=== PATIENT | female | born 1955 | race Caucasian/White ===

== ENCOUNTER 2020-01-02 13:00 | Outpatient (RCR) | payer BC, SELFPAY ==
[2019-12-26 08:30] VITALS: RESP 18; TEMP 36.2
--- NOTE | 2019-12-26 09:04 | PCM.WC.PN ---
(1) Lymphedema Status: Acute Current Visit: Yes Code(s): I89.0 - Lymphedema, not elsewhere classified (2) Cellulitis of lower extremity Status: Acute Current Visit: Yes Code(s): L03.119 - Cellulitis of unspecified part of limb (3) Morbid obesity with BMI of 45.0-49.9, adult Status: Acute Current Visit: Yes Code(s): E66.01 - Morbid (severe) obesity due to excess calories; Z68.42 - Body mass index (BMI) 45.0-49.9, adult (4) PAD (peripheral artery disease) Status: Acute Current Visit: Yes Code(s): I73.9 - Peripheral vascular disease, unspecified (5) PVD (peripheral vascular disease) Status: Acute Current Visit: Yes Code(s): I73.9 - Peripheral vascular disease, unspecified Type of Wound Date of Service: 12/26/19 Chief Complaint: Follow-up on lymphedema bilateral lower legs History of Wound: 64-year-old white morbid obesity woman. 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 She has developed lymphedema over the years. Moved here from [place] and was going to the wound center there that was wrapping her legs. Because of her sciatica pain she has been unable to wrap her own legs and therefore has gotten worse. Right leg is much bigger than the left leg. We will get vascular studies and send her to lymphedema clinic for wrappings. Progress of Wound: Today bilateral lower legs are extremely large right leg bigger than left leg no open wounds to the skin cellulitis in the bilateral reid area. Ordering studies done of her legs and lymphedema clinic. She is a controlled diabetic type II. Patient would like to discuss liposuction for the lymphedema. - Physical Exam Vital Signs Temp Resp 97.2 F L 18 12/26/19 08:30 12/26/19 08:30 General: Oriented x3, Cooperative, Well developed HEENT: Atraumatic, PERRLA Oral: Moist Mucosa Neck: Supple, No JVD Lungs: Clear to auscultation, Normal air movement Cardiovascular: Regular rate, Regular Rhythm Abdomen: Bowel Sounds Present, Soft, Non Tender, No Hepato-splenomegaly Extremities: No clubbing, No edema, Edema Skin: Rash Present - Shins bilaterally with cobblestoning skin Wound Measurements and Assessment WC - Nurse 1 - General Ulcer Measurement Start: 12/26/19 08:30 Freq: Status: Active Protocol: Activity Type Activity Date Activity User E-Sign Co-Sign Detail Recorded Client Recorded Date Recorded By Document 12/26/19 08:30 BMF [id number] 12/26/19 08:44 BMF 12/26/19 08:30 Wound Center Nurse 1 [Edema Assessment] -Lower Limb Edema Present Yes -Right Calf (cm) 70.5 -Right Ankle (cm) 38.6 -Left Calf (cm) 58.9 -Left Ankle (cm) 38 WC - Nurse 2 - General Ulcer CM Notes Start: 12/26/19 08:30 Freq: Status: Active Protocol: Activity Type Activity Date Activity User E-Sign Co-Sign Detail Recorded Client Recorded Date Recorded By Document 12/26/19 08:55 MW [id number] 12/26/19 08:56 MW 12/26/19 08:55 Pain Scale: 0-10 Numeric [Pain] -Is Patient Pain Free? Yes Musculoskeletal: No Tenderness to Palpation of Joints or Extremities Lymphatic: No Cervical, Supraclavicular, or Inguinal Adenopathy Neurological: Cranial nerves II-XII grossly intact, Neuro grossly intact Psych/Mental Status: Normal Affect, Appropriate Debridement Note Post-Debridement Measurements/Treatment WC - Nurse 2 - General Ulcer CM Notes Start: 12/26/19 08:30 Freq: Status: Active Protocol: Activity Type Activity Date Activity User E-Sign Co-Sign Detail Recorded Client Recorded Date Recorded By Document 12/26/19 08:55 MW [id number] 12/26/19 08:56 MW 12/26/19 08:55 Pain Scale: 0-10 Numeric Is Patient Pain Free? Yes No debridement was completed today Assessment/Plan Active Problems Lymphedema (Acute) Cellulitis of lower extremity (Acute) Morbid obesity with BMI of 45.0-49.9, adult (Acute) PAD (peripheral artery disease) (Acute) PVD (peripheral vascular disease) (Acute) Assessment: Lymphedema. Cellulitis bilateral lower legs. Morbid obesity. Peripheral vascular disease Plan: Get vascular studies done ROSALINA. Follow-up with the lymphedema clinic. Follow-up in a couple of weeks
--- NOTE | 2020-01-02 13:34 | VDLE_ITS ---
Reason For Study: Edema RIGHT LEFT CFV is compressible, spontaneous, phasic, CFV is compressible, spontaneous, phasic, competent and demonstrates normal competent, and demonstrates normal augmentation. augmentation. FV is compressible, spontaneous, phasic, FV is compressible, spontaneous, phasic, competent and demonstrates normal competent and demonstrates normal augmentation. augmentation. POP V is compressible, spontaneous, phasic, POP V is compressible, spontaneous, phasic, competent and demonstrates normal competent and demonstrates normal augmentation. augmentation. T/P Trunk is compressible. T/P Trunk is compressible. PTV is compressible. PTV is compressible. FV distal and peroneal vein not visualized FV distal and peroneal vein not visualized due to pt body habitus. due to pt body habitus. SFJ is competent and measures 1.09 x 1.40 Nonvascularized structure noted in the cm. popliteal space measuring approximently 1.78 GSV proximal thigh measures 0.52 x 0.46 cm. x 3.78 x 7.49 cm. GSV at knee measures 0.39 x 0.44 cm. SFJ is competent and measures 1.21 x 1.17 cm. GSV is competent throughout. GSV proximal thigh measures 0.81 x 0.91 cm. SSV at junction is competent and measures GSV at knee measures 0.39 x 0.43 cm. 0.29 x 0.33 cm. GSV is competent throughout. Procedure SSV at junction is competent and measures Exam performed in department. 0.25 x 0.27 cm. Technically difficult study due to pt body habitus. A preliminary report was called and/or faxed to . Interpretation Summary Deep veins of the lower extremities are bilaterally patent and compressible segmentally. There is no evidence of deep vein thrombosis on either side. Valvular competence appears intact within the proximal deep venous systems bilaterally. The great saphenous veins appear bilaterally patent and compressible segmentally. The distal femoral veins and peroneal veins were not visualized on either side due to the patient's body habitus. Sapheno-femoral junctions are bilaterally competent . Valvular competence appears to be intact segmentally within the great saphenous veins bilaterally. Small saphenous veins are patent and competent bilaterally. A non-vascular, hypoechoic structure is noted in the left popliteal space, measuring 1.78 cm x 3.78 cm x 7.49 cm. This probably represents a popliteal cyst. Clinical correlation is advised. Ordering Physician: Faby Lanza Referring Physician: Sofi Miranda Performed By: Leyda Ann RVT
--- NOTE | 2020-01-02 13:34 | ART_ITS ---
Reason For Study: PAD Procedure A bilateral lower extremity continuous wave Doppler with analog waveform analysis,segmental pressures,and ankle brachial indexes without exercise. Left Segmental Pressures Left brachial= 148mmHg. Left posterior tibial artery = 209mmHg. Left dorsalis pedis artery = 181mmHg. Left digit = 114 mmHg. The left dorsalis pedis waveforms are triphasic. The left posterior tibial artery waveforms are triphasic. Right Segmental Pressures Right brachial= 154mmHg. Right posterior tibial artery = 215mmHg. Right dorsalis pedis artery = 188mmHg. Right digit = 116 mmHg. The right dorsalis pedis waveforms are triphasic. The right posterior tibial artery waveforms are triphasic. Indices The right ankle brachial index by the dorsalis pedis is 1.22. The right ankle brachial index by the posterior tibial artery is 1.40. The right digital-brachial index is 0.75. The left ankle brachial index by the dorsalis pedis is 1.18. The left ankle brachial index by the posterior tibial artery is 1.36. The left digital-brachial index is 0.74. Interpretation Summary Triphasic Doppler waveforms are noted at ankle level bilaterally. Pulse-volume recordings appear satisfactory at all levels bilaterally. Resting ankle-brachial indices are normal bilaterally. Digital-brachial indices are normal bilaterally. There is no evidence of significant arterial occlusive disease in the lower extremities bilaterally. Ordering Physician: Faby Lanza Referring Physician: Sofi Miranda Performed By: Leyda Ann RVT and Student
== END 2020-01-14 23:59 ==
LOC: CVS 13:00
PROVIDERS: PCP Nurse Practitioner; Referring Provider Nurse Practitioner; Visit Provider Nurse Practitioner
DX: R60.0 Localized edema (principal); I73.9 Peripheral vascular disease, unspecified
CPT/HCPCS: 93923; 93970; 99203; G0463

== ENCOUNTER 2020-01-29 14:00 | Outpatient (RCR) | payer BC, SELFPAY ==
--- NOTE | 2019-12-11 15:08 | HP.PTEVAL_ITS ---
Patient's Visit Information ANGEL PATTERSON is a 64 year old F referred to Physical Therapy by Dr. Aakash Yin MD with a diagnosis of BACK PAIN AND LEG PAIN. Date of Evaluation: 12/11/19 Physical Therapist: Romeo Fraire, PT, Cert MDT, OCS - Visit Plan Frequency: 2x /Week Duration: 6 Weeks Plan: PT INTERVENTIONS AQUATIC THERAPY FOR LUMBAR ROM,DLS ,LE FLEXABILITY /STRENGTHENING,POSTURAL EX'S - Subjective This 64 y/o female presents to physical therapy with back pain and leg pain. Patient has had lumbar sciatica symptoms for 2 years. Patient just moved in [place] August 2019. Patient seen DR Martinez had injection last L-S region d ecreased pain. Patient has had multipe injections ,cuadal and ablashain. Patient seen DR in [place] recommended possible surgery. Patient pain located L-S left buttuck with no symptoms in hamstrings which improved. Aggaraveting factors 10min standing,walking,bending,,lifing. Alleviating factors sitting, resting. Denies in legs. Coughing/sneezing-. Bowel/bladder-. Sleeping good. MEDS gabepetin,relfan,bacoflin.COMRBTIES: HTN,depression ,right TKR,athroscopic surgery,tumur removed abdominal,lyphedema,abdominal hernia.Patient condition affects ADL'S ,housework tasks and function. Patient condition affects QOL.NO recent MRI. SOCIAL: single. VOCATION: retired nurse - Pain Left Back Pain Intensity (Out of 10): 2 Pain Intensity Range: 10 Left Buttocks Pain Intensity (Out of 10): 4 Pain Intensity Range: 10 - Objective POSTURE: mild foward posture ,knee valgus ,recurvatum. OBSERVATION: abdominal distension from hernia. GAIT: reciprocal pattern waddle gait antalgic decrease stand hip/knee flexion with cane. BALANCE: Good - with cane. LUMBAR ROM: flexion mod loss,extension min loss,side glides min loss. FLEXABLITY: hams mild tight. MMT: quads/hams 4-/5,hip fexion 4-/5,ankle 4/5. - Special Tests L/S Slump test left side: Negative L/S Slump test right side: Negative L/S Left Straight Leg Raise: Negative L/S Right Straight Leg Raise: Negative - Goals Goal 1:: Independant with Aquatic therapy . Goal Time Frame: 4-6 Weeks Goal 2:: Patient to decrease lumbar and leg pain by 50% or > to improve function Goal Time Frame: 4-6 Weeks Goal 3:: Patient to improve lumbar ROM for function of recovery. Goal Time Frame: 4-6 Weeks Goal 4:: Patient increase strength by 4/5 to improve function with ADLS' Goal Time Frame: 4-6 Weeks Goal 5:: Patient to improve back owestry score 5 points or > to improve QOL. Goal Time Frame: 4-6 Weeks - Rehabilitation Potential Physical Therapy Diagnosis: This patient has multiple comorbities along with lumbar pain with radicular symptoms with pain,decrease ROM,strength impairs function with gait and ADL's thus benifit from skilled PT Rehabilitation Potential: Good - Anticipated Interventions Patient/Client Instruction: Educate patient on: Condition, Plan of Care For the Purpose of:: To decrease pain, To decrease swelling/inflammation, To improve muscle performance and motor function, To improve ability to perform ADL's, To increase tolerance to activity/condition/position, To improve performance and independence with ADL's, To improve ability of physical actions for home/community/work/leisure, To improve health of tissue, To decrease soft tissue restriction, To increase flexibility/ROM, To assume or resume ADL's, To reduce risk of recurrence, To improve ability to perform tasks related to life management Therapeutic Exercise to Include: Strength training, Postural training, Flexibilty training, In an aquatic setting, Dynamic Lumbar Stabilization For the Purpose of:: To decrease pain, To improve nutrient delivery to tissue, To improve muscle performance and motor function, To improve ability to perform ADL's, To increase tolerance to activity/condition/position, To improve ability of physical actions for home/community/work/leisure, To improve gait and locomotor functions, To decrease soft tissue restriction, To increase flexibility/ROM, To reduce risk of recurrence, To improve ability to perform tasks related to life management Thank you for the opportunity to evaluate your patient. For Medicare and Medicare HMO plans, please review the plan of care and approve it. It will need to be FAXED BACK to us at [phone] for Medicare purposes. For Medicare only, by signing this I certify the plan of care. Please let me know if there are questions or concerns regarding this plan of care. Physician Signature: Date:____
--- NOTE | 2020-05-14 13:28 | HP.PT.NRP ---
ANGEL PATTERSON was seen in my office for initial evaluation on 12/11/19. The following Plan of Care was established for this patient: Initial Frequency: 2x /Week Initial Duration: 6 Weeks Patient/Client Instruction: Educate patient on: Condition, Plan of Care For the Purpose of:: To decrease pain, To decrease swelling/inflammation, To improve muscle performance and motor function, To improve ability to perform ADL's, To increase tolerance to activity/condition/position, To improve performance and independence with ADL's, To improve ability of physical actions for home/community/work/leisure, To improve health of tissue, To decrease soft tissue restriction, To increase flexibility/ROM, To assume or resume ADL's, To reduce risk of recurrence, To improve ability to perform tasks related to life management Therapeutic Exercise to Include: Strength training, Postural training, Flexibilty training, In an aquatic setting, Dynamic Lumbar Stabilization For the Purpose of:: To decrease pain, To improve nutrient delivery to tissue, To improve muscle performance and motor function, To improve ability to perform ADL's, To increase tolerance to activity/condition/position, To improve ability of physical actions for home/community/work/leisure, To improve gait and locomotor functions, To decrease soft tissue restriction, To increase flexibility/ROM, To reduce risk of recurrence, To improve ability to perform tasks related to life management This patient was last seen in our office . Pertinent comments regarding their Physical therapy will appear below: Patient was seen for PT for back and leg pain 8 visits for Aquatic Therapy thus is d/c. At this point I will be discontinuing this patient from physical therapy. I would be happy to see this patient again in the future if found appropriate by the physician. Thank you! Romeo Fraire, PT, Cert MDT, OCS
== END 2020-01-29 19:00 | disposition home or self-care (01) ==
LOC: PT 14:00
PROVIDERS: PCP Nurse Practitioner; Referring Provider Anesthesiology Pain Medicine; Visit Provider Anesthesiology Pain Medicine
DX: M54.9 Dorsalgia, unspecified (principal); M79.606 Pain in leg, unspecified
CPT/HCPCS: 97113; 97162

== ENCOUNTER 2020-02-20 10:39 | Outpatient (RCR) | payer BC, SELFPAY ==
[2020-01-15 00:19] VITALS: RESP 18; TEMP 36.2
[2020-02-20 10:51] VITALS: BP 179/68; PULSE 77; RESP 18; TEMP 36.8
--- NOTE | 2020-02-20 12:58 | PN.PCM_ITS ---
(1) Cellulitis of lower extremity Status: Acute Current Visit: No Code(s): L03.119 - Cellulitis of unspecified part of limb (2) Lymphedema Status: Acute Current Visit: Yes Code(s): I89.0 - Lymphedema, not elsewhere classified (3) Morbid obesity with BMI of 45.0-49.9, adult Status: Acute Current Visit: Yes Code(s): E66.01 - Morbid (severe) obesity due to excess calories; Z68.42 - Body mass index [BMI] 45.0-49.9, adult Type of Wound Date of Service: 02/20/20 Chief Complaint: Follow-up on lymphedema bilateral lower legs History of Wound: 64-year-old white morbid obesity woman. 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 She has developed lymphedema over the years. Moved here from [place] and was going to the wound center there that was wrapping her legs. Because of her sciatica pain she has been unable to wrap her own legs and therefore has gotten worse. Right leg is much bigger than the left leg. We will get vascular studies and send her to lymphedema clinic for wrappings. Progress of Wound: Day we went over her arterial brachial and venous studies and she has no blockages noted. Patient was referred again she never went to [facility]. She was discharged from the wound center and will referred over to lymphedema clinic. - Physical Exam Vital Signs Temp Pulse Resp BP 98.2 F 77 18 179/68 H 02/20/20 10:51 02/20/20 10:51 02/20/20 10:51 02/20/20 10:51 General: Oriented x3, Cooperative, Well developed HEENT: Atraumatic, PERRLA Oral: Moist Mucosa Neck: Supple, No JVD Lungs: Clear to auscultation, Normal air movement Cardiovascular: Regular rate, Regular Rhythm Abdomen: Bowel Sounds Present, Soft, Non Tender, No Hepato-splenomegaly Extremities: No clubbing, No edema Wound Measurements and Assessment WC - Nurse 1 - General Ulcer Measurement Start: 02/20/20 10:51 Freq: Status: Active Protocol: Activity Type Activity Date Activity User E-Sign Co-Sign Detail Recorded Client Recorded Date Recorded By Document 02/20/20 10:51 RB [id number] 02/20/20 10:54 RB 02/20/20 10:51 Wound Center Nurse 1 [Edema Assessment] -Lower Limb Edema Present Yes -Right Calf (cm) 72 -Right Ankle (cm) 41 -Left Calf (cm) 53 -Left Ankle (cm) 42.5 WC - Nurse 2 - General Ulcer CM Notes Start: 02/20/20 10:51 Freq: Status: Active Protocol: Activity Type Activity Date Activity User E-Sign Co-Sign Detail Recorded Client Recorded Date Recorded By Document 02/20/20 11:22 MW [id number] 02/20/20 11:29 MW 02/20/20 11:22 Pain Scale: 0-10 Numeric [Pain] -Is Patient Pain Free? Yes - Nurse 3 - General Ulcer D/C NN Start: 02/20/20 10:51 Freq: Status: Active Protocol: Activity Type Activity Date Activity User E-Sign Co-Sign Detail Recorded Client Recorded Date Recorded By Document 02/20/20 11:30 MW [id number] 02/20/20 11:30 MW 02/20/20 11:30 - Visit Discharge [Visit Discharge Information] -Discharge Condition Stable -Ambulatory Status Ambulatory -Transportation Private Auto -Accompanied by family -Medication Reconcilliation completed No & provided to patient/care provider -Clinical Summary of Care Provided Yes Musculoskeletal: No Tenderness to Palpation of Joints or Extremities Lymphatic: No Cervical, Supraclavicular, or Inguinal Adenopathy Neurological: Cranial nerves II-XII grossly intact, Neuro grossly intact Psych/Mental Status: Normal Affect, Appropriate Debridement Note Post-Debridement Measurements/Treatment - Nurse 2 - General Ulcer CM Notes Start: 02/20/20 10:51 Freq: Status: Active Protocol: Activity Type Activity Date Activity User E-Sign Co-Sign Detail Recorded Client Recorded Date Recorded By Document 02/20/20 11:22 MW [id number] 02/20/20 11:29 MW 02/20/20 11:22 Pain Scale: 0-10 Numeric Is Patient Pain Free? Yes - Nurse 3 - General Ulcer D/C NN Start: 02/20/20 10:51 Freq: Status: Active Protocol: Activity Type Activity Date Activity User E-Sign Co-Sign Detail Recorded Client Recorded Date Recorded By Document 02/20/20 11:30 MW [id number] 02/20/20 11:30 MW 02/20/20 11:30 WC - Visit Discharge Discharge Condition Stable Ambulatory Status Ambulatory Transportation Private Auto Accompanied by family Medication Reconcilliation completed & No provided to patient/care provider Clinical Summary of Care Provided Yes No debridement was completed today Assessment/Plan Active Problems Lymphedema (Acute) Morbid obesity with BMI of 45.0-49.9, adult (Acute) Assessment: Lymphedema. Cellulitis bilateral lower legs resolved. Morbid obesity Plan: Charge from the wound center follow-up with the lymphedema clinic if she should develop any wounds he may return. Follow-up as needed
== END 2020-03-15 23:59 ==
LOC: CVS 10:39
PROVIDERS: PCP Nurse Practitioner; Referring Provider Nurse Practitioner; Visit Provider Nurse Practitioner
DX: R60.0 Localized edema (principal); I73.9 Peripheral vascular disease, unspecified
CPT/HCPCS: 99212; G0463

== ENCOUNTER 2020-03-27 13:07 | Outpatient (RCR) | payer BC, SELFPAY ==
--- NOTE | 2020-03-28 08:39 | HP.OTEVAL_ITS ---
Patient's Visit Information ANGEL PATTERSON is a 64 year old F, referred to Occupational Therapy by Sofi Miranda, JOSELITO-Willow, with a diagnosis of lymphedema. Date of Evaluation: 03/27/20 Occupational Therapist: Yolanda Roque, LENNYR/Venkatesh, CHT - Subjective This 64 year old female was seen for OT eval with dx of LE lymphedema. Pt states since 2018. pt is white morbid obesity woman. 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 She has developed lymphedema over the years. Moved here from [place] and was going to the wound center there that was wrapping her legs. Because of her sciatica pain she has been unable to wrap her own legs and therefore has gotten worse. Sister is there to help but with waps falling down they were causing pain. Right leg is much bigger than the left leg. As leg size affects pts functional mobility and quality of life she would like to know what she can do to mtg. her leg swelling. - Goals Demonstrate a 20% reduction in edema by d/c: Yes Demonstrate adequate knowledge of self-bangaging by 1st week: Yes Demonstrate adequate knowledge of self-massage by 2nd week: Yes Demonstrate adequate knowledge skin care/prec by 2nd week: Yes Select approp compression garment w/donning/care/wear by d/c: Yes Voice need to replace compression garment every 4-6mo by dc: Yes - Rehabilitation General Assessment: Pt demo with stage III lymphedema. pt would benefit from skilled OT services to undergo compression wraps to get limbs down in size to fit in compression socks. Therapist ed. pt on skin care and lymph stim ex. This therapist ed. pt on difference between short stretch bandages and alia wraps. (pt not receptive to wrapping-as she just feels her sciatic is under control and she has more mobility but if she wraps, she will lose her mobility). therapist ed, pt on Velcro closure device and found brand that pt would fit in but pt not receptive. therapist ed pt on need of some type of compression to stimulate circulation and soften tissue. Pt demo understanding and sister as well but pt not receptive to wraps or wrap alternatives- Therapist ed. pt to try compression leggings. pt receptive to legging. therapist gave info on websites to investigate leggings. leggings are a questionable tx as the offer min. compression. Pt and sister were inquiring about a liposuctions treatment and feel this would be a better choice for pt at this time. Therapist advised pt to schedule apt and discuss with doctor/surgeon as therapist did not know what requirements pt needed to meet. Pt to call if they wanted to pursue short stretch wrapping. Rehabilitation Potential: Questionable - Anticipated Interventions Education re assistive Equipment, Education re Diagnosis, Manual Lymph Drainage, Education re Life-long lymphedema Management, Education re Self-Bandaging Techniques, Education re Skin Care and Precautions, Education re Self Massage Techniques, Education re Correct Donning Tech,Care&Wearing Sched Comp Garments, Caregiver Training, Home Program - Visit Plan Frequency: 1-2x /Week Duration: 4 Weeks TEXT: Thank you for the opportunity to evaluate your patient. For Medicare and Medicare HMO plans, please review the plan of care and approve it. It will need to be FAXED BACK to us at [phone] for Medicare purposes. Please let me know if there are questions or concerns regarding this plan of care. Physician Signature: Date:
--- NOTE | 2020-10-22 12:47 | HP.OTDCNRP_ITS ---
ANGEL PATTERSON was seen in my office for initial evaluation on 03/27/20. The following Plan of Care was established for this patient: Initial Frequency: 1-2x /Week Initial Duration: 4 Weeks Anticipated Interventions: Education re assistive Equipment, Education re Diagnosis, Manual Lymph Drainage, Education re Life-long lymphedema Management, Education re Self-Bandaging Techniques, Education re Skin Care and Precautions, Education re Self Massage Techniques, Education re Correct Donning Tech,Ca re&Wearing Sched Comp Garments, Caregiver Training, Home Program This patient was last seen in our office 03/27/20. Pertinent comments regarding their Occupational therapy will appear below: Pt demo with stage III lymphedema. pt would benefit from skilled OT services to undergo compression wraps to get limbs down in size to fit in compression socks. Therapist ed. pt on skin care and lymph stim ex. This therapist ed. pt on difference between short stretch bandages and alia wraps. (pt not receptive to wrapping-as she just feels her sciatic is under control and she has more mobilit y but if she wraps, she will lose her mobility). therapist ed, pt on Velcro closure device and found brand that pt would fit in but pt not receptive. therapist ed pt on need of some type of compression to stimulate circulation and soften tissue. Pt demo understanding and sister as well but pt not receptive to wraps or wrap alternatives- Therapist ed. pt to try compression leggings. pt receptive to legging. therapist gave info on websites to investigate leggings. leggings are a questionable tx as the offer min. compression. Pt and sister were inquiring about a liposuctions treatment and feel this would be a better choice for pt at this time. Therapist advised pt to schedule apt and discuss with doctor/surgeon as therapist did not know what requirements pt needed to meet. Pt to call if they wanted to pursue short stretch wrapping. pt has not returned to clinic and due to time lapse in services pt d/c. At this point I will be discontinuing this patient from occupational therapy. I would be happy to see this patient again in the future if found appropriate by the physician. Thank you! Yolanda Roque, OTR/L, CHT
== END 2020-03-27 19:00 | disposition home or self-care (01) ==
LOC: OT 13:07
PROVIDERS: PCP Nurse Practitioner; Referring Provider Nurse Practitioner; Visit Provider Nurse Practitioner
DX: I89.0 Lymphedema, not elsewhere classified (principal)
CPT/HCPCS: 97166

== ENCOUNTER → 2020-09-16 12:25 | Outpatient (CLI) | payer MEDICARE, OTHER, SELFPAY ==
--- NOTE | 2020-09-16 12:34 | BI_ITS ---
MAMMOGRAPHY - BILATERAL SCREENING REASON FOR EXAM: Female, 65 years old. Routine annual screening examination. PERTINENT HISTORY: Non-contributory. TECHNIQUE: Digital bilateral breast keshawn (3D mammographic acquisition) in the CC and MLO projections. 2-D mediolateral oblique (MLO) and craniocaudad (CC) views of both breasts were obtained. CAD: Full Field Digital Mammography with Computer Added Detection was performed. COMPARISON: No comparison mammograms available at this time. If any prior films become available, an addendum to this report can be generated. FINDINGS: Breast Composition: There are scattered areas of fibroglandular density. Cluster of amorphous calcifications are seen in the inferior slightly lateral aspect of the right breast. Biopsy is recommended. No other significant abnormalities are identified. BI/SCRN MAMM (CAD)W/KESHAWN BILAT IMPRESSION: Cluster of amorphous calcifications are seen in the inferior slightly lateral aspect of the right breast. Biopsy is recommended. ASSESSMENT CATEGORY: BIRADS Category 4: Suspicious - Biopsy Should Be Considered. A letter regarding these results will be sent to the patient by the facility within 30 days. Approximately 10% of breast cancers are not detected by mammography. A normal mammogram should not delay biopsy of a clinically suspicious abnormality. [id number] Electronically Signed: David Nicole MD at 13:48 EDT , Service support ,
--- NOTE | 2020-09-16 12:35 | BD_ITS ---
STUDY: DUAL ENERGY X-RAY ABSORPTIOMETRY / DXA REASON FOR EXAM: Female, 65 years old. [id number]. The patient is postmenopausal. Loss of height. TECHNIQUE: Bone Mineral Density (BMD) measurements of both forearms were obtained. COMPARISON: None. FINDINGS: Right Forearm: g/cm2 (0.963) / T-score (0.9) / Z-score (2.2) Left Forearm: g/cm2 (0.908) / T-score (0.2) / Z-score (1.6) BD/Dexa Bone Density/Append Skel IMPRESSION: The patient is considered normal as outlined below according to World A[employer] Organization (WHO) criteria with a low fracture risk. Reference Information: The T-score is the number of standard deviations above or below the standard which is normal for young adults at their peak bone mineral density. The World Health Organization (WHO) interprets the T-scores as follows: Above -1 Normal bone density Between -1 and -2.5 Osteopenia Equal to / or below -2.5 Osteoporosis As a practical clinical guideline, osteopenia may be graded as follows: Mild -1 through -1.5 Moderate -1.6 through -2.0 Severe -2.1 through -2.4 The Z-score is the number of standard deviations above or below age-matched controls. A Z-score of less than -1.5 would be considered abnormal. References: 1. NIH Osteoporosis and Related Bone Diseases www osteo.org 2. International Society for Clinical Densitometry www iscd.org 3. National Osteoporosis Foundation www nof.org Electronically Signed: David Nicole MD at 9:39 EDT , Service support ,
== END ==
PROVIDERS: PCP Nurse Practitioner; Referring Provider Nurse Practitioner; Visit Provider Nurse Practitioner
DX: Z12.31 Encounter for screening mammogram for malignant neoplasm of breast (principal); Z78.0 Asymptomatic menopausal state
CPT/HCPCS: 77063; 77067; 77081

== ENCOUNTER 2022-07-19 20:18 | Inpatient (IN) | payer MEDICARE, OTHER, SELFPAY ==
[2022-07-19 20:21] VITALS: BP 164/93; PULSE 134; RESP 18; TEMP 36.4; O2SAT 96
--- NOTE | 2022-07-19 22:11 | EKG12_ITS ---
Test Reason : DYSRHYTHMIA Blood Pressure : / mmHG Vent. Rate : 135 BPM Atrial Rate : 270 BPM P-R Int : 000 ms QRS Dur : 142 ms QT Int : 390 ms P-R-T Axes : 219 269 -47 degrees QTc Int : 585 ms Atrial flutter Right bundle branch block Abnormal ECG Confirmed by GWENDOLYN AGUAYO, ALIA ([id number]), acquisition editor JODY DESIR ([id number]) on 07/21/2022 10:24:35 AM Referred By: PL Confirmed By:ALIA SNOW MD
--- NOTE | 2022-07-19 22:13 | ED.VIS.LOWEX ---
HPI History of Present Illness Chief Complaint: Edema Informant: patient Narrative Narrative: Patient presents with redness swelling and pain to her right lower extremity. She states about 3 days ago she noted her right thigh just felt tight. But since then it has gotten progressively larger more red and more painful. It also involves the lower calf. She has had chills but has not checked her temperature. She is not short of breath. She has chronic lymphedema in her right leg is normally larger than her left but it is gotten significantly larger still in the last couple days. She had a DVT in this leg in approximately 1985. She was treated with Coumadin for 6 months. She has never had a DVT since. No recent trauma. [facility] Medical History Lymphedema PAD (peripheral artery disease) PVD (peripheral vascular disease) Home Medications Risedronate Sodium [Actonel] 30 mg PO DAILY 12/26/19 [History Last Taken Unknown] baclofen 20 mg tablet 20 mg PO Q12H 12/26/19 [History Last Taken Unknown] gabapentin 800 mg tablet 800 mg PO TID 12/26/19 [History Last Taken Unknown] hydrochlorothiazide 25 mg tablet 50 mg PO DAILY 12/26/19 [History Last Taken Unknown] lisinopril 20 mg tablet 20 mg PO DAILY 12/26/19 [History Last Taken Unknown] metformin 1,000 mg tablet 1,000 mg PO DAILY 12/26/19 [History Last Taken Unknown] metoprolol succinate 50 mg tablet,extended release 24 hr 50 mg PO DAILY 12/26/19 [History Last Taken Unknown] nabumetone 750 mg tablet 750 mg PO BID 12/26/19 [History Last Taken Unknown] omeprazole 20 mg capsule,delayed release 20 mg PO DAILY 12/26/19 [History Last Taken Unknown] vilazodone 10 mg (7)-20 mg (23) tablets in a titration pack 1 ea PO 12/26/19 [History Last Taken Unknown] cyanocobalamin (B12)-cobamamide 5,000 mcg-100 mcg sublingual tablet 1 ea SL DAILY 02/20/20 [History Last Taken Unknown] ergocalciferol (vitamin D2) 1,250 mcg (50,000 unit) capsule 50,000 unit PO Q7D 02/20/20 [History Last Taken Unknown] Allergy/AdvReac Type Severity Reaction Status Date / Time tobramycin Allergy PT UNSURE Verified 07/19/22 20:26 OF REACTION Social History Smoking Status: Never smoker ROS ROS ED Constitutional Constitutional ED: Reports subjective ENT ENT ED: Denies rhinorrhea Cardiovascular Cardiovascular: Denies chest pain Respiratory/Chest Respiratory/Chest: Denies cough Gastrointestinal Gastrointestinal: Denies nausea or vomiting Genitourinary Genitourinary ED: Denies dysuria Musculoskeletal Musculoskeletal: Reports other Details: Soreness of right leg with swelling. Integumentary Reports rash and other Details: New erythema and warmth of her right leg Neurologic Neurologic: Denies headache(s) Hematologic/Lymphatic Hematologic/Lymphatic: Reports other Details: She is on no anticoagulation now. ; Denies easy bleeding or easy bruising Allergic/Immunologic Allergic/Immunologic ED: Denies urticaria EXAM Physical Exam Narrative Exam Narrative: Patient is awake alert laying in bed. She looks comfortable despite her high heart rate. HEENT shows minimally dry mucous membranes no facial trauma. Neck difficult to assess Lungs are clear bilaterally. No pain with a deep breath. No hypoxia. She is 96% on room air and occasionally up to 98%. Heart is tachycardic but sounds regular. She has a history of a murmur but I am not able to hear that now. Abdomen has well-healed scars but no notable tenderness Extremities show a large extremities with lymphedema. However the right is significantly larger than the left. Swelling does not involve the foot. But she has a lot of erythema warmth and some tenderness to the anterior medial left lower leg area. She then has erythema warmth and tenderness more on the medial and posterior aspect of the right thigh. No blistering at this time. I am not able to feel a specific cord. Neurologically she is awake alert appropriate good informant for details. Const Vital Signs: 07/19/22 20:21 07/19/22 22:30 07/19/22 22:30 Temperature 97.5 F L 99 F Temperature Source Temporal Oral Pulse Rate 134 H 132 H Respiratory Rate 18 19 H Respiratory Effort Normal Non-Labored Respiratory Pattern Normal Blood Pressure 164/93 H 157/91 H Blood Pressure Mean 116 113 Pulse Ox 96 96 Oxygen Delivery Method Room Air Room Air MDM MDM MDM Narrative Medical decision making narrative: I discussed the case with the [employer] web[employer] portal developer who did ultrasound on her leg. She does not see any indication of DVT. There is some mild limitation of imagery around the knee but overall she got good images and does not see a DVT. Patient's white count is slightly elevated at 12.4 with a slight left shift with 81% neutrophils. Electrolytes show no marked abnormalities. Glucose is reasonably well controlled at 138. Lactic acid is normal at 1.2. I think the patient has cellulitis clinically. Negative DVT leans toward this also. Patient has been given antibiotics. We have also given her IV fluids with her high heart rate. Her heart rate varies from about 132-137. I think this is likely atrial flutter with a 2-1 block. She does not have a history of this. But it is also not causing her dyspnea or chest pain or any discomfort. I am reluctant at this point to give her meds to slow it down. She is on metoprolol and has taken it today. I would like to see if we can get the rate down with fluids initially. Part of this increased rate might be due to response to infection. I did discuss the case with the hospitalist who is in seeing the patient at this time. Lab Data Attestation: I reviewed the patient's lab results. Labs: Laboratory Results - last 24 hr 07/19/22 07/19/22 07/19/22 22:20 22:20 22:20 WBC 12.4 H RBC 4.37 Hgb 15.0 Hct 45.4 MCV 103.9 H MCH 34.3 H MCHC 33.0 RDW Std Deviation 51.9 H RDW Coeff of Tulio 13.6 Plt Count 155 MPV 11.4 Immature Gran % (Auto) 0.900 Neut % (Auto) 80.7 H Lymph % (Auto) 10.5 L [place] % (Auto) 4.7 Eos % (Auto) 2.7 Baso % (Auto) 0.5 Absolute Neuts (auto) 10.0 H Absolute Lymphs (auto) 1.30 Nucleated RBC % 0 Sodium 138 Potassium 4.3 Chloride 101 Carbon Dioxide 30.0 Anion Gap 7 BUN 17 Creatinine 1.03 H Estim Creat Clear Calc 38.59 Est GFR (MDRD) Af Amer 69 Est GFR (MDRD) Non-Af 57 L BUN/Creatinine Ratio 16.5 Glucose 138 H Lactic Acid 1.2 Calcium 10.6 H EKG Initial EKG: Comments: Presentation the patient's EKG done for tachycardia shows regular rhythm with a rate of 135. There does not appear to be any notable difference between RR intervals. This is possibly underlying atrial flutter with 2-1 block. No ventricular ectopy. She does have a right bundle pattern. Nonspecific diffuse ST and T wave changes. QRS duration and QTc are both long. There is no old available in our system for comparison. Discharge Plan Dx/Rx/DC Orders Clinical Impression: Cellulitis of lower extremity, Lymphedema, Atrial flutter with rapid ventricular response, Leukocytosis Disposition Disposition: Acute Care Hospital [facility]
--- NOTE | 2022-07-19 22:14 | US_ITS ---
EXAM: US DUPLEX BILATERAL LOWER EXTREMITIES VEINS CLINICAL INDICATION: BILATERAL SWELLING RT and gt;LT TECHNIQUE: Real-time duplex ultrasound scan of the bilateral lower extremity veins integrating B-mode two-dimensional vascular structure, Doppler spectral analysis, color flow Doppler imaging and compression. This report was created using [employer] report generation technology. COMPARISON: None. FINDINGS: LIMITATIONS: Limited due to patient body habitus. RIGHT DEEP VEINS: Unremarkable. No DVT in the right common femoral, femoral, proximal deep femoral or popliteal veins. The veins demonstrate normal color flow, are normally compressible, with normal phasic flow and/or augmentation response. RIGHT SUPERFICIAL VEINS: Unremarkable. No thrombus in the visualized right great saphenous vein. LEFT DEEP VEINS: Unremarkable. No DVT in the left common femoral, femoral, proximal deep femoral or popliteal veins. The veins demonstrate normal color flow, are normally compressible, with normal phasic flow and/or augmentation response. LEFT SUPERFICIAL VEINS: Unremarkable. No thrombus in the visualized left great saphenous vein. SOFT TISSUES: Bilateral calf edema. 6.8 x 1.5 cm left popliteal cyst. US/Venous Duplex Imag/[place] Extrem IMPRESSION: Limited due to patient body habitus. No evidence of DVT. Left popliteal cyst. Electronically Signed: Pearl Howard MD at 23:49 EST Reading Location ID and State: [id number] / Tel , Service support ,
[2022-07-19 22:25] VITALS: BMI 76.6
[2022-07-19 22:30] VITALS: BP 157/91; PULSE 132; RESP 19; TEMP 37.2; O2SAT 96
[2022-07-19 22:33] LABS: Basophil# 0.06 X10^3/uL; Basophil% 0.5 % (0-1); Eosinophil# 0.34 X10^3/uL; Eosinophils% 2.7 % (0-5); Hematocrit 45.4 % (37-47); Lymphocyte % 10.5 % (19-41); Mean Corpuscular Hgb 34.3 pg (27.0-32.0); Mean Corpuscular Volume 103.9 fL (81-99); Mean Platelet Vol. 11.4 fl (6.2-12.0); Monocyte# 0.58 X10^3/uL; Monocyte% 4.7 % (0-10); NRBC Flagged by Analyzer 0 % (0-5); Neutrophil % 80.7 % (47-70); Platelet Count 155 K/mm3 (150-450); RBC Distribution Width CV 13.6 % (11.6-14.6); RBC Distribution Width SD 51.9 fl (35.1-43.9); Red Blood Count 4.37 M/mm3 (4.2-5.4); White Blood Count 12.4 K/mm3 (4.4-11.0)
[2022-07-19 22:48] LABS: Anion Gap 7 (5-15); BUN 17 mg/dL (7-18); BUN/Creat Ratio 16.5 RATIO (10-20); Calcium,Total 10.6 mg/dL (8.5-10.1); Chloride 101 mmol/L (98-107); Creatinine, Serum 1.03 mg/dL (0.55-1.02); EST Glomerular Filtration Rate 57 mL/min (>60); Est Glom Filt Rate - Afr Amer 69 mL/min (>60); Estimated Creatinine Clearance 38.59 ml/min; Glucose 138 mg/dL (74-106); Potassium 4.3 mmol/L (3.5-5.1); Sodium Level 138 mmol/L (136-145)
[2022-07-19] MEDS: 0.9% Normal Saline 1,000 ML 1000 ML IV (22:53)
--- NOTE | 2022-07-19 23:06 | HP.PCM_ITS ---
HPI - General General Date of Admission: 07/19/22 Date of Service: 07/19/22 Chief Complaint: RLE redness, increased edema above baseline. HPI Narrative The patient is a 66 y/o F w/ PMHx: Hx remote DVT (RLE DVT, treated x 6 months with coumadin in ), Chronic BL LE Lymphedema (R> L chronically), Chronic pain syndrome with severe L knee OA and back pain following with Dr. Yin with routine injections/chronic gabapentin/chronic baclofen, HTN, HLD, Diabetes mellitus type II, Morbid obesity, GERD w/ Hx prior gastric ulcer/pancreatic p seudocyst, Hx prior pancreatitis who presents to the [facility] ED on 07/20/22 with history of increasing circumferential erythema to the right lower extremity primarily distally from ankle to knee, increased edema and discomfort initially reporting that 3 days prior she felt like her lower extremity was tight with onset of chills but no specific temperature check not improving and with then onset of erythema prompting ED evaluation. Patient has had a history of a remote DVT in 1985 with 6-month treatment with Coumadin but no history of VTE following. She denies any recent lacerations or abrasions. Patient denies any prior history of cardiac arrhythmia nor has she had any chest discomfort or dyspnea. Pain to the right lower extremity is at baseline however worse with palpation with activity, currently 3-4 out of 10 in severity with morphine being administered. Work-up in the ED included T99, heart rate 132, BP 157/91, respiratory rate 19, 96% on room air, CBC with WC 12.4, hemoglobin 15, platelet 155 with left shift, BMP with BUN/creatinine 17/1.03, glucose 138, lactic acid 1.2, right lower extremity duplex ultrasound with no obvious evidence of DVT, blood culture x2 pending per ED. In the ED patient ministered normal saline bolus, Unasyn 3 g IV x1 as well as morphine 4 mg IV x1. [facility] Medical History (Updated 07/20/22 @ 00:[address] Lillian Delgado MD) Chronic pain syndrome Diabetes mellitus, type 2 GERD (gastroesophageal reflux disease) History of gastric ulcer HLD (hyperlipidemia) HTN (hypertension) Lymphedema Morbid obesity with BMI of 45.0-49.9, adult PAD (peripheral artery disease) PVD (peripheral vascular disease) Home Medications Risedronate Sodium [Actonel] 30 mg PO DAILY 08/12/20 [History Last Taken Unknown] baclofen 20 mg tablet 20 mg PO Q12H 12/26/19 [History Last Taken Unknown] gabapentin 800 mg tablet 800 mg PO TID 12/26/19 [History Last Taken Unknown] lisinopril 20 mg tablet 20 mg PO DAILY 12/26/19 [History Last Taken Unknown] metformin 1,000 mg tablet 1,000 mg PO DAILY 12/26/19 [History Last Taken Unknown] metoprolol succinate 50 mg tablet,extended release 24 hr 50 mg PO DAILY 12/26/19 [History Last Taken Unknown] nabumetone 750 mg tablet 750 mg PO BID 12/26/19 [History Last Taken Unknown] omeprazole 20 mg capsule,delayed release 20 mg PO DAILY 12/26/19 [History Last Taken Unknown] vilazodone 10 mg (7)-20 mg (23) tablets in a titration pack 1 ea PO 12/26/19 [History Last Taken Unknown] cyanocobalamin (B12)-cobamamide 5,000 mcg-100 mcg sublingual tablet 1 ea SL DAILY 02/20/20 [History Last Taken Unknown] ergocalciferol (vitamin D2) 1,250 mcg (50,000 unit) capsule 50,000 unit PO Q7D 02/20/20 [History Last Taken Unknown] Allergy/AdvReac Type Severity Reaction Status Date / Time tobramycin Allergy PT UNSURE Verified 07/19/22 20:26 OF REACTION Family History (Updated 07/20/22 @ 00:[address] Lillian Delgado MD) Mother Non Hodgkin's lymphoma Father Kidney disease Heart disease Hypertension Myocardial infarction Surgical History (Updated 07/20/22 @ 00:[address] Lillian Delgado MD) H/O exploratory laparotomy History of dental surgery History of shoulder surgery History of tonsillectomy and adenoidectomy S/P total knee replacement Social History (Updated 07/20/22 @ 00:[address] Lillian Delgado MD) household members: other details: Lives with her sister and brother in law. Smoking Status: Never smoker alcohol intake: current alcohol intake frequency: holidays/special occasions only substance use type: does not use ROS ROS Narrative Admission Review of Systems: CONSTITUTIONAL: No weight loss, fever, + chills, weakness or fatigue. HEENT: Eyes: No visual loss, blurred vision, double vision or yellow sclerae. Ears, Nose, Throat: No hearing loss, sneezing, congestion, runny nose or sore throat. SKIN: + Right lower extremity significant erythema, circumferential. CARDIOVASCULAR: No chest pain, chest pressure or chest discomfort, palpitations, edema, orthopnea, syncopal events. RESPIRATORY: + Cough with seasonal changes. No shortness of breath, productive sputum, wheezing, hemoptysis. GASTROINTESTINAL: No anorexia, nausea, vomiting or diarrhea, abdominal pain, melena, BRBPR. GENITOURINARY: No dysuria, frequency, urgency or retention. NEUROLOGICAL: No headache, dizziness, syncope, paralysis, ataxia, numbness or tingling in the extremities, focal weakness, change in bowel or bladder control, seizure. MUSCULOSKELETAL: + muscle, back pain, joint pain or stiffness. HEMATOLOGIC: No anemia, bleeding or bruising. LYMPHATICS: No enlarged nodes. No history of splenectomy. PSYCHIATRIC: No history of depression or anxiety. ENDOCRINOLOGIC: No reports of sweating, cold or heat intolerance. No polyuria or polydipsia. ALLERGIES: No history of rhinitis. Vital Signs Vital Signs Vital Signs: 07/19/22 20:21 07/19/22 22:30 07/19/22 22:30 Temperature 97.5 F L 99 F Temperature Source Temporal Oral Pulse Rate 134 H 132 H Respiratory Rate 18 19 H Respiratory Effort Normal Non-Labored Respiratory Pattern Normal Blood Pressure 164/93 H 157/91 H Blood Pressure Mean 116 113 Pulse Ox 96 96 Oxygen Delivery Method Room Air Room Air Weight Weight: 392 lb 10.292 oz Body Mass Index (BMI) 76.6 Physical Exam Narrative Physical Examination: General: Awake, alert, oriented x 3 and cooperative, seated upright in the ED bed, no acute distress. Skin: Normal color, normal turgor, no icterus, no cyanosis except for notable right lower extremity circumferential erythema in the setting of significant ly mphedema from the ankle to the knee, warm to touch, increased edema above her prior baseline per review with patient. HEENT: AT/NC, EOMI, PERRLA, MMM, no carotid bruits or JVD noted; however, very thickened neck makes evaluation difficult. Lungs: Very distant breath sounds, greater bases, appropriate effort, no rales, ronchi or wheezing. Heart: Irregular irregular; no gallop, rub audible. Abdomen: Soft, morbidly obese, NTTP, unable to discern distention given habitus, distant bowel sounds, unable to discern HSM secondary to habitus. Extremities: No cyanosis, no clubbing, see skin, significant bilateral lower extremity lymphedema, right greater than left baseline however with acute presentation as noted #1 right lower extremity with increased edema. Neurological: Patient awake, alert, oriented as noted, cognitive function intact; pupils equally reactive to light and accommodation, cranial nerves II- XII grossly normal, moving all 4 extremities however extremely limited secondary to right lower extremity acute presentation as well as chronic pain, strength accordingly moderately to severely globally decreased. Psychiatric: Affect appears mildly fatigued, no acute evidence of depressive or anxiety feelings. Results Lab / Micro Data Result Diagrams: 07/19/22 22:20 07/19/22 22:20 Labs: Laboratory Results - last 24 hr 07/19/22 22:20: WBC 12.4 H, RBC 4.37, Hgb 15.0, Hct 45.4, MCV 103.9 H, MCH 34.3 H, MCHC 33.0, RDW Std Deviation 51.9 H, RDW Coeff of Tulio 13.6, Plt Count 155, MPV 11.4, Immature Gran % (Auto) 0.900, Neut % (Auto) 80.7 H, Lymph % (Auto) 10.5 L, Carbon % (Auto) 4.7, Eos % (Auto) 2.7, Baso % (Auto) 0.5, Absolute Neuts (auto) 10.0 H, Absolute Lymphs (auto) 1.30, Nucleated RBC % 0 07/19/22 22:20: Sodium 138, Potassium 4.3, Chloride 101, Carbon Dioxide 30.0, Anion Gap 7, BUN 17, Creatinine 1.03 H, Estim Creat Clear Calc 38.59, Est GFR (MDRD) Af Amer 69, Est GFR (MDRD) Non-Af 57 L, BUN/Creatinine Ratio 16.5, Glucose 138 H, Calcium 10.6 H Assessment & Plan Assessment/Plan (1) Atrial flutter with rapid ventricular response: (2) Cellulitis of lower extremity: PLAN: Plan The patient is a 66 y/o F w/ PMHx: Hx remote DVT (RLE DVT, treated x 6 months with coumadin in 1980s), Chronic BL LE Lymphedema (R> L chronically), Chronic pain syndrome with severe L knee OA and back pain following with Dr. Yin with routine injections/chronic gabapentin/chronic baclofen, HTN, HLD, Diabetes mellitus type II, Morbid obesity, GERD w/ Hx prior gastric ulcer/pancreatic pseudocyst, Hx prior pancreatitis who presents to the [facility] ED on 07/20/22 with history of increasing circumferential erythema to the right lower extremity primarily distally from ankle to knee, increased edema and discomfort initially reporting that 3 days prior she felt like her lower extremity was tight with onset of chills but no specific temperature check not improving and with then onset of erythema prompting ED evaluation. #1. RLE Extremity Cellulitis complicated by stage III lymphedema: Will admit to PCU given concurrent incidentally noted #2, maintain on IV unasyn, DVT US negative, no visible open wounds noted, does not mobilize frequently though secondary to pain, plan repeat CBC in AM, continue affected extremity elevation above heart when seated and in bed, place snug JONATHAN wraps if able to tolerate, monitor erythema outline with VS checks, PRN pain regimen. #2. Suspected Atrial flutter, new onset in setting of acute infection #1 w/ RVR: EKG in ED w/ atrial flutter with suspected 2:1. Given acute infection patient administered IVFs initially. Will maintain on telemetry, obtain cardiac enzyme serial set, obtain magnesium level, obtain ECHO, obtain TSH level. CHADs scoring appropriate for anticoagulation start thus will start eliquis with pending AM insurance evaluation per CM. Will repeat metoprolol dose x 1 now and alter her home regimen as needed. If ongoing elevated rate may consider cardizem drip. Given new onset and patient preference will request Cardiology evaluation. #3. Chronic Pain Syndrome: Following with Dr. Yin with routine injections, chronically on gabapentin and baclofen which be continued however will temporarily hold nabumetone given anticoagulation initiation as noted. Given acute pain with right lower extremity discomfort will have short course as needed oxycodone. #4. Diabetes mellitus type II: Hold oral home regimen, ADA diet, accu checks w/ ISS. Notes her last HgbA1c well below 7%. #5. Hypertension: Continue home regimen including lisinopril, metoprolol, hydrochlorothiazide, PRN hydralazine. #6. Hyperlipidemia: Not on regimen, FLP in AM. #7. Morbid Obesity: Weight loss and lifestyle changes encouraged, nutrition consulted. Patient's weight unfortunately has kept her from having left knee replacement which she attributes much of her immobility to and reports a lifestyle of minimal activity. Discussed consideration of Mounjaro outpatient and recommended she discuss this potential with her doctor. #8. GERD w/ history of Gastric Ulcer: We will continue patient on PPI. #9. History of prior VTE: Patient with history of remote right lower extremity DVT in the 1980s, treated with Coumadin x6 months with no recurrence. #10. DVT Prophylaxis: JONATHAN wraps as noted, Eliquis initiation as noted. #11. CODE status: Patient does not have healthcare power of senior trial attorney or living will set up with her sister would be her decision maker. Discussed CODE status at length including difference between FULL code, DNR-CCA and DNR-CC status. Following discussions about the differences in these status, requested very specifically that she have CPR if necessary for a maximum of 30 minutes but absolutely no intubation even if ROSC achieved. She is amenable to BiPAP and bagging but absolutely no intubation. Advanced Care Planning Face to Face Time: 17 minutes. Admission Evaluation Time spent evaluating chart, patient history, patient evaluation, care planning and discussion with specialists: 78 minutes. Charges/Coding Visit Charges Inpatient E&M: 23056 Init Hosp L3 Procedures Hospitalists Procedures: 02202 Advncd Care Plan 30 Min
[2022-07-19 23:14] LABS: Lactic Acid 1.2 mmol/L (0.4-1.9)
--- NOTE | 2022-07-19 23:22 | ED.RN ---
ANTIBIOTICS STARTED LATE IN ED, PT OFF UNIT FOR VENOUS DOPPLER
[2022-07-19] MEDS: Morphine 4 MG/ML Syringe IV (23:37)
[2022-07-19 23:54] VITALS: BP 184/91; PULSE 137; RESP 20; TEMP 36.9; O2SAT 95
[2022-07-19 23:57] LABS: Magnesium 1.6 mg/dL (1.6-2.6)
[2022-07-20] VITALS (49 sets, daily range): BP systolic 83–189; BP diastolic 45–105; PULSE 69–141; RESP 16–25; TEMP 36.9–38.3; O2SAT 88–97; BMI 73.4
[2022-07-20] MEDS: Morphine 4 MG/ML Syringe IV (00:45)
--- NOTE | 2022-07-20 01:56 | ECHOCS_ITS ---
Reason For Study: Afib/Flutter Procedure This was a 2D Doppler, Color Flow transthoracic echocardiogram. The study was technically difficult. Contrast injection was performed. Exam performed portable in patient room. Left Ventricle Based upon the 2D echocardiographic images obtained there appears to be normal left ventricular size, wall motion, systolic function. The estimated ejection fraction is 65 %. Unable to assess diastolic dysfunction. Right Ventricle Based upon the 2D echocardiographic images obtained there appears to be grossly normal right ventricular size and systolic function. Atria Normal left atrium. Normal right atrium. No doppler evidence for ASD. Mitral Valve There is mild mitral annular calcification. Extension of the mitral annular calcification onto the base of the posterior mitral valve leaflet. Trivial mitral valve insufficiency. Tricuspid Valve Normal tricuspid valve. Trivial tricuspid valve insufficiency. Unable to estimate RV systolic pressure/pulmonary artery pressure due to technically difficult study. Aortic Valve Trisinus/trileaflet aortic valve. Mild focal aortic valve calcification. Pulmonic Valve The pulmonic valve is not well visualized. Great Vessels The aortic root is not well visualized. Pericardium/Pleural No pericardial effusion. Medication Diluted definity 2.5ml given slow IV push to enhance endocardial definition. MMode/2D Measurements & Calculations LVIDd: 4.0 cm IVSd: 1.3 cm LAV(MOD-bp): 48.8 ml LVIDs: 3.0 cm LVPWd: 1.2 cm FS: 25.3 % LAV(MOD-bp) Indexed: 20.0 ml/m2 LAV(MOD-sp2): 46.5 ml LAV(MOD-sp4): 50.6 ml LA A4 area: 19.3 cm2 RA A4 area: 20.5 cm2 Doppler Measurements & Calculations MV E max marisa: 139.6 cm/sec MV V2 max: 135.4 cm/sec Ao V2 max: 152.7 cm/sec MV max P.4 mmHg Ao max P.4 mmHg MV V2 mean: 72.6 cm/sec MV mean P.7 mmHg MV V2 VTI: 23.4 cm LV V1 max: 121.3 cm/sec PA V2 max: 95.6 cm/sec LV V1 max P.9 mmHg ECHO/Echo Complete W/ Contrast Interpretation Summary The study was technically difficult. Contrast injection was performed. Based upon the 2D echocardiographic images obtained there appears to be normal left ventricular size, wall motion, systolic function. The estimated ejection fraction is 65 %. There is mild mitral annular calcification. Extension of the mitral annular calcification onto the base of the posterior mi tral valve leaflet. Trivial mitral valve insufficiency. Trivial tricuspid valve insufficiency. Mild focal aortic valve calcification. Unable to estimate RV systolic pressure/pulmonary artery pressure due to techni charles difficult study. Unable to assess diastolic dysfunction. Ordering Physician: Lillian Delgado Referring Physician: Alysa Whitt Performed By: Elijah Robledo RCS
[2022-07-20] MEDS: Metoprolol(XL)Succ 50 MG Tablet PO (02:43)
[2022-07-20] MEDS: 0.9% Normal Saline 1,000 ML 125 ML IV (02:43)
[2022-07-20] MEDS: APIXABAN 5 MG TABLET PO (02:43)
[2022-07-20 03:18] LABS: Troponin-I HS 229 pg/mL (3.0-54.0)
--- NOTE | 2022-07-20 03:56 | NURSING ---
JNI Larios to monitor pts vital signs due to pt being placed on cardizem gtt and also to manage cardizem gtt for pt.
[2022-07-20] MEDS: Acetaminophen 325 MG Tablet 650 MG PO ×3 (04:37→15:29)
[2022-07-20] MEDS: oxyCODONE 5 MG Tablet PO ×3 (04:37→15:29)
[2022-07-20 05:46] LABS: ALB/GLOB Ratio 0.8 RATIO (0.9-2.4); AST(SGOT) 19 U/L (15-37); Alanine Aminotransfer ALT/SGPT 26 U/L (13-56); Albumin, Serum 2.8 g/dL (3.2-5.0); Alkaline Phosphatase 92 U/L (45-117); Anion Gap 7 (5-15); BUN 14 mg/dL (7-18); BUN/Creat Ratio 15.8 RATIO (10-20); Calcium,Total 9.8 mg/dL (8.5-10.1); Chloride 105 mmol/L (98-107); Cholesterol 155 mg/dL (200); Creatinine, Serum 0.89 mg/dL (0.55-1.02); EST Glomerular Filtration Rate 68 mL/min (>60); Est Glom Filt Rate - Afr Amer 82 mL/min (>60); Estimated Creatinine Clearance 44.66 ml/min; Globulin 3.7 g/dL (2.2-4.2); Glucose 129 mg/dL (74-106); High Density Lipoprotein 24 mg/dL; Potassium 4.3 mmol/L (3.5-5.1); Protein, Total 6.5 g/dL (6.4-8.2); Sodium Level 136 mmol/L (136-145); Thyroid Stim Hormone (TSH) 2.27 uIU/mL (0.358-3.74); Triglycerides 160 mg/dL; Troponin-I HS 264 pg/mL (3.0-54.0); Very Low Density Lipoprotein 32 mg/dL (5-40)
--- NOTE | 2022-07-20 06:51 | NURSING ---
Rogelio vazquez per Dr. Delgado
--- NOTE | 2022-07-20 06:53 | PCM.HOSP.N ---
Hospitalist Note Cardizem not effective. Cardiology recommendation addition amiodarone and also change to heparin drip in case intervention needed and also recommended CTPA to be cautious also.
--- NOTE | 2022-07-20 06:55 | CT_ITS ---
STUDY: CTA CHEST REASON FOR EXAM: Female, 66 years old. Suspected PE RADIATION DOSAGE (If Supplied By Facility): CTDIvol = ( 42.49 ) mGy, DLP = ( 855.91 ) mGycm TECHNIQUE: The examination was performed with the intravenous administration of IV 100mL Isovue-370. Post-processing of the angiographic images was performed, with multiplanar reformation and 3D reconstruction. Limited study due to the patient body habitus. Individualized dose optimization techniques were used for this CT. COMPARISON: None. FINDINGS: Normal enhancement of the main pulmonary artery and right and left pulmonary arteries. Normal enhancement of the bilateral peripheral pulmonary arteries. There is no demonstrated pulmonary embolism. Normal thoracic aorta and visualized great vessels. There is no demonstrated aortic dissection. There are calcifications of the coronary arteries. There are visualized mediastinal lymph nodes, which are within normal size limits, and with normal morphology. Normal hilar regions. Normal visualized trachea and bronchi. The lungs are well expanded. Mild degree of increased markings at the right lung base suggestive of atelectasis. Normal pleura. Normal chest wall structures. There are degenerative changes of thoracic spine. Normal visualized upper abdomen. CT/CTA Chest W/WO Contrast IMPRESSION: Limited study due to patient''s body habitus. No evidence of pulmonary embolism. Increased markings at the right lung base suggestive of atelectasis. Electronically Signed: David Nicole MD at 9:01 [facility] ,
[2022-07-20 07:20] LABS: Bedside Glucose 142 mg/dL (74-106)
[2022-07-20] MEDS: 0.9% Saline Lock 10 ML Syringe IV ×3 (08:05→15:17)
[2022-07-20] MEDS: Amiodarone 360 MG in Dextrose 5% Viaflo Bag 192.8 ML 16.7 MG CONT INF ×2 (08:06→18:02)
[2022-07-20 08:25] LABS: International Normalized Ratio 1.3; Prothrombin Time (Protime)PT. 15.4 SECONDS (11.7-14.9)
[2022-07-20 08:26] LABS: Partial Thromboplast Time 34.8 Seconds (24.1-36.2)
[2022-07-20 08:33] LABS: Troponin-I HS 245 pg/mL (3.0-54.0)
[2022-07-20] MEDS: Gabapentin 800 MG Tablet PO ×2 (09:12→23:00)
[2022-07-20] MEDS: Baclofen 10 MG Tablet 20 MG PO ×2 (09:12→22:33)
[2022-07-20] MEDS: Pantoprazole Sodium 20 MG Tablet PO (09:12)
[2022-07-20 09:16] LABS: Absolute Lymphocyte Count 1.34 X10^3/uL (0.83-4.51); Absolute Neutrophil Count 11.4 X10^3/uL (2.0-7.7); Basophil# 0.05 X10^3/uL; Basophil% 0.4 % (0-1); Eosinophil# 0.31 X10^3/uL; Eosinophils% 2.2 % (0-5); Hematocrit 36.8 % (37-47); Hemoglobin 12.2 g/dL (12.0-15.0); Lymphocyte # 1.34 X10^3/ul (0.83-4.51); Lymphocyte % 9.5 % (19-41); Mean Corp Hgb Conc 33.2 g/dL (32-36); Mean Corpuscular Hgb 34.3 pg (27.0-32.0); Mean Corpuscular Volume 103.4 fL (81-99); Mean Platelet Vol. 11.4 fl (6.2-12.0); Monocyte# 0.86 X10^3/uL; Monocyte% 6.1 % (0-10); NRBC Flagged by Analyzer 0 % (0-5); Neutrophil # 11.37 X10^3/uL (2.7-7.7); Neutrophil % 80.7 % (47-70); Platelet Count 137 K/mm3 (150-450); RBC Distribution Width CV 13.5 % (11.6-14.6); Red Blood Count 3.56 M/mm3 (4.2-5.4); White Blood Count 14.1 K/mm3 (4.4-11.0)
[2022-07-20] MEDS: Heparin Injection (Vial) 5,000 UNIT/ML VIAL 14000 UNIT IV (09:16)
[2022-07-20] MEDS: HEPARIN/D5w 25,000 UNITS 25,000 UNITS/250 ML IV.SOLN. 21 UNITS CONT INF (09:24)
[2022-07-20] MEDS: guaiFENesin 10 ML UDC (200MG/10ML) PO ×2 (11:48→16:27)
[2022-07-20 12:15] LABS: Bedside Glucose 163 mg/dL (74-106)
[2022-07-20] MEDS: Nystatin Powder 15gm Bottle 1 APPLIC TOPICAL ×2 (13:05→22:34)
--- NOTE | 2022-07-20 13:25 | CASEMGMT ---
RN CM Face to Face with patient for initial transition planning/care coordination assessment. RN CM introduced self and role at [facility]. Patient lying in bed, alert and oriented, sister at bedside. Patient willing to participate in assessment and is able to answer all questions appropriately. Care providers, pharmacy, and demographics verified. Patient wishes to discharge home, denies need for home health at this time. Patient states she has no further needs or concerns at this time. CM to follow for discharge planning needs that may arise. PCP: Alysa Whitt NP Specialists: anibal Yin [facility] [place]: yes Living Will/HPOA: none LNOK: sister Living Arrangements: Patient lives with sister in a single story home with 2 steps and railing to enter the home. Patient states she is independent at home. Transportation: sister DME/HHC: Patient has built in shower seat, raised toilet, cane, grab bars, pulse ox, and glucometer with supplies at home. Disposition Plan: Patient to discharge home with family support and follow up plans in place. Leyda MELLO, RN, CM
--- NOTE | 2022-07-20 13:58 | PN_ITS ---
Subjective Subjective Patient seen and examined. She was admited with a complaint of right thigh swelling, concerning for cellulitis. She has been tachycardic and was started on cardizem and amiodarone drips. She still remains tachycardic. Patient was also running a fever. She states she feels lousy today. She denies any chest pain, palpitations, dizziness, nausea and vomiting. Review of systems is otherwise negative. Objective Data Objective Data Vital Signs: Vital Signs Temp Pulse Resp BP Pulse Ox O2 Del Method O2 Flow Rate 98.9 F 122 H 21 H 100/54 L 93 Room Air 2 07/20/22 12:05 07/20/22 13:00 07/20/22 13:00 07/20/22 13:00 07/20/22 13:00 07/20/22 13:00 07/20/22 11:00 Oxygen Flow Rate (L/min) 2 Oxygen Delivery Method Room Air Weight: 376 lb 1.738 oz Body Mass Index (BMI) 73.4 Intake & Output: Intake and Output for Last 24 Hours 07/18/22 07/19/22 07/20/22 23:59 23:59 23:59 Intake Total 3150.85 / 3150.85 Output Total 1000 / 1000 Balance 2150.85 / 2150.85 Lab / Micro Data Result Diagrams: 07/20/22 08:56 07/20/22 04:57 Labs: Laboratory Results - last 24 hr 07/19/22 22:20: WBC 12.4 H, RBC 4.37, Hgb 15.0, Hct 45.4, MCV 103.9 H, MCH 34.3 H, MCHC 33.0, RDW Std Deviation 51.9 H, RDW Coeff of Tulio 13.6, Plt Count 155, MPV 11.4, Immature Gran % (Auto) 0.900, Neut % (Auto) 80.7 H, Lymph % (Auto) 10.5 L, Blaine % (Auto) 4.7, Eos % (Auto) 2.7, Baso % (Auto) 0.5, Absolute Neuts (auto) 10.0 H, Absolute Lymphs (auto) 1.30, Nucleated RBC % 0 07/19/22 22:20: Sodium 138, Potassium 4.3, Chloride 101, Carbon Dioxide 30.0, Anion Gap 7, BUN 17, Creatinine 1.03 H, Estim Creat Clear Calc 38.59, Est GFR (MDRD) Af Amer 69, Est GFR (MDRD) Non-Af 57 L, BUN/Creatinine Ratio 16.5, Glucose 138 H, Calcium 10.6 H 07/19/22 22:20: Lactic Acid 1.2 07/19/22 22:20: Magnesium 1.6 07/20/22 02:50: Troponin I High Sens 229 H* 07/20/22 04:57: Sodium 136, Potassium 4.3, Chloride 105, Carbon Dioxide 24.0, Anion Gap 7, BUN 14, Creatinine 0.89, Estim Creat Clear Calc 44.66, Est GFR (MDRD) Af Amer 82, Est GFR (MDRD) Non-Af 68, BUN/Creatinine Ratio 15.8, Glucose 129 H, Calcium 9.8, Total Bilirubin 0.70, AST 19, ALT 26, Alkaline Phosphatase 92, Troponin I High Sens 264 H*, Total Protein 6.5, Albumin 2.8 L, Globulin 3.7, Albumin/Globulin Ratio 0.8 L, Triglycerides 160, Cholesterol 155, LDL Cholesterol 99, VLDL Cholesterol 32, HDL Cholesterol 24 L, TSH 2.27 07/20/22 06:18: POC Glucose 142 H 07/20/22 08:00: WBC Cancelled, Corrected WBC Cancelled, RBC Cancelled, Hgb Cancelled, Hct Cancelled, MCV Cancelled, MCH Cancelled, MCHC Cancelled, RDW Std Deviation Cancelled, RDW Coeff of Tulio Cancelled, Plt Count Cancelled, MPV Cancelled, Immature Gran % (Auto) Cancelled, Neut % (Auto) Cancelled, Lymph % (Auto) Cancelled, Blaine % (Auto) Cancelled, Eos % (Auto) Cancelled, Baso % (Auto) Cancelled, Absolute Neuts (auto) Cancelled, Absolute Lymphs (auto) Cancelled, Total Counted Cancelled, Neutrophils % (Manual) Cancelled, Band Neutrophils % Ca ncelled, Lymphocytes % (Manual) Cancelled, Monocytes % (Manual) Cancelled, Eosinophils % (Manual) Cancelled, Basophils % (Manual) Cancelled, Metamyelocytes % Cancelled, Myelocytes % Cancelled, Promyelocytes % Cancelled, Blast Cells % Cancelled, Plasma Cell % (Manual) Cancelled, Other Cells % Cancelled, Nucleated RBC % Cancelled, Nucleated RBCs/100 WBC Cancelled, Differential Comment Cancelled, Diff Path Review Cancelled, Hypersegmented Neuts Cancelled, Atypical Lymphocytes Cancelled, Reactive Lymphocytes Cancelled, Smudge Cells Cancelled, Toxic Granulation Cancelled, Toxic Vacuolation Cancelled, Dohle Bodies Cancelled, Evelia Rods Cancelled, Platelet Estimate Cancelled, Plt Morphology Comment Cancelled, RBC Morphology Cancelled, Polychromasia Cancelled, Hypochromasia Cancelled, Poikilocytosis Cancelled, Basophilic Stippling Cancelled, Anisocytosis Cancelled, Microcytosis Cancelled, Macrocytosis Cancelled, Spherocytes Cancelled, Sickle Cells Cancelled, Target Cells Cancelled, Tear Drop Cells Cancelled, Ovalocytes Cancelled, Stomatocytes Cancelled, Morris-Boston Bodies Cancelled, Burgess Cells Cancelled, Bite Cells Cancelled, Crenated Cell Cancelled, Acanthocytes (Spur) Cancelled, Rouleaux Cancelled, Schistocytes Cancelled 07/20/22 08:00: Troponin I High Sens 245 H* 07/20/22 08:00: PT 15.4 H, INR 1.3, APTT 34.8 07/20/22 08:56: WBC 14.1 H, RBC 3.56 L, Hgb 12.2, Hct 36.8 L, MCV 103.4 H, MCH 34.3 H, MCHC 33.2, RDW Std Deviation 52.0 H, RDW Coeff of Tulio 13.5, Plt Count 137 L, MPV 11.4, Immature Gran % (Auto) 1.100 H, Neut % (Auto) 80.7 H, Lymph % (Auto) 9.5 L, Blaine % (Auto) 6.1, Eos % (Auto) 2.2, Baso % (Auto) 0.4, Absolute Neuts (auto) 11.4 H, Absolute Lymphs (auto) 1.34, Nucleated RBC % 0 07/20/22 11:47: POC Glucose 163 H Radiography Diagnostic Testing: Radiology Impression Venous Duplex 07/19/22 22:14 IMPRESSION: Limited due to patient body habitus. No evidence of DVT. Left popliteal cyst. Electronically Signed: Pearl Howard MD at 23:49 EST Reading Location ID and State: [id number] / Tel , Service support , Echocardiogram 07/20/22 01:56 Interpretation Summary The study was technically difficult. Contrast injection was performed. Based upon the 2D echocardiographic images obtained there appears to be normal left ventricular size, wall motion, systolic function. The estimated ejection fraction is 65 %. There is mild mitral annular calcification. Extension of the mitral annular calcification onto the base of the posterior mitral valve leaflet. Trivial mitral valve insufficiency. Trivial tricuspid valve insufficiency. Mild focal aortic valve calcification. Unable to estimate RV systolic pressure/pulmonary artery pressure due to technically difficult study. Unable to assess diastolic dysfunction. Ordering Physician: Lillian Delgado Referring Physician: Alysa Whitt Performed By: Elijah Robledo RCS Chest CTA 07/20/22 06:55 IMPRESSION: Limited study due to patient''s body habitus. No evidence of pulmonary embolism. Increased markings at the right lung base suggestive of atelectasis. Electronically Signed: David Nicole MD at 9:01 EST , Physical Exam Const alert and oriented x3 Constitutional Narrative: super morbid obesity HEENT normocephalic, head/scalp atraumatic and moist oral mucous membranes Neck no lymphadenopathy and supple Resp normal respiratory effort, normal air movement and clear to auscultation bilaterally Cardio regular rhythm, S1 normal heart sound, S2 normal heart sound and no murmurs Cardio Narrative: tachycardic GI normal to inspection, nondistended, normoactive bowel sounds, soft to palpation, non-tender and non-distended GI Narrative: very obese abdomen Extremity Extremity Narrative: both LEs morbidly obese. wrapped in bandage. Erythema of RLE up to midshin area. Skin Skin Narrative: as under extremities Neuro CN's II-XII intact bilaterally Psych thought process normal Assessment & Plan Assessment/Plan (1) Lymphedema: (2) Cellulitis of lower extremity: (3) Atrial flutter with rapid ventricular response: (4) Sinus tachycardia: PLAN: Plan #RLE cellulitis * In the setting of stage III lymphedema. * Duplex of her lower extremities was negative. Patient was however febrile and was also tachycardic and tachypneic and in light of this I have elected to broaden her antibiotics to IV vancomycin and Zosyn until blood cultures come back as negative. * PT OT on board. Gentry wraps ordered. * #Atrial flutter with rapid ventricular rate * Patient became tachycardic and this was not improving. She was also placed on Cardizem drip as well as amiodarone drip but heart rate still remains elevated. * 2D echo ordered. TSH pending. * Cardiology also consulted. Await recs. CTA of the chest done and was negative for any evidence of PE. * on heparin drip * #Non-STEMI: * Initial troponin was 229 and trended up to a peak of 264 but now down to 245. * 2D echo ordered and pending. This could also be due to troponin leak from the atrial flutter with RVR. * Cardiology on board. Await recs. * on heparin drip * #Chronic pain syndrome: On gabapentin and baclofen. #Type 2 diabetes mellitus: Insulin sliding scale. Checks ACHS. #Hypertension: On lisinopril and metoprolol as well as hydrochlorothiazide #Super morbid obesity: BMI 73.5. Complicates acute care, expected recovery and prognosis. #History of peptic ulcer: On PPI #DVT prophylaxis: on heparin drip CODE STATUS: * Patient elects to have CPR which she states for maximum of 30 minutes, Admit note but does not want intubation. Currently entered is full code. * Total time spent in care of patient today which includes. Patient, presently reading PET scan, reviewing chart, discussion of care with nursing and ancillary staff as well as patient and documentation in the EMR: 65 minutes. Charges/Coding Visit Charges Inpatient E&M: 47790 [facility] Hosp L3
--- NOTE | 2022-07-20 14:16 | EKG12_ITS ---
Test Reason : AM EKG Blood Pressure : / mmHG Vent. Rate : 088 BPM Atrial Rate : 264 BPM P-R Int : 000 ms QRS Dur : 142 ms QT Int : 400 ms P-R-T Axes : 188 -77 -28 degrees QTc Int : 484 ms Atrial flutter with variable A-V block Right bundle branch block Left anterior fascicular block Bifascicular block Abnormal ECG Confirmed by GWENDOLYN AGUAYO, ALIA ([id number]), non linear editor JODY DESIR ([id number]) on 07/22/2022 9:08:11 AM Referred By: Confirmed By:ALIA SNOW MD
--- NOTE | 2022-07-20 14:33 | PCM.RX.CS ---
Consult Pharmacy has been consulted to manage selected antiobiotic: Vancomycin Type of Consult: New start Suspected Infection: Skin/Soft tissue Prior Doses of Antibiotics Received/Current Regimen: 07/20/22 @ 1303 Labs: Sodium 136 mmol/L (136-145) 07/20/22 04:57 Potassium 4.3 mmol/L (3.5-5.1) 07/20/22 04:57 Chloride 105 mmol/L (98-107) 07/20/22 04:57 Carbon Dioxide 24.0 mmol/L (21.0-32.0) 07/20/22 04:57 Anion Gap 7 (5-15) 07/20/22 04:57 BUN 14 mg/dL (7-18) 07/20/22 04:57 Creatinine 0.89 mg/dL (0.55-1.02) 07/20/22 04:57 Est GFR (MDRD) Af Amer 82 mL/min (>60) 07/20/22 04:57 Est GFR (MDRD) Non-Af 68 mL/min (>60) 07/20/22 04:57 BUN/Creatinine Ratio 15.8 RATIO (10-20) 07/20/22 04:57 Glucose 129 mg/dL (74-106) H 07/20/22 04:57 Weight used for dosin.6 kg Estimated Creatinine Clearance: 93.7 Goal Trough: 15-20 mcg/mL Pharmacy Plan for Drug Dosinmg every 8 hours. Trough will be drawn 07/21/22 @ 1230 Pharmacy Service will continue to monitor and adjust dosing as required. Follow-Up Labs: Trough Vancomycin Labs to be done on [date and time ordered]: 07/19/22 @ 1230
--- NOTE | 2022-07-20 14:59 | CHAPLAIN ---
Type of Pastoral Visit _x__ Initial Visit ___ Follow-up Visit ___ On-call Visit ___ General Patient Visit ___ Spiritual Assessment ___ Family Conference ___ Bereavement ___ Rapid Response ___ Code Blue ___ Other (describe below) Pastoral Care Referral From _x__ Patient ___ Family ___ Nurse ___ Physician ___ Belt Buckle Maker ___ Boat Assembler ___ Other (describe below) Sacrament/Intervention _x__ Active listening ___ Anointing ___ Oriental Orthodox ___ Bereavement ___ Communion ___ Fifi exploration ___ ___ Life review _x__ Prayer ___ Reconciliation ___ Sacrament of Sick ___ Supportive presence ___ Wedding ___ Other (describe below) Pastoral Comments patient is resting but easily awakens to her name; pt states that she has been surprised by new findings about her health; pt says that a prayer would be appreciated but otherwise just looking for rest now;
[2022-07-20] MEDS: Digoxin 250 MCG/ML Ampul 500 MCG IV (15:17)
--- NOTE | 2022-07-20 15:25 | CON.PCM.CA_ITS ---
Assessment & Plan Assessment/Plan (1) Atrial flutter with rapid ventricular response: PLAN: The patient does have atrial flutter. She appears to be unaware of it. Thus, she does not know how long it has been present. At the present time she is being monitored. She is on rate control therapy with IV diltiazem. She has been placed on antiarrhythmic therapy with IV amiodarone in the hopes that this may help slow her rate and/or regain sinus rhythm. She is also been placed on IV anticoagulant therapy with IV heparin. She may need additional adjustment of rate limiting medications. Depending upon her clinical course and findings she may need to be considered for a JOSE guided synchronized biphasic DC cardioversion in an attempt to regain sinus rhythm. In the interim she has undergone noninvasive valuation with a transthoracic echocardiogram as noted above. (2) Abnormal cardiac enzyme level: PLAN: The patient has findings of abnormal cardiac enzyme levels. They are as noted above with very minimal changes. It is unclear as to whether this represents a true acute coronary syndrome type I event versus being a type II event/non-STEMI secondary to her atrial flutter with rapid ventricular response superimposed upon her other comorbidities, etc. At the moment she appears to be without symptoms of acute coronary syndrome. Her noninvasive studies are as noted. She will continue medical management. This does include her current medications which include anticoagulant therapy with IV heparin. Over time she may need to be considered for further evaluation of underlying CAD status either noninvasively or invasively. However, this evaluation, and less thought to be urgent or emergent, may need to take place in the future after her cardiac rhythm is cared for and her underlying acute cellulitis is cared for. (3) HLD (hyperlipidemia): PLAN: The patient should continue medical management of her hyperlipidemia. She has been placed on medical therapy with rosuvastatin at 5 mg p.o. daily. (4) HTN (hypertension): PLAN: The patient's blood pressure will need to be monitored. She has been on medical management with metoprolol XL 50 mg p.o. daily and lisinopril 20 mg p.o. daily. Her medications may need to be adjusted over time. (5) Diabetes mellitus: PLAN: The patient will continue evaluation care per internal medicine. (6) Lymphedema: PLAN: The patient states she has a longstanding history of chronic lower extremity lymphedema. She will need continued evaluation care by internal medicine and potentially peripheral vascular services as needed. (7) Cellulitis of lower extremity: PLAN: The patient primarily presented to the hospital based upon concerns of a right lower extremity cellulitis. At the moment she is being evaluated by internal medicine. She has been placed on medical therapy with IV antibiotics. Addt'l Comments The patient's case was discussed and reviewed with the patient, the patient's family member present, and previously with the [facility] staff-Dr. Delgado. Comment: Time spent in the patient's overall evaluation, examination, review of medical records, review of noninvasive imaging studies, placing orders, documentation, and discussion with the participants noted above, etc.: 60 minutes. HPI Consult Data Date of Consult: 07/20/22 HPI Narrative HPI Narrative: ANGEL PATTERSON, is a 66 year old white female who presents for cardiovascular consultation based upon concerns of atrial flutter with rapid ventricular response superimposed upon findings of an abnormal high-sensitivity troponin I level in the setting of a history of hyperlipidemia, hypertension, diabetes mellitus, remote history of lower extremity (right-sided) DVT, remote history of underlying gastric ulcer, pancreatic pseudocyst, pancreatitis, and chronic bilateral lower extremity lymphedema with ongoing worsening right lower extremity erythema and edema and discomfort concerning for acute cellulitis. 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 To the best of her knowledge she has never been diagnosed with underlying cardiovascular disease other than potentially a history of mitral valve prolapse . She states she is unaware of her underlying atrial dysrhythmia and does not know how long it has been present. It was discovered when she presented to the hospital for her right lower extremity related issues. She denies any ongoing chest discomfort or difficulty breathing. There is been no report of orthopnea or PND. She has chronic marked bilateral lower extremity lymphedema. She denies any sensation of palpitations or rapid rates. There has been no near-syncope or syncope. Since her arrival at the hospital she has undergone further evaluation. This has included high-sensitivity troponin I levels which were noted to be abnormal. Her ECG demonstrated the appearance of atrial flutter with a right bundle branch block pattern. She has undergone lower extremity studies for DVT which were considered negative. Based upon her history and physical examination findings and objective findings she did undergo further evaluation for the possibility of a pulmonary embolus with a chest CTA. This was reported negative for any obvious great vessel disease or thromboembolic disease. She was treated with medical therapy with IV diltiazem to assist with rate control. As her rate remained elevated she was placed on additional medical therapy with IV amiodarone. She was also placed on medical management with IV heparin. At the time of her cardiovascular consultation she appeared to be resting in a supine position with no acute symptoms/complaints. She remained in her atrial flutter with variable ventricular response with her overall ventricular rates still being greater than 100 bpm but somewhat lower than her original presentation. She has also had follow-up high-sensitivity troponin I levels which have changed from [phone]. An echocardiogram was also performed. The results are noted below. [facility] Medical History (Updated 07/20/22 @ 15:[address] Dipesh Quevedo MD) Chronic pain syndrome Diabetes mellitus, type 2 GERD (gastroesophageal reflux disease) History of gastric ulcer HLD (hyperlipidemia) HTN (hypertension) Lymphedema Morbid obesity with BMI of 45.0-49.9, adult PAD (peripheral artery disease) PVD (peripheral vascular disease) Home Medications baclofen 20 mg tablet 20 mg PO Q12H Check with primary doctor 12/26/19 [History Last Taken Unknown] gabapentin 800 mg tablet 800 mg PO BID Check with primary doctor 12/26/19 [History Last Taken Unknown] lisinopril 20 mg tablet 20 mg PO DAILY Check with primary doctor 12/26/19 [History Last Taken Unknown] metoprolol succinate 50 mg tablet,extended release 24 hr 50 mg PO DAILY Check with primary doctor 12/26/19 [History Last Taken Unknown] nabumetone 750 mg tablet 750 mg PO BID Check with primary doctor 12/26/19 [History Last Taken Unknown] omeprazole 20 mg capsule,delayed release 20 mg PO DAILY Check with primary doctor 12/26/19 [History Last Taken Unknown] cyanocobalamin (B12)-cobamamide 5,000 mcg-100 mcg sublingual tablet 1 ea SL QODAY Check with primary doctor 02/20/20 [History Last Taken Unknown] ergocalciferol (vitamin D2) 1,250 mcg (50,000 unit) capsule 50,000 unit PO DAILY Check with primary doctor 02/20/20 [History Last Taken Unknown] furosemide 20 mg tablet (Lasix) 20 mg PO DAILY Check with primary doctor 07/20/22 [History Last Taken Unknown] pioglitazone 30 mg tablet 30 mg PO DAILY Check with primary doctor 07/20/22 [History Last Taken Unknown] potassium chloride 20 mEq tablet,extended release 20 meq PO DAILY Check with primary doctor 07/20/22 [History Last Taken Unknown] rosuvastatin 5 mg tablet 5 mg PO QODAY Check with primary doctor 07/20/22 [History Last Taken Unknown] Allergy/AdvReac Type Severity Reaction Status Date / Time tobramycin Allergy PT UNSURE Verified 07/19/22 20:26 OF REACTION Family History (Updated 07/20/22 @ 00:[address] Lillian Delgado MD) Mother Non Hodgkin's lymphoma Father Kidney disease Heart disease Hypertension Myocardial infarction Surgical History (Updated 07/20/22 @ 00:[address] Lillian Delgado MD) H/O exploratory laparotomy History of dental surgery History of shoulder surgery History of tonsillectomy and adenoidectomy S/P total knee replacement Social History (Updated 07/20/22 @ 00:[address] Lillian Delgado MD) household members: other details: Lives with her sister and brother in law. Smoking Status: Never smoker alcohol intake: current alcohol intake frequency: holidays/special occasions only substance use type: does not use ROS Constitutional Constitutional: Reports as per HPI Eyes Eyes: Reports as per HPI ENT HEENT: Reports as per HPI Cardiovascular Cardiovascular: Reports as per HPI Respiratory/Chest Respiratory/Chest: Reports as per HPI Gastrointestinal Gastrointestinal: Reports as per HPI Genitourinary Genitourinary: Reports as per HPI Musculoskeletal Musculoskeletal: Reports as per HPI Integumentary Integumentary: Reports as per HPI Neurologic Neurologic: Reports as per HPI Physical Exam Const alert, oriented x3 and no apparent distress Orientation / Consciousness: awake HEENT normocephalic, head/scalp atraumatic and hearing grossly normal bilaterally Eyes PERRL, EOMs intact bilaterally, conjunctivae normal and no scleral icterus Neck full ROM, supple and no JVD Resp normal respiratory effort and clear to auscultation bilaterally Cardio Rhythm: abnormal rhythm irregularly irregular Heart Sounds: S1 normal, S2 normal and other Other Details: Distant heart tones GI normal to inspection, nondistended, normoactive bowel sounds Extremity General Extremity: edema bilateral lower extremity Details: severe Skin Skin Narrative: Right lower extremity: Erythema Psych mental status grossly normal Risk Stratification Risk Stratification Applicable: Yes Age >/= 65: Yes >/= 3 CAD Risk Factors (HTN, HLD, DM, family hx of CAD, or current smoker): Yes Aspirin Use in the Past 7 Days: No Severe Angina (>/= episodes in 24 hours): No EKG ST Changes >/= 0.5mm: No Positive Cardiac Marker: Yes SHANTE Risk Stratification Score: 3 SHANTE % Risk: 13% Risk Procedure Criteria Type of Procedure Procedure Type: Elective Elective Risks - COVID COVID Risk Discussion: The surgeon/proceduralist and patient have discussed in detail the risk of exposure to and/or potential harm posed by the COVID-19 virus with having a surgery/procedure at this time versus the risk of delaying the surgery/procedure. It is not possible to know either the risk of delaying the surgery or procedure or chance of getting an infection with perfect accuracy, but a joint decision was made between the patient and the surgeon/proceduralist to proceed at this time with the scheduled surgery/procedure as indicated on the consent form. Objective Data Vital Signs: Vital Signs Temp Pulse Resp BP Pulse Ox O2 Del Method O2 Flow Rate 98.9 F 122 H 21 H 100/54 L 93 Room Air 2 07/20/22 12:05 07/20/22 13:00 07/20/22 13:00 07/20/22 13:00 07/20/22 13:00 07/20/22 13:00 07/20/22 11:00 Oxygen Flow Rate (L/min) 2 Oxygen Delivery Method Room Air Weight: 376 lb 1.738 oz Body Mass Index (BMI) 73.4 Intake & Output: Intake and Output for Last 24 Hours 07/18/22 07/19/22 07/20/22 23:59 23:59 23:59 Intake Total 3150.85 / 3150.85 Output Total 1000 / 1000 Balance 2150.85 / 2150.85 Lab / Micro Data Result Diagrams: 07/20/22 08:56 07/20/22 04:57 Labs: Laboratory Results - last 24 hr 07/19/22 22:20: WBC 12.4 H, RBC 4.37, Hgb 15.0, Hct 45.4, MCV 103.9 H, MCH 34.3 H, MCHC 33.0, RDW Std Deviation 51.9 H, RDW Coeff of Tulio 13.6, Plt Count 155, MPV 11.4, Immature Gran % (Auto) 0.900, Neut % (Auto) 80.7 H, Lymph % (Auto) 10.5 L, [place] % (Auto) 4.7, Eos % (Auto) 2.7, Baso % (Auto) 0.5, Absolute Neuts (auto) 10.0 H, Absolute Lymphs (auto) 1.30, Nucleated RBC % 0 07/19/22 22:20: Sodium 138, Potassium 4.3, Chloride 101, Carbon Dioxide 30.0, Anion Gap 7, BUN 17, Creatinine 1.03 H, Estim Creat Clear Calc 38.59, Est GFR (MDRD) Af Amer 69, Est GFR (MDRD) Non-Af 57 L, BUN/Creatinine Ratio 16.5, Glucose 138 H, Calcium 10.6 H 07/19/22 22:20: Lactic Acid 1.2 07/19/22 22:20: Magnesium 1.6 07/20/22 02:50: Troponin I High Sens 229 H* 07/20/22 04:57: Sodium 136, Potassium 4.3, Chloride 105, Carbon Dioxide 24.0, Anion Gap 7, BUN 14, Creatinine 0.89, Estim Creat Clear Calc 44.66, Est GFR (MDRD) Af Amer 82, Est GFR (MDRD) Non-Af 68, BUN/Creatinine Ratio 15.8, Glucose 129 H, Calcium 9.8, Total Bilirubin 0.70, AST 19, ALT 26, Alkaline Phosphatase 92, Troponin I High Sens 264 H*, Total Protein 6.5, Albumin 2.8 L, Globulin 3.7, Albumin/Globulin Ratio 0.8 L, Triglycerides 160, Cholesterol 155, LDL Cholesterol 99, VLDL Cholesterol 32, HDL Cholesterol 24 L, TSH 2.27 07/20/22 06:18: POC Glucose 142 H 07/20/22 08:00: WBC Cancelled, Corrected WBC Cancelled, RBC Cancelled, Hgb Cancelled, Hct Cancelled, MCV Cancelled, MCH Cancelled, MCHC Cancelled, RDW Std Deviation Cancelled, RDW Coeff of Tulio Cancelled, Plt Count Cancelled, MPV Cancelled, Immature Gran % (Auto) Cancelled, Neut % (Auto) Cancelled, Lymph % (Auto) Cancelled, [place] % (Auto) Cancelled, Eos % (Auto) Cancelled, Baso % (Auto) Cancelled, Absolute Neuts (auto) Cancelled, Absolute Lymphs (auto) Cancelled, Total Counted Cancelled, Neutrophils % (Manual) Cancelled, Band Neutrophils % Cancelled, Lymphocytes % (Manual) Cancelled, Monocytes % (Manual) Cancelled, Eosinophils % (Manual) Cancelled, Basophils % (Manual) Cancelled, Metamyelocytes % Cancelled, Myelocytes % Cancelled, Promyelocytes % Cancelled, Blast Cells % Cancelled, Plasma Cell % (Manual) Cancelled, Other Cells % Cancelled, Nucleated RBC % Cancelled, Nucleated RBCs/100 WBC Cancelled, Differential Comment Canc elled, Diff Path Review Cancelled, Hypersegmented Neuts Cancelled, Atypical Lymphocytes Cancelled, Reactive Lymphocytes Cancelled, Smudge Cells Cancelled, Toxic Granulation Cancelled, Toxic Vacuolation Cancelled, Dohle Bodies Cancelled, Evelia Rods Cancelled, Platelet Estimate Cancelled, Plt Morphology Comment Cancelled, RBC Morphology Cancelled, Polychromasia Cancelled, Hypochromasia Cancelled, Poikilocytosis Cancelled, Basophilic Stippling Cancelled, Anisocytosis Cancelled, Microcytosis Cancelled, Macrocytosis Cancelled, Spherocytes Cancelled, Sickle Cells Cancelled, Target Cells Cancelled, Tear Drop Cells Cancelled, Ovalocytes Cancelled, Stomatocytes Cancelled, Morris-Matheson Bodies Cancelled, Clinton Cells Cancelled, Bite Cells Cancelled, Crenated Cell Cancelled, Acanthocytes (Spur) Cancelled, Rouleaux Cancelled, Schistocytes Cancelled 07/20/22 08:00: Troponin I High Sens 245 H* 07/20/22 08:00: PT 15.4 H, INR 1.3, APTT 34.8 07/20/22 08:56: WBC 14.1 H, RBC 3.56 L, Hgb 12.2, Hct 36.8 L, MCV 103.4 H, MCH 34.3 H, MCHC 33.2, RDW Std Deviation 52.0 H, RDW Coeff of Tulio 13.5, Plt Count 137 L, MPV 11.4, Immature Gran % (Auto) 1.100 H, Neut % (Auto) 80.7 H, Lymph % (Auto) 9.5 L, [place] % (Auto) 6.1, Eos % (Auto) 2.2, Baso % (Auto) 0.4, Absolute Neuts (auto) 11.4 H, Absolute Lymphs (auto) 1.34, Nucleated RBC % 0 07/20/22 11:47: POC Glucose 163 H Cardiology Labs/Tests 07/19/22 22:20: WBC 12.4 H, RBC 4.37, Hgb 15.0, Hct 45.4, MCV 103.9 H, MCH 34.3 H, MCHC 33.0, Plt Count 155, MPV 11.4, Immature Gran % (Auto) 0.900, Neut % (Auto) 80.7 H, Lymph % (Auto) 10.5 L, [place] % (Auto) 4.7, Eos % (Auto) 2.7, Baso % (Auto) 0.5, Absolute Neuts (auto) 10.0 H, Nucleated RBC % 0 07/19/22 22:20: Sodium 138, Potassium 4.3, Chloride 101, Carbon Dioxide 30.0, Anion Gap 7, BUN 17, Creatinine 1.03 H, Est GFR (MDRD) Af Amer 69, Est GFR (MDRD) Non-Af 57 L, BUN/Creatinine Ratio 16.5, Glucose 138 H, Calcium 10.6 H 07/19/22 22:20: Lactic Acid 1.2 07/19/22 22:20: Magnesium 1.6 07/20/22 04:57: Sodium 136, Potassium 4.3, Chloride 105, Carbon Dioxide 24.0, Anion Gap 7, BUN 14, Creatinine 0.89, Est GFR (MDRD) Af Amer 82, Est GFR (MDRD) Non-Af 68, BUN/Creatinine Ratio 15.8, Glucose 129 H, Calcium 9.8, Total B ilirubin 0.70, Triglycerides 160, Cholesterol 155, LDL Cholesterol 99, VLDL Cholesterol 32, HDL Cholesterol 24 L 07/20/22 08:00: WBC Cancelled, Corrected WBC Cancelled, RBC Cancelled, Hgb Cancelled, Hct Cancelled, MCV Cancelled, MCH Cancelled, MCHC Cancelled, Plt Count Cancelled, MPV Cancelled, Immature Gran % (Auto) Cancelled, Neut % (Auto) Cancelled, Lymph % (Auto) Cancelled, [place] % (Auto) Cancelled, Eos % (Auto) Cancelled, Baso % (Auto) Cancelled, Absolute Neuts (auto) Cancelled, Total Counted Cancelled, Neutrophils % (Manual) Cancelled, Band Neutrophils % Cancelled, Lymphocytes % (Manual) Cancelled, Monocytes % (Manual) Cancelled, Eosinophils % (Manual) Cancelled, Basophils % (Manual) Cancelled, Metamyelocytes % Cancelled, Myelocytes % Cancelled, Promyelocytes % Cancelled, Blast Cells % Cancelled, Plasma Cell % (Manual) Cancelled, Other Cells % Cancelled, Nucleated RBC % Cancelled 07/20/22 08:00: PT 15.4 H, INR 1.3, APTT 34.8 07/20/22 08:56: WBC 14.1 H, RBC 3.56 L, Hgb 12.2, Hct 36.8 L, MCV 103.4 H, MCH 34.3 H, MCHC 33.2, Plt Count 137 L, MPV 11.4, Immature Gran % (Auto) 1.100 H, Neut % (Auto) 80.7 H, Lymph % (Auto) 9.5 L, [place] % (Auto) 6.1, Eos % (Auto) 2.2, Baso % (Auto) 0.4, Absolute Neuts (auto) 11.4 H, Nucleated RBC % 0 Rhythm: Atrial flutter EKG: As noted above ECHO: As noted below Radiography Diagnostic Testing: Radiology Impression Venous Duplex 07/19/22 22:14 IMPRESSION: Limited due to patient body habitus. No evidence of DVT. Left popliteal cyst. Electronically Signed: Pearl Howard MD at 23:49 EST Reading Location ID and State: [id number] / Tel , Service support , Echocardiogram 07/20/22 01:56 Interpretation Summary The study was technically difficult. Contrast injection was performed. Based upon the 2D echocardiographic images obtained there appears to be normal left ventricular size, wall motion, systolic function. The estimated ejection fraction is 65 %. There is mild mitral annular calcification. Extension of the mitral annular calcification onto the base of the posterior mitral valve leaflet. Trivial mitral valve insufficiency. Trivial tricuspid valve insufficiency. Mild focal aortic valve calcification. Unable to estimate RV systolic pressure/pulmonary artery pressure due to technically difficult study. Unable to assess diastolic dysfunction. Ordering Physician: Lillian Delgado Referring Physician: Alysa Whitt Performed By: Elijah Robledo RCS Chest CTA 07/20/22 06:55 IMPRESSION: Limited study due to patient''s body habitus. No evidence of pulmonary embolism. Increased markings at the right lung base suggestive of atelectasis. Electronically Signed: David Nicole MD at 9:01 EST ,
[2022-07-20 16:28] LABS: Partial Thromboplast Time 203.2 Seconds (24.1-36.2)
[2022-07-20 17:11] LABS: Bedside Glucose 163 mg/dL (74-106)
--- NOTE | 2022-07-20 18:50 | NURSING ---
Heparin drip was placed on hold per protocol, was due to be restarted at a lower rate at 1830 but patient access in patient's room placing a PICC line at this time. Will restart heparin drip when PICC line placement has been completed.
--- NOTE | 2022-07-20 18:51 | NURSING ---
Patient verbalized to this RN while signing informed consent for JOSE and cardioversion that she does not want to be intubated under any circumstances, no PEG tube, and only a max of thirty minutes of ACLS protocol to be performed in the event that she would need it.
--- NOTE | 2022-07-20 20:15 | RAD_ITS ---
STUDY: X-RAY CHEST REASON FOR EXAM: Female, 66 years old. PICC line placement; a-flutter TECHNIQUE: AP portable COMPARISON: None. FINDINGS: Minimal discoid atelectasis or scarring in the left midlung field. There is no demonstrated pleural abnormality. PICC line has been placed on the left with tip in the right atrium Normal size heart. Normal mediastinum and litzy. Normal visualized pulmonary arteries. Normal visualized aortic arch and descending thoracic aorta. Dorsal spine and shoulders demonstrate degenerative change. Normal visualized ribs, and clavicles. There is no demonstrated abnormality of the visualized soft tissue structures of the upper abdomen. RAD/CXR for Line Placement IMPRESSION: PICC line noted on the left with tip in right atrium Electronically Signed: Omega Ureña MD at 21:11 EST ,
[2022-07-20] MEDS: Etodolac 300 MG Capsule PO (22:34)
[2022-07-20 23:01] LABS: Bedside Glucose 139 mg/dL (74-106)
[2022-07-20] MEDS: HEPARIN/D5w 25,000 UNITS 25,000 UNITS/250 ML IV.SOLN. 18 UNITS CONT INF (23:39)
[2022-07-21] VITALS (42 sets, daily range): BP systolic 101–156; BP diastolic 43–132; PULSE 64–125; RESP 17–93; TEMP 36.5–37.2; O2SAT 90–100; BMI 73.5
[2022-07-21] MEDS: Acetaminophen 325 MG Tablet 650 MG PO ×2 (00:14→14:25)
[2022-07-21] MEDS: oxyCODONE 5 MG Tablet PO ×2 (00:15→14:24)
[2022-07-21 01:43] LABS: Partial Thromboplast Time 52.2 Seconds (24.1-36.2)
[2022-07-21] MEDS: 0.9% Saline Lock 10 ML Syringe IV ×4 (02:44→16:41)
[2022-07-21] MEDS: Nystatin Powder 15gm Bottle 1 APPLIC TOPICAL ×3 (05:35→22:22)
--- NOTE | 2022-07-21 05:55 | EKG12_ITS ---
Test Reason : Blood Pressure : / mmHG Vent. Rate : 101 BPM Atrial Rate : 258 BPM P-R Int : 000 ms QRS Dur : 136 ms QT Int : 380 ms P-R-T Axes : 000 -68 006 degrees QTc Int : 492 ms Atrial flutter Right bundle branch block Left anterior fascicular block Bifascicular block Abnormal ECG Confirmed by GWENDOLYN AGUAYO, ALIA ([id number]), editorial assistant JODY DESIR ([id number]) on 07/22/2022 9:11:03 AM Referred By: ZENY Confirmed By:ALIA SNOW MD
[2022-07-21] MEDS: Amiodarone 360 MG in Dextrose 5% Viaflo Bag 192.8 ML 16.7 MG CONT INF ×2 (06:57→19:35)
[2022-07-21] MEDS: Metoprolol(XL)Succ 50 MG Tablet PO (07:43)
--- NOTE | 2022-07-21 08:00 | ECHOTEE_ITS ---
Reason For Study: Afib, Aflutter Medication JOSE probe 6VT-[id number] (SN [id number]) passed without difficulty. No complications were noted. Cetacaine Topical Lyons given X3 orally. Versed 2 mg given slow IVP. Fentanyl 100 mcg given slow IVP. Performed a rapid injection of agitated mix of 9 cc saline and 1cc air to assess for atrial septal defect. Left Ventricle Normal LV size. Left ventricular systolic function is normal. The estimated ejection fraction is 65 %. No regional wall motion abnormalities noted. Right Ventricle Normal RV size. Normal systolic function. Atria Positive agitated saline contrast study for a right to left interatrial shunt compatible with a small PFO. Normal left atrium. There is no sponatenous contrast in the left atrium. No thrombus is detected in the left atrial appendage. Normal right atrium. There is no sponatenous contrast in the right atrium. No right atrial/appendage thrombus identified. Mitral Valve There is mild mitral annular calcification. Extension of the mitral annular calcification onto the base of the posterior mitral valve leaflet. Mild (1+) mitral valve insufficiency. Tricuspid Valve Normal tricuspid valve. Trivial tricuspid valve insufficiency. Aortic Valve Trisinus/trileaflet aortic valve. Normal aortic valve. Pulmonic Valve The pulmonic valve is not well visualized. Vessels Normal-appearing thoracic aorta. Pericardium No pericardial effusion. ECHO/Echo Transesophageal (JOSE) Interpretation Summary Left ventricular systolic function is normal. The estimated ejection fraction is 65 %. There is no sponatenous contrast in the left atrium. No thrombus is detected in the left atrial appendage. There is mild mitral annular calcification. Extension of the mitral annular calcification onto the base of the posterior mi tral valve leaflet. Mild (1+) mitral valve insufficiency. Trivial tricuspid valve insufficiency. Positive agitated saline contrast study for a right to left interatrial shunt c ompatible with a small PFO. Ordering Physician: Dipesh Quevedo Referring Physician: Alysa Whitt Performed By: Inna Ordoñez, JOVAN, RVT
[2022-07-21 08:25] LABS: Bedside Glucose 120 mg/dL (74-106)
[2022-07-21 11:00] LABS: Partial Thromboplast Time 64.8 Seconds (24.1-36.2)
[2022-07-21 11:11] LABS: Troponin-I HS 79 pg/mL (3.0-54.0)
[2022-07-21 11:24] LABS: Anion Gap 7 (5-15); BUN 9 mg/dL (7-18); BUN/Creat Ratio 10.6 RATIO (10-20); Calcium,Total 9.4 mg/dL (8.5-10.1); Chloride 99 mmol/L (98-107); Creatinine, Serum 0.85 mg/dL (0.55-1.02); EST Glomerular Filtration Rate 71 mL/min (>60); Est Glom Filt Rate - Afr Amer 86 mL/min (>60); Estimated Creatinine Clearance 46.76 ml/min; Glucose 382 mg/dL (74-106); Potassium 3.7 mmol/L (3.5-5.1); Sodium Level 131 mmol/L (136-145)
[2022-07-21 11:50] LABS: Bedside Glucose 140 mg/dL (74-106)
--- NOTE | 2022-07-21 12:25 | PN_ITS ---
Subjective Subjective Patient seen and examined this morning. She said she felt lousy. She denied any fever, chills, palpitations, dizziness, chest pain, nausea or vomiting. Review of systems otherwise negative. She did have a JOSE this morning per cardiology. She is to go for cardioversion later today. She still remains tachycardic and remains on Cardizem and amiodarone drip. Objective Data Objective Data Vital Signs: Vital Signs Temp Pulse Resp BP Pulse Ox O2 Del Method O2 Flow Rate 98.1 F 108 H 20 H 124/84 H 93 Nasal Cannula 2 07/21/22 09:30 07/21/22 11:00 07/21/22 11:00 07/21/22 11:00 07/21/22 11:00 07/21/22 11:00 07/21/22 11:00 Oxygen Flow Rate (L/min) 2 Oxygen Delivery Method Nasal Cannula Weight: 376 lb 12.32 oz Body Mass Index (BMI) 73.5 Intake & Output: Intake and Output for Last 24 Hours 07/19/22 07/20/22 07/21/22 23:59 23:59 23:59 Intake Total 4531.90 / 4563.60 844.20 / 844.20 Output Total 1600 / 2300 700 / 700 Balance 2931.90 / 2263.60 144.20 / 144.20 Lab / Micro Data Result Diagrams: 07/20/22 08:56 07/21/22 10:32 Labs: Laboratory Results - last 24 hr 07/20/22 16:00: APTT 203.2 H* 07/20/22 16:36: POC Glucose 163 H 07/20/22 22:37: POC Glucose 139 H 07/21/22 01:23: APTT 52.2 H 07/21/22 07:41: POC Glucose 120 H 07/21/22 10:32: Troponin I High Sens 79 H 07/21/22 10:32: APTT 64.8 H 07/21/22 10:32: Sodium 131 L, Potassium 3.7, Chloride 99, Carbon Dioxide 25.0, Anion Gap 7, BUN 9, Creatinine 0.85, Estim Creat Clear Calc 46.76, Est GFR (MDRD) Af Amer 86, Est GFR (MDRD) Non-Af 71, BUN/Creatinine Ratio 10.6, Glucose 382 H, Calcium 9.4 07/21/22 11:27: POC Glucose 140 H Micro: Microbiology 07/20/22 16:40 Nasal Secretion SARS-CoV-2 Antigen (Rapid) - Final Radiography Diagnostic Testing: Radiology Impression Chest X-Ray 07/20/22 20:15 IMPRESSION: PICC line noted on the left with tip in right atrium Electronically Signed: Omega Ureña MD at 21:11 EST Reading Location ID and State: [facility] / [place] , Service support , Physical Exam Const alert and oriented x3 Constitutional Narrative: super morbid obesity HEENT normocephalic, head/scalp atraumatic and moist oral mucous membranes Neck no lymphadenopathy and supple Resp normal respiratory effort, normal air movement and clear to auscultation bilaterally Cardio regular rhythm, S1 normal heart sound, S2 normal heart sound and no murmurs Cardio Narrative: tachycardic GI normal to inspection, nondistended, normoactive bowel sounds, soft to palpation, non-tender and non-distended GI Narrative: very obese abdomen Extremity Extremity Narrative: both LEs morbidly obese. wrapped in bandage.erythema of right thigh and right LE is improving. Skin Skin Narrative: as under extremities Neuro CN's II-XII intact bilaterally Psych thought process normal Assessment & Plan Assessment/Plan (1) Lymphedema: (2) Cellulitis of lower extremity: (3) Atrial flutter with rapid ventricular response: (4) Sinus tachycardia: PLAN: Plan #RLE cellulitis * In the setting of stage III lymphedema. * Duplex of her lower extremities was negative. * fever has resolved. Tachycardia persists * erythema or RLE is improving * PT OT on board. * #Atrial flutter with rapid ventricular rate * Patient still remains tachycardic. She is on Cardizem as well as amiodarone d rip. * TTE showed EF of 65% with normal left ventricular size, wall motion and systolic function with focal mild aortic valve calcification unable to assess diastolic dysfunction. * CT of the chest was negative for any evidence of PE. * Cardiology on board. For cardioversion today. * on heparin drip * #Non-STEMI: * Initial troponin was 229 and trended up to a peak of 264 but now down to 245. * 2D echo ordered and pending. This could also be due to troponin leak from the atrial flutter with RVR. * Cardiology on board. * There is a concern about whether is this is a true acute coronary syndrome versus type II event. * on heparin drip * Appreciate cardiology recs. * #Chronic pain syndrome: On gabapentin and baclofen. #Type 2 diabetes mellitus: Insulin sliding scale. Checks ACHS. #Hypertension: On lisinopril and metoprolol as well as hydrochlorothiazide #Super morbid obesity: BMI 73.5. Complicates acute care, expected recovery and prognosis. #History of peptic ulcer: On PPI #DVT prophylaxis: on heparin drip CODE STATUS: * Patient elects to have CPR which she states for maximum of 30 minutes, Admit note but does not want intubation. Currently entered is full code. * Charges/Coding Visit Charges Inpatient E&M: 34608 Subs Hosp L3
--- NOTE | 2022-07-21 13:06 | PCM.OP.PRO ---
Procedure Report Date of Procedure: 07/21/22 CONSCIOUS SEDATION REPORT DATE OF SERVICE: July 21, 2022 BRIEF HISTORY OF PRESENT ILLNESS: The patient is a 66-year-old female who presented to the hospital with atrial flutter with rapid ventricular response. She was seen in consultation by cardiology and underwent a transesophageal echocardiogram earlier today. Ejection fraction was noted to be 65%. The patient has never previously undergone a cardioversion. She denied any prior anesthetic complications. She does report a history of mild, intermittent asthma. She has never been formally diagnosed with obstructive sleep apnea. PHYSICAL EXAMINATION: VITAL SIGNS: Reviewed and were acceptable. GENERAL: The patient is an obese female, in no apparent distress, speaking in full sentences. HEENT: Normocephalic, atraumatic. Mucous membranes are moist and pink. Good mouth opening noted. Trachea is midline. Good neck mobility. CHEST: S1, S2 irregularly irregular. No murmurs, rubs or gallops were noted. LUNGS: Clear to auscultation bilaterally without appreciable wheezes, rales or rhonchi. ABDOMEN: Soft, nontender, nondistended. Positive bowel sounds. EXTREMITIES: There is no clubbing, cyanosis or edema. ASA Class: II DESCRIPTION OF PROCEDURE: After confirmation of informed consent, the patient's anesthesia plan was reviewed in detail. Propofol was chosen. Risks and benefits were reviewed and the patient agreed to proceed. At 1232, the patient was given her first bolus of propofol. In total, the patient required 80 mg of propofol to achieve an appropriate level of sedation, after which time, she was given a 200 J synchronized cardioversion by Dr. Quevedo at the bedside. This was successful in achieving normal sinus rhythm. The patient was monitored until 1245, at which time she reached her baseline mental status and function. The patient tolerated the procedure well. COMPLICATIONS: None ESTIMATED BLOOD LOSS: None RECOMMENDATIONS: Okay to recover in usual fashion. Procedures Pulmonary 9xxxx: 10802 Con Sedation
--- NOTE | 2022-07-21 13:08 | CARDIOVERS ---
Cardioversion Cardioversion: Date: 07-21-2022 Procedure: Synchronized Biphasic DC Cardioversion Indications: Atrial flutter Consent: Per the Patient Anesthesia: per Dr. Gonzalez of pulmonology and critical care medicine with propofol 80 mg IV push total Procedure: Synchronized Biphasic DC Cardioversion: 200 J x 1: Result: Sinus rhythm Complications: no apparent complications This note was generated with [employer] software. It may contain incorrect words, spelling, and punctuation that were not noted in checking the note before signing.
[2022-07-21 13:38] LABS: Vancomycin, Trough Level 18.7 ug/mL (5.0-15.0)
[2022-07-21] MEDS: HEPARIN/D5w 25,000 UNITS 25,000 UNITS/250 ML IV.SOLN. 19 UNITS CONT INF (14:06)
[2022-07-21] MEDS: Baclofen 10 MG Tablet 20 MG PO ×2 (14:24→22:18)
[2022-07-21] MEDS: Etodolac 300 MG Capsule PO ×2 (14:24→22:17)
[2022-07-21] MEDS: Gabapentin 800 MG Tablet PO ×2 (14:24→22:17)
[2022-07-21] MEDS: guaiFENesin 10 ML UDC (200MG/10ML) PO ×2 (14:24→22:17)
--- NOTE | 2022-07-21 14:47 | PCM.RX.CS ---
Consult Pharmacy has been consulted to manage selected antiobiotic: Vancomycin Type of Consult: Follow-up Suspected Infection: Skin/Soft tissue Prior Doses of Antibiotics Received/Current Regimen: 07/20/22 @ 1303,2049 07/21/22 @ 0534,1406 Labs: Sodium 131 mmol/L (136-145) L 07/21/22 10:32 Potassium 3.7 mmol/L (3.5-5.1) 07/21/22 10:32 Chloride 99 mmol/L (98-107) 07/21/22 10:32 Carbon Dioxide 25.0 mmol/L (21.0-32.0) 07/21/22 10:32 Anion Gap 7 (5-15) 07/21/22 10:32 BUN 9 mg/dL (7-18) 07/21/22 10:32 Creatinine 0.85 mg/dL (0.55-1.02) 07/21/22 10:32 Est GFR (MDRD) Af Amer 86 mL/min (>60) 07/21/22 10:32 Est GFR (MDRD) Non-Af 71 mL/min (>60) 07/21/22 10:32 BUN/Creatinine Ratio 10.6 RATIO (10-20) 07/21/22 10:32 Glucose 382 mg/dL (74-106) H 07/21/22 10:32 Vancomycin Trough 18.7 ug/mL (5.0-15.0) H 07/21/22 12:50 Microbiology: Microbiology 07/20/22 16:40 Nasal Secretion SARS-CoV-2 Antigen (Rapid) - Final Weight used for dosin.6 kg Estimated Creatinine Clearance: 95 Goal Trough: 15-20 mcg/mL Pharmacy Plan for Drug Dosing: Vancomycin 1250mg every 8 hours, draw trough 30 minutes prior to dose on 07/22/22 @ 1400 Pharmacy Service will continue to monitor and adjust dosing as required. Follow-Up Labs: Trough Vancomycin Labs to be done on [date and time ordered]: 07/22/22 @ 8185
[2022-07-21 17:05] LABS: Bedside Glucose 204 mg/dL (74-106)
--- NOTE | 2022-07-21 17:14 | PN.CARD_ITS ---
Subjective Subjective The patient under went further evaluation earlier this day with a transesophageal echocardiogram and subsequently a synchronized biphasic DC cardioversion both without any obvious adverse events. Objective Data Vital Signs: Vital Signs Temp Pulse Resp BP Pulse Ox O2 Del Method O2 Flow Rate 97.7 F L 71 19 H 136/66 H 94 Nasal Cannula 3 07/21/22 14:05 07/21/22 14:33 07/21/22 14:33 07/21/22 14:33 07/21/22 14:33 07/21/22 14:33 07/21/22 14:33 Oxygen Flow Rate (L/min) 3 Oxygen Delivery Method Nasal Cannula Weight: 376 lb 12.32 oz Body Mass Index (BMI) 73.5 Intake & Output: Intake and Output for Last 24 Hours 07/19/22 07/20/22 07/21/22 23:59 23:59 23:59 Intake Total 4531.90 / 4563.60 1335.43 / 1335.43 Output Total 1600 / 2300 700 / 700 Balance 2931.90 / 2263.60 635.43 / 635.43 Lab / Micro Data Result Diagrams: 07/20/22 08:56 07/21/22 10:32 Labs: Laboratory Results - last 24 hr 07/20/22 22:37: POC Glucose 139 H 07/21/22 01:23: APTT 52.2 H 07/21/22 07:41: POC Glucose 120 H 07/21/22 10:32: Troponin I High Sens 79 H 07/21/22 10:32: APTT 64.8 H 07/21/22 10:32: Sodium 131 L, Potassium 3.7, Chloride 99, Carbon Dioxide 25.0, Anion Gap 7, BUN 9, Creatinine 0.85, Estim Creat Clear Calc 46.76, Est GFR (MDRD) Af Amer 86, Est GFR (MDRD) Non-Af 71, BUN/Creatinine Ratio 10.6, Glucose 382 H, Calcium 9.4 07/21/22 11:27: POC Glucose 140 H 07/21/22 12:50: Vancomycin Trough 18.7 H 07/21/22 16:35: POC Glucose 204 H 07/21/22 16:40: APTT 60.0 H Micro: Microbiology 07/20/22 16:40 Nasal Secretion SARS-CoV-2 Antigen (Rapid) - Final Cardiology Labs/Tests 07/21/22 01:23: APTT 52.2 H 07/21/22 10:32: APTT 64.8 H 07/21/22 10:32: Sodium 131 L, Potassium 3.7, Chloride 99, Carbon Dioxide 25.0, Anion Gap 7, BUN 9, Creatinine 0.85, Est GFR (MDRD) Af Amer 86, Est GFR (MDRD) Non-Af 71, BUN/Creatinine Ratio 10.6, Glucose 382 H, Calcium 9.4 07/21/22 16:40: APTT 60.0 H Rhythm: Atrial flutter presynchronized biphasic DC cardioversion and sinus rhythm status post synchronized biphasic DC cardioversion Transesophageal echocardiogram: As noted below Radiography Diagnostic Testing: Radiology Impression Chest X-Ray 07/20/22 20:15 IMPRESSION: PICC line noted on the left with tip in right atrium Electronically Signed: Omega Ureña MD at 21:11 EST Reading Location ID and State: [facility] / [place] , Service support , Transesophageal Echocardiogram 07/21/22 08:00 Interpretation Summary Left ventricular systolic function is normal. The estimated ejection fraction is 65 %. There is no sponatenous contrast in the left atrium. No thrombus is detected in the left atrial appendage. There is mild mitral annular calcification. Extension of the mitral annular calcification onto the base of the posterior mitral valve leaflet. Mild (1+) mitral valve insufficiency. Trivial tricuspid valve insufficiency. Positive agitated saline contrast study for a right to left interatrial shunt compatible with a small PFO. Ordering Physician: Dipesh Quevedo Referring Physician: Alysa Whitt Performed By: Inna Ordoñez, RDMILAN, RVT Physical Exam Const alert, oriented x3 and no apparent distress Orientation / Consciousness: awake HEENT normocephalic, head/scalp atraumatic and hearing grossly normal bilaterally Eyes PERRL, EOMs intact bilaterally, conjunctivae normal and no scleral icterus Neck full ROM, supple and no JVD Resp normal respiratory effort and clear to auscultation bilaterally Cardio regular rate, regular rhythm and S1 normal heart sound Heart Sounds: other Other Details: Distant heart tones GI normal to inspection, nondistended, normoactive bowel sounds Extremity General Extremity: edema bilateral lower extremity Details: severe Skin Skin Narrative: Right lower extremity: Erythema Psych mental status grossly normal Assessment & Plan Assessment/Plan (1) Atrial flutter with rapid ventricular response: PLAN: The patient presented with atrial flutter. She has undergone further evaluation with transesophageal echocardiogram. The results are as noted. She subsequently underwent synchronized biphasic DC cardioversion. She regained sinus rhythm. She will continue medical therapy at this time. At the moment this will include her rate limiting therapy with her beta-christian and her calcium channel antagonist, her antiarrhythmic therapy with the IV amiodarone, and anticoagulant therapy with IV heparin. She will be altered over time to oral agents for rate control, rhythm control, and systemic oral anticoagulant therapy. (2) Abnormal cardiac enzyme level: PLAN: The patient has findings of abnormal cardiac enzyme levels. They are as noted above with very minimal changes. It is unclear as to whether this represents a true acute coronary syndrome type I event versus being a type II event/non-STEMI secondary to her atrial flutter with rapid ventricular response superimposed upon her other comorbidities, etc. At the moment she appears to be without symptoms of acute coronary syndrome. She has undergone further noninvasive evaluation. She is subsequently underwent synchronized biphasic DC cardioversion to regain sinus rhythm. She will continue to be monitored. She will continue medical therapy. Over time once her clinical course improves/stabilizes then she could be considered for further noninvasive valuation for the possibility of CAD. Curry trish, this could be challenging based upon her body habitus with respect to being able to undergo noninvasive studies such as pharmacologic stress nuclear images, etc. It would also be somewhat challenging for the patient to undergo diagnostic cardiac catheterization as well especially if it could not be performed via an upper extremity approach. She will continue medical management as deemed appropriate. (3) HLD (hyperlipidemia): PLAN: The patient should continue medical management of her hyperlipidemia. She has been placed on medical therapy with rosuvastatin at 5 mg p.o. daily. (4) HTN (hypertension): PLAN: The patient's blood pressure will need to be monitored. She has been on medical management with metoprolol XL 50 mg p.o. daily and lisinopril 20 mg p.o. daily. Her medications may need to be adjusted over time. (5) Diabetes mellitus: PLAN: The patient will continue evaluation care per internal medicine. (6) Lymphedema: PLAN: The patient states she has a longstanding history of chronic lower extremity lymphedema. She will need continued evaluation care by internal medicine and potentially peripheral vascular services as needed. (7) Cellulitis of lower extremity: PLAN: The patient primarily presented to the hospital based upon concerns of a right lower extremity cellulitis. At the moment she is being evaluated by internal medicine. She has been placed on medical therapy with IV antibiotics. Addt'l Comments The patient's case was discussed and reviewed with the patient and her family member present. Comment: Time spent the patient's overall evaluation, examination, review of medical records, review of imaging study, coordinating additional diagnostic studies/procedures, placing orders, documentation, discussion with the patient, family members, and other members of the [facility] staff, etc.: 60 minutes Procedure Criteria Type of Procedure Procedure Type: Elective Elective Risks - COVID COVID Risk Discussion: The surgeon/proceduralist and patient have discussed in detail the risk of exposure to and/or potential harm posed by the COVID-19 virus with having a surgery/procedure at this time versus the risk of delaying the surgery/procedure. It is not possible to know either the risk of delaying the surgery or procedure or chance of getting an infection with perfect accuracy, but a joint decision was made between the patient and the surgeon/proceduralist to proceed at this time with the scheduled surgery/procedure as indicated on the consent form.
[2022-07-21 22:46] LABS: Bedside Glucose 160 mg/dL (74-106)
[2022-07-22] VITALS (24 sets, daily range): BP systolic 96–160; BP diastolic 47–79; PULSE 60–75; RESP 16–22; TEMP 36.7–37.4; O2SAT 79–99; BMI 73.5
--- NOTE | 2022-07-22 | NURSING ---
pt refused to keep pulse ox on at all time, this RN checked pt o2 sat, and pt saturation at 79% on RA while sleeping. Pt placed on 2L now and satting 96%.
[2022-07-22] MEDS: HEPARIN/D5w 25,000 UNITS 25,000 UNITS/250 ML IV.SOLN. 19 UNITS CONT INF (03:01)
[2022-07-22 04:17] LABS: Differential Indicated MANUAL DIFF; Hematocrit 34.3 % (37-47); Hemoglobin 11.4 g/dL (12.0-15.0); Mean Corp Hgb Conc 33.2 g/dL (32-36); Mean Corpuscular Hgb 34.7 pg (27.0-32.0); Mean Corpuscular Volume 104.3 fL (81-99); Mean Platelet Vol. 11.4 fl (6.2-12.0); POSITIVE COUNT YES; POSITIVE MORPHOLOGY YES; Platelet Count 145 K/mm3 (150-450); RBC Distribution Width SD 53.2 fl (35.1-43.9); Red Blood Count 3.29 M/mm3 (4.2-5.4); White Blood Count 13.9 K/mm3 (4.4-11.0)
[2022-07-22 04:29] LABS: Partial Thromboplast Time 63.5 Seconds (24.1-36.2)
[2022-07-22 04:31] LABS: Anion Gap 6 (5-15); BUN 14 mg/dL (7-18); BUN/Creat Ratio 11.9 RATIO (10-20); Calcium,Total 9.4 mg/dL (8.5-10.1); Chloride 103 mmol/L (98-107); Creatinine, Serum 1.18 mg/dL (0.55-1.02); EST Glomerular Filtration Rate 49 mL/min (>60); Est Glom Filt Rate - Afr Amer 59 mL/min (>60); Estimated Creatinine Clearance 33.69 ml/min; Glucose 152 mg/dL (74-106); Potassium 4.1 mmol/L (3.5-5.1); Sodium Level 137 mmol/L (136-145)
[2022-07-22 04:41] LABS: Macrocytosis 1+; Platelet Estimate SLT DEC (ADEQ); Red Cell Morphology NORM C+C NORMAL (NORM C&C)
[2022-07-22 04:43] LABS: Absolute Neutrophil Count 10.1 X10^3/uL (2.0-7.7)
[2022-07-22 04:44] LABS: Absolute Lymphocyte Count 1.39 X10^3/uL (0.83-4.51); Eosinophil 4 % (0-5); Lymphocyte 10 % (19-41); Monocyte 7 % (0-10); Myelocyte 6 % (0-0); Neutrophil-Segmented 73 % (47-70); Total Cells Counted 100 (MANUAL DIFF)
[2022-07-22] MEDS: 0.9% Saline Lock 10 ML Syringe IV ×4 (05:24→20:37)
[2022-07-22] MEDS: Nystatin Powder 15gm Bottle 1 APPLIC TOPICAL ×3 (05:26→20:34)
[2022-07-22] MEDS: Amiodarone 360 MG in Dextrose 5% Viaflo Bag 192.8 ML 16.7 MG CONT INF (06:45)
[2022-07-22 07:26] LABS: Bedside Glucose 141 mg/dL (74-106)
[2022-07-22] MEDS: Baclofen 10 MG Tablet 20 MG PO ×2 (11:26→20:33)
[2022-07-22] MEDS: Pantoprazole Sodium 20 MG Tablet PO (11:26)
[2022-07-22] MEDS: Atorvastatin Calcium 10 MG Tablet PO (11:26)
[2022-07-22] MEDS: Potassium Chloride Oral Tablet 20 MEQ PO (11:26)
[2022-07-22] MEDS: Etodolac 300 MG Capsule PO ×2 (11:26→20:33)
[2022-07-22] MEDS: Lisinopril 20 MG Tablet PO (11:26)
[2022-07-22] MEDS: Pioglitazone Hydrochloride 30 MG Tablet PO (11:26)
[2022-07-22] MEDS: Gabapentin 800 MG Tablet PO ×2 (11:52→20:34)
[2022-07-22] MEDS: Amiodarone 200 MG Tablet PO ×2 (12:43→20:34)
[2022-07-22 13:06] LABS: Bedside Glucose 131 mg/dL (74-106)
--- NOTE | 2022-07-22 13:24 | CASEMGMT ---
RN CM updated by therapy that could benefit from SNF at discharge. RN CM in to patient's room to discuss with patient and sister. Patient and sister agreeable to SNF at discharge for addtitional therapy. A list of SNF providers including quality and resource use data and consistent with the patient?s preferred geographical region, medical needs, and insurance network were provided from the [employer] Guide. Patient and sister to review list and provide preferences. SW updated regarding SNF referral. CM will continue to follow this patient and plan for safe discharge.
[2022-07-22 13:29] LABS: Pathologist Review Reviewed
[2022-07-22] MEDS: APIXABAN 5 MG TABLET PO ×2 (13:57→20:34)
--- NOTE | 2022-07-22 14:34 | CASEMGMT ---
Addendum entered by Jane Potts 07/22/22 15:08: Both [facility] and [facility] declined patient. SW spoke with patient letting her know this information. Patient's next choices would be [facility], [facility], and [facility]. SW sent referrals to [facility] and [facility]. Await responses. Jane WASHINGTON Original Note: Per RN CM patient's SNF choices are [facility] and [facility]. MIGUEL sent referrals to both facilities. Await responses. Jane WASHINGTON
--- NOTE | 2022-07-22 14:50 | PN_ITS ---
Subjective Subjective Patient seen and examined. She had no active complaints and had an uneventful night. Review of systems is otherwise negative. She had cardioversion yesterday, and had been switched to oral amiodarone. She was on heparin drip today, and was switched to eliquis today. The redness and pain of the right thigh has improved. Objective Data Objective Data Vital Signs: Vital Signs Temp Pulse Resp BP Pulse Ox O2 Del Method O2 Flow Rate 98.6 F 71 20 H 130/60 H 99 Room Air 2 07/22/22 11:20 07/22/22 13:53 07/22/22 13:53 07/22/22 13:53 07/22/22 14:04 07/22/22 14:04 07/22/22 10:00 Oxygen Flow Rate (L/min) 2 Oxygen Delivery Method Room Air Weight: 376 lb 8.792 oz Body Mass Index (BMI) 73.5 Intake & Output: Intake and Output for Last 24 Hours 07/20/22 07/21/22 07/22/22 23:59 23:59 23:59 Intake Total 4531.90 / 4563.60 2377.30 / 2511.50 2132.73 / 2132.73 Output Total 1600 / 2300 2000 / 2000 700 / 700 Balance 2931.90 / 2263.60 377.30 / 511.50 1432.73 / 1432.73 Lab / Micro Data Result Diagrams: 07/22/22 04:07 07/22/22 04:07 Labs: Laboratory Results - last 24 hr 07/21/22 16:35: POC Glucose 204 H 07/21/22 16:40: APTT 60.0 H 07/21/22 22:12: POC Glucose 160 H 07/22/22 04:07: APTT 63.5 H 07/22/22 04:07: WBC 13.9 H, RBC 3.29 L, Hgb 11.4 L, Hct 34.3 L, MCV 104.3 H, MCH 34.7 H, MCHC 33.2, RDW Std Deviation 53.2 H, RDW Coeff of Tulio 14.0, Plt Count 145 L, MPV 11.4, Neut % (Auto) Not Reportable, Absolute Neuts (auto) 10.1 H, Absolute Lymphs (auto) 1.39, Total Counted 100, Neutrophils % (Manual) 73 H, Lymphocytes % (Manual) 10 L, Monocytes % (Manual) 7, Eosinophils % (Manual) 4, Myelocytes % 6 H, Diff Path Review Reviewed, Platelet Estimate SLT DEC, RBC Morphology NORM C+C, Macrocytosis 1+ 07/22/22 04:07: Sodium 137, Potassium 4.1, Chloride 103, Carbon Dioxide 28.0, Anion Gap 6, BUN 14, Creatinine 1.18 H, Estim Creat Clear Calc 33.69, Est GFR (MDRD) Af Amer 59 L, Est GFR (MDRD) Non-Af 49 L, BUN/Creatinine Ratio 11.9, Gl ucose 152 H, Calcium 9.4 07/22/22 06:28: POC Glucose 141 H 07/22/22 12:42: POC Glucose 131 H Micro: Microbiology 07/20/22 16:40 Nasal Secretion SARS-CoV-2 Antigen (Rapid) - Final Radiography Diagnostic Testing: Radiology Impression Transesophageal Echocardiogram 07/21/22 08:00 Interpretation Summary Left ventricular systolic function is normal. The estimated ejection fraction is 65 %. There is no sponatenous contrast in the left atrium. No thrombus is detected in the left atrial appendage. There is mild mitral annular calcification. Extension of the mitral annular calcification onto the base of the posterior mitral valve leaflet. Mild (1+) mitral valve insufficiency. Trivial tricuspid valve insufficiency. Positive agitated saline contrast study for a right to left interatrial shunt compatible with a small PFO. Ordering Physician: Dipesh Quevedo Referring Physician: Alysa Whitt Performed By: Inna Ordoñez, JOVAN, RVT Physical Exam Const alert and oriented x3 Constitutional Narrative: super morbid obesity HEENT normocephalic, head/scalp atraumatic and moist oral mucous membranes Eyes PERRL and EOMs intact bilaterally Neck no lymphadenopathy, supple and no JVD Lymph Lymphatic: no lymphadenopathy noted Resp normal respiratory effort, normal air movement and clear to auscultation bilaterally Cardio regular rhythm, S1 normal heart sound, S2 normal heart sound and no murmurs Cardio Narrative: tachycardic GI normal to inspection, nondistended, normoactive bowel sounds, soft to palpation, non-tender and non-distended GI Narrative: very obese abdomen Extremity Extremity Narrative: both LEs morbidly obese. wrapped in bandage.erythema of right thigh and right LE has resolved. Skin Skin Narrative: as under extremities Neuro CN's II-XII intact bilaterally Psych thought process normal Assessment & Plan Assessment/Plan (1) Lymphedema: (2) Cellulitis of lower extremity: (3) Atrial flutter with rapid ventricular response: (4) Sinus tachycardia: PLAN: Plan #RLE cellulitis * In the setting of stage III lymphedema. * Duplex of her lower extremities was negative. * fever has resolved. Tachycardia has resolved. * erythema or RLE is improving * PT OT on board. * #Atrial flutter with rapid ventricular rate * now rate controlled. Is s/p JOSE cardioversion. * TTE showed EF of 65% with normal left ventricular size, wall motion and systolic function with focal mild aortic valve calcification unable to assess diastolic dysfunction. * CT of the chest was negative for any evidence of PE. * Cardiology on board. * now off amiodarone and metoprolol * now on eliquis. * #Non-STEMI: * Initial troponin was 229 and trended up to a peak of 264 but now down to 245. * 2D echo as above. * Cardiology on board. * on eliquis. * #Chronic pain syndrome: On gabapentin and baclofen. #Type 2 diabetes mellitus: Insulin sliding scale. Checks ACHS. #Hypertension: On lisinopril and metoprolol as well as hydrochlorothiazide #Super morbid obesity: BMI 73.5. Complicates acute care, expected recovery and prognosis. #History of peptic ulcer: On PPI #DVT prophylaxis: on eliquis. CODE STATUS: * Patient elects to have CPR which she states for maximum of 30 minutes, Admit note but does not want intubation. Currently entered is full code. * Charges/Coding Visit Charges Inpatient E&M: 94538 Subs Hosp L2
--- NOTE | 2022-07-22 15:12 | CASEMGMT ---
[facility] MIGUEL sent a referral. Jane Potts [employer]
[2022-07-22 15:59] LABS: Vancomycin, Trough Level 32.7 ug/mL (5.0-15.0)
--- NOTE | 2022-07-22 16:30 | PCM.RX.CS ---
Consult Pharmacy has been consulted to manage selected antiobiotic: Vancomycin Type of Consult: Follow-up Prior Doses of Antibiotics Received/Current Regimen: Medications Discontinued Medications Vancomycin HCl 1,250 mg/ (Sodium Chloride) 275 mls @ 167 mls/hr IV Q8H CHING Last Admin: 07/22/22 16:24 Dose: Not Given Labs: Sodium 137 mmol/L (136-145) 07/22/22 04:07 Potassium 4.1 mmol/L (3.5-5.1) 07/22/22 04:07 Chloride 103 mmol/L (98-107) 07/22/22 04:07 Carbon Dioxide 28.0 mmol/L (21.0-32.0) 07/22/22 04:07 Anion Gap 6 (5-15) 07/22/22 04:07 BUN 14 mg/dL (7-18) 07/22/22 04:07 Creatinine 1.18 mg/dL (0.55-1.02) H 07/22/22 04:07 Est GFR (MDRD) Af Amer 59 mL/min (>60) L 07/22/22 04:07 Est GFR (MDRD) Non-Af 49 mL/min (>60) L 07/22/22 04:07 BUN/Creatinine Ratio 11.9 RATIO (10-20) 07/22/22 04:07 Glucose 152 mg/dL (74-106) H 07/22/22 04:07 Vancomycin Trough 32.7 ug/mL (5.0-15.0) H 07/22/22 14:40 Microbiology: Microbiology 07/20/22 16:40 Nasal Secretion SARS-CoV-2 Antigen (Rapid) - Final Weight used for dosin kg Goal Trough: 15-20 mcg/mL Pharmacy Plan for Drug Dosing: Trough above goal. Dose not given. SCr elevated from baseline. Hold and check random tomorrow. Pharmacy Service will continue to monitor and adjust dosing as required. Follow-Up Labs: Trough Vancomycin - 07/23 @ 0600
[2022-07-22 17:15] LABS: Bedside Glucose 139 mg/dL (74-106)
--- NOTE | 2022-07-22 19:01 | PN.CARD_ITS ---
Subjective Subjective The patient appears to be resting comfortably at this time. She has no new acute cardiovascular complaints. Objective Data Vital Signs: Vital Signs Temp Pulse Resp BP Pulse Ox O2 Del Method O2 Flow Rate 99.4 F H 70 16 96/58 L 95 Room Air 2 07/22/22 16:49 07/22/22 16:49 07/22/22 16:49 07/22/22 16:49 07/22/22 16:48 07/22/22 16:48 07/22/22 10:00 Oxygen Flow Rate (L/min) 2 Oxygen Delivery Method Room Air Weight: 376 lb 8.792 oz Body Mass Index (BMI) 73.5 Intake & Output: Intake and Output for Last 24 Hours 07/20/22 07/21/22 07/22/22 23:59 23:59 23:59 Intake Total 4531.90 / 4563.60 2377.30 / 2511.50 2782.73 / 2782.73 Output Total 1600 / 2300 2000 / 2000 700 / 700 Balance 2931.90 / 2263.60 377.30 / 511.50 2082.73 / 2082.73 Lab / Micro Data Result Diagrams: 07/22/22 04:07 07/22/22 04:07 Labs: Laboratory Results - last 24 hr 07/21/22 22:12: POC Glucose 160 H 07/22/22 04:07: APTT 63.5 H 07/22/22 04:07: WBC 13.9 H, RBC 3.29 L, Hgb 11.4 L, Hct 34.3 L, MCV 104.3 H, MCH 34.7 H, MCHC 33.2, RDW Std Deviation 53.2 H, RDW Coeff of Tulio 14.0, Plt Count 145 L, MPV 11.4, Neut % (Auto) Not Reportable, Absolute Neuts (auto) 10.1 H, Absolute Lymphs (auto) 1.39, Total Counted 100, Neutrophils % (Manual) 73 H, Lymphocytes % (Manual) 10 L, Monocytes % (Manual) 7, Eosinophils % (Manual) 4, Myelocytes % 6 H, Diff Path Review Reviewed, Platelet Estimate SLT DEC, RBC Morphology NORM C+C, Macrocytosis 1+ 07/22/22 04:07: Sodium 137, Potassium 4.1, Chloride 103, Carbon Dioxide 28.0, Anion Gap 6, BUN 14, Creatinine 1.18 H, Estim Creat Clear Calc 33.69, Est GFR (MDRD) Af Amer 59 L, Est GFR (MDRD) Non-Af 49 L, BUN/Creatinine Ratio 11.9, Glucose 152 H, Calcium 9.4 07/22/22 06:28: POC Glucose 141 H 07/22/22 12:42: POC Glucose 131 H 07/22/22 14:40: Vancomycin Trough 32.7 H 07/22/22 16:43: POC Glucose 139 H Micro: Microbiology 07/20/22 16:40 Nasal Secretion SARS-CoV-2 Antigen (Rapid) - Final Cardiology Labs/Tests 07/22/22 04:07: APTT 63.5 H 07/22/22 04:07: WBC 13.9 H, RBC 3.29 L, Hgb 11.4 L, Hct 34.3 L, MCV 104.3 H, MCH 34.7 H, MCHC 33.2, Plt Count 145 L, MPV 11.4, Neut % (Auto) Not Reportable, Absolute Neuts (auto) 10.1 H, Total Counted 100, Neutrophils % (Manual) 73 H, Lymphocytes % (Manual) 10 L, Monocytes % (Manual) 7, Eosinophils % (Manual) 4, Myelocytes % 6 H 07/22/22 04:07: Sodium 137, Potassium 4.1, Chloride 103, Carbon Dioxide 28.0, Anion Gap 6, BUN 14, Creatinine 1.18 H, Est GFR (MDRD) Af Amer 59 L, Est GFR (MDRD) Non-Af 49 L, BUN/Creatinine Ratio 11.9, Glucose 152 H, Calcium 9.4 Rhythm: This rhythm; PVCs/repetitive PVCs : Radiography Diagnostic Testing: Radiology Impression Chest X-Ray 07/20/22 20:15 IMPRESSION: PICC line noted on the left with tip in right atrium Electronically Signed: Omega Ureña MD at 21:11 EST , Transesophageal Echocardiogram 07/21/22 08:00 Interpretation Summary Left ventricular systolic function is normal. The estimated ejection fraction is 65 %. There is no sponatenous contrast in the left atrium. No thrombus is detected in the left atrial appendage. There is mild mitral annular calcification. Extension of the mitral annular calcification onto the base of the posterior mitral valve leaflet. Mild (1+) mitral valve insufficiency. Trivial tricuspid valve insufficiency. Positive agitated saline contrast study for a right to left interatrial shunt compatible with a small PFO. Ordering Physician: Dipesh Quevedo Referring Physician: Alysa Whitt Performed By: Inna Ordoñez, JOVAN, RVT Physical Exam Const alert, oriented x3 and no apparent distress Orientation / Consciousness: awake HEENT normocephalic, head/scalp atraumatic and hearing grossly normal bilaterally Eyes PERRL, EOMs intact bilaterally, conjunctivae normal and no scleral icterus Neck full ROM, supple and no JVD Resp normal respiratory effort and clear to auscultation bilaterally Cardio regular rate, regular rhythm, S1 normal heart sound and S2 normal heart sound Heart Sounds: other Other Details: Distant heart tones GI normal to inspection, nondistended, normoactive bowel sounds Extremity General Extremity: edema bilateral lower extremity Details: severe Skin Skin Narrative: Right lower extremity: Erythema Psych mental status grossly normal Assessment & Plan Assessment/Plan (1) Atrial flutter with rapid ventricular response: PLAN: The patient presented with atrial flutter. She has undergone further evaluation with transesophageal echocardiogram. The results are as noted. She subsequently underwent synchronized biphasic DC cardioversion. She regained sinus rhythm. She is continuing medical therapy. Her IV diltiazem has been discontinued. She is currently on oral beta-christian therapy. Her IV amiodarone has been converted to oral amiodarone. Depending upon her clinical course this may be an agent that she may not need long-term. Her IV heparin has been converted to oral anticoagulant therapy. She should remain on this pending future cardiovascular evaluation and care. (2) Abnormal cardiac enzyme level: PLAN: The patient has findings of abnormal cardiac enzyme levels. They are as noted above with very minimal changes. It is unclear as to whether this represents a true acute coronary syndrome type I event versus being a type II event/non-STEMI secondary to her atrial flutter with rapid ventricular response superimposed upon her other comorbidities, etc. At the moment she appears to be without symptoms of acute coronary syndrome. She has undergone further noninvasive evaluation. She has subsequently underwent synchronized biphasic DC cardioversion to regain sinus rhythm. She will continue to be monitored. She will continue medical therapy. Over time once her clinical course improves/stabilizes then she could be con sidered for further noninvasive valuation for the possibility of CAD. However, this could be challenging based upon her body habitus with respect to being able to undergo noninvasive studies such as pharmacologic stress nuclear images, etc. It would also be somewhat challenging for the patient to undergo diagnostic cardiac catheterization as well especially if it could not be performed via an upper extremity approach. She will continue medical management as deemed appropriate. (3) HLD (hyperlipidemia): PLAN: The patient should continue medical management of her hyperlipidemia. She has been placed on medical therapy with rosuvastatin at 5 mg p.o. daily. (4) HTN (hypertension): PLAN: The patient's blood pressure will need to be monitored. She has been on medical management with metoprolol XL 50 mg p.o. daily and lisinopril 20 mg p.o. daily. Her medications may need to be adjusted over time. (5) Diabetes mellitus: PLAN: The patient will continue evaluation care per internal medicine. (6) Lymphedema: PLAN: The patient states she has a longstanding history of chronic lower extremity lymphedema. She had been on diuretic therapy. She will be given diuretic therapy IV to assist with what appears to be potential increase in her pedal edema. At the time of discharge she should be considered to be placed back on her oral diuretic therapy. She will need continued evaluation care by internal medicine and potentially peripheral vascular services as needed. (7) Cellulitis of lower extremity: PLAN: The patient primarily presented to the hospital based upon concerns of a right lower extremity cellulitis. At the moment she is being evaluated by internal medicine. She has been placed on medical therapy with IV antibiotics. Addt'l Comments The patient's case was discussed and reviewed with the patient at length. Comment: Time spent in the patient's overall evaluation, examination, review of medical records, review of imaging study, placing orders, documentation, discussion, etc.: 37 minutes. Procedure Criteria Type of Procedure Procedure Type: Elective Elective Risks - COVID COVID Risk Discussion: The surgeon/proceduralist and patient have discussed in detail the risk of exposure to and/or potential harm posed by the COVID-19 virus with having a surgery/procedure at this time versus the risk of delaying the surgery/procedure. It is not possible to know either the risk of delaying the surgery or procedure or chance of getting an infection with perfect accuracy, but a joint decision was made between the patient and the surgeon/proceduralist to proceed at this time with the scheduled surgery/procedure as indicated on the consent form.
[2022-07-22] MEDS: Furosemide 20 MG/2 ML VIAL IV (20:33)
[2022-07-22] MEDS: Metoprolol(XL)Succ 50 MG Tablet PO (20:33)
[2022-07-22 22:35] LABS: Bedside Glucose 150 mg/dL (74-106)
[2022-07-23] VITALS (9 sets, daily range): BP systolic 129–154; BP diastolic 53–66; PULSE 57–76; RESP 16–18; TEMP 36.6–36.8; O2SAT 92–100; BMI 74.4
[2022-07-23 05:31] LABS: Hematocrit 33.4 % (37-47); Hemoglobin 10.9 g/dL (12.0-15.0); Mean Corp Hgb Conc 32.6 g/dL (32-36); Mean Corpuscular Hgb 34.5 pg (27.0-32.0); Mean Corpuscular Volume 105.7 fL (81-99); Mean Platelet Vol. 11.8 fl (6.2-12.0); POSITIVE COUNT YES; POSITIVE MORPHOLOGY YES; Platelet Count 190 K/mm3 (150-450); RBC Distribution Width CV 13.5 % (11.6-14.6); RBC Distribution Width SD 53.7 fl (35.1-43.9); Red Blood Count 3.16 M/mm3 (4.2-5.4); White Blood Count 11.6 K/mm3 (4.4-11.0)
[2022-07-23 05:35] LABS: Differential Indicated MANUAL DIFF
[2022-07-23 05:48] LABS: Macrocytosis 2+
[2022-07-23 05:52] LABS: Absolute Lymphocyte Count 1.51 X10^3/uL (0.83-4.51); Absolute Neutrophil Count 8.6 X10^3/uL (2.0-7.7); Eosinophil 1 % (0-5); Lymphocyte 13 % (19-41); Monocyte 6 % (0-10); Myelocyte 6 % (0-0); Neutrophil-Segmented 74 % (47-70); Platelet Estimate ADEQUATE (ADEQ); Red Cell Morphology NORM C+C NORMAL (NORM C&C); Total Cells Counted 100 (MANUAL DIFF)
[2022-07-23 06:11] LABS: Partial Thromboplast Time 34.7 Seconds (24.1-36.2)
[2022-07-23] MEDS: Nystatin Powder 15gm Bottle 1 APPLIC TOPICAL ×3 (06:25→21:19)
[2022-07-23] MEDS: Amiodarone 200 MG Tablet PO ×3 (06:25→21:18)
[2022-07-23] MEDS: 0.9% Saline Lock 10 ML Syringe IV (06:26)
[2022-07-23 06:28] LABS: Anion Gap 6 (5-15); BUN 22 mg/dL (7-18); BUN/Creat Ratio 13.6 RATIO (10-20); Calcium,Total 9.6 mg/dL (8.5-10.1); Chloride 103 mmol/L (98-107); Creatinine, Serum 1.62 mg/dL (0.55-1.02); EST Glomerular Filtration Rate 34 mL/min (>60); Est Glom Filt Rate - Afr Amer 41 mL/min (>60); Estimated Creatinine Clearance 24.54 ml/min; Glucose 144 mg/dL (74-106); Potassium 4.4 mmol/L (3.5-5.1); Sodium Level 137 mmol/L (136-145)
[2022-07-23 06:51] LABS: Vancomycin, Random Level 24.5 ug/mL (0.0-15.0)
[2022-07-23 07:00] LABS: Bedside Glucose 142 mg/dL (74-106)
--- NOTE | 2022-07-23 07:01 | PHA.PHARE_ITS ---
Consult Pharmacy has been consulted to manage selected antiobiotic: Vancomycin Type of Consult: Follow-up Suspected Infection: Skin/Soft tissue Labs: Sodium 137 mmol/L (136-145) 07/23/22 05:20 Potassium 4.4 mmol/L (3.5-5.1) 07/23/22 05:20 Chloride 103 mmol/L (98-107) 07/23/22 05:20 Carbon Dioxide 28.0 mmol/L (21.0-32.0) 07/23/22 05:20 Anion Gap 6 (5-15) 07/23/22 05:20 BUN 22 mg/dL (7-18) H 07/23/22 05:20 Creatinine 1.62 mg/dL (0.55-1.02) H 07/23/22 05:20 Est GFR (MDRD) Af Amer 41 mL/min (>60) L 07/23/22 05:20 Est GFR (MDRD) Non-Af 34 mL/min (>60) L 07/23/22 05:20 BUN/Creatinine Ratio 13.6 RATIO (10-20) 07/23/22 05:20 Glucose 144 mg/dL (74-106) H 07/23/22 05:20 Vancomycin Trough 32.7 ug/mL (5.0-15.0) H 07/22/22 14:40 Random Vancomycin 24.5 ug/mL (0.0-15.0) H 07/23/22 05:20 Microbiology: Microbiology 07/20/22 16:40 Nasal Secretion SARS-CoV-2 Antigen (Rapid) - Final Goal Trough: 15-20 mcg/mL Pharmacy Plan for Drug Dosing: VANCOMYCIN LEVEL RECEIVED Current Vancomycin Dose: ON HOLD- was on 1250mg IV Q8H with last dose administe red 07/22 @7216 Number of Doses Received: 8 of old regimen Vancomycin Level: 24.5 Hours Since Last Dose: 24HR Renal Function: 1.62 Renal Function Trend: Significant worsening from yesterday (SCr was 1.18) Lab/Micro: BCx pending Vancomycin Plan/Comments: Patient had a random level drawn this morning due to an elevated level yesterday, which resulted in a value of 24.5 (Goal 15-20). Will continue to hold vancomycin and recheck a RANDOM level tomorrow morning. Once trough is less than 20, will plan on resuming scheduled vancomycin. Will continue to monitor renal function closely, as patient had significant jump in SCr (~0.5) from yesterday to today. Pending Level: *RANDOM* level 07/24/22 @0600 Pharmacy Service will continue to monitor and adjust dosing as required.
[2022-07-23] MEDS: Docusate Sodium 100 MG Capsule PO (10:10)
[2022-07-23] MEDS: 0.9% Normal Saline 1,000 ML 125 ML IV ×2 (10:10→17:58)
[2022-07-23] MEDS: Etodolac 300 MG Capsule PO ×2 (10:12→21:18)
[2022-07-23] MEDS: Baclofen 10 MG Tablet 20 MG PO ×2 (10:12→21:18)
[2022-07-23] MEDS: Pioglitazone Hydrochloride 30 MG Tablet PO (10:12)
[2022-07-23] MEDS: APIXABAN 5 MG TABLET PO ×2 (10:12→21:18)
[2022-07-23] MEDS: Potassium Chloride Oral Tablet 20 MEQ PO (10:12)
[2022-07-23] MEDS: Metoprolol(XL)Succ 50 MG Tablet PO ×2 (10:13→21:18)
[2022-07-23] MEDS: Lisinopril 20 MG Tablet PO (10:13)
[2022-07-23] MEDS: Pantoprazole Sodium 20 MG Tablet PO (10:13)
--- NOTE | 2022-07-23 11:12 | CASEMGMT ---
[facility] accepted patient. [facility] said they are reviewing. SW notified patient of this information. SW asked patient if she would like to wait on [facility] or go to [facility]. Patient said she will go to [facility] as long as it is a 5 star facility and it is. Patient then stated several times she does not want to be discharged until Dr Quevedo says it is okay. SW assured patient that the hospitalist speaks with the [employer] Supervisor before discharging. Patient then asked MIGUEL to come back when her sister gets to [facility] to discuss above. Jane Potts GEOGRAPHIC INFORMATION SYSTEM ANALYST PADMINI
--- NOTE | 2022-07-23 11:37 | PN_ITS ---
Subjective Subjective Patient seen and examined. She had no active complaints today and had an uneventful night. Review of systems otherwise negative. Her heart rate is better controlled. Her creatinine however did trend upwards. Creatinine is 1.62 today, up from 1.18 yesterday. Her blood pressure is also elevated so this is likely the cause. Objective Data Objective Data Vital Signs: Vital Signs Temp Pulse Resp BP Pulse Ox O2 Del Method O2 Flow Rate 98.3 F 66 18 148/61 H 94 Room Air 2 07/23/22 08:29 07/23/22 10:13 07/23/22 08:29 07/23/22 10:13 07/23/22 08:29 07/23/22 08:29 07/23/22 05:04 Oxygen Flow Rate (L/min) 2 Oxygen Delivery Method Room Air Weight: 381 lb 6.395 oz Body Mass Index (BMI) 74.4 Intake & Output: Intake and Output for Last 24 Hours 07/21/22 07/22/22 07/23/22 23:59 23:59 23:59 Intake Total 2377.30 / 2511.50 2782.73 / 2782.73 100 / 100 Output Total 1999 / 1999 1200 / 1200 800 / 800 Balance 377.30 / 511.50 1582.73 / 1582.73 -700 / -700 Lab / Micro Data Result Diagrams: 07/23/22 05:20 07/23/22 05:20 Labs: Laboratory Results - last 24 hr 07/22/22 04:07: Diff Path Review Reviewed 07/22/22 12:42: POC Glucose 131 H 07/22/22 14:40: Vancomycin Trough 32.7 H 07/22/22 16:43: POC Glucose 139 H 07/22/22 20:30: POC Glucose 150 H 07/23/22 05:20: WBC 11.6 H, RBC 3.16 L, Hgb 10.9 L, Hct 33.4 L, MCV 105.7 H, MCH 34.5 H, MCHC 32.6, RDW Std Deviation 53.7 H, RDW Coeff of Tulio 13.5, Plt Count 190, MPV 11.8, Neut % (Auto) Not Reportable, Absolute Neuts (auto) 8.6 H, Absolute Lymphs (auto) 1.51, Total Counted 100, Neutrophils % (Manual) 74 H, Lymphocytes % (Manual) 13 L, Monocytes % (Manual) 6, Eosinophils % (Manual) 1, Myelocytes % 6 H, Diff Path Review May foll, Platelet Estimate ADEQUATE, RBC Morphology NORM C+C, Macrocytosis 2+ 07/23/22 05:20: Sodium 137, Potassium 4.4, Chloride 103, Carbon Dioxide 28.0, Anion Gap 6, BUN 22 H, Creatinine 1.62 H, Estim Creat Clear Calc 24.54, Est GFR (MDRD) Af Amer 41 L, Est GFR (MDRD) Non-Af 34 L, BUN/Creatinine Ratio 13.6, Glucose 144 H, Calcium 9.6 07/23/22 05:20: Random Vancomycin 24.5 H 07/23/22 05:55: APTT 34.7 07/23/22 06:28: POC Glucose 142 H Micro: Microbiology 07/20/22 16:40 Nasal Secretion SARS-CoV-2 Antigen (Rapid) - Final Physical Exam Const alert and oriented x3 Constitutional Narrative: super morbid obesity HEENT normocephalic, head/scalp atraumatic and moist oral mucous membranes Eyes PERRL and EOMs intact bilaterally Neck no lymphadenopathy, supple and no JVD Lymph Lymphatic: no lymphadenopathy noted and no lymphedema noted Resp normal respiratory effort, normal air movement and clear to auscultation bilaterally Cardio regular rhythm, S1 normal heart sound, S2 normal heart sound and no murmurs GI normal to inspection, nondistended, normoactive bowel sounds, soft to palpation, non-tender and non-distended GI Narrative: very obese abdomen Extremity Extremity Narrative: both LEs morbidly obese. wrapped in bandage.erythema of right thigh and right LE has resolved. Skin Skin Narrative: as under extremities Neuro CN's II-XII intact bilaterally Psych thought process normal Assessment & Plan Assessment/Plan (1) Lymphedema: (2) Cellulitis of lower extremity: (3) Atrial flutter with rapid ventricular response: (4) Sinus tachycardia: PLAN: Plan #RLE cellulitis * In the setting of stage III lymphedema. * Duplex of her lower extremities was negative. * fever has resolved. Tachycardia has resolved. * erythema or RLE is improving * PT OT on board. * dc vancomycin and zosyn today. Switch to PO keflex * #Atrial flutter with rapid ventricular rate * now rate controlled. Is s/p JOSE cardioversion. * TTE showed EF of 65% with normal left ventricular size, wall motion and systolic function with focal mild aortic valve calcification unable to assess diastolic dysfunction. * CT of the chest was negative for any evidence of PE. * Cardiology on board. * now on amiodarone and metoprolol * now on eliquis. * #Non-STEMI: * Initial troponin was 229 and trended up to a peak of 264 but now down to 245. * 2D echo as above. * Cardiology on board. * on eliquis. * #MICHELLE: * Cr up to 1.86 today. Baseline creatinine is around 0.85. * Likely due to vancomycin toxicity as vanc trough is also elevated. * Vanco and Zosyn discontinued. * Hydrate with IV fluids and trend creatinine * #Chronic pain syndrome: On gabapentin and baclofen. #Type 2 diabetes mellitus: Insulin sliding scale. Checks ACHS. #Hypertension: On lisinopril and metoprolol as well as hydrochlorothiazide #Super morbid obesity: BMI 73.5. Complicates acute care, expected recovery and prognosis. #History of peptic ulcer: On PPI #DVT prophylaxis: on eliquis. CODE STATUS: * Patient elects to have CPR which she states for maximum of 30 minutes, Admit note but does not want intubation. Currently entered is full code. * * Disposition: For discharge to subacute rehab once creatinine improves. Charges/Coding Visit Charges Inpatient E&M: 44927 Subs Hosp L2
[2022-07-23] MEDS: Gabapentin 800 MG Tablet PO ×2 (11:39→21:18)
--- NOTE | 2022-07-23 11:41 | CASEMGMT ---
SW spoke with patient and her sister. MIGUEL explained [facility] accepted patient. Discussed patient would go by wheelchair van which is not covered by insurance. SW answered their questions. Jane WASHINGTON
--- NOTE | 2022-07-23 11:46 | CASEMGMT ---
MIGUEL let physician know patient has a place to go at d/c. Physician is not going to send patient today, but likely over the weekend. MIGUEL notified [facility] of this information as well as patient, her sister, and RN. Plan: d/c to [facility] under skilled level of care when ready. Jane Potts DIGITAL PRODUCER PADMINI
--- NOTE | 2022-07-23 11:54 | CASEMGMT ---
Social Work SW completed PAS/RR in [facility]ENS, PAS/RR w/results placed in chart in anticipation of weekend discharge. FIDEL Underwood
[2022-07-23 12:00] LABS: Bedside Glucose 132 mg/dL (74-106)
[2022-07-23] MEDS: Cephalexin 500 MG Capsule PO ×2 (13:25→17:57)
[2022-07-23 16:50] LABS: Bedside Glucose 128 mg/dL (74-106)
[2022-07-23 22:10] LABS: Bedside Glucose 142 mg/dL (74-106)
[2022-07-24] VITALS (9 sets, daily range): BP systolic 131–164; BP diastolic 49–64; PULSE 60–70; RESP 16–18; TEMP 36.6–37; O2SAT 92–97; BMI 76.6
[2022-07-24] MEDS: Cephalexin 500 MG Capsule PO ×5 (00:01→23:56)
[2022-07-24] MEDS: 0.9% Normal Saline 1,000 ML 125 ML IV ×3 (01:49→18:08)
[2022-07-24] MEDS: 0.9% Saline Lock 10 ML Syringe IV (05:48)
[2022-07-24] MEDS: Amiodarone 200 MG Tablet PO ×3 (05:48→21:07)
[2022-07-24 06:07] LABS: Differential Indicated MANUAL DIFF; Hematocrit 35.6 % (37-47); Hemoglobin 11.3 g/dL (12.0-15.0); Mean Corp Hgb Conc 31.7 g/dL (32-36); Mean Corpuscular Volume 107.2 fL (81-99); Mean Platelet Vol. 11.2 fl (6.2-12.0); POSITIVE COUNT YES; POSITIVE MORPHOLOGY YES; Platelet Count 232 K/mm3 (150-450); RBC Distribution Width CV 13.7 % (11.6-14.6); RBC Distribution Width SD 53.8 fl (35.1-43.9); Red Blood Count 3.32 M/mm3 (4.2-5.4); White Blood Count 10.1 K/mm3 (4.4-11.0)
[2022-07-24 06:24] LABS: Basophil 1 % (0-1); Eosinophil 4 % (0-5); Lymphocyte 7 % (19-41); Metamyelocyte 3 % (0-1); Monocyte 10 % (0-10); Myelocyte 1 % (0-0); Neutrophil-Band 3 % (0-5); Neutrophil-Segmented 71 % (47-70); Total Cells Counted 100 (MANUAL DIFF)
[2022-07-24 06:26] LABS: Platelet Estimate ADEQUATE (ADEQ); Polychromasia RARE; Red Cell Morphology N CYTIC NORMAL (NORM C&C)
[2022-07-24 07:03] LABS: Anion Gap 6 (5-15); BUN 24 mg/dL (7-18); BUN/Creat Ratio 15.2 RATIO (10-20); Calcium,Total 9.9 mg/dL (8.5-10.1); Chloride 108 mmol/L (98-107); Creatinine, Serum 1.58 mg/dL (0.55-1.02); EST Glomerular Filtration Rate 35 mL/min (>60); Est Glom Filt Rate - Afr Amer 42 mL/min (>60); Estimated Creatinine Clearance 25.16 ml/min; Glucose 140 mg/dL (74-106); Potassium 4.9 mmol/L (3.5-5.1); Sodium Level 140 mmol/L (136-145)
[2022-07-24 07:10] LABS: Bedside Glucose 135 mg/dL (74-106)
[2022-07-24 07:10] LABS: Vancomycin, Random Level 15.2 ug/mL (0.0-15.0)
[2022-07-24] MEDS: Gabapentin 800 MG Tablet PO ×2 (09:49→21:13)
[2022-07-24] MEDS: FLU VACC QS2022-23(6MOS UP)/PF 60 MCG/0.5 ML SYRINGE IM (09:49)
[2022-07-24] MEDS: Senna/Docusate Sodium 1 Tablet 2 TABLET PO (09:49)
[2022-07-24] MEDS: hydroCHLOROthiazide 25 MG Tablet 50 MG PO (09:50)
[2022-07-24] MEDS: Etodolac 300 MG Capsule PO ×2 (09:50→21:08)
[2022-07-24] MEDS: Pioglitazone Hydrochloride 30 MG Tablet PO (09:50)
[2022-07-24] MEDS: Lisinopril 20 MG Tablet PO (09:51)
[2022-07-24] MEDS: Potassium Chloride Oral Tablet 20 MEQ PO (09:51)
[2022-07-24] MEDS: Pantoprazole Sodium 20 MG Tablet PO (09:51)
[2022-07-24] MEDS: Metoprolol(XL)Succ 50 MG Tablet PO ×2 (09:51→21:10)
[2022-07-24] MEDS: APIXABAN 5 MG TABLET PO ×2 (09:52→21:07)
[2022-07-24] MEDS: Baclofen 10 MG Tablet 20 MG PO ×2 (09:52→21:08)
[2022-07-24] MEDS: Atorvastatin Calcium 10 MG Tablet PO (09:52)
--- NOTE | 2022-07-24 11:39 | PN_ITS ---
Subjective Subjective Patient seen and examined. She had no active complaints. Review of systems is otherwise negative. Her Cr has started trending downwards. Review of systems is otherwise negative. Objective Data Objective Data Vital Signs: Vital Signs Temp Pulse Resp BP Pulse Ox O2 Del Method O2 Flow Rate 98.0 F 64 16 164/64 H 92 Room Air 2 07/24/22 09:46 07/24/22 09:51 07/24/22 09:46 07/24/22 09:46 07/24/22 09:46 07/24/22 09:46 07/24/22 05:43 Oxygen Flow Rate (L/min) 2 Oxygen Delivery Method Room Air Weight: 392 lb 10.292 oz Body Mass Index (BMI) 76.6 Intake & Output: Intake and Output for Last 24 Hours 07/22/22 07/23/22 07/24/22 23:59 23:59 23:59 Intake Total 2782.73 / 2782.73 3475 / 3475 2461.25 / 2461.25 Output Total 1200 / 1200 2800 / 2800 2050 / 2050 Balance 1582.73 / 1582.73 675 / 675 411.25 / 411.25 Lab / Micro Data Result Diagrams: 07/24/22 06:00 07/24/22 06:00 Labs: Laboratory Results - last 24 hr 07/23/22 11:41: POC Glucose 132 H 07/23/22 16:28: POC Glucose 128 H 07/23/22 21:14: POC Glucose 142 H 07/24/22 06:00: WBC 10.1, RBC 3.32 L, Hgb 11.3 L, Hct 35.6 L, MCV 107.2 H, MCH 34.0 H, MCHC 31.7 L, RDW Std Deviation 53.8 H, RDW Coeff of Tulio 13.7, Plt Count 232, MPV 11.2, Neut % (Auto) Not Reportable, Total Counted 100, Neutrophils % (Manual) 71 H, Band Neutrophils % 3, Lymphocytes % (Manual) 7 L, Monocytes % (Manual) 10, Eosinophils % (Manual) 4, Basophils % (Manual) 1, Metamyelocytes % 3 H, Myelocytes % 1 H, Diff Path Review May foll, Platelet Estimate ADEQUATE, RBC Morphology N CYTIC, Polychromasia RARE 07/24/22 06:00: Sodium 140, Potassium 4.9, Chloride 108 H, Carbon Dioxide 26.0, Anion Gap 6, BUN 24 H, Creatinine 1.58 H, Estim Creat Clear Calc 25.16, Est GFR (MDRD) Af Amer 42 L, Est GFR (MDRD) Non-Af 35 L, BUN/Creatinine Ratio 15.2, Glucose 140 H, Calcium 9.9 07/24/22 06:00: Random Vancomycin 15.2 H 07/24/22 06:42: POC Glucose 135 H Micro: Microbiology 07/20/22 16:40 Nasal Secretion SARS-CoV-2 Antigen (Rapid) - Final Physical Exam Const alert and oriented x3 Constitutional Narrative: super morbid obesity HEENT normocephalic, head/scalp atraumatic and moist oral mucous membranes Eyes PERRL and EOMs intact bilaterally Neck no lymphadenopathy, supple and no JVD Lymph Lymphatic: no lymphadenopathy noted and no lymphedema noted Resp normal respiratory effort, normal air movement and clear to auscultation bilaterally Cardio regular rate, regular rhythm, S1 normal heart sound, S2 normal heart sound and no murmurs GI normal to inspection, nondistended, normoactive bowel sounds, soft to palpation, non-tender and non-distended GI Narrative: very obese abdomen Extremity Extremity Narrative: both LEs morbidly obese. wrapped in bandage.erythema of right thigh and right LE has resolved. Skin Skin Narrative: as under extremities Neuro CN's II-XII intact bilaterally Psych thought process normal Assessment & Plan Assessment/Plan (1) Lymphedema: (2) Cellulitis of lower extremity: (3) Atrial flutter with rapid ventricular response: (4) Sinus tachycardia: PLAN: Plan #RLE cellulitis * In the setting of stage III lymphedema. * Duplex of her lower extremities was negative. * fever has resolved. Tachycardia has resolved. * erythema or RLE is improving * PT OT on board. * now on PO keflex. * #Atrial flutter with rapid ventricular rate * now rate controlled. Is s/p JOSE cardioversion. * TTE showed EF of 65% with normal left ventricular size, wall motion and systolic function with focal mild aortic valve calcification unable to assess diastolic dysfunction. * CT of the chest was negative for any evidence of PE. * Cardiology on board. * on amiodarone and metoprolol * on eliquis. * #Non-STEMI: * Initial troponin was 229 and trended up to a peak of 264 but now down to 245. * 2D echo as above. * Cardiology on board. * on eliquis. * #MICHELLE: * Cr trended down to 1.58 today. I would like to see the Cr trend down some more and so will hold dc till tomorrow. * Likely due to vancomycin toxicity as vanc trough is also elevated. * Vanco and Zosyn discontinued. * continue gentle hydration with iVF * #Chronic pain syndrome: On gabapentin and baclofen. #Type 2 diabetes mellitus: Insulin sliding scale. Checks ACHS. #Hypertension: On lisinopril and metoprolol as well as hydrochlorothiazide #Super morbid obesity: BMI 73.5. Complicates acute care, expected recovery and prognosis. #History of peptic ulcer: On PPI #DVT prophylaxis: on eliquis. CODE STATUS: * Patient elects to have CPR which she states for maximum of 30 minutes, Admit note but does not want intubation. Currently entered is full code. * * Disposition: For discharge to subacute rehab tomorrow Charges/Coding Visit Charges Inpatient E&M: 58783 Subs Hosp L2
[2022-07-24 11:55] LABS: Bedside Glucose 163 mg/dL (74-106)
[2022-07-24] MEDS: Nystatin Powder 15gm Bottle 1 APPLIC TOPICAL ×2 (13:31→21:10)
[2022-07-24 14:58] LABS: Absolute Lymphocyte Count 0.71 X10^3/uL (0.83-4.51); Absolute Neutrophil Count 7.5 X10^3/uL (2.0-7.7)
[2022-07-24 17:21] LABS: Bedside Glucose 136 mg/dL (74-106)
[2022-07-24 22:06] LABS: Bedside Glucose 147 mg/dL (74-106)
[2022-07-25] MEDS: 0.9% Normal Saline 1,000 ML 125 ML IV ×2 (01:25→11:31)
[2022-07-25 01:29] VITALS: BP 146/60; PULSE 68; RESP 16; TEMP 36.8; O2SAT 88
[2022-07-25] MEDS: oxyCODONE 5 MG Tablet PO ×2 (01:35→14:58)
[2022-07-25] MEDS: Acetaminophen 325 MG Tablet 650 MG PO ×2 (01:36→14:59)
[2022-07-25] MEDS: Cephalexin 500 MG Capsule PO ×2 (04:57→11:31)
[2022-07-25] MEDS: Amiodarone 200 MG Tablet PO ×2 (04:57→13:26)
[2022-07-25] MEDS: Nystatin Powder 15gm Bottle 1 APPLIC TOPICAL ×2 (05:05→13:26)
[2022-07-25 05:14] LABS: Hemoglobin 10.9 g/dL (12.0-15.0); Mean Corp Hgb Conc 32.1 g/dL (32-36); Mean Corpuscular Hgb 34.4 pg (27.0-32.0); Mean Corpuscular Volume 107.3 fL (81-99); Mean Platelet Vol. 11.1 fl (6.2-12.0); POSITIVE COUNT YES; POSITIVE MORPHOLOGY YES; Platelet Count 237 K/mm3 (150-450); RBC Distribution Width CV 13.5 % (11.6-14.6); RBC Distribution Width SD 53.8 fl (35.1-43.9); Red Blood Count 3.17 M/mm3 (4.2-5.4); White Blood Count 11.4 K/mm3 (4.4-11.0)
[2022-07-25 05:17] LABS: Differential Indicated MANUAL DIFF
[2022-07-25 05:29] LABS: Anion Gap 5 (5-15); BUN 24 mg/dL (7-18); BUN/Creat Ratio 16.7 RATIO (10-20); Calcium,Total 9.5 mg/dL (8.5-10.1); Chloride 110 mmol/L (98-107); Creatinine, Serum 1.44 mg/dL (0.55-1.02); EST Glomerular Filtration Rate 39 mL/min (>60); Est Glom Filt Rate - Afr Amer 47 mL/min (>60); Glucose 131 mg/dL (74-106); Potassium 4.7 mmol/L (3.5-5.1); Sodium Level 142 mmol/L (136-145)
[2022-07-25 05:59] LABS: Eosinophil 3 % (0-5); Lymphocyte 10 % (19-41); Monocyte 11 % (0-10); Neutrophil-Band 5 % (0-5); Neutrophil-Segmented 71 % (47-70); Platelet Estimate ADEQUATE (ADEQ); Total Cells Counted 100 (MANUAL DIFF)
[2022-07-25 06:00] VITALS: BMI 77.1
[2022-07-25 06:01] LABS: Absolute Lymphocyte Count 1.14 X10^3/uL (0.83-4.51); Absolute Neutrophil Count 8.6 X10^3/uL (2.0-7.7); Lymphocyte # 1.14 X10^3/ul (0.83-4.51); Neutrophil # 8.63 X10^3/uL (2.7-7.7); Polychromasia RARE; Red Cell Morphology N CYTIC NORMAL (NORM C&C)
[2022-07-25 07:15] VITALS: O2SAT 92
[2022-07-25 07:46] LABS: Bedside Glucose 123 mg/dL (74-106)
[2022-07-25 08:50] VITALS: BP 163/79; PULSE 63; RESP 16; TEMP 36.6; O2SAT 93
[2022-07-25 08:51] VITALS: PULSE 63
[2022-07-25] MEDS: Gabapentin 800 MG Tablet PO (08:51)
[2022-07-25] MEDS: Potassium Chloride Oral Tablet 20 MEQ PO (08:51)
[2022-07-25] MEDS: hydroCHLOROthiazide 25 MG Tablet 50 MG PO (08:51)
[2022-07-25] MEDS: Etodolac 300 MG Capsule PO (08:51)
[2022-07-25] MEDS: Baclofen 10 MG Tablet 20 MG PO (08:51)
[2022-07-25] MEDS: APIXABAN 5 MG TABLET PO (08:51)
[2022-07-25] MEDS: Metoprolol(XL)Succ 50 MG Tablet PO (08:51)
[2022-07-25] MEDS: Lisinopril 20 MG Tablet PO (08:51)
[2022-07-25] MEDS: Pioglitazone Hydrochloride 30 MG Tablet PO (08:51)
[2022-07-25] MEDS: Pantoprazole Sodium 20 MG Tablet PO (08:52)
[2022-07-25 11:55] LABS: Bedside Glucose 127 mg/dL (74-106)
--- NOTE | 2022-07-25 12:16 | TREXTCAR_ITS ---
Diet Diet Order/Speech Therapy: 07/21/22 14:37 Diet: Cardiac: Calorie-Controlled Is pt able to select menu?: Yes How many daily calories?: 1800 calorie Routine Orders/Code Status Enema Type: Fleetz Enema Frequency: Daily PRN Suppository Type: Dulcolax 10mg Suppository Frequency: Daily PRN O2 Frequency: PRN Keep PO Greater than or Equal to (%): 90 Wound(s) posterior right knee: Wound Type: irritation Therapies Weight Bearing: Weight bearing as tolerated Physical Therapy: Eval and Treat Occupational Therapy: Eval and Treat Problem/Diagnosis (1) Lymphedema: Status: Acute Code(s): I89.0 - Lymphedema, not elsewhere classified (2) Cellulitis of lower extremity: Status: Acute Code(s): L03.119 - Cellulitis of unspecified part of limb (3) Atrial flutter with rapid ventricular response: Status: Acute Code(s): I48.92 - Unspecified atrial flutter (4) Sinus tachycardia: Status: Acute Code(s): R00.0 - Tachycardia, unspecified Plan #RLE cellulitis * In the setting of stage III lymphedema. * Duplex of her lower extremities was negative. * fever has resolved. Tachycardia has resolved. * erythema or RLE is improving * PT OT on board. * now on PO keflex. * #Atrial flutter with rapid ventricular rate * now rate controlled. Is s/p JOSE cardioversion. * TTE showed EF of 65% with normal left ventricular size, wall motion and systolic function with focal mild aortic valve calcification unable to assess diastolic dysfunction. * CT of the chest was negative for any evidence of PE. * Cardiology on board. * on amiodarone and metoprolol * on eliquis. * #Non-STEMI: * Initial troponin was 229 and trended up to a peak of 264 but now down to 245. * 2D echo as above. * Cardiology on board. * on eliquis. * #MICHELLE: * Cr trended down to 1.58 today. I would like to see the Cr trend down some more and so will hold dc till tomorrow. * Likely due to vancomycin toxicity as vanc trough is also elevated. * Vanco and Zosyn discontinued. * continue gentle hydration with iVF * #Chronic pain syndrome: On gabapentin and baclofen. #Type 2 diabetes mellitus: Insulin sliding scale. Checks ACHS. #Hypertension: On lisinopril and metoprolol as well as hydrochlorothiazide #Super morbid obesity: BMI 73.5. Complicates acute care, expected recovery and prognosis. #History of peptic ulcer: On PPI #DVT prophylaxis: on eliquis. CODE STATUS: * Patient elects to have CPR which she states for maximum of 30 minutes, Admit note but does not want intubation. Currently entered is full code. * * Disposition: For discharge to subacute rehab tomorrow Allergies/Procedures Done in Hospital Allergies tobramycin Allergy (Verified 07/19/22 20:26) PT UNSURE OF REACTION Procedures: 2-D Echocardiogram and Cardioversion Type of Care/Length of Stay Estimated LOS: More Than 30 Days Type of Care Needed: Skilled Rehab Potential: Good Prognosis: Good Additional Orders/Day of Discharge Day of Discharge: 07/25/22 Dietary and Speech Recommendations Dietitian Recommendations/Changes: continue cardiac, 1800 calorie controlled diet Discharge Plan Admission Admit Date/Time: 07/19/22 23:06 Primary Reason for Your Visit: cellulitis, afib Attending Provider: Keena Winslow Primary Care Provider: Alysa Whitt Consulting Providers: Dipesh Quevedo ; Lillian Delgado Instructions Patient Instructions: Cellulitis, AFib Discharge Orders/Prescriptions Prescriptions: New Eliquis 5 mg Tablet 5 mg PO BID Qty: 30 2RF amiodarone 200 mg Tablet 200 mg PO TID Qty: 60 1RF Rx Instructions: take 200mg three times daily x 1 week, then 200mg bid x 1 week, then continue with 200mg once daily. cephalexin 500 mg Capsule 500 mg PO Q6 Qty: 20 0RF Continued nabumetone 750 MG tablet 750 mg PO BID metoprolol succinate 50 MG tablet extended release 24 hr 50 mg PO DAILY lisinopril 20 MG tablet 20 mg PO DAILY baclofen 20 MG tablet 20 mg PO Q12H gabapentin 800 MG tablet 800 mg PO BID omeprazole 20 MG capsule 20 mg PO DAILY ergocalciferol (vitamin D2) 50,000 UNIT capsule 50,000 unit PO DAILY Rx Instructions: twice a week cyanocobalamin-cobamamide 1 EACH tablet, sublingual 1 ea SL QODAY pioglitazone 30 mg tablet 30 mg PO DAILY Label Comments: take 1 tablet by mouth once daily rosuvastatin 5 mg tablet 5 mg PO QODAY Label Comments: take 1 tablet by mouth every other day potassium chloride 20 mEq tablet extended release 20 meq PO DAILY Label Comments: Take 1 tablet by mouth daily furosemide [Lasix] 20 mg Tablet 20 mg PO DAILY Referrals / Follow Up: Ezekiel Fuentes MD [Med Staff - Active Staff] - Within 2 Weeks Alysa Whitt NP-C [Primary Care Provider] - Within 2 Weeks Disposition Disposition (needs filled in before D/C Order can be placed[facility]
--- NOTE | 2022-07-25 12:31 | DS.PCM_ITS ---
Providers Date of Admission: 07/19/22 Date of Discharge: 07/25/22 Primary Care Physician: GIOVANI Alvarado Consultations 07/20/22 01:56 Consult: Cardiology Routine Consulting Provider: Dipesh Quevedo Reason for Consult: Suspect New onset atrial flutter 2:1 EMERGENT Consult: No MD Notified: Yes Date Notified: 07/20/22 Time Notified: 06:30 Method of Notification: Text Reason For Visit: RLE CELLULITIS, ? PA FLUTTER Diagnosis Discharge Diagnosis (1) Lymphedema: Status: Acute Code(s): I89.0 - Lymphedema, not elsewhere classified (2) Cellulitis of lower extremity: Status: Acute Code(s): L03.119 - Cellulitis of unspecified part of limb (3) Atrial flutter with rapid ventricular response: Status: Acute Code(s): I48.92 - Unspecified atrial flutter (4) Sinus tachycardia: Status: Acute Code(s): R00.0 - Tachycardia, unspecified Plan #RLE cellulitis * In the setting of stage III lymphedema. * Duplex of her lower extremities was negative. * fever has resolved. Tachycardia has resolved. * erythema or RLE is improving * PT OT on board. * now on PO keflex. * #Atrial flutter with rapid ventricular rate * now rate controlled. Is s/p JOSE cardioversion. * TTE showed EF of 65% with normal left ventricular size, wall motion and systolic function with focal mild aortic valve calcification unable to assess diastolic dysfunction. * CT of the chest was negative for any evidence of PE. * Cardiology on board. * on amiodarone and metoprolol * on eliquis. * #Non-STEMI: * Initial troponin was 229 and trended up to a peak of 264 but now down to 245. * 2D echo as above. * Cardiology on board. * on eliquis. * #MICHELLE: * Cr trended down to 1.58 today. I would like to see the Cr trend down some more and so will hold dc till tomorrow. * Likely due to vancomycin toxicity as vanc trough is also elevated. * Vanco and Zosyn discontinued. * continue gentle hydration with iVF * #Chronic pain syndrome: On gabapentin and baclofen. #Type 2 diabetes mellitus: Insulin sliding scale. Checks ACHS. #Hypertension: On lisinopril and metoprolol as well as hydrochlorothiazide #Super morbid obesity: BMI 73.5. Complicates acute care, expected recovery and prognosis. #History of peptic ulcer: On PPI #DVT prophylaxis: on eliquis. CODE STATUS: * Patient elects to have CPR which she states for maximum of 30 minutes, Admit note but does not want intubation. Currently entered is full code. * * Disposition: For discharge to subacute rehab tomorrow Medications at Discharge Home Medications baclofen 20 mg tablet 20 mg PO Q12H Check with primary doctor 12/26/19 gabapentin 800 mg tablet 800 mg PO BID Check with primary doctor 12/26/19 lisinopril 20 mg tablet 20 mg PO DAILY Check with primary doctor 12/26/19 metoprolol succinate 50 mg tablet,extended release 24 hr 50 mg PO DAILY Check with primary doctor 12/26/19 nabumetone 750 mg tablet 750 mg PO BID Check with primary doctor 12/26/19 omeprazole 20 mg capsule,delayed release 20 mg PO DAILY Check with primary doctor 12/26/19 cyanocobalamin (B12)-cobamamide 5,000 mcg-100 mcg sublingual tablet 1 ea SL QODAY Check with primary doctor 02/20/20 ergocalciferol (vitamin D2) 1,250 mcg (50,000 unit) capsule 50,000 unit PO DAILY Check with primary doctor 02/20/20 furosemide 20 mg tablet (Lasix) 20 mg PO DAILY Check with primary doctor 07/20/22 pioglitazone 30 mg tablet 30 mg PO DAILY Check with primary doctor 07/20/22 potassium chloride 20 mEq tablet,extended release 20 meq PO DAILY Check with primary doctor 07/20/22 rosuvastatin 5 mg tablet 5 mg PO QODAY Check with primary doctor 07/20/22 amiodarone 200 mg tablet 200 mg PO TID #60 tabs 07/25/22 apixaban 5 mg tablet (Eliquis) 5 mg PO BID #30 tabs 07/25/22 cephalexin 500 mg capsule 500 mg PO Q6 #20 caps 07/25/22 Hospital Course Operations None Procedures 2-D Echocardiogram and Cardioversion Summary of Care Provided Minutes Spent on Discharge: 45 Hospital Course: Patient is a 66 y/o female with a PMH as outlined who was admitted through the ED on 07/19/2022 with a complaint of redness and swelling as well as pain of her right lower extremity which started about 3 days prior to admission. The symptom were mainly over her thigh. She had assisted chills but denied any fever. Patient did have chronic lymphedema in her right lower extremity. She was admitted and managed for cellulitis of the right lower extremity in the setting of lymphedema. She was started on IV Unasyn. Duplex of the right lower extremity was negative for any blood clot. Patient was noted to be tachycardic and suspected to have atrial flutter. She was started on Eliquis on account of elevated [id number] score. She was started on metoprolol. She subsequently required both Cardizem and amiodarone drip as heart rate was not being well controlled. She had 2D echo which showed EF of 65% with normal left ventricular size and wall motion as well as systolic function with focal mild aortic valve calcification. A CTA of the chest was negative for any evidence of PE. Patient was initially on heparin drip and she had cardioversion done on 07/21/2022. She was started on p.o. metoprolol and amiodarone. Her rate control improved and her rhythm went into normal sinus rhythm. Patient remained stable. She had initially wished to go home but in light of her debility, it was recommended that she goes to a subacute rehab to which she agreed. Of note, antibiotics with switch to IV vancomycin and Zosyn initially. Her creatinine trended upwards and this was thought to be due to vancomycin toxicity as have uncontrolled was also elevated. Vancomycin was discontinued. Her creatinine gradually trended downwards. Antibiotics were switched to p.o. Keflex. She remained stable and was discharged to SNF on 07/25/2022. She was discharged on p.o. amiodarone 200 mg 3 times daily for 1 week then to continue with 200 mg twice daily for 1 week then to continue with 200 mg daily. She was also discharged on p.o. Keflex for 5 days and is to follow-up with her primary care doctor and cardiology. Of note she was also discharged on p.o. Eliquis 5 mg twice daily as stroke prophylaxis. #Patient seen and examined prior to discharge. She had no active complaints and had an uneventful night. Review of systems otherwise negative. Labs and vitals reviewed. Home medication reviewed and reconciled. Physical Exam Const alert, oriented x3 and no apparent distress Constitutional Narrative: super morbid obesity General Appearance: cooperative and comfortable Orientation / Consciousness: awake HEENT normocephalic, head/scalp atraumatic, hearing grossly normal bilaterally and moist oral mucous membranes Mouth: oral and palatal mucosa normal Eyes PERRL and EOMs intact bilaterally Neck no lymphadenopathy, supple and no JVD Lymph Lymphatic: no lymphadenopathy noted and no lymphedema noted Resp normal respiratory effort, normal air movement and clear to auscultation bilaterally Cardio regular rate, regular rhythm, S1 normal heart sound, S2 normal heart sound and no murmurs GI normal to inspection, nondistended, normoactive bowel sounds, soft to palpation, non-tender and non-distended GI Narrative: very obese abdomen Extremity Extremity Narrative: both LEs morbidly obese. wrapped in bandage.erythema of right thigh and right LE has resolved. Skin Skin Narrative: as under extremities Neuro CN's II-XII intact bilaterally Psych thought process normal Weight / BMI Weight Weight: 395 lb 1.094 oz Body Mass Index (BMI) 77.1 ABG / Lab / Microbiology Data Result Diagrams: 07/25/22 04:45 07/25/22 04:45 Laboratory: Laboratory Results - last 24 hr 07/24/22 06:00: Absolute Neuts (auto) 7.5, Absolute Lymphs (auto) 0.71 L 07/24/22 11:13: POC Glucose 163 H 07/24/22 17:00: POC Glucose 136 H 07/24/22 21:02: POC Glucose 147 H 07/25/22 04:45: WBC 11.4 H, RBC 3.17 L, Hgb 10.9 L, Hct 34.0 L, MCV 107.3 H, MCH 34.4 H, MCHC 32.1, RDW Std Deviation 53.8 H, RDW Coeff of Tulio 13.5, Plt Count 237, MPV 11.1, Neut % (Auto) Not Reportable, Absolute Neuts (auto) 8.6 H, Absolute Lymphs (auto) 1.14, Total Counted 100, Neutrophils % (Manual) 71 H, Band Neutrophils % 5, Lymphocytes % (Manual) 10 L, Monocytes % (Manual) 11 H, Eosinophils % (Manual) 3, Platelet Estimate ADEQUATE, RBC Morphology N CYTIC, Polychromasia RARE 07/25/22 04:45: Sodium 142, Potassium 4.7, Chloride 110 H, Carbon Dioxide 27.0, Anion Gap 5, BUN 24 H, Creatinine 1.44 H, Estim Creat Clear Calc 27.60, Est GFR (MDRD) Af Amer 47 L, Est GFR (MDRD) Non-Af 39 L, BUN/Creatinine Ratio 16.7, Glucose 131 H, Calcium 9.5 07/25/22 06:59: POC Glucose 123 H 07/25/22 11:30: POC Glucose 127 H Microbiology: Microbiology 07/19/22 22:50 Blood Culture (Wb) - Anticubital Left Blood Culture - Final No growth in 5 days. 07/19/22 22:20 Blood Culture (Wb) - Anticubital Left Blood Culture - Final No growth in 5 days. 07/20/22 16:40 Nasal Secretion SARS-CoV-2 Antigen (Rapid) - Final D/C Instructions Discharge Diet: Low fat / Low cholesterol Discharge Activity: Return to Normal Activity Weight Bearing Status: Weight bearing as tolerated Call your doctor if you observe: Fever of 101 or Higher, Shortness of breath, Dizziness, Swelling in the ankles, Chest pain and Increased palpitations (irregular heartbeat) Meaningful Use Info Meaningful Use Diagnoses (Choose all that apply): None applicable Discharge Plan Admission Admit Date/Time: 07/19/22 23:06 Primary Reason for Your Visit: cellulitis, afib Attending Provider: Keena Winslow Primary Care Provider: Alysa Whitt Consulting Providers: Dipesh Quevedo ; Lillian Delgado Instructions Patient Instructions: Cellulitis, AFib Discharge Orders/Prescriptions Prescriptions: New Eliquis 5 mg Tablet 5 mg PO BID Qty: 30 2RF amiodarone 200 mg Tablet 200 mg PO TID Qty: 60 1RF Rx Instructions: take 200mg three times daily x 1 week, then 200mg bid x 1 week, then continue with 200mg once daily. cephalexin 500 mg Capsule 500 mg PO Q6 Qty: 20 0RF Continued nabumetone 750 MG tablet 750 mg PO BID metoprolol succinate 50 MG tablet extended release 24 hr 50 mg PO DAILY lisinopril 20 MG tablet 20 mg PO DAILY baclofen 20 MG tablet 20 mg PO Q12H gabapentin 800 MG tablet 800 mg PO BID omeprazole 20 MG capsule 20 mg PO DAILY ergocalciferol (vitamin D2) 50,000 UNIT capsule 50,000 unit PO DAILY Rx Instructions: twice a week cyanocobalamin-cobamamide 1 EACH tablet, sublingual 1 ea SL QODAY pioglitazone 30 mg tablet 30 mg PO DAILY Label Comments: take 1 tablet by mouth once daily rosuvastatin 5 mg tablet 5 mg PO QODAY Label Comments: take 1 tablet by mouth every other day potassium chloride 20 mEq tablet extended release 20 meq PO DAILY Label Comments: Take 1 tablet by mouth daily furosemide [Lasix] 20 mg Tablet 20 mg PO DAILY Referrals / Follow Up: Ezekiel Fuentes MD [Med Staff - Active Staff] - Within 2 Weeks Alysa Whitt NP-C [Primary Care Provider] - Within 2 Weeks Disposition Disposition (needs filled in before D/C Order can be placed): [facility] Charges/Coding Visit Charges Inpatient E&M: 64083 Disch Hosp >30min
--- NOTE | 2022-07-25 12:46 | NURSING ---
Called report to nurse Ariza at [facility]
[2022-07-25 13:25] VITALS: BP 135/94; PULSE 65; RESP 16; TEMP 36.9; O2SAT 94
[2022-07-25] MEDS: 0.9% Saline Lock 10 ML Syringe IV (13:27)
[2022-07-26 09:01] LABS: Pathologist Review Reviewed
[2022-07-26 13:56] LABS: Pathologist Review Reviewed
== END 2022-07-25 15:47 | disposition skilled nursing facility (03) | DRG 602 ==
LOC: ED 23:25 → PCU 23:57
PROVIDERS: Internal Medicine Cardiovascular Disease; Admitting Provider Family Medicine; Emergency Provider Emergency Medicine; PCP Nurse Practitioner Family; Visit Provider Student in an Organized Health Care Education/Training Program
DX: L03.115 Cellulitis of right lower limb (principal); I21.4 Non-ST elevation (NSTEMI) myocardial infarction; N17.9 Acute kidney failure, unspecified; I48.92 Unspecified atrial flutter; Z68.45 Body mass index [BMI] 70 or greater, adult; E11.51 Type 2 diabetes mellitus with diabetic peripheral angiopathy without gangrene; E66.01 Morbid (severe) obesity due to excess calories; I10 Essential (primary) hypertension; E78.5 Hyperlipidemia, unspecified; I89.0 Lymphedema, not elsewhere classified; K21.9 Gastro-esophageal reflux disease without esophagitis; M17.12 Unilateral primary osteoarthritis, left knee; Y92.239 Unspecified place in hospital as the place of occurrence of the external cause; T36.8X5A Adverse effect of other systemic antibiotics, initial encounter; G89.4 Chronic pain syndrome; Z20.822 Contact with and (suspected) exposure to COVID-19; Z23 Encounter for immunization; Z79.83 Long term (current) use of bisphosphonates; Z79.1 Long term (current) use of non-steroidal anti-inflammatories (NSAID); Z79.84 Long term (current) use of oral hypoglycemic drugs; Z86.718 Personal history of other venous thrombosis and embolism
CPT/HCPCS: 36415; 36569; 71045; 71275; 80048; 80053; 80061; 80202; 82962; 83605; 83735; 84443; 84484; 85025; 85610; 85730; 87040; 87426; 87811; 93005; 93306; 93312; 93320; 93325; 93970; 94668; 97110; 97162; 97166; 97530; 97535; 97802; 99285; G0008; J7030; J7040; J7050; Q9957; Q9967; 90686; A4216; C8929; J0295; J1940

== ENCOUNTER 2022-10-22 10:45 | Inpatient (IN) | payer MEDICARE, OTHER, SELFPAY ==
[2022-10-22] VITALS (14 sets, daily range): BP systolic 97–164; BP diastolic 52–120; PULSE 56–90; RESP 18; TEMP 36.3–36.6; O2SAT 88–100; BMI 75.3
--- NOTE | 2022-10-22 10:52 | EKG12_ITS ---
Test Reason : FALL Blood Pressure : / mmHG Vent. Rate : 062 BPM Atrial Rate : 062 BPM P-R Int : 234 ms QRS Dur : 148 ms QT Int : 466 ms P-R-T Axes : 055 -73 033 degrees QTc Int : 472 ms Sinus rhythm with 1st degree A-V block Right bundle branch block Left anterior fascicular block Bifascicular block Abnormal ECG Confirmed by EDDI AGUAYO, CHELSEA ([id number]), features editor JODY DESIR ([id number]) on 10/25/2022 1:36:34 PM Referred By: JENARO Confirmed By:CHELSEA MONTAGUE MD
--- NOTE | 2022-10-22 10:53 | RAD_ITS ---
STUDY: X-RAY - RIGHT ANKLE REASON FOR EXAM: Female, 67 years old. Injury/Pain TECHNIQUE: 2 view(s) of the ankle. COMPARISON: None. FINDINGS: Transverse fracture of the medial malleolus with lateral displacement of the tibial talar joint. Avulsion fracture of the lateral malleolus. Plantar spur. The visualized subtalar, talonavicular, calcaneocuboid and tarsal articulations are normal. Soft tissue swelling. RAD/Ankle 2 Views IMPRESSION: Fracture and lateral dislocation of the distal fibula and tibia. Electronically Signed: David Nicole MD at 12:13 EDT ,
[2022-10-22] MEDS: Ondansetron 4 MG/2 ML Vial IV (11:10)
[2022-10-22] MEDS: Morphine 4 MG/ML Syringe IV ×2 (11:10→13:10)
[2022-10-22 11:17] LABS: Absolute Lymphocyte Count 1.04 X10^3/uL (0.83-4.51); Absolute Neutrophil Count 3.7 X10^3/uL (2.0-7.7); Basophil# 0.01 X10^3/uL; Basophil% 0.2 % (0-1); Eosinophil# 0.15 X10^3/uL; Eosinophils% 2.7 % (0-5); Hematocrit 44.5 % (37-47); Lymphocyte # 1.04 X10^3/ul (0.83-4.51); Mean Corp Hgb Conc 31.5 g/dL (32-36); Mean Corpuscular Hgb 33.6 pg (27.0-32.0); Mean Corpuscular Volume 106.7 fL (81-99); Mean Platelet Vol. 11.6 fl (6.2-12.0); Monocyte# 0.51 X10^3/uL; Monocyte% 9.3 % (0-10); NRBC Flagged by Analyzer 0 % (0-5); Neutrophil # 3.73 X10^3/uL (2.7-7.7); Neutrophil % 68.3 % (47-70); Platelet Count 166 K/mm3 (150-450); RBC Distribution Width CV 14.3 % (11.6-14.6); RBC Distribution Width SD 56.1 fl (35.1-43.9); Red Blood Count 4.17 M/mm3 (4.2-5.4); White Blood Count 5.5 K/mm3 (4.4-11.0)
--- NOTE | 2022-10-22 11:20 | RAD_ITS ---
STUDY: X-RAY CHEST REASON FOR EXAM: Female, 67 years old. Fall TECHNIQUE: Single AP portable view of the chest. COMPARISON: Comparison is made with prior study of July 20, 2022. FINDINGS: EKG electrodes are seen. There is evidence of vascular congestion and mild CHF. There is no demonstrated pleural abnormality. There is mild cardiac enlargement. Normal mediastinum and litzy. Normal visualized pulmonary arteries. Normal visualized aortic arch and descending thoracic aorta. There are diffuse degenerative changes of the visualized thoracic spine. Normal visualized ribs, clavicles, and shoulders. There is no demonstrated abnormality of the visualized soft tissue structures of the upper abdomen. RAD/Chest 1 View (Portable) IMPRESSION: Vascular congestion and mild degree of CHF. Electronically Signed: David Nicole MD at 12:12 EDT ,
[2022-10-22 11:26] LABS: International Normalized Ratio 1.4; Prothrombin Time (Protime)PT. 16.8 SECONDS (11.7-14.9)
[2022-10-22 11:27] LABS: Partial Thromboplast Time 38.6 Seconds (24.1-36.2)
--- NOTE | 2022-10-22 11:35 | ED.VIS.LOWEX ---
HPI History of Present Illness HPI Narrative: Patient presents with right ankle injury that occurred after a fall today. Patient states she was trying to get into a vehicle and her sister was helping her. Patient states that she fell and twisted her right ankle. Patient states she felt and heard some cracking and snapping. Patient states her pain is worse with any movement. Patient denies any paresthesias or weakness. Patient is unsure of her last tetanus. Patient was unable to ambulate after the fall. Chief Complaint: Lower Extremity Injury Informant: patient Occured/Mechanism Mechanism/Context: Yes fall Onset/Context/Timing Onset: Today Context: Sudden Onset Timing: Continuous Quality of Pain: Sharp Location: Right ankle Worsened by: Movement Relieved by: Nothing Associated Symptoms Associated Symptoms: Negative for Parasthesia, Weakness or Loss of Funtion [facility] Medical History Chronic pain syndrome Diabetes mellitus Diabetes mellitus, type 2 GERD (gastroesophageal reflux disease) History of gastric ulcer HLD (hyperlipidemia) HLD (hyperlipidemia) HTN (hypertension) HTN (hypertension) Lymphedema Lymphedema Morbid obesity with BMI of 45.0-49.9, adult PAD (peripheral artery disease) PVD (peripheral vascular disease) Home Medications baclofen 20 mg tablet 20 mg PO Q12H Check with primary doctor 12/26/19 [History Last Taken Unknown] gabapentin 800 mg tablet 750 mg PO BID Check with primary doctor 12/26/19 [History Last Taken Unknown] lisinopril 20 mg tablet 20 mg PO DAILY Check with primary doctor 12/26/19 [History Last Taken Unknown] metoprolol succinate 50 mg tablet,extended release 24 hr 50 mg PO DAILY Check with primary doctor 12/26/19 [History Last Taken Unknown] omeprazole 20 mg capsule,delayed release 20 mg PO DAILY Check with primary doctor 12/26/19 [History Last Taken Unknown] furosemide 20 mg tablet (Lasix) 20 mg PO DAILY Check with primary doctor 07/20/22 [History Last Taken Unknown] pioglitazone 30 mg tablet 30 mg PO DAILY Check with primary doctor 07/20/22 [History Last Taken Unknown] rosuvastatin 5 mg tablet 5 mg PO QODAY Check with primary doctor 07/20/22 [History Last Taken Unknown] apixaban 5 mg tablet (Eliquis) 5 mg PO BID #30 tabs 07/25/22 [Rx Last Taken Unknown] amiodarone 200 mg tablet 200 mg PO DAILY #90 tabs 08/20/22 [Rx Last Taken Unknown] cyanocobalamin (B12)-cobamamide 5,000 mcg-100 mcg sublingual tablet 1 tab sublingual QODAY Check with primary doctor 08/20/22 [History Last Taken Unknown] ergocalciferol (vitamin D2) 1,250 mcg (50,000 unit) capsule 50,000 unit PO Q2W Check with primary doctor 08/20/22 [History Last Taken Unknown] tramadol 50 mg tablet 50 mg PO DAILY PRN pain 08/20/22 [History Last Taken Unknown] Allergy/AdvReac Type Severity Reaction Status Date / Time tobramycin Allergy PT UNSURE Verified 10/22/22 10:50 OF REACTION Family History Mother Non Hodgkin's lymphoma Father Kidney disease Heart disease Hypertension Myocardial infarction Grandfather Heart disease Myocardial infarction Surgical History H/O exploratory laparotomy History of dental surgery History of shoulder surgery History of tonsillectomy and adenoidectomy S/P total knee replacement Social History household members: other details: Lives with her sister and brother in law. Smoking Status: Never smoker alcohol intake: current alcohol intake frequency: a few times a month substance use type: does not use caffeine: Yes Type: tea Number of servings: 1 ROS ROS ED Constitutional Constitutional ED: Denies chills or fever(s) Eyes Eyes: Denies blurry vision or change in vision ENT ENT ED: Denies rhinorrhea or sore throat Cardiovascular Cardiovascular: Denies chest pain or palpitations Respiratory/Chest Respiratory/Chest: Denies cough or dyspnea Gastrointestinal Gastrointestinal: Denies nausea or vomiting Genitourinary Genitourinary ED: Denies dysuria or hematuria Musculoskeletal Musculoskeletal: Denies back pain or neck pain Integumentary Denies abscess or rash Neurologic Neurologic: Denies headache(s) or weakness Allergic/Immunologic Allergic/Immunologic ED: Denies mouth swelling or urticaria EXAM Physical Exam Const Vital Signs: 10/22/22 10:46 10/22/22 11:50 10/22/22 11:57 Temperature 97.4 F L Temperature Source Temporal Pulse Rate 67 68 59 L Respiratory Rate 18 18 18 Blood Pressure 140/72 H 155/66 H 155/65 H Blood Pressure Mean 94 95 95 Pulse Ox 95 96 88 Oxygen Delivery Method Room Air Room Air Room Air Oxygen Flow Rate (L/min) 10/22/22 12:51 10/22/22 13:21 Temperature Temperature Source Pulse Rate 58 L 56 L Respiratory Rate 18 Blood Pressure 164/52 H Blood Pressure Mean 89 Pulse Ox 99 Oxygen Delivery Method Nasal Cannula Oxygen Flow Rate (L/min) 2 Positive well nourished, well developed and obese General Appearance ED: well developed and NAD Nutritional Appearance: obese HEENT Reports moist mucous membranes Neck full ROM and supple Resp normal respiratory effort and clear to auscultation bilaterally Cardio regular rate and regular rhythm GI non-tender Palpation: soft Extremity Extremity Narrative: There is an obvious deformity of the right ankle. There is tenderness palpation over this area. There is an open laceration over the medial aspect of the right ankle. There is no active bleeding. Pedal pulses are equal bilaterally. Sensation was intact to light touch in all digits. Capillary refill was less than 2 seconds in all digits. Neuro oriented x3, CN's II-XII intact bilaterally, moves all extremities and no sensory deficits noted Sensorium / Orientation: alert Motor Exam: strength 5/5 throughout Psych mental status grossly normal MDM MDM MDM Narrative Medical decision making narrative: Differential diagnosis includes open fracture right ankle, dislocation, knee fracture, and ligamentous strain. X-rays of the right ankle will be obtained to assess for fracture and dislocation. EKG will be obtained to assess for cardiac dysrhythmia and cardiac ischemia. Chest x-ray will be obtained to assess for pneumonia and cardiomegaly. CBC will be obtained to assess for leukocytosis and anemia. Comprehensive metabolic profile will be obtained to assess for electrolyte abnormality, renal function, and hepatic function. PT with INR and PTT will be obtained to assess for coagulopathy. High-sensitivity troponin will be obtained to assess for cardiac ischemia. X-rays of the right knee will be obtained to assess for fracture. Lab Data Attestation: I reviewed the patient's lab results. Lab results narrative: CBC was reviewed and was within normal limits. PT with INR and PTT was reviewed. PT was 16.8 and INR is 1.4. PTT was 38.6. Comprehensive metabolic profile was obtained. BUN was 22 creatinine was 1.34. The remainder is essentially within normal limits. Labs: Laboratory Results - last 24 hr 10/22/22 10/22/22 10/22/22 11:05 11:05 11:05 WBC 5.5 RBC 4.17 L Hgb 14.0 Hct 44.5 MCV 106.7 H MCH 33.6 H MCHC 31.5 L RDW Std Deviation 56.1 H RDW Coeff of Tulio 14.3 Plt Count 166 MPV 11.6 Immature Gran % (Auto) 0.500 Neut % (Auto) 68.3 Lymph % (Auto) 19.0 [place] % (Auto) 9.3 Eos % (Auto) 2.7 Baso % (Auto) 0.2 Absolute Neuts (auto) 3.7 Absolute Lymphs (auto) 1.04 Nucleated RBC % 0 PT 16.8 H INR 1.4 APTT 38.6 H Sodium 139 Potassium 4.4 Chloride 106 Carbon Dioxide 28.0 Anion Gap 5 BUN 22 H Creatinine 1.34 H Estim Creat Clear Calc 29.26 Est GFR (MDRD) Af Amer 51 L Est GFR (MDRD) Non-Af 42 L BUN/Creatinine Ratio 16.4 Glucose 123 H Calcium 10.7 H Total Bilirubin 0.50 AST 12 L ALT 17 Alkaline Phosphatase 112 Troponin I High Sens 15 Total Protein 7.7 Albumin 3.7 Globulin 4.0 Albumin/Globulin Ratio 0.9 Radiography Diagnostic Testing: Clinical Impression(s) from Imaging Studies Ankle X-Ray 10/22/22 10:53 IMPRESSION: Fracture and lateral dislocation of the distal fibula and tibia. Electronically Signed: David Nicole MD at 12:13 EDT , Chest X-Ray 10/22/22 11:20 IMPRESSION: Vascular congestion and mild degree of CHF. Electronically Signed: David Nicole MD at 12:12 EDT , Knee X-Ray 10/22/22 12:04 IMPRESSION: Status post total knee replacement. Soft tissue swelling. Electronically Signed: David Nicole MD at 12:27 EDT , X-rays of the right ankle were obtained. There are 2 views. On my independent interpretation, there is a trimalleolar fracture dislocation. The talus and fracture fragments are completely displaced laterally. Radiologist also interpreted the x-rays and agrees. X-rays of the right knee were obtained. There are 2 views. On my independent interpretation, there is no acute fracture or dislocation. There is some mild soft tissue swelling noted. Radiologist also interpreted the x-rays and agrees. Portable chest x-ray was obtained. There is 1 view. On my independent interpretation, there is some evidence of mild congestive heart failure. There is no pneumonia. There is some mild cardiomegaly noted. Radiologist also interpreted the x-ray and agrees. EKG Initial EKG: Attestation: I personally reviewed and interpreted this EKG as follows: Interpretation: Sinus Rhythm (62), RBBB and LAFB Comments: EKG was obtained. On my independent interpretation, it showed a normal sinus rhythm with a first-degree AV block with a rate of 62. ID interval was prolonged at 254 ms. QRS interval was prolonged at 148 ms. QTc interval was 472 ms. There is left axis deviation at -73. There are nonspecific ST-T wave changes. Prior EKG tracings: available for review Prior: Unchanged (07/21/2022) Management Discussion w/another healthcare provider: Bending Machine Operator (Dr. Pacheco, appellate conferee) Treatment and Re-Evaluation Narrative: Patient was given morphine and Zofran initially. Patient was given a tetanus booster. Patient was given a dose of Ancef. Patient was given a repeat dose of Dilaudid. Patient was still having pain after x-ray and was given a repeat dose of morphine. Case was discussed with Dr. Pacheco from podiatry. He will be in to evaluate the patient. He will take the patient to the operating room for washout and repair of the laceration. He will admit the patient to his service after surgery. Patient and family understand and are agreeable with the plan. All questions were answered. Discharge Plan Dx/Rx/DC Orders Clinical Impression: Open fracture dislocation of right ankle, HTN (hypertension), Morbid obesity with BMI of 70 and over, adult Disposition Disposition: Acute Care Hospital [facility] Discharge Date/Time: 10/22/22 13:40
[2022-10-22 11:37] LABS: ALB/GLOB Ratio 0.9 RATIO (0.9-2.4); AST(SGOT) 12 U/L (15-37); Alanine Aminotransfer ALT/SGPT 17 U/L (13-56); Albumin, Serum 3.7 g/dL (3.2-5.0); Alkaline Phosphatase 112 U/L (45-117); Anion Gap 5 (5-15); BUN 22 mg/dL (7-18); BUN/Creat Ratio 16.4 RATIO (10-20); Calcium,Total 10.7 mg/dL (8.5-10.1); Chloride 106 mmol/L (98-107); Creatinine, Serum 1.34 mg/dL (0.55-1.02); EST Glomerular Filtration Rate 42 mL/min (>60); Est Glom Filt Rate - Afr Amer 51 mL/min (>60); Estimated Creatinine Clearance 29.26 ml/min; Glucose 123 mg/dL (74-106); Potassium 4.4 mmol/L (3.5-5.1); Protein, Total 7.7 g/dL (6.4-8.2); Sodium Level 139 mmol/L (136-145); Troponin-I HS 15 pg/mL (3.0-54.0)
[2022-10-22] MEDS: HYDROmorphone 1 MG/ML Syringe IV (11:41)
[2022-10-22] MEDS: Lidocaine 1% (20 ml mdv) 20 ML Vial INFILT (11:54)
[2022-10-22] MEDS: Diphth,Pertuss(Acell),Tet Vac 0.5 ML Vial IM (11:54)
--- NOTE | 2022-10-22 12:04 | RAD_ITS ---
STUDY: X-RAY - RIGHT KNEE REASON FOR EXAM: Female, 67 years old. Injury/Pain TECHNIQUE: 2 view(s) of the knee. COMPARISON: None. FINDINGS: Normal visualized distal femur. Normal visualized proximal tibia and fibula. Normal proximal tibiofibular articulation. The patient is status post total knee replacement. There is good alignment. Soft tissue swelling. RAD/Knee 1 or 2 Views IMPRESSION: Status post total knee replacement. Soft tissue swelling. Electronically Signed: David Nicole MD at 12:27 EDT ,
[2022-10-22] MEDS: Cefazolin 1 GM/50 ML BAG IV (13:15)
[2022-10-22] MEDS: Bacitracin 500 UNITS/GM PACKET ×2 (13:24→14:07)
--- NOTE | 2022-10-22 13:31 | HP.PCM_ITS ---
HPI - General General Date of Admission: 10/22/22 Date of Service: 10/22/22 HPI Narrative ANGEL PATTERSON, is a 67 F who presents to ER after she was trying to get into her car in her garage she fell and heard a snap and noticed a wound to her right ankle. Patient notes pain at rest but is worsened with manipulation the site. Patient was and unable to stand after the injury. Patient has general difficulty walking due to her obesity as well as lymphedema status. This historically has made her unstable. Most recently patient had an NSTEMI in July. They felt that this was the cause of her episode of atrial flutter. Patient has been on apixaban since that time. Patient has no other complaints. [facility] Medical History Chronic pain syndrome Diabetes mellitus Diabetes mellitus, type 2 GERD (gastroesophageal reflux disease) History of gastric ulcer HLD (hyperlipidemia) HLD (hyperlipidemia) HTN (hypertension) HTN (hypertension) Lymphedema Lymphedema Morbid obesity with BMI of 45.0-49.9, adult PAD (peripheral artery disease) PVD (peripheral vascular disease) Home Medications baclofen 20 mg tablet 20 mg PO Q12H Check with primary doctor 12/26/19 [History Last Taken Unknown] gabapentin 800 mg tablet 750 mg PO BID Check with primary doctor 12/26/19 [History Last Taken Unknown] lisinopril 20 mg tablet 20 mg PO DAILY Check with primary doctor 12/26/19 [History Last Taken Unknown] metoprolol succinate 50 mg tablet,extended release 24 hr 50 mg PO DAILY Check with primary doctor 12/26/19 [History Last Taken Unknown] omeprazole 20 mg capsule,delayed release 20 mg PO DAILY Check with primary doctor 12/26/19 [History Last Taken Unknown] furosemide 20 mg tablet (Lasix) 20 mg PO DAILY Check with primary doctor 07/20/22 [History Last Taken Unknown] pioglitazone 30 mg tablet 30 mg PO DAILY Check with primary doctor 07/20/22 [History Last Taken Unknown] rosuvastatin 5 mg tablet 5 mg PO QODAY Check with primary doctor 07/20/22 [History Last Taken Unknown] apixaban 5 mg tablet (Eliquis) 5 mg PO BID #30 tabs 07/25/22 [Rx Last Taken Unknown] amiodarone 200 mg tablet 200 mg PO DAILY #90 tabs 08/20/22 [Rx Last Taken Unknown] cyanocobalamin (B12)-cobamamide 5,000 mcg-100 mcg sublingual tablet 1 tab sublingual QODAY Check with primary doctor 08/20/22 [History Last Taken Unknown] ergocalciferol (vitamin D2) 1,250 mcg (50,000 unit) capsule 50,000 unit PO Q2W Check with primary doctor 08/20/22 [History Last Taken Unknown] tramadol 50 mg tablet 50 mg PO DAILY PRN pain 08/20/22 [History Last Taken Unknown] Allergy/AdvReac Type Severity Reaction Status Date / Time tobramycin Allergy PT UNSURE Verified 10/22/22 10:50 OF REACTION Family History Mother Non Hodgkin's lymphoma Father Kidney disease Heart disease Hypertension Myocardial infarction Grandfather Heart disease Myocardial infarction Surgical History H/O exploratory laparotomy History of dental surgery History of shoulder surgery History of tonsillectomy and adenoidectomy S/P total knee replacement Social History household members: other details: Lives with her sister and brother in law. Smoking Status: Never smoker alcohol intake: current alcohol intake frequency: a few times a month substance use type: does not use caffeine: Yes Type: tea Number of servings: 1 ROS Constitutional Constitutional: Denies change in weight, chills or headache(s) Eyes Eyes: Denies acute decrease in peripheral vision, change in eye color or discongugate gaze ENT HEENT: Denies bleeding gums, ear pain or epistaxis Cardiovascular Cardiovascular: Denies abdominal edema, chest pain at rest or dizziness Respiratory/Chest Respiratory/Chest: Denies change in phlegm color, dusky skin or dyspnea Gastrointestinal Gastrointestinal: Denies belching, bloating or constipation Genitourinary Genitourinary: Denies anuria, burning urination or difficulty with ejaculations Musculoskeletal Musculoskeletal: Denies atrophy, back pain or limited range of motion Integumentary Integumentary: Reports bleeding lesions and skin ulcer; Denies hirsutism Vital Signs Vital Signs Vital Signs: 10/22/22 10:46 10/22/22 11:50 10/22/22 11:57 Temperature 97.4 F L Temperature Source Temporal Pulse Rate 67 68 59 L Respiratory Rate 18 18 18 Blood Pressure 140/72 H 155/66 H 155/65 H Blood Pressure Mean 94 95 95 Pulse Ox 95 96 88 Oxygen Delivery Method Room Air Room Air Room Air Oxygen Flow Rate (L/min) 10/22/22 12:51 10/22/22 13:21 Temperature Temperature Source Pulse Rate 58 L 56 L Respiratory Rate 18 Blood Pressure 164/52 H Blood Pressure Mean 89 Pulse Ox 99 Oxygen Delivery Method Nasal Cannula Oxygen Flow Rate (L/min) 2 Weight Weight: 174.9 kg Body Mass Index (BMI) 75.3 Physical Exam Narrative Vascular: Diffuse edema to bilateral lower extremity secondary to lymphedema. Dorsalis pedis posterior tibial pulses palpable to right lower extremity. Neurologic: Light touch protective sensation intact to bilateral feet. Two- point discrimination intact. Dermatologic: Large full-thickness wound to the right medial ankle no exposed bone. This appears limited to deep fascia Musculoskeletal: Posterior lateral ankle dislocation noted. Diffuse pain to right ankle with significant guarding no other testing noted due to dislocation. Const alert and oriented x3 Results Lab / Micro Data Result Diagrams: 10/22/22 11:05 10/22/22 11:05 Labs: Laboratory Results - last 24 hr 10/22/22 11:05: WBC 5.5, RBC 4.17 L, Hgb 14.0, Hct 44.5, MCV 106.7 H, MCH 33.6 H , MCHC 31.5 L, RDW Std Deviation 56.1 H, RDW Coeff of Tulio 14.3, Plt Count 166, MPV 11.6, Immature Gran % (Auto) 0.500, Neut % (Auto) 68.3, Lymph % (Auto) 19.0, [place] % (Auto) 9.3, Eos % (Auto) 2.7, Baso % (Auto) 0.2, Absolute Neuts (auto) 3.7, Absolute Lymphs (auto) 1.04, Nucleated RBC % 0 10/22/22 11:05: PT 16.8 H, INR 1.4, APTT 38.6 H 10/22/22 11:05: Sodium 139, Potassium 4.4, Chloride 106, Carbon Dioxide 28.0, Anion Gap 5, BUN 22 H, Creatinine 1.34 H, Estim Creat Clear Calc 29.26, Est GFR (MDRD) Af Amer 51 L, Est GFR (MDRD) Non-Af 42 L, BUN/Creatinine Ratio 16.4, Glucose 123 H, Calcium 10.7 H, Total Bilirubin 0.50, AST 12 L, ALT 17, Alkaline Phosphatase 112, Troponin I High Sens 15, Total Protein 7.7, Albumin 3.7, Globulin 4.0, Albumin/Globulin Ratio 0.9 Radiology Impression Ankle X-Ray 10/22/22 10:53 IMPRESSION: Fracture and lateral dislocation of the distal fibula and tibia. Electronically Signed: David Nicole MD at 12:13 EDT , Chest X-Ray 10/22/22 11:20 IMPRESSION: Vascular congestion and mild degree of CHF. Electronically Signed: David Nicole MD at 12:12 EDT , Knee X-Ray 10/22/22 12:04 IMPRESSION: Status post total knee replacement. Soft tissue swelling. Electronically Signed: David Nicole MD at 12:27 EDT , Assessment & Plan Assessment/Plan (1) Open fracture of right ankle: PLAN: Exam performed Radiographs reviewed demonstrate complete dislocation posterior laterally of the right ankle with complete fibular fracture and complete medial malleolus fracture This is considered to be an open fracture patient received 1 dose of Ancef within the ER Plan will be to take the patient into the OR immediately for a washout of her medial ankle wound and closed reduction with stabilization via external fixation Patient will require definitive ORIF in the next 2 to 3 weeks Prior to that time patient would benefit from recovering in a [place] [facility] [place] facility due to her medical comorbidities I have ordered Ancef to be given over the next couple days we will monitor for any infection I have consulted medicine as well as infectious disease and geriatric case manager for discharge planning We will follow the patient closely
[2022-10-22] MEDS: 0.9% Normal Saline 1,000 ML 15 ML IV (14:01)
--- NOTE | 2022-10-22 15:00 | RAD_ITS ---
STUDY: X-RAY - RIGHT ANKLE REASON FOR EXAM: Female, 67 years old. ANKLE FRACTURE TECHNIQUE: 3 view(s) of the ankle. COMPARISON: 10/22/2022 FINDINGS: Fluoroscopy of the right ankle was utilized in the operating room during external reduction of the tibiotalar joint and 8 images are submitted for interpretation. . RAD/Ankle min 3 Views IMPRESSION: Fluoroscopy during reduction of tibiotalar joint. Electronically Signed: Carter Long MD at 18:14 EDT ,
[2022-10-22] MEDS: Lactated Ringers 1,000 ML 15 ML IV (15:45)
[2022-10-22] MEDS: Bupivacaine Mpf 0.5% 30 ML VIAL (16:00)
--- NOTE | 2022-10-22 16:53 | PCM.OPRPT ---
Problems Associated Problem List Diagnoses (1) Open fracture dislocation of right ankle: Report of Operation Date of Procedure: 10/22/22 Pre-Operative Diagnosis: 1) Right open bimalleolar ankle fracture dislocation Post-Operative Diagnosis: same Surgery/Procedure Performed:: 1. Irrigation open fracture, right ankle 2. Closed reduction external fixation, right ankle Description of Surgical Findings:: Patient suffered an open ankle fracture tourniquet in her car earlier today. Due to open nature and severe dislocation laterally decision was made for operative irrigation of the surgical site as well as application of a delta frame to stabilize a lot of soft tissue envelope to calm. Surgeon: Jayme Pacheco Type of Anesthesia: General Special Medications: 30 cc half percent Marcaine plain Specimen's removed: None Drains: None Estimated Blood Loss (mL): 10 cc Description of Procedure: Patient brought back the operating placed comfortably in supine position on the operating room table. Extrawide bed be used. Patient induced under general anesthesia the catheter was placed per nursing. Patient induced under general anesthesia. All osseous prominences offloaded prevent any compression neuropraxia. Right lower extremity was then scrubbed prepped draped using typical aseptic fashion. The medial ankle wound was noted to be limited to subcutaneous fat and did not demonstrate any exposed bone which is good. This wound was examined and noted to be a proximately 10 cm in length and 3 cm in width and 1 cm in depth. This was flushed with copious amounts of normal sterile saline using low-pressure pulse lavage. Post lavage swab cultures were then taken. Next using manufactures guidelines the delta frame Faria 3 by [employer] was applied by first applying the 2 tibial half pins followed by applying a transfixion pin through the calcaneus avoiding the posterior tibial artery and nerve this was noted to be central within the calcaneus as well as the to have been central within the tibia confirmed fluoroscopically. Next the ankle was then dislocated and reduced using Charnley's principles. This was stabilized then with a pin to bar construct to maintain the length and reduction. Once this was reduced the medial ankle incision was noted to be clean and closed primarily using simple interrupted stitches. Using 3-0 Prolene. Care was taken to make sure that all aspects of the delta frame were noted to be tight. Clinically or upon intraoperative examination the ankle was noted to be reduced with the foot restored back beneath the tibia. This was confirmed with multiple fluoroscopic images. All sites were then dressed with bacitracin Adaptic 4 x 4's Kerlix ABD pads and [place]. Patient was then transported to PACU vital signs stable vascular status intact all digits for further monitoring prior to transfer back to the floor. Patient tolerated anesthesia and procedure well. The external fixator was applied using manufactures guidelines. Patient will likely be discharged to a care home facility to allow for adequate recovery prior to definitive open reduction internal fixation with within the next 2 to 3 weeks. Discussed with patient and family that this would be a long recovery and the goal is to get the patient walking as soon as possible as she has significant medical comorbidities. Grafts/Implants Used: [place] Faria 3 delta frame Complications None Admit VTE Documentation VTE Present on Admission: Yes VTE Pharm Prophylaxis ordered?: Yes
[2022-10-22 17:27] LABS: Bedside Glucose 124 mg/dL (74-106)
[2022-10-22] MEDS: Acetaminophen 500 MG Tablet PO (18:35)
--- NOTE | 2022-10-22 19:01 | PCM.CONS.GEN ---
Assessment & Plan Assessment/Plan (1) Open fracture dislocation of right ankle: PLAN: Plan This 67-year-old female is being seen as instructional consultant for perioperative management of right open fracture dislocation of ankle. 1. Perioperative management of right open bimalleolar ankle fracture dislocation: Patient was taken to the OR and had irrigation with closed reduction and external fixation of right ankle by shower screen installer Dr. Pacheco. Patient on pain control. PT and OT. Patient on enoxaparin 40 mill subcu twice daily, perioperative cefazolin. 2. Diabetes mellitus type 2 with diabetic neuropathy: Patient complain of numbness over left fingers and toes. Glucose is 124 finger check. She is not on insulin at home. Accu-Cheks before meals and cover with Humalog sliding scale. Actos continues as her kidney function is improved since July 2022. On gabapentin continued. A1c tomorrow AM. 3. Atrial flutter status post cardioversion in July 2022 and peripheral arterial disease. Continue metoprolol succinate and amiodarone. Eliquis on hold. 4. Hypertension: Blood pressure is on lower side therefore will hold antihypertensive medications. On lisinopril continued with holding parameter. 5. CKD stage IV: Patient creatinine was 1.62 in July 2022 and subsequently getting better 1.34 with estimated creatinine clearance 29 mm/min. Avoid nephrotoxic medications and recommend follow-up with gypsum roofer as an outpatient. Hold Lasix 20 mg daily. Hold tramadol. 6. Bilateral chronic lymphedema right worse than left: Follow-up in lymphedema clinic. 7. History of gastric ulcer, GERD, dyslipidemia, chronic pain disorder follows Dr. Yin : Home medications reconciliation done. Patient on PPI, rosuvastatin and baclofen. DVT prophylaxis high risk: On enoxaparin 40 mg SQ twice daily due to morbid obesity. Laboratory Results 10/22/22 11:05: WBC 5.5, RBC 4.17 L, Hgb 14.0, Hct 44.5, MCV 106.7 H, MCH 33.6 H, MCHC 31.5 L, RDW Std Deviation 56.1 H, RDW Coeff of Tulio 14.3, Plt Count 166, MPV 11.6, Immature Gran % (Auto) 0.500, Neut % (Auto) 68.3, Lymph % (Auto) 19.0, Major % (Auto) 9.3, Eos % (Auto) 2.7, Baso % (Auto) 0.2, Absolute Neuts (auto) 3.7, Absolute Lymphs (auto) 1.04, Nucleated RBC % 0 10/22/22 11:05: PT 16.8 H, INR 1.4, APTT 38.6 H 10/22/22 11:05: Sodium 139, Potassium 4.4, Chloride 106, Carbon Dioxide 28.0, Anion Gap 5, BUN 22 H, Creatinine 1.34 H, Estim Creat Clear Calc 29.26, Est GFR (MDRD) Af Amer 51 L, Est GFR (MDRD) Non-Af 42 L, BUN/Creatinine Ratio 16.4, Glucose 123 H, Calcium 10.7 H, Total Bilirubin 0.50, AST 12 L, ALT 17, Alkaline Phosphatase 112, Troponin I High Sens 15, Total Protein 7.7, Albumin 3.7, Globulin 4.0, Albumin/Globulin Ratio 0.9 10/22/22 17:10: POC Glucose 124 H HPI Consult Data Date of Consult: 10/22/22 HPI Narrative Reason for Consultation: Perioperative management of diabetes mellitus type 2, atrial flutter HPI Narrative: ANGEL PATTERSON, is a 67 F with multiple comorbidities who was admitted by 's office after she fell down and twisted her ankle. She heard a snap and noticed bruise on the right ankle. After that patient could not put any weight as she has pain even at rest. Patient unable to stand up after the injury. Patient is morbid obesity with BMI 75.3 EKG perimetrist clear with degenerative arthritis of knees and hip joints status post TKR. She states that she walks herself and uses cane when walking outside but she wobbles and loses balance easily. Patient has history of atrial flutter on apixaban. Patient was found to have open fracture and dislocation of right ankle. She has a right open bimalleolar ankle fracture dislocation. She was taken to the OR and had closed reduction and external fixation of right ankle She has history of diabetes mellitus type 2 not on insulin but on Actos. She also has history of atrial flutter status post JOSE and cardioversion in July 2022. She is on metoprolol succinate, amiodarone and apixaban. [facility], [facility] Medical History Chronic pain syndrome Diabetes mellitus Diabetes mellitus, type 2 GERD (gastroesophageal reflux disease) History of gastric ulcer HLD (hyperlipidemia) HLD (hyperlipidemia) HTN (hypertension) HTN (hypertension) Lymphedema Lymphedema Morbid obesity with BMI of 45.0-49.9, adult PAD (peripheral artery disease) PVD (peripheral vascular disease) Home Medications baclofen 20 mg tablet 20 mg PO Q12H Check with primary doctor 12/26/19 [History Last Taken Unknown] gabapentin 800 mg tablet 750 mg PO BID Check with primary doctor 12/26/19 [History Last Taken Unknown] lisinopril 20 mg tablet 20 mg PO DAILY Check with primary doctor 12/26/19 [History Last Taken Unknown] metoprolol succinate 50 mg tablet,extended release 24 hr 50 mg PO DAILY Check with primary doctor 12/26/19 [History Last Taken Unknown] omeprazole 20 mg capsule,delayed release 20 mg PO DAILY Check with primary doctor 12/26/19 [History Last Taken Unknown] furosemide 20 mg tablet (Lasix) 20 mg PO DAILY Check with primary doctor 07/20/22 [History Last Taken Unknown] pioglitazone 30 mg tablet 30 mg PO DAILY Check with primary doctor 07/20/22 [History Last Taken Unknown] rosuvastatin 5 mg tablet 5 mg PO QODAY Check with primary doctor 07/20/22 [History Last Taken Unknown] apixaban 5 mg tablet (Eliquis) 5 mg PO BID #30 tabs 07/25/22 [Rx Last Taken Unknown] amiodarone 200 mg tablet 200 mg PO DAILY #90 tabs 08/20/22 [Rx Last Taken Unknown] cyanocobalamin (B12)-cobamamide 5,000 mcg-100 mcg sublingual tablet 1 tab sublingual QODAY Check with primary doctor 08/20/22 [History Last Taken Unknown] ergocalciferol (vitamin D2) 1,250 mcg (50,000 unit) capsule 50,000 unit PO Q2W Check with primary doctor 08/20/22 [History Last Taken Unknown] tramadol 50 mg tablet 50 mg PO DAILY PRN pain 08/20/22 [History Last Taken Unknown] Allergy/AdvReac Type Severity Reaction Status Date / Time tobramycin Allergy PT UNSURE Verified 10/22/22 10:50 OF REACTION Family History Mother Non Hodgkin's lymphoma Father Kidney disease Heart disease Hypertension Myocardial infarction Grandfather Heart disease Myocardial infarction Surgical History H/O exploratory laparotomy History of dental surgery History of shoulder surgery History of tonsillectomy and adenoidectomy S/P total knee replacement Social History household members: other details: Lives with her sister and brother in law. Smoking Status: Never smoker alcohol intake: current alcohol intake frequency: a few times a month substance use type: does not use caffeine: Yes Type: tea Number of servings: 1 ROS ROS Narrative Constitutional: No acute illness or fever. Fall and right ankle injury and fracture HEENT: Reports systems reviewed and no addt'l complaints, except as documented Respiratory/Chest: No acute shortness of breath or respiratory distress or wheezing. CVS: Denies acute chest pain pressure or tightness. Gastrointestinal: Denies coffee ground emesis, hematemesis or vomiting Genitourinary: Denies burning urination or new urinary tract symptoms. De Souza catheter after OR. Draining clear urine. Musculoskeletal: Right ankle nonunion fracture. Chronic degenerative arthritis of hips and knee joints. Neurologic: Denies seizure-like symptoms. History of TIA and numbness of left second and third fingers. Diabetic neuropathy. skin: No ulcer. No rash Endocrinology: Reports systems reviewed and no addt'l complaints, except as documented Hematologic/Lymphatic: Reports systems reviewed and no addt'l complaints, except as documented Rest 14 ROS are negative except as mentioned in HPI Physical Exam Narrative General: Alert, Oriented x3, Cooperative, morbid obesity BMI 75.3 kg/m? HEENT: Atraumatic, PERRLA, EOMI, Normocephalic Oral: Oral mucosa moist. Deep oropharyngeal structures could not be visualized. Neck: Supple, No JVD, Negative Carotid Bruits Lungs: Air entry diminished in bilateral lung bases. No crepitation/rhonchi Cardiovascular: Sinus rhythm. Regular Rhythm, Normal S1, Normal S2, systolic murmur LLSB Abdomen: Bowel Sounds Present, Soft, Non Tender, Non-Distended : De Souza catheter draining clear urine. No renal angle tenderness. No suprapubic tenderness. Extremities: Chronic bilateral lower extremities lymphedema right worse than left. Capillary Refill Less than 3 Seconds Skin: Right ankle status post open reduction and external fixator. Wrapped with Gentry wrap. Musculoskeletal: Degenerative arthritis. Right TKR. uses simple cane. Tenderness over right ankle. ROM restricted over knees and hip joints. Neurological: Cranial nerves II-XII grossly intact, DTR 2+/4 and Symmetrical, diabetic neuropathy over fingers and toes Psych/Mental Status: Flat affect. Complain of pain Lab / Micro Data Result Diagrams: 10/22/22 11:05 10/22/22 11:05 Labs: Laboratory Results - last 24 hr 10/22/22 11:05: WBC 5.5, RBC 4.17 L, Hgb 14.0, Hct 44.5, MCV 106.7 H, MCH 33.6 H, MCHC 31.5 L, RDW Std Deviation 56.1 H, RDW Coeff of Tulio 14.3, Plt Count 166, MPV 11.6, Immature Gran % (Auto) 0.500, Neut % (Auto) 68.3, Lymph % (Auto) 19.0, Major % (Auto) 9.3, Eos % (Auto) 2.7, Baso % (Auto) 0.2, Absolute Neuts (auto) 3.7, Absolute Lymphs (auto) 1.04, Nucleated RBC % 0 10/22/22 11:05: PT 16.8 H, INR 1.4, APTT 38.6 H 10/22/22 11:05: Sodium 139, Potassium 4.4, Chloride 106, Carbon Dioxide 28.0, Anion Gap 5, BUN 22 H, Creatinine 1.34 H, Estim Creat Clear Calc 29.26, Est GFR (MDRD) Af Amer 51 L, Est GFR (MDRD) Non-Af 42 L, BUN/Creatinine Ratio 16.4, Glucose 123 H, Calcium 10.7 H, Total Bilirubin 0.50, AST 12 L, ALT 17, Alkaline Phosphatase 112, Troponin I High Sens 15, Total Protein 7.7, Albumin 3.7, Globulin 4.0, Albumin/Globulin Ratio 0.9 10/22/22 17:10: POC Glucose 124 H Radiology Impression Ankle X-Ray 10/22/22 10:53 IMPRESSION: Fracture and lateral dislocation of the distal fibula and tibia. Electronically Signed: David Nicole MD at 12:13 EDT , Chest X-Ray 10/22/22 11:20 IMPRESSION: Vascular congestion and mild degree of CHF. Electronically Signed: David Nicole MD at 12:12 EDT , Knee X-Ray 10/22/22 12:04 IMPRESSION: Status post total knee replacement. Soft tissue swelling. Electronically Signed: David Nicole MD at 12:27 EDT , Charges/Coding Visit Charges Office Visits / Consults: 73546 IP Consult L4
[2022-10-22] MEDS: Baclofen 10 MG Tablet 20 MG PO (20:49)
[2022-10-22] MEDS: Gabapentin 800 MG Tablet PO (20:49)
[2022-10-22] MEDS: Cefazolin 2 GM in 0.9% Normal Saline 100 ML IV (23:49)
[2022-10-23] MEDS: Acetaminophen 500 MG Tablet PO ×7 (00:03→21:54)
[2022-10-23] MEDS: Enoxaparin 40 MG/0.4 ML Syringe SC ×3 (00:03→21:54)
[2022-10-23 00:27] LABS: Bedside Glucose 164 mg/dL (74-106)
[2022-10-23 04:00] VITALS: BP 146/62; PULSE 60; RESP 18; TEMP 36.6; O2SAT 96
[2022-10-23 06:05] LABS: Absolute Lymphocyte Count 0.51 X10^3/uL (0.83-4.51); Absolute Neutrophil Count 8.1 X10^3/uL (2.0-7.7); Basophil# 0.01 X10^3/uL; Basophil% 0.1 % (0-1); Hematocrit 39.5 % (37-47); Hemoglobin 12.3 g/dL (12.0-15.0); Lymphocyte # 0.51 X10^3/ul (0.83-4.51); Lymphocyte % 5.5 % (19-41); Mean Corp Hgb Conc 31.1 g/dL (32-36); Mean Corpuscular Hgb 33.6 pg (27.0-32.0); Mean Corpuscular Volume 107.9 fL (81-99); Mean Platelet Vol. 11.6 fl (6.2-12.0); Monocyte# 0.51 X10^3/uL; Monocyte% 5.5 % (0-10); NRBC Flagged by Analyzer 0 % (0-5); Neutrophil # 8.12 X10^3/uL (2.7-7.7); Neutrophil % 88.4 % (47-70); POSITIVE DIFFERENTIAL YES; Platelet Count 161 K/mm3 (150-450); RBC Distribution Width SD 56.4 fl (35.1-43.9); Red Blood Count 3.66 M/mm3 (4.2-5.4); White Blood Count 9.2 K/mm3 (4.4-11.0)
[2022-10-23 06:35] LABS: Bedside Glucose 125 mg/dL (74-106)
[2022-10-23 06:37] LABS: Differential Indicated SCAN CRITERIA MET
[2022-10-23 06:40] LABS: Anion Gap 2 (5-15); BUN 19 mg/dL (7-18); BUN/Creat Ratio 15.4 RATIO (10-20); Calcium,Total 9.8 mg/dL (8.5-10.1); Chloride 107 mmol/L (98-107); Creatinine, Serum 1.23 mg/dL (0.55-1.02); EST Glomerular Filtration Rate 46 mL/min (>60); Est Glom Filt Rate - Afr Amer 56 mL/min (>60); Estimated Creatinine Clearance 31.88 ml/min; Glucose 127 mg/dL (74-106); Potassium 5.1 mmol/L (3.5-5.1); Sodium Level 138 mmol/L (136-145)
[2022-10-23 07:08] LABS: Differential Comment SCANNED
--- NOTE | 2022-10-23 07:18 | PCM.PN.HOSP ---
Reason for Visit Reason for Visit: Diagnoses Other fracture of right lower leg, initial encounter for open fracture type I or II (10/22/22) Subjective Subjective Has some pain in her foot and her back and morphine is helpful but does make her slightly woozy, also reports she has not had a bowel movement in several days and requested docusate. Objective Data Objective Data Vital Signs: Vital Signs Temp Pulse Resp BP Pulse Ox O2 Del Method O2 Flow Rate 97.8 F 60 18 146/62 H 96 Nasal Cannula 2 10/23/22 04:00 10/23/22 04:00 10/23/22 04:00 10/23/22 04:00 10/23/22 04:00 10/23/22 04:00 10/23/22 04:00 Oxygen Flow Rate (L/min) 2 Oxygen Delivery Method Nasal Cannula Weight: 174.9 kg Body Mass Index (BMI) 75.3 Intake & Output: Intake and Output for Last 24 Hours 10/21/22 10/22/22 10/23/22 23:59 23:59 23:59 Intake Total 1050 / 1650 844.5 / 844.5 Output Total 715 / 1015 1150 / 1150 Balance 335 / 635 -305.5 / -305.5 Lab / Micro Data Result Diagrams: 10/23/22 05:44 10/23/22 05:44 Labs: Laboratory Results - last 24 hr 10/22/22 11:05: WBC 5.5, RBC 4.17 L, Hgb 14.0, Hct 44.5, MCV 106.7 H, MCH 33.6 H, MCHC 31.5 L, RDW Std Deviation 56.1 H, RDW Coeff of Tulio 14.3, Plt Count 166, MPV 11.6, Immature Gran % (Auto) 0.500, Neut % (Auto) 68.3, Lymph % (Auto) 19.0, [place] % (Auto) 9.3, Eos % (Auto) 2.7, Baso % (Auto) 0.2, Absolute Neuts (auto) 3.7, Absolute Lymphs (auto) 1.04, Nucleated RBC % 0 10/22/22 11:05: PT 16.8 H, INR 1.4, APTT 38.6 H 10/22/22 11:05: Sodium 139, Potassium 4.4, Chloride 106, Carbon Dioxide 28.0, Anion Gap 5, BUN 22 H, Creatinine 1.34 H, Estim Creat Clear Calc 29.26, Est GFR (MDRD) Af Amer 51 L, Est GFR (MDRD) Non-Af 42 L, BUN/Creatinine Ratio 16.4, Glucose 123 H, Calcium 10.7 H, Total Bilirubin 0.50, AST 12 L, ALT 17, Alkaline Phosphatase 112, Troponin I High Sens 15, Total Protein 7.7, Albumin 3.7, Globulin 4.0, Albumin/Globulin Ratio 0.9 10/22/22 17:10: POC Glucose 124 H 10/22/22 23:53: POC Glucose 164 H 10/23/22 05:44: Sodium 138, Potassium 5.1, Chloride 107, Carbon Dioxide 29.0, Anion Gap 2 L, BUN 19 H, Creatinine 1.23 H, Estim Creat Clear Calc 31.88, Est GFR (MDRD) Af Amer 56 L, Est GFR (MDRD) Non-Af 46 L, BUN/Creatinine Ratio 15.4, Glucose 127 H, Calcium 9.8 10/23/22 05:44: WBC 9.2, RBC 3.66 L, Hgb 12.3, Hct 39.5, MCV 107.9 H, MCH 33.6 H, MCHC 31.1 L, RDW Std Deviation 56.4 H, RDW Coeff of Tulio 14.0, Plt Count 161, MPV 11.6, Immature Gran % (Auto) 0.500, Neut % (Auto) 88.4 H, Lymph % (Auto) 5.5 L, [place]ergus % (Auto) 5.5, Eos % (Auto) 0.0, Baso % (Auto) 0.1, Absolute Neuts (auto) 8.1 H, Absolute Lymphs (auto) 0.51 L, Nucleated RBC % 0, Differential Comment SCANNED 10/23/22 06:15: POC Glucose 125 H Radiography Diagnostic Testing: Radiology Impression Ankle X-Ray 10/22/22 10:53 IMPRESSION: Fracture and lateral dislocation of the distal fibula and tibia. Electronically Signed: David Nicole MD at 12:13 EDT , Chest X-Ray 10/22/22 11:20 IMPRESSION: Vascular congestion and mild degree of CHF. Electronically Signed: David Nicole MD at 12:12 EDT , Knee X-Ray 10/22/22 12:04 IMPRESSION: Status post total knee replacement. Soft tissue swelling. Electronically Signed: David Nicole MD at 12:27 EDT , Physical Exam Narrative General: Alert, oriented, no apparent distress, morbid obesity HEENT: Atraumatic, normocephalic Eyes: Anicteric, normal conjunctiva, extraocular movements grossly intact Neck: Supple Respiratory: Clear to auscultation in upper lung nair, unable to appreciate lower nair due to habitus,, normal respiratory effort Cardiovascular: Regular rate and rhythm GI: Soft, nontender, nondistended, midline large ventral hernia appreciated Extremities: Left foot wrapped in fixed Musculoskeletal: Moving all extremities Neuro: No overt focal neurological deficits Skin: No rashes appreciated Psych: Cooperative Assessment & Plan Assessment/Plan (1) Open fracture dislocation of right ankle: (2) Morbid obesity with BMI of 70 and over, adult: (3) Atrial flutter: (4) PVD (peripheral vascular disease): (5) Chronic pain syndrome: PLAN: Plan #R open foot fracture -R open bimalleolar ankle fracture dislocation -s/p OR 10/22: irrigation with closed reduction and external fixation of right ankle by business enterprise officer Dr. Pacheco -On postop cefazolin #A flutter/PAD -Cardioversion July 2022, continue metoprolol, Amio -Eliquis on hold #Type 2 diabetes mellitus -Glucose checks and sliding scale insulin #CKD stage IV -Patient creatinine was 1.62 in July 2022 and subsequently getting better 1.34 with estimated creatinine clearance 29 mm/min -Would benefit from nephro follow-up as an outpatient -Hold Lasix and tramadol -BMP daily #Bilateral chronic lymphedema right worse than left -Follow-up in lymphedema clinic. #Hx GERD and gastric ulcer -PPI #Hx chronic pain -Fs/w Dr. Yin #Morbid obesity -BMI 75.3 kg/m? -Complicates treatment, prognosis, outcomes -Recommend weight loss and lifestyle changes #DVT ppx: On Lovenox subcu twice daily due to morbid obesity Evelin Castillo MD Time spent in the patient's overall evaluation,decision-making process, review of diagnostic data, adjustment of management, discussion with other providers, nursing nursing and ancillary staff involved in patient's care documentation, 30 Minutes Charges/Coding Visit Charges Inpatient E&M: 33594 Subs Hosp L2
[2022-10-23 08:06] VITALS: BP 134/71; PULSE 64; RESP 16; TEMP 36.7; O2SAT 100
[2022-10-23] MEDS: Amiodarone 200 MG Tablet PO (09:36)
[2022-10-23] MEDS: Baclofen 10 MG Tablet 20 MG PO ×2 (09:36→21:52)
[2022-10-23 09:37] VITALS: PULSE 64
[2022-10-23] MEDS: Metoprolol(XL)Succ 50 MG Tablet PO (09:37)
[2022-10-23] MEDS: Pantoprazole Sodium 20 MG Tablet PO (09:37)
[2022-10-23] MEDS: Pioglitazone Hydrochloride 30 MG Tablet PO (09:38)
[2022-10-23] MEDS: Cefazolin 2 GM in 0.9% Normal Saline 100 ML IV ×2 (09:49→21:51)
[2022-10-23] MEDS: Gabapentin 800 MG Tablet PO ×2 (09:50→21:53)
[2022-10-23] MEDS: Lisinopril 10 MG Tablet PO (09:50)
[2022-10-23 10:06] LABS: Hemoglobin A1c 5.7 % (3.8-5.6)
--- NOTE | 2022-10-23 10:20 | PN_ITS ---
Subjective Subjective Patient denies any constitutional symptoms patient notes pain, this is controlled with morphine at this time patient passing gas Objective Data Objective Data Vital Signs: Vital Signs Temp Pulse Resp BP Pulse Ox O2 Del Method O2 Flow Rate 98.0 F 64 16 134/71 H 100 Nasal Cannula 2 10/23/22 08:06 10/23/22 09:37 10/23/22 08:06 10/23/22 08:06 10/23/22 08:06 10/23/22 08:11 10/23/22 08:11 Oxygen Flow Rate (L/min) 2 Oxygen Delivery Method Nasal Cannula Weight: 174.9 kg Body Mass Index (BMI) 75.3 Intake & Output: Intake and Output for Last 24 Hours 10/21/22 10/22/22 10/23/22 23:59 23:59 23:59 Intake Total 1050 / 1650 844.5 / 844.5 Output Total 715 / 1015 1150 / 1150 Balance 335 / 635 -305.5 / -305.5 Lab / Micro Data Result Diagrams: 10/23/22 05:44 10/23/22 05:44 Labs: Laboratory Results - last 24 hr 10/22/22 11:05: WBC 5.5, RBC 4.17 L, Hgb 14.0, Hct 44.5, MCV 106.7 H, MCH 33.6 H , MCHC 31.5 L, RDW Std Deviation 56.1 H, RDW Coeff of Tulio 14.3, Plt Count 166, MPV 11.6, Immature Gran % (Auto) 0.500, Neut % (Auto) 68.3, Lymph % (Auto) 19.0, [place] % (Auto) 9.3, Eos % (Auto) 2.7, Baso % (Auto) 0.2, Absolute Neuts (auto) 3.7, Absolute Lymphs (auto) 1.04, Nucleated RBC % 0 10/22/22 11:05: PT 16.8 H, INR 1.4, APTT 38.6 H 10/22/22 11:05: Sodium 139, Potassium 4.4, Chloride 106, Carbon Dioxide 28.0, Anion Gap 5, BUN 22 H, Creatinine 1.34 H, Estim Creat Clear Calc 29.26, Est GFR (MDRD) Af Amer 51 L, Est GFR (MDRD) Non-Af 42 L, BUN/Creatinine Ratio 16.4, Glucose 123 H, Calcium 10.7 H, Total Bilirubin 0.50, AST 12 L, ALT 17, Alkaline Phosphatase 112, Troponin I High Sens 15, Total Protein 7.7, Albumin 3.7, Maude bulin 4.0, Albumin/Globulin Ratio 0.9 10/22/22 17:10: POC Glucose 124 H 10/22/22 23:53: POC Glucose 164 H 10/23/22 05:44: Sodium 138, Potassium 5.1, Chloride 107, Carbon Dioxide 29.0, Anion Gap 2 L, BUN 19 H, Creatinine 1.23 H, Estim Creat Clear Calc 31.88, Est GFR (MDRD) Af Amer 56 L, Est GFR (MDRD) Non-Af 46 L, BUN/Creatinine Ratio 15.4, Glucose 127 H, Calcium 9.8 10/23/22 05:44: WBC 9.2, RBC 3.66 L, Hgb 12.3, Hct 39.5, MCV 107.9 H, MCH 33.6 H , MCHC 31.1 L, RDW Std Deviation 56.4 H, RDW Coeff of Tulio 14.0, Plt Count 161, MPV 11.6, Immature Gran % (Auto) 0.500, Neut % (Auto) 88.4 H, Lymph % (Auto) 5.5 L, [place] % (Auto) 5.5, Eos % (Auto) 0.0, Baso % (Auto) 0.1, Absolute Neuts (auto) 8.1 H, Absolute Lymphs (auto) 0.51 L, Nucleated RBC % 0, Differential Comment SCANNED 10/23/22 05:44: Hemoglobin A1c 5.7 H 10/23/22 06:15: POC Glucose 125 H Micro: Microbiology 10/22/22 15:56 Wound - Ankle Gram Stain - Final 10/22/22 15:56 Wound - Ankle Wound Culture - Preliminary No growth-Final to follow Radiography Diagnostic Testing: Radiology Impression Ankle X-Ray 10/22/22 10:53 IMPRESSION: Fracture and lateral dislocation of the distal fibula and tibia. Electronically Signed: David Nicole MD at 12:13 EDT , Chest X-Ray 10/22/22 11:20 IMPRESSION: Vascular congestion and mild degree of CHF. Electronically Signed: David Nicole MD at 12:12 EDT , Knee X-Ray 10/22/22 12:04 IMPRESSION: Status post total knee replacement. Soft tissue swelling. Electronically Signed: David Nicole MD at 12:27 EDT , Physical Exam Narrative Delta frame external fixator intact to right ankle with foot/ankle held in reduciton relative to leg wound primary closed to medial right ankle well approximated with intact sutures and no signs of infection no signs of DVT neurovascular status intact Const alert and oriented x3 Assessment & Plan Assessment/Plan (1) Non-pressure chronic ulcer of right ankle with fat layer exposed: PLAN: Exam performed reduction maintained Heel floating to prevent pressure ulcer sterile dressing change performed continue NWB on right, plan for snf placement Will d/c ancef tomorrow if no signs of infetion plan for definitive ORIF in 2-3 weeks (2) Open bimalleolar fracture of right ankle: (3) Open fracture dislocation of right ankle:
[2022-10-23] MEDS: Mineral Oil/Petrolatum Cr 1.75oz Bottle 1 APPLIC TOPICAL (10:22)
[2022-10-23] MEDS: Docusate Sodium 100 MG Capsule PO ×2 (10:24→21:53)
--- NOTE | 2022-10-23 11:25 | CASEMGMT ---
RN NENA Face to Face with patient for initial transition planning/care coordination assessment. RN CM introduced self and role at [facility]. Patient lying in bed, alert and oriented. Patient willing to participate in assessment and is able to answer all questions appropriately. Care providers, pharmacy, and demographics verified. Patient wishes to discharge to SNF for additional therapy, SNF list provided to patient. Patient states she prefers [facility]. Patient states she has no further needs or concerns at this time. CM to follow for discharge planning needs that may arise. PCP: Jose Eduardo Specialists: Junior stem processing machine operator; LAMBERTO, elementary school teacher's aide; Annamaria Preferred Pharmacy: [facility] Insurance: [facility]. MMO Prescription Benefit: yes Living Will/HPOA: yes, sister Brandee Shaw LNOK: sister, CATRACHITO Living Arrangements: Patient lives with sister and brother in law in single story home with 3 steps and railing to enter the home. Patient is independent at home. Transportation: sister DME/[facility] [place]: Patient had walk in tub, raised toilet, cane, walker, and grab bars at home. Patient has been to [facility] in the past. Disposition Plan: Patient to discharge to SNF when accepted. Leyda MELLO, RN, CM
[2022-10-23 11:34] LABS: Bedside Glucose 137 mg/dL (74-106)
--- NOTE | 2022-10-23 12:53 | CASEMGMT ---
Addendum entered by Elba Davis 10/23/22 14:28: Social Work As per RN, pt now would like TCU. SW met w/pt and sister in room about discharge plan. SW explained initial referral sent to [facility]. Pt and sister Brandee state they want referral to TCU. Pt's sister informed SW that they can't refuse pt because of her weight, that any SNF can order a bigger bed. SW gently explained that a group home can refuse a pt if they don't feel they can care for someone. Pt and sister state understanding. Pt and sister explain that pt will need a second surgery, and that it would be easier for her to stay here. SW explained will make referral. If TCU or [facility] cannot take pt, her next choices are 3. [facility] and 4. [facility] unit. SW explained will call TCU, referral started with [facility], and will follow up with referrals Tuesday. Pt states understanding. SW did leave a message for Tammie in TCU to review referral. FIDEL Underwood Original Note: Social Work SW sent referral to [facility] via [employer]. CM brought pt list of long-term facilities from [facility], in pt's insurance network, pt's preferred geographic area, and complete with quality and resource use data--this is pt's first choice. SHe has not yet given additional choices. FIDEL Underwood
[2022-10-23 13:37] VITALS: BP 126/53; PULSE 70; RESP 16; TEMP 36.7; O2SAT 93
[2022-10-23 16:20] LABS: Bedside Glucose 118 mg/dL (74-106)
[2022-10-23] MEDS: Nystatin Powder 15gm Bottle 1 APPLIC TOPICAL ×2 (16:36→22:10)
[2022-10-23 20:53] VITALS: BP 121/51; PULSE 71; RESP 18; TEMP 37.3; O2SAT 90
[2022-10-23 22:16] LABS: Bedside Glucose 140 mg/dL (74-106)
[2022-10-24] VITALS (15 sets, daily range): BP systolic 103–121; BP diastolic 45–69; PULSE 55–136; RESP 16–18; TEMP 36.6–37.3; O2SAT 93–100
[2022-10-24] MEDS: Acetaminophen 500 MG Tablet PO ×6 (01:54→21:50)
--- NOTE | 2022-10-24 03:13 | EKG12_ITS ---
Test Reason : RHYTHM CHANGE Blood Pressure : / mmHG Vent. Rate : 118 BPM Atrial Rate : 127 BPM P-R Int : 000 ms QRS Dur : 154 ms QT Int : 344 ms P-R-T Axes : 000 -88 018 degrees QTc Int : 482 ms Atrial fibrillation Right bundle branch block Left anterior fascicular block Bifascicular block Abnormal ECG When compared with ECG of 22-OCT-2022 11:12, MANUAL COMPARISON REQUIRED, DATA IS UNCONFIRMED Confirmed by EDDI AGUAYO, CHELSEA ([id number]), newspaper or periodical editor JODY DESIR ([id number]) on 10/26/2022 9:44:32 AM Referred By: DONNA Confirmed By:CHELSEA MONTAGUE MD
[2022-10-24] MEDS: Metoprolol Tartrate 5 MG/5 ML Vial IV ×3 (03:29→05:54)
[2022-10-24] MEDS: 0.9% Saline Lock 10 ML Syringe IV ×4 (03:31→20:48)
[2022-10-24] MEDS: Pantoprazole Sodium 20 MG Tablet PO (05:47)
[2022-10-24] MEDS: Morphine 4 MG/ML Syringe IV (05:50)
[2022-10-24] MEDS: Ondansetron 4 MG/2 ML Vial IV ×2 (06:00→20:46)
[2022-10-24 06:15] LABS: Absolute Lymphocyte Count 1.49 X10^3/uL (0.83-4.51); Basophil# 0.02 X10^3/uL; Basophil% 0.2 % (0-1); Eosinophil# 0.12 X10^3/uL; Eosinophils% 1.4 % (0-5); Hematocrit 35.6 % (37-47); Lymphocyte # 1.49 X10^3/ul (0.83-4.51); Lymphocyte % 17.2 % (19-41); Mean Corp Hgb Conc 30.9 g/dL (32-36); Mean Corpuscular Hgb 33.3 pg (27.0-32.0); Mean Corpuscular Volume 107.9 fL (81-99); Mean Platelet Vol. 12.2 fl (6.2-12.0); Monocyte# 0.95 X10^3/uL; NRBC Flagged by Analyzer 0 % (0-5); Neutrophil # 6.02 X10^3/uL (2.7-7.7); Neutrophil % 69.5 % (47-70); Platelet Count 156 K/mm3 (150-450); RBC Distribution Width CV 14.4 % (11.6-14.6); RBC Distribution Width SD 57.6 fl (35.1-43.9); White Blood Count 8.7 K/mm3 (4.4-11.0)
[2022-10-24 06:27] LABS: Bedside Glucose 138 mg/dL (74-106)
[2022-10-24 06:47] LABS: ALB/GLOB Ratio 0.9 RATIO (0.9-2.4); AST(SGOT) 16 U/L (15-37); Alanine Aminotransfer ALT/SGPT 10 U/L (13-56); Albumin, Serum 3.1 g/dL (3.2-5.0); Alkaline Phosphatase 80 U/L (45-117); Anion Gap 4 (5-15); BUN 21 mg/dL (7-18); BUN/Creat Ratio 16.9 RATIO (10-20); Calcium,Total 9.7 mg/dL (8.5-10.1); Chloride 104 mmol/L (98-107); Creatinine, Serum 1.24 mg/dL (0.55-1.02); EST Glomerular Filtration Rate 46 mL/min (>60); Est Glom Filt Rate - Afr Amer 56 mL/min (>60); Estimated Creatinine Clearance 31.62 ml/min; Globulin 3.3 g/dL (2.2-4.2); Glucose 128 mg/dL (74-106); Potassium 4.6 mmol/L (3.5-5.1); Protein, Total 6.4 g/dL (6.4-8.2); Sodium Level 136 mmol/L (136-145)
--- NOTE | 2022-10-24 07:51 | PN.HOSP_ITS ---
Reason for Visit Reason for Visit: Diagnoses Morbid (severe) obesity due to excess calories (10/22/22) Chronic pain syndrome (10/22/22) Unspecified atrial flutter (10/22/22) Peripheral vascular disease, unspecified (10/22/22) Non-pressure chronic ulcer of right ankle with fat layer exposed (10/22/22) Displaced bimalleolar fracture of right lower leg, initial encounter for open fracture type I or II (10/22/22) Other fracture of right lower leg, initial encounter for open fracture type I or II (10/22/22) Body mass index [BMI] 70 or greater, adult (10/22/22) Subjective Subjective Patient resting comfortably in bed, does report without her Lasix for left lower extremity stating to swell slightly how it does at home and inquired about resuming these. Did have some A-fib with RVR overnight that ultimately responded to Lopressor and heart rate 50s to 60s now on telemetry Objective Data Objective Data Vital Signs: Vital Signs Temp Pulse Resp BP Pulse Ox O2 Del Method O2 Flow Rate 98.7 F 108 H 18 103/57 L 98 Nasal Cannula 3 10/24/22 06:34 10/24/22 06:34 10/24/22 06:34 10/24/22 06:34 10/24/22 06:34 10/24/22 06:34 10/24/22 06:34 Oxygen Flow Rate (L/min) 3 Oxygen Delivery Method Nasal Cannula Weight: 174.9 kg Body Mass Index (BMI) 75.3 Intake & Output: Intake and Output for Last 24 Hours 10/22/22 10/23/22 10/24/22 23:59 23:59 23:59 Intake Total 1050 / 1650 1064.5 / 1064.5 Output Total 715 / 1015 1575 / 1575 175 / 175 Balance 335 / 635 -510.5 / -510.5 -175 / -175 Lab / Micro Data Result Diagrams: 10/24/22 05:20 10/24/22 05:20 Labs: Laboratory Results - last 24 hr 10/23/22 05:44: Hemoglobin A1c 5.7 H 10/23/22 11:14: POC Glucose 137 H 10/23/22 16:01: POC Glucose 118 H 10/23/22 21:49: POC Glucose 140 H 10/24/22 05:20: WBC 8.7, RBC 3.30 L, Hgb 11.0 L, Hct 35.6 L, MCV 107.9 H, MCH 33.3 H, MCHC 30.9 L, RDW Std Deviation 57.6 H, RDW Coeff of Tulio 14.4, Plt Count 156, MPV 12.2 H, Immature Gran % (Auto) 0.700, Neut % (Auto) 69.5, Lymph % (Auto) 17.2 L, [place] % (Auto) 11.0 H, Eos % (Auto) 1.4, Baso % (Auto) 0.2, Absolute Neuts (auto) 6.0, Absolute Lymphs (auto) 1.49, Nucleated RBC % 0 10/24/22 05:20: Sodium 136, Potassium 4.6, Chloride 104, Carbon Dioxide 28.0, Anion Gap 4 L, BUN 21 H, Creatinine 1.24 H, Estim Creat Clear Calc 31.62, Est GFR (MDRD) Af Amer 56 L, Est GFR (MDRD) Non-Af 46 L, BUN/Creatinine Ratio 16.9, Glucose 128 H, Calcium 9.7, Total Bilirubin 0.30, AST 16, ALT 10 L, Alkaline Phosphatase 80, Total Protein 6.4, Albumin 3.1 L, Globulin 3.3, Albumin/Globulin Ratio 0.9 10/24/22 06:04: POC Glucose 138 H Micro: Microbiology 10/22/22 15:56 Wound - Ankle Gram Stain - Final 10/22/22 15:56 Wound - Ankle Wound Culture - Preliminary No growth-Final to follow Radiography Diagnostic Testing: Radiology Impression Ankle X-Ray 10/22/22 15:00 IMPRESSION: Fluoroscopy during reduction of tibiotalar joint. Electronically Signed: Carter Long MD at 18:14 EDT , Physical Exam Narrative General: Alert, oriented, no apparent distress, morbid obesity HEENT: Atraumatic, normocephalic Eyes: Anicteric, normal conjunctiva, extraocular movements grossly intact Neck: Supple Respiratory: Clear to auscultation in upper lung nair, unable to appreciate lower nair due to habitus, normal respiratory effort Cardiovascular: Regular rate and rhythm GI: Soft, nontender, nondistended, midline large ventral hernia appreciated Extremities: Right foot wrapped in fixed, left foot with trace edema Musculoskeletal: Moving all extremities Neuro: No overt focal neurological deficits Skin: No rashes appreciated Psych: Cooperative Assessment & Plan Assessment/Plan (1) Open fracture dislocation of right ankle: (2) Morbid obesity with BMI of 70 and over, adult: (3) Atrial flutter: (4) PVD (peripheral vascular disease): (5) Chronic pain syndrome: PLAN: Plan #R open foot fracture -R open bimalleolar ankle fracture dislocation -s/p OR 10/22: irrigation with closed reduction and external fixation of right ankle by pricing clerk Dr. Pacheco -On postop cefazolin -10/24: PT/OT, patient for SNF placement, still receiving IV pain meds, de- escalate to orals when able #A flutter/A-fib with RVR/PAD -Cardioversion July 2022, continue metoprolol, Amio -Eliquis on hold -10/24: Had intermittently elevated heart rate overnight and required several doses of IV Lopressor, EKG did reveal A-fib with RVR but presently she is with a heart rate 50s to 60s and doing well, denies having any symptoms or complaints at these times #Type 2 diabetes mellitus -Glucose checks and sliding scale insulin -Was continued on her home pioglitazone, glucose is well controlled #CKD stage IV -Patient creatinine was 1.62 in July 2022 and subsequently getting better 1.34 with estimated creatinine clearance 29 mm/min -Would benefit from nephro follow-up as an outpatient -Hold Lasix and tramadol -BMP daily -10/24: Creatinine 1.24 with creatinine clearance of 31.62 today. Due to soft BP and holding lisinopril this morning #Bilateral chronic lymphedema right worse than left -Follow-up in lymphedema clinic. #Hx GERD and gastric ulcer -PPI #Hx chronic pain -Fs/w Dr. Yin #Morbid obesity -BMI 75.3 kg/m? -Complicates treatment, prognosis, outcomes -Recommend weight loss and lifestyle changes #DVT ppx: On Lovenox subcu twice daily due to morbid obesity Evelin Castillo MD Time spent in the patient's overall evaluation,decision-making process, review of diagnostic data, adjustment of management, discussion with other providers, nursing nursing and ancillary staff involved in patient's care documentation, 30 Minutes Charges/Coding Visit Charges Inpatient E&M: 08980 Subs Hosp L2
[2022-10-24] MEDS: Baclofen 10 MG Tablet 20 MG PO ×2 (08:58→20:44)
[2022-10-24] MEDS: Amiodarone 200 MG Tablet PO (08:59)
[2022-10-24] MEDS: Metoprolol(XL)Succ 25 MG Tablet PO (09:00)
[2022-10-24] MEDS: Cefazolin 2 GM in 0.9% Normal Saline 100 ML IV (09:01)
[2022-10-24] MEDS: Pioglitazone Hydrochloride 30 MG Tablet PO (09:41)
[2022-10-24] MEDS: Enoxaparin 40 MG/0.4 ML Syringe SC ×2 (09:41→20:50)
[2022-10-24] MEDS: Docusate Sodium 100 MG Capsule PO ×2 (09:41→20:44)
[2022-10-24] MEDS: Nystatin Powder 15gm Bottle 1 APPLIC TOPICAL ×2 (09:42→21:50)
[2022-10-24] MEDS: Gabapentin 800 MG Tablet PO ×2 (09:44→20:45)
--- NOTE | 2022-10-24 10:20 | PN_ITS ---
Subjective Subjective Patient had episode A-fib overnight. Patient given metoprolol. Patient stable now. Denies constitutional's. Patient has pain in right lower extremity slightly improved with morphine No other complaints. Objective Data Objective Data Vital Signs: Vital Signs Temp Pulse Resp BP Pulse Ox O2 Del Method O2 Flow Rate 98.0 F 110 H 16 107/68 96 Nasal Cannula 3 10/24/22 08:32 10/24/22 09:00 10/24/22 08:32 10/24/22 08:32 10/24/22 08:32 10/24/22 08:38 10/24/22 08:38 Oxygen Flow Rate (L/min) 3 Oxygen Delivery Method Nasal Cannula Weight: 174.9 kg Body Mass Index (BMI) 75.3 Intake & Output: Intake and Output for Last 24 Hours 10/22/22 10/23/22 10/24/22 23:59 23:59 23:59 Intake Total 1050 / 1650 1064.5 / 1064.5 Output Total 715 / 1015 1575 / 1575 175 / 175 Balance 335 / 635 -510.5 / -510.5 -175 / -175 Lab / Micro Data Result Diagrams: 10/24/22 05:20 10/24/22 05:20 Labs: Laboratory Results - last 24 hr 10/23/22 11:14: POC Glucose 137 H 10/23/22 16:01: POC Glucose 118 H 10/23/22 21:49: POC Glucose 140 H 10/24/22 05:20: WBC 8.7, RBC 3.30 L, Hgb 11.0 L, Hct 35.6 L, MCV 107.9 H, MCH 33.3 H, MCHC 30.9 L, RDW Std Deviation 57.6 H, RDW Coeff of Tulio 14.4, Plt Count 156, MPV 12.2 H, Immature Gran % (Auto) 0.700, Neut % (Auto) 69.5, Lymph % (Auto) 17.2 L, [place] % (Auto) 11.0 H, Eos % (Auto) 1.4, Baso % (Auto) 0.2, Ab solute Neuts (auto) 6.0, Absolute Lymphs (auto) 1.49, Nucleated RBC % 0 10/24/22 05:20: Sodium 136, Potassium 4.6, Chloride 104, Carbon Dioxide 28.0, Anion Gap 4 L, BUN 21 H, Creatinine 1.24 H, Estim Creat Clear Calc 31.62, Est GFR (MDRD) Af Amer 56 L, Est GFR (MDRD) Non-Af 46 L, BUN/Creatinine Ratio 16.9, Glucose 128 H, Calcium 9.7, Total Bilirubin 0.30, AST 16, ALT 10 L, Alkaline Phosphatase 80, Total Protein 6.4, Albumin 3.1 L, Globulin 3.3, Albumin/Globulin Ratio 0.9 10/24/22 06:04: POC Glucose 138 H Micro: Microbiology 10/22/22 15:56 Wound - Ankle Gram Stain - Final 10/22/22 15:56 Wound - Ankle Wound Culture - Preliminary No growth-Final to follow Radiography Diagnostic Testing: Radiology Impression Ankle X-Ray 10/22/22 15:00 IMPRESSION: Fluoroscopy during reduction of tibiotalar joint. Electronically Signed: Carter Long MD at 18:14 EDT , Physical Exam Narrative Delta frame external fixator intact to right ankle with foot/ankle held in reduciton relative to leg wound primary closed to medial right ankle well approximated with intact sutures and no signs of infection no signs of DVT neurovascular status intact Const alert and oriented x3 Assessment & Plan Assessment/Plan (1) Non-pressure chronic ulcer of right ankle with fat layer exposed: PLAN: Exam performed reduction maintained Heel floating to prevent pressure ulcer sterile dressing left intact. continue NWB on right, plan for snf placement Normal white count no signs of infection, no growth cultures so far, Ancef discontinued. plan for definitive ORIF in 2-3 weeks, awaiting SNF placement. (2) Open bimalleolar fracture of right ankle: (3) Open fracture dislocation of right ankle:
[2022-10-24] MEDS: Mag Hydrox/Al Hydrox/Simeth 30 ML UDC PO ×2 (11:22→20:45)
[2022-10-24 11:36] LABS: Bedside Glucose 116 mg/dL (74-106)
[2022-10-24] MEDS: Furosemide 20 MG Tablet PO (15:30)
[2022-10-24 15:50] LABS: Bedside Glucose 120 mg/dL (74-106)
[2022-10-24] MEDS: Mineral Oil/Petrolatum Cr 1.75oz Bottle 1 APPLIC TOPICAL (17:43)
[2022-10-24 21:16] LABS: Bedside Glucose 120 mg/dL (74-106)
[2022-10-24] MEDS: Ibuprofen 600 MG Tablet PO (21:50)
[2022-10-25] VITALS (9 sets, daily range): BP systolic 92–113; BP diastolic 42–56; PULSE 51–66; RESP 16–20; TEMP 36.4–36.8; O2SAT 88–98
[2022-10-25] MEDS: Acetaminophen 500 MG Tablet PO ×3 (03:05→10:14)
[2022-10-25 06:53] LABS: Absolute Lymphocyte Count 1.28 X10^3/uL (0.83-4.51); Absolute Neutrophil Count 4.6 X10^3/uL (2.0-7.7); Basophil# 0.02 X10^3/uL; Basophil% 0.3 % (0-1); Eosinophil# 0.28 X10^3/uL; Hematocrit 33.5 % (37-47); Hemoglobin 10.4 g/dL (12.0-15.0); Lymphocyte # 1.28 X10^3/ul (0.83-4.51); Lymphocyte % 18.1 % (19-41); Mean Corpuscular Hgb 33.9 pg (27.0-32.0); Mean Corpuscular Volume 109.1 fL (81-99); Mean Platelet Vol. 11.7 fl (6.2-12.0); Monocyte# 0.89 X10^3/uL; Monocyte% 12.6 % (0-10); NRBC Flagged by Analyzer 0 % (0-5); Neutrophil # 4.55 X10^3/uL (2.7-7.7); Neutrophil % 64.4 % (47-70); Platelet Count 113 K/mm3 (150-450); RBC Distribution Width CV 14.6 % (11.6-14.6); RBC Distribution Width SD 58.3 fl (35.1-43.9); Red Blood Count 3.07 M/mm3 (4.2-5.4); White Blood Count 7.1 K/mm3 (4.4-11.0)
[2022-10-25] MEDS: 0.9% Saline Lock 10 ML Syringe IV (07:01)
[2022-10-25 07:17] LABS: ALB/GLOB Ratio 0.8 RATIO (0.9-2.4); AST(SGOT) 20 U/L (15-37); Alanine Aminotransfer ALT/SGPT 9 U/L (13-56); Albumin, Serum 2.8 g/dL (3.2-5.0); Alkaline Phosphatase 77 U/L (45-117); Anion Gap 4 (5-15); BUN 23 mg/dL (7-18); Calcium,Total 9.8 mg/dL (8.5-10.1); Chloride 103 mmol/L (98-107); Creatinine, Serum 1.21 mg/dL (0.55-1.02); EST Glomerular Filtration Rate 47 mL/min (>60); Est Glom Filt Rate - Afr Amer 57 mL/min (>60); Estimated Creatinine Clearance 32.41 ml/min; Globulin 3.4 g/dL (2.2-4.2); Glucose 110 mg/dL (74-106); Potassium 4.6 mmol/L (3.5-5.1); Protein, Total 6.2 g/dL (6.4-8.2); Sodium Level 136 mmol/L (136-145)
[2022-10-25 07:19] LABS: Bedside Glucose 111 mg/dL (74-106)
--- NOTE | 2022-10-25 08:22 | PN.HOSP_ITS ---
Reason for Visit Reason for Visit: Diagnoses Morbid (severe) obesity due to excess calories (10/22/22) Chronic pain syndrome (10/22/22) Unspecified atrial flutter (10/22/22) Peripheral vascular disease, unspecified (10/22/22) Non-pressure chronic ulcer of right ankle with fat layer exposed (10/22/22) Displaced bimalleolar fracture of right lower leg, initial encounter for open fracture type I or II (10/22/22) Other fracture of right lower leg, initial encounter for open fracture type I or II (10/22/22) Body mass index [BMI] 70 or greater, adult (10/22/22) Subjective Subjective Still with right ankle pain. Complains of right knee pain post fall. Objective Data Objective Data Vital Signs: Vital Signs Temp Pulse Resp BP Pulse Ox O2 Del Method O2 Flow Rate 36.8 C 52 L 18 105/42 L 97 Nasal Cannula 2 10/25/22 03:01 10/25/22 03:01 10/25/22 03:01 10/25/22 03:01 10/25/22 04:02 10/25/22 04:02 10/25/22 04:02 Oxygen Flow Rate (L/min) 2 Oxygen Delivery Method Nasal Cannula Weight: 174.9 kg Body Mass Index (BMI) 75.3 Intake & Output: Intake and Output for Last 24 Hours 10/23/22 10/24/22 10/25/22 23:59 23:59 23:59 Intake Total 1064.5 / 1064.5 97.5 / 97.5 Output Total 1575 / 1575 525 / 725 350 / 350 Balance -510.5 / -510.5 -427.5 / -627.5 -350 / -350 Lab / Micro Data Result Diagrams: 10/25/22 06:40 10/25/22 06:40 Labs: Laboratory Results - last 24 hr 10/24/22 11:16: POC Glucose 116 H 10/24/22 15:29: POC Glucose 120 H 10/24/22 20:42: POC Glucose 120 H 10/25/22 06:38: POC Glucose 111 H 10/25/22 06:40: WBC 7.1, RBC 3.07 L, Hgb 10.4 L, Hct 33.5 L, MCV 109.1 H, MCH 33.9 H, MCHC 31.0 L, RDW Std Deviation 58.3 H, RDW Coeff of Tulio 14.6, Plt Count 113 L, MPV 11.7, Immature Gran % (Auto) 0.600, Neut % (Auto) 64.4, Lymph % (Auto) 18.1 L, [place] % (Auto) 12.6 H, Eos % (Auto) 4.0, Baso % (Auto) 0.3, Absolute Neuts (auto) 4.6, Absolute Lymphs (auto) 1.28, Nucleated RBC % 0 10/25/22 06:40: Sodium 136, Potassium 4.6, Chloride 103, Carbon Dioxide 29.0, Anion Gap 4 L, BUN 23 H, Creatinine 1.21 H, Estim Creat Clear Calc 32.41, Est GFR (MDRD) Af Amer 57 L, Est GFR (MDRD) Non-Af 47 L, BUN/Creatinine Ratio 19.0, Glucose 110 H, Calcium 9.8, Total Bilirubin 0.40, AST 20, ALT 9 L, Alkaline Phosphatase 77, Total Protein 6.2 L, Albumin 2.8 L, Globulin 3.4, Album in/Globulin Ratio 0.8 L Micro: Microbiology 10/22/22 15:56 Wound - Ankle Gram Stain - Final 10/22/22 15:56 Wound - Ankle Wound Culture - Preliminary No growth-Final to follow Physical Exam Const alert and no apparent distress HEENT head/scalp atraumatic and moist oral mucous membranes Extremity Extremity Narrative: right ankle external fixator in place. right knee TTP. Assessment & Plan Assessment/Plan (1) Open fracture dislocation of right ankle: PLAN: R open bimalleolar ankle fracture dislocation s/p OR 10/22: irrigation with closed reduction and external fixation of right ankle by oceanographic meteorologist Dr. Pacheco optimize pain control: increase scheduled acetaminophen to 1g Q8h, add lidoderm, MS contin (2) Atrial flutter: PLAN: #A flutter/A-fib with RVR/PAD Cardioversion July 2022, continue metoprolol, Amio 10/24: Had intermittently elevated heart rate overnight and required several doses of IV Lopressor, EKG did reveal A-fib with RVR but presently she is with a heart rate 50s to 60s and doing well, denies having any symptoms or complaints at these times Metoprolol succinate increased from 25 to 50. Pt states she normally takes 50 at home. Resume apixaban PLAN: Plan Chronic conditions: * Type 2 diabetes mellitus -Glucose checks and sliding scale insulin-Was continued on her home pioglitazone, glucose is well controlled * CKD stage IV-Patient creatinine was 1.62 in July 2022 and subsequently getting better 1.34 with estimated creatinine clearance 29 mm/min-Would be nefit from nephro follow-up as an outpatient-Hold Lasix and tramadol-10/24: Creatinine 1.24 with creatinine clearance of 31.62 today. Due to soft BP and holding lisinopril this morning * Bilateral chronic lymphedema right worse than [id number] in lymphedema clinic. * Hx GERD and gastric ulcer-PPI * Hx chronic pain-Fs/w Dr. Yin * Morbid obesity-BMI 75.3 kg/m?-Complicates treatment, prognosis, outcomes- Recommend weight loss and lifestyle changes DVT ppx: DC enoxaparin, resume apixaban. Disposition: to SNF Charges/Coding Visit Charges Inpatient E&M: 20452 Subs Hosp L2
[2022-10-25] MEDS: Docusate Sodium 100 MG Capsule PO (10:06)
[2022-10-25] MEDS: Furosemide 20 MG Tablet PO (10:08)
[2022-10-25] MEDS: Baclofen 10 MG Tablet 20 MG PO (10:08)
[2022-10-25] MEDS: Nystatin Powder 15gm Bottle 1 APPLIC TOPICAL (10:09)
[2022-10-25] MEDS: Pioglitazone Hydrochloride 30 MG Tablet PO (10:09)
[2022-10-25] MEDS: Amiodarone 200 MG Tablet PO (10:09)
[2022-10-25] MEDS: Pantoprazole Sodium 20 MG Tablet PO (10:09)
[2022-10-25] MEDS: APIXABAN 5 MG TABLET PO (10:11)
[2022-10-25] MEDS: Gabapentin 800 MG Tablet PO (10:11)
--- NOTE | 2022-10-25 10:41 | CASEMGMT ---
Addendum entered by Bertha Pop 10/25/22 13:33: Pt and sister updated that [facility] cannot accept and acceptance is still pending at [facility]. MIGUEL will update when decision has been made. JUVENTINO Mcintosh Original Note: Social [facility] unable to accept pt. MIGUEL spoke with Tammie in [facility]. Pt to be reviewed for acceptance for admission. MIGUEL will await determination. JUVENTINO Payan
--- NOTE | 2022-10-25 11:56 | PN_ITS ---
Subjective Subjective denies constitutionals pain more controlled today no changes overnight Objective Data Objective Data Vital Signs: Vital Signs Temp Pulse Resp BP Pulse Ox O2 Del Method O2 Flow Rate 98.3 F 54 L 16 110/56 L 98 Nasal Cannula 2 10/25/22 09:01 10/25/22 09:01 10/25/22 09:01 10/25/22 09:01 10/25/22 09:01 10/25/22 09:01 10/25/22 09:01 Oxygen Flow Rate (L/min) 2 Oxygen Delivery Method Nasal Cannula Weight: 174.9 kg Body Mass Index (BMI) 75.3 Intake & Output: Intake and Output for Last 24 Hours 10/23/22 10/24/22 10/25/22 23:59 23:59 23:59 Intake Total 1064.5 / 1064.5 97.5 / 97.5 Output Total 1575 / 1575 525 / 725 350 / 350 Balance -510.5 / -510.5 -427.5 / -627.5 -350 / -350 Lab / Micro Data Result Diagrams: 10/25/22 06:40 10/25/22 06:40 Labs: Laboratory Results - last 24 hr 10/24/22 15:29: POC Glucose 120 H 10/24/22 20:42: POC Glucose 120 H 10/25/22 06:38: POC Glucose 111 H 10/25/22 06:40: WBC 7.1, RBC 3.07 L, Hgb 10.4 L, Hct 33.5 L, MCV 109.1 H, MCH 33.9 H, MCHC 31.0 L, RDW Std Deviation 58.3 H, RDW Coeff of Tulio 14.6, Plt Count 113 L, MPV 11.7, Immature Gran % (Auto) 0.600, Neut % (Auto) 64.4, Lymph % (Auto) 18.1 L, [place] % (Auto) 12.6 H, Eos % (Auto) 4.0, Baso % (Auto) 0.3, Absolute Neuts (auto) 4.6, Absolute Lymphs (auto) 1.28, Nucleated RBC % 0 10/25/22 06:40: Sodium 136, Potassium 4.6, Chloride 103, Carbon Dioxide 29.0, Anion Gap 4 L, BUN 23 H, Creatinine 1.21 H, Estim Creat Clear Calc 32.41, Est GFR (MDRD) Af Amer 57 L, Est GFR (MDRD) Non-Af 47 L, BUN/Creatinine Ratio 19.0, Glucose 110 H, Calcium 9.8, Total Bilirubin 0.40, AST 20, ALT 9 L, Alkaline Phosphatase 77, Total Protein 6.2 L, Albumin 2.8 L, Globulin 3.4, Albumin/Globulin Ratio 0.8 L Micro: Microbiology 10/22/22 15:56 Wound - Ankle Gram Stain - Final 10/22/22 15:56 Wound - Ankle Wound Culture - Preliminary No growth-Final to follow 10/22/22 15:56 Wound - Ankle Anaerobic Culture - Preliminary No growth in 48 hours. Physical Exam Narrative Delta frame external fixator intact to right ankle with foot/ankle held in reduciton relative to leg wound primary closed to medial right ankle well approximated with intact sutures and no signs of infection no signs of DVT neurovascular status intact Const alert and oriented x3 Assessment & Plan Assessment/Plan (1) Non-pressure chronic ulcer of right ankle with fat layer exposed: PLAN: Exam performed reduction maintained Heel floating to prevent pressure ulcer sterile dressing left intact. continue NWB on right, plan for snf placement Normal white count no signs of infection, no growth cultures so far, Ancef discontinued. plan for definitive ORIF in 2-3 weeks, awaiting SNF placement. (2) Open bimalleolar fracture of right ankle: (3) Open fracture dislocation of right ankle:
[2022-10-25 12:28] LABS: Bedside Glucose 97 mg/dL (74-106)
--- NOTE | 2022-10-25 12:53 | WOUNDNOTE ---
wound photo: right lower leg
[2022-10-25] MEDS: Acetaminophen 500 MG Tablet 1000 MG PO (15:05)
[2022-10-25 17:05] LABS: Bedside Glucose 105 mg/dL (74-106)
[2022-10-25 22:07] LABS: Bedside Glucose 120 mg/dL (74-106)
--- NOTE | 2022-10-25 22:26 | CT_ITS ---
STUDY: CT BRAIN WITHOUT CONTRAST REASON FOR EXAM: Female, 67 years old. Confusion. Diabetes and hypertension patient anticoagulants. RADIATION DOSAGE (If Supplied By Facility): CTDIvol = ( 44.99 ) mGy, DLP = ( 829.85 ) mGycm TECHNIQUE: Transaxial CT imaging of the brain was performed without administration of intravenous contrast material. Individualized dose optimization techniques were used for this CT. COMPARISON: No relevant priors. FINDINGS: Normal soft tissue structures. Normal calvarium. Normal size ventricles and extra-axial spaces for the patient''s age. Normal white matter tracts of the cerebral hemispheres. Normal basal ganglia and thalami. Normal brainstem. Normal cerebellum. There is no intracranial hemorrhage. There are no findings of an acute ischemic infarction. Normal visualized paranasal sinuses. CT/Brain/Head without Contrast IMPRESSION: No evidence of acute intracranial or calvarial abnormality. Electronically Signed: Bhavik Rodriguez DO at 23:39 EDT ,
[2022-10-26] VITALS (19 sets, daily range): BP systolic 86–147; BP diastolic 41–68; PULSE 50–93; RESP 10–19; TEMP 36.4–37.2; O2SAT 87–100
--- NOTE | 2022-10-26 00:02 | PCM.PN.HOSP ---
Reason for Visit Reason for Visit: Diagnoses Morbid (severe) obesity due to excess calories (10/22/22) Chronic pain syndrome (10/22/22) Unspecified atrial flutter (10/22/22) Peripheral vascular disease, unspecified (10/22/22) Non-pressure chronic ulcer of right ankle with fat layer exposed (10/22/22) Displaced bimalleolar fracture of right lower leg, initial encounter for open fracture type I or II (10/22/22) Other fracture of right lower leg, initial encounter for open fracture type I or II (10/22/22) Body mass index [BMI] 70 or greater, adult (10/22/22) Subjective Subjective Called to floor for change in mental status. Patient was having confusion with the date however she was able to remember her name and why she was here. Patient is status post ankle surgery earlier today after a fall injury. Vital signs are within normal limits however, due to fall we will get a CT scan of the head to rule out intracranial hemorrhage. In order neurologic checks every 2 hours x2 and every 4 hours after that until her mental status recovers to baseline. Blood sugar was also within normal limits. Objective Data Objective Data Vital Signs: Vital Signs Temp Pulse Resp BP Pulse Ox O2 Del Method O2 Flow Rate 97.5 F L 66 20 H 105/47 L 94 Nasal Cannula 2 10/25/22 21:34 10/25/22 21:34 10/25/22 21:34 10/25/22 21:42 10/25/22 21:34 10/25/22 22:00 10/25/22 22:00 Oxygen Flow Rate (L/min) 2 Oxygen Delivery Method Nasal Cannula Weight: 385 lb 9.416 oz Body Mass Index (BMI) 75.3 Intake & Output: Intake and Output for Last 24 Hours 10/24/22 10/25/22 10/26/22 23:59 23:59 23:59 Intake Total 97.5 / 97.5 600 / 600 Output Total 525 / 725 1150 / 1150 Balance -427.5 / -627.5 -550 / -550 Lab / Micro Data Result Diagrams: 10/25/22 06:40 10/25/22 06:40 Labs: Laboratory Results - last 24 hr 10/25/22 06:38: POC Glucose 111 H 10/25/22 06:40: WBC 7.1, RBC 3.07 L, Hgb 10.4 L, Hct 33.5 L, MCV 109.1 H, MCH 33.9 H, MCHC 31.0 L, RDW Std Deviation 58.3 H, RDW Coeff of Tulio 14.6, Plt Count 113 L, MPV 11.7, Immature Gran % (Auto) 0.600, Neut % (Auto) 64.4, Lymph % (Auto) 18.1 L, [place] % (Auto) 12.6 H, Eos % (Auto) 4.0, Baso % (Auto) 0.3, Absolute Neuts (auto) 4.6, Absolute Lymphs (auto) 1.28, Nucleated RBC % 0 10/25/22 06:40: Sodium 136, Potassium 4.6, Chloride 103, Carbon Dioxide 29.0, Anion Gap 4 L, BUN 23 H, Creatinine 1.21 H, Estim Creat Clear Calc 32.41, Est GFR (MDRD) Af Amer 57 L, Est GFR (MDRD) Non-Af 47 L, BUN/Creatinine Ratio 19.0, Glucose 110 H, Calcium 9.8, Total Bilirubin 0.40, AST 20, ALT 9 L, Alkaline Phosphatase 77, Total Protein 6.2 L, Albumin 2.8 L, Globulin 3.4, Albumin/Globulin Ratio 0.8 L 10/25/22 12:11: POC Glucose 97 10/25/22 16:47: POC Glucose 105 10/25/22 21:41: POC Glucose 120 H Micro: Microbiology 10/22/22 15:56 Wound - Ankle Gram Stain - Final 10/22/22 15:56 Wound - Ankle Wound Culture - Preliminary No growth-Final to follow 10/22/22 15:56 Wound - Ankle Anaerobic Culture - Preliminary No growth in 48 hours. Radiography Diagnostic Testing: Radiology Impression Brain CT 10/25/22 22:26 IMPRESSION: No evidence of acute intracranial or calvarial abnormality. Electronically Signed: Bhavik Rodriguez DO at 23:39 EDT Reading Location ID and State: [facility] / [place] Tel [phone], Service support ,
[2022-10-26] MEDS: Baclofen 10 MG Tablet 20 MG PO (00:18)
[2022-10-26] MEDS: Nystatin Powder 15gm Bottle 1 APPLIC TOPICAL ×3 (00:18→21:04)
[2022-10-26] MEDS: Docusate Sodium 100 MG Capsule PO ×2 (00:18→21:04)
[2022-10-26] MEDS: APIXABAN 5 MG TABLET PO ×2 (00:18→21:04)
[2022-10-26] MEDS: Gabapentin 800 MG Tablet PO (00:19)
[2022-10-26] MEDS: Acetaminophen 500 MG Tablet 1000 MG PO ×2 (00:20→21:04)
--- NOTE | 2022-10-26 05:46 | EKG12_ITS ---
Test Reason : CONFUSION Blood Pressure : / mmHG Vent. Rate : 072 BPM Atrial Rate : 072 BPM P-R Int : 216 ms QRS Dur : 152 ms QT Int : 468 ms P-R-T Axes : 000 -82 -15 degrees QTc Int : 512 ms Sinus rhythm with 1st degree A-V block Right bundle branch block Left anterior fascicular block Bifascicular block Abnormal ECG Confirmed by EDDI AGUAYO, CHELSEA ([id number]), marketing editor JODY DESIR ([id number]) on 10/27/2022 12:30:38 PM Referred By: JOSEPH Confirmed By:CHELSEA MONTAGUE MD
[2022-10-26 06:08] LABS: Absolute Lymphocyte Count 0.59 X10^3/uL (0.83-4.51); Absolute Neutrophil Count 6.3 X10^3/uL (2.0-7.7); Eosinophil# 0.11 X10^3/uL; Eosinophils% 1.4 % (0-5); Hematocrit 34.6 % (37-47); Lymphocyte # 0.59 X10^3/ul (0.83-4.51); Lymphocyte % 7.6 % (19-41); Mean Corp Hgb Conc 31.8 g/dL (32-36); Mean Corpuscular Hgb 34.2 pg (27.0-32.0); Mean Corpuscular Volume 107.5 fL (81-99); Mean Platelet Vol. 11.6 fl (6.2-12.0); Monocyte# 0.74 X10^3/uL; Monocyte% 9.5 % (0-10); NRBC Flagged by Analyzer 0 % (0-5); Neutrophil # 6.28 X10^3/uL (2.7-7.7); POSITIVE DIFFERENTIAL YES; Platelet Count 143 K/mm3 (150-450); RBC Distribution Width CV 14.2 % (11.6-14.6); RBC Distribution Width SD 56.6 fl (35.1-43.9); Red Blood Count 3.22 M/mm3 (4.2-5.4); White Blood Count 7.8 K/mm3 (4.4-11.0)
[2022-10-26 06:32] LABS: Differential Indicated SCAN CRITERIA MET
[2022-10-26 06:37] LABS: ALB/GLOB Ratio 0.7 RATIO (0.9-2.4); AST(SGOT) 17 U/L (15-37); Alanine Aminotransfer ALT/SGPT 9 U/L (13-56); Albumin, Serum 2.8 g/dL (3.2-5.0); Alkaline Phosphatase 97 U/L (45-117); Anion Gap 2 (5-15); BUN 31 mg/dL (7-18); BUN/Creat Ratio 21.7 RATIO (10-20); Calcium,Total 9.7 mg/dL (8.5-10.1); Chloride 102 mmol/L (98-107); Creatinine, Serum 1.43 mg/dL (0.55-1.02); EST Glomerular Filtration Rate 39 mL/min (>60); Est Glom Filt Rate - Afr Amer 47 mL/min (>60); Estimated Creatinine Clearance 27.42 ml/min; Globulin 3.8 g/dL (2.2-4.2); Glucose 133 mg/dL (74-106); Potassium 5.2 mmol/L (3.5-5.1); Protein, Total 6.6 g/dL (6.4-8.2); Sodium Level 134 mmol/L (136-145)
[2022-10-26 06:37] LABS: Bedside Glucose 124 mg/dL (74-106)
[2022-10-26 06:50] LABS: Mucous, Urine 0 SEEN /hpf (<or=2+); Squamous Epithelial Cells - UA 0 SEEN /hpf (5-10); White Blood Cells 0 SEEN /hpf (0-5)
[2022-10-26 06:52] LABS: Color, Urine Yellow (Yellow); Glucose, Dipstick Normal (Normal); Ketone-Dipstick Negative (Negative); Leukocyte Esterase-Dipstick Negative /ul (Negative); Nitrite-Dipstick Negative (Negative); Occult Blood-Urine 50 /ul (Negative); Protein-Dipstick 15 mg/dl (Negative); Urine Bilirubin Dipstick Negative (Negative); Urine Clarity Clear (Clear); Urine Urobilinogen Normal (Normal); Urine pH 6.5 (5.0 - 8.0)
[2022-10-26 06:52] LABS: Macrocytosis 1+; Platelet Estimate SLT DEC (ADEQ)
[2022-10-26 06:58] LABS: Bacteria 1+ /hpf (None Seen); Red Blood Cells-Urine 5-10 SEEN /hpf (0-5)
--- NOTE | 2022-10-26 07:08 | NURSING ---
Pt arrived to ICU @0655, vitals stable. RNs at bedside.
--- NOTE | 2022-10-26 07:15 | PCM.PN.HOSP ---
Reason for Visit Reason for Visit: Diagnoses Morbid (severe) obesity due to excess calories (10/22/22) Chronic pain syndrome (10/22/22) Unspecified atrial flutter (10/22/22) Peripheral vascular disease, unspecified (10/22/22) Non-pressure chronic ulcer of right ankle with fat layer exposed (10/22/22) Displaced bimalleolar fracture of right lower leg, initial encounter for open fracture type I or II (10/22/22) Other fracture of right lower leg, initial encounter for open fracture type I or II (10/22/22) Body mass index [BMI] 70 or greater, adult (10/22/22) Subjective Subjective change in MS overnight and was more lethargic. Objective Data Objective Data Vital Signs: Vital Signs Temp Pulse Resp BP Pulse Ox O2 Del Method O2 Flow Rate 36.4 C L 75 15 127/55 H 87 Nasal Cannula 2 10/26/22 07:09 10/26/22 07:09 10/26/22 07:09 10/26/22 07:09 10/26/22 07:09 10/26/22 07:09 10/26/22 07:09 Oxygen Flow Rate (L/min) 2 Oxygen Delivery Method Nasal Cannula Weight: 174.9 kg Body Mass Index (BMI) 75.3 Intake & Output: Intake and Output for Last 24 Hours 10/24/22 10/25/22 10/26/22 23:59 23:59 23:59 Intake Total 97.5 / 97.5 600 / 720 120 / 120 Output Total 525 / 725 1150 / 1400 250 / 250 Balance -427.5 / -627.5 -550 / -680 -130 / -130 Lab / Micro Data Result Diagrams: 10/26/22 05:55 10/26/22 05:55 Labs: Laboratory Results - last 24 hr 10/25/22 06:38: POC Glucose 111 H 10/25/22 06:40: Sodium 136, Potassium 4.6, Chloride 103, Carbon Dioxide 29.0, Anion Gap 4 L, BUN 23 H, Creatinine 1.21 H, Estim Creat Clear Calc 32.41, Est GFR (MDRD) Af Amer 57 L, Est GFR (MDRD) Non-Af 47 L, BUN/Creatinine Ratio 19.0, Glucose 110 H, Calcium 9.8, Total Bilirubin 0.40, AST 20, ALT 9 L, Alkaline Phosphatase 77, Total Protein 6.2 L, Albumin 2.8 L, Globulin 3.4, Albumin/Globulin Ratio 0.8 L 10/25/22 12:11: POC Glucose 97 10/25/22 16:47: POC Glucose 105 10/25/22 21:41: POC Glucose 120 H 10/26/22 05:30: POC Glucose 124 H 10/26/22 05:55: WBC 7.8, RBC 3.22 L, Hgb 11.0 L, Hct 34.6 L, MCV 107.5 H, MCH 34.2 H, MCHC 31.8 L, RDW Std Deviation 56.6 H, RDW Coeff of Tulio 14.2, Plt Count 143 L, MPV 11.6, Immature Gran % (Auto) 0.500, Neut % (Auto) 81.0 H, Lymph % (Auto) 7.6 L, [place] % (Auto) 9.5, Eos % (Auto) 1.4, Baso % (Auto) 0.0, Absolute Neuts (auto) 6.3, Absolute Lymphs (auto) 0.59 L, Nucleated RBC % 0, Platelet Estimate SLT DEC, Macrocytosis 1+ 10/26/22 05:55: Sodium 134 L, Potassium 5.2 H, Chloride 102, Carbon Dioxide 30.0, Anion Gap 2 L, BUN 31 H, Creatinine 1.43 H, Estim Creat Clear Calc 27.42, Est GFR (MDRD) Af Amer 47 L, Est GFR (MDRD) Non-Af 39 L, BUN/Creatinine Ratio 21.7 H, Glucose 133 H, Calcium 9.7, Total Bilirubin 0.50, AST 17, ALT 9 L, Alkaline Phosphatase 97, Total Protein 6.6, Albumin 2.8 L, Globulin 3.8, Albumin/Globulin Ratio 0.7 L 10/26/22 06:00: Urine Color Yellow, Urine Clarity Clear, Urine pH 6.5, Ur Specific [place] 1.010, Urine Protein 15 H, Urine Glucose (UA) Normal, Urine Ketones Negative, Urine Occult Blood 50 H, Urine Nitrite Negative, Urine Bilirubin Negative, Urine Urobilinogen Normal, Ur Leukocyte Esterase Negative, Urine RBC 5-10 SEEN, Urine WBC 0 SEEN, Ur Squamous Epith Cells 0 SEEN, Urine Bacteria 1+, Urine Mucus 0 SEEN Micro: Microbiology 10/22/22 15:56 Wound - Ankle Gram Stain - Final 10/22/22 15:56 Wound - Ankle Wound Culture - Preliminary No growth-Final to follow 10/22/22 15:56 Wound - Ankle Anaerobic Culture - Preliminary No growth in 48 hours. Radiography Diagnostic Testing: Radiology Impression Brain CT 10/25/22 22:26 IMPRESSION: No evidence of acute intracranial or calvarial abnormality. Electronically Signed: Bhavik Rodriguez, at 23:39 EDT Reading Location ID and State: [facility] / [place] Tel [phone], Service support , Physical Exam Const Constitutional Narrative: doesn't follow commands. Orientation / Consciousness: confused HEENT head/scalp atraumatic Neck no lymphadenopathy Resp normal respiratory effort, no retractions, no use of accessory muscles and clear to auscultation bilaterally Cardio regular rate, regular rhythm, S1 normal heart sound and S2 normal heart sound GI normal to inspection, nondistended, normoactive bowel sounds and soft to palpation Assessment & Plan Assessment/Plan (1) Open fracture dislocation of right ankle: PLAN: R open bimalleolar ankle fracture dislocation s/p OR 10/22: irrigation with closed reduction and external fixation of right ankle by claim examiner Dr. Pacheco optimize pain control: increase scheduled acetaminophen to 1g Q8h, add lidoderm, MS schneider (2) Atrial flutter: PLAN: #A flutter/A-fib with RVR/PAD Cardioversion July 2022, continue metoprolol, Amio 10/24: Had intermittently elevated heart rate overnight and required several doses of IV Lopressor, EKG did reveal A-fib with RVR but presently she is with a heart rate 50s to 60s and doing well, denies having any symptoms or complaints at these times Metoprolol succinate increased from 25 to 50. Pt states she normally takes 50 at home. Resume apixaban (3) Encephalopathy acute: PLAN: suspect multifactorial, but may be primarily due to hypercapnia. BiPAP started. I started MS schneider 09/24, but it does not appear that she received any. Has not received IV morphine since the . DC gabapentin, baclofen Head CT negative PLAN: Plan Chronic conditions: Type 2 diabetes mellitus -Glucose checks and sliding scale insulin-Was continued on her home pioglitazone, glucose is well controlled CKD stage IV-Patient creatinine was 1.62 in July 2022 and subsequently getting better 1.34 with estimated creatinine clearance 29 mm/min-Would benefit from nephro follow-up as an outpatient-Hold Lasix and tramadol-10/24: Creatinine 1.24 with creatinine clearance of 31.62 today. Due to soft BP and holding lisinopril this morning Bilateral chronic lymphedema right worse than runf-[id number] in lymphedema clinic. Hx GERD and gastric ulcer-PPI Hx chronic pain-Fs/w Dr. Yin Morbid obesity-BMI 75.3 kg/m?-Complicates treatment, prognosis, outcomes-Recommend weight loss and lifestyle changes DVT ppx: DC enoxaparin, resume apixaban. DW patient's sister Greater than 50 minutes of which greater than 50% percent of time was discussing with the patient's sister, discussing possible contributing factors regards to encephalopathy and also discussing the rationale behind discontinuing the gabapentin and baclofen for the time being. Charges/Coding Visit Charges Inpatient E&M: 00447 Subs Hosp L3
--- NOTE | 2022-10-26 07:29 | NURSING ---
Patient became increasingly confused, unable to state own name or birthday. Dr. Wheatley notified and asked to come to bedside. Vital signs; 117/44, 70, 99.0, 18, 96% on 2L 02. Blood sua
--- NOTE | 2022-10-26 07:32 | NURSING ---
Patient became increasingly confused, unable to follow commands or stay aroused. When asked a question, pt repeatedly spoke one answer over and over again. Dr. Wheatley notified and asked to come to bedside. Vital signs; 117/44, 70, 99.0, 18, 96% on 2L 02. Blood sugar; 124. Pt unable to state name upon Dr. Wheatley arrival. Urine sample, culture, and blood cultures drawn. Dr. Wheatley decided to transfer pt to ICU. Pt transferred at 06:55 to [facility]. Sister, Brandee, was called and updated.
--- NOTE | 2022-10-26 08:52 | PCM.RX.CS ---
Consult Pharmacy has been consulted to manage selected antiobiotic: Vancomycin Type of Consult: New start Labs: Sodium 134 mmol/L (136-145) L 10/26/22 05:55 Potassium 5.2 mmol/L (3.5-5.1) H 10/26/22 05:55 Chloride 102 mmol/L (98-107) 10/26/22 05:55 Carbon Dioxide 30.0 mmol/L (21.0-32.0) 10/26/22 05:55 Anion Gap 2 (5-15) L 10/26/22 05:55 BUN 31 mg/dL (7-18) H 10/26/22 05:55 Creatinine 1.43 mg/dL (0.55-1.02) H 10/26/22 05:55 Est GFR (MDRD) Af Amer 47 mL/min (>60) L 10/26/22 05:55 Est GFR (MDRD) Non-Af 39 mL/min (>60) L 10/26/22 05:55 BUN/Creatinine Ratio 21.7 RATIO (10-20) H 10/26/22 05:55 Glucose 133 mg/dL (74-106) H 10/26/22 05:55 Microbiology: Microbiology 10/22/22 15:56 Wound - Ankle Gram Stain - Final 10/22/22 15:56 Wound - Ankle Wound Culture - Preliminary No growth-Final to follow 10/22/22 15:56 Wound - Ankle Anaerobic Culture - Preliminary No growth in 48 hours. Goal Trough: 10-15 mcg/mL Pharmacy Plan for Drug Dosing: NEW START IV VANCOMYCIN Consulting Physician: Dr. Deisy Wheatley Indication: Goal Trough: 10-15 SrCr: 1.43 CrCl: 45mls/min (using adjusted body weight) Comments: pt received a 2000mg x1 loading dose on 10/26/22 at 0742 Vancomycin Dose: based on pts weight and renal function, recommend an initial dose of 1500mg q24h starting 10/27/22 at 0800. trough prior to the 3rd dose Pending Level: 10/28/22 at 0730 Pharmacy Service will continue to monitor and adjust dosing as required. Follow-Up Labs: Trough Vancomycin - 10/28/22 at 0730
[2022-10-26 09:19] LABS: Bedside Glucose 109 mg/dL (74-106)
--- NOTE | 2022-10-26 09:27 | CASEMGMT ---
Social Work Pt was transferred to ICU from [facility] for increased confusion. SW participated in ICU rounds this morning. SW spoke w/pt's sister at bedside, support offered. We spoke about pt eventually getting home and what she would need. SW reassured pt's sister that wherever she goes for rehab, they will help her with this. SW also spoke w/pt's sister about [employer] and gave her information; SW explained if they would like a referral we can assist with this. SW explained that at this point we are not continuing with referrals, will pause until pt is more medically ready and then continue the referral process. Pt's sister states understanding. SW did update the documents in [facility], and will continue to follow for discharge planning. FIDEL Underwood
--- NOTE | 2022-10-26 09:45 | CASEMGMT ---
Social Work Gail in admissions for [facility]CU [facility]. SW called [facility], spoke w/Gayla, she states pt was there 18 days in July. SW checked w/pt's sister, pt has not been hospitalized or to a different custodial since then, so she should have her full SNF Medicare benefit. Pt's sister also did say that the therapy at [facility] was great as was the wage and salary administrator, but the floor staff was not. MIGUEL called Tammie in TCU, let her know the above. She states they will reassess the pt when more medically ready. FIDEL Underwood
[2022-10-26 10:23] LABS: Allen Test Positive; Base Excess 2 mmol/L (-2 to +2); Bicarbonate 28.8 mmol/L (22-26); Blood Gas Specimen Type ART; O2 Delivery Device Cannula; PO2 101 mmHG (75-100); SITE L Radial; SO2 97 % (95-99); Total Carbon Dioxide 31 mmol/L; pCO2 62.7 mmHg (35-45); pH 7.27 (7.35-7.45)
[2022-10-26 11:50] LABS: Bedside Glucose 89 mg/dL (74-106)
[2022-10-26] MEDS: 0.9% Normal Saline 1,000 ML 999 ML IV (12:20)
--- NOTE | 2022-10-26 13:10 | PCM.PROGNOTE ---
Subjective Subjective patient transferred to ICU after ams over night with BP drop. Objective Data Objective Data Vital Signs: Vital Signs Temp Pulse Resp BP Pulse Ox O2 Del Method O2 Flow Rate 97.6 F L 53 L 16 103/49 L 98 Bi-pap 5 10/26/22 07:09 10/26/22 12:00 10/26/22 12:00 10/26/22 12:00 10/26/22 12:00 10/26/22 12:00 10/26/22 10:00 FiO2 40 10/26/22 12:00 Oxygen Flow Rate (L/min) 5 Oxygen Delivery Method Bi-pap Weight: 174.9 kg Body Mass Index (BMI) 75.3 Intake & Output: Intake and Output for Last 24 Hours 10/24/22 10/25/22 10/26/22 23:59 23:59 23:59 Intake Total 97.5 / 97.5 600 / 720 660 / 660 Output Total 525 / 725 1150 / 1400 250 / 250 Balance -427.5 / -627.5 -550 / -680 410 / 410 Lab / Micro Data Result Diagrams: 10/26/22 05:55 10/26/22 05:55 Labs: Laboratory Results - last 24 hr 10/25/22 16:47: POC Glucose 105 10/25/22 21:41: POC Glucose 120 H 10/26/22 05:30: POC Glucose 124 H 10/26/22 05:55: WBC 7.8, RBC 3.22 L, Hgb 11.0 L, Hct 34.6 L, MCV 107.5 H, MCH 34.2 H, MCHC 31.8 L, RDW Std Deviation 56.6 H, RDW Coeff of Tulio 14.2, Plt Count 143 L, MPV 11.6, Immature Gran % (Auto) 0.500, Neut % (Auto) 81.0 H, Lymph % (Auto) 7.6 L, [place] % (Auto) 9.5, Eos % (Auto) 1.4, Baso % (Auto) 0.0, Absolute Neuts (auto) 6.3, Absolute Lymphs (auto) 0.59 L, Nucleated RBC % 0, Platelet Estimate SLT DEC, Macrocytosis 1+ 10/26/22 05:55: Sodium 134 L, Potassium 5.2 H, Chloride 102, Carbon Dioxide 30.0, Anion Gap 2 L, BUN 31 H, Creatinine 1.43 H, Estim Creat Clear Calc 27.42, Est GFR (MDRD) Af Amer 47 L, Est GFR (MDRD) Non-Af 39 L, BUN/Creatinine Ratio 21.7 H, Glucose 133 H, Calcium 9.7, Total Bilirubin 0.50, AST 17, ALT 9 L, Alkaline Phosphatase 97, Total Protein 6.6, Albumin 2.8 L, Globulin 3.8, Albumin/Globulin Ratio 0.7 L 10/26/22 06:00: Urine Color Yellow, Urine Clarity Clear, Urine pH 6.5, Ur Specific [place] 1.010, Urine Protein 15 H, Urine Glucose (UA) Normal, Urine Ketones Negative, Urine Occult Blood 50 H, Urine Nitrite Negative, Urine Bilirubin Negative, Urine Urobilinogen Normal, Ur Leukocyte Esterase Negative, Urine RBC 5-10 SEEN, Urine WBC 0 SEEN, Ur Squamous Epith Cells 0 SEEN, Urine Bacteria 1+, Urine Mucus 0 SEEN 10/26/22 08:58: POC Glucose 109 H 10/26/22 11:32: POC Glucose 89 Micro: Microbiology 10/22/22 15:56 Wound - Ankle Gram Stain - Final 10/22/22 15:56 Wound - Ankle Wound Culture - Preliminary 10/22/22 15:56 Wound - Ankle Anaerobic Culture - Preliminary No growth in 48 hours. ABG Data ABG results: ABG 10/26/22 10:18 Specimen Type ART Sample Site L Radial pH 7.27 L Bicarbonate Actual 28.8 H Total CO2 31 Base Excess 2 O2 Saturation 97 ABG pCO2 62.7 H ABG pO2 101 H Ketan Test Positive O2 Delivery Device Cannula Liter Flow 5.0 Radiography Diagnostic Testing: Radiology Impression Brain CT 10/25/22 22:26 IMPRESSION: No evidence of acute intracranial or calvarial abnormality. Electronically Signed: Bhavik Rodriguez DO at 23:39 EDT Reading Location ID and State: [facility] / [place] Tel [phone], Service support , Physical Exam Narrative patient on CPAP, aox0 Right external fixator intact, some sanguinous drainage to medial incision. No acute signs of infection with wound site/fixator. Assessment & Plan Assessment/Plan (1) Non-pressure chronic ulcer of right ankle with fat layer exposed: PLAN: Exam performed Open fracture site negative for infection ID consulted, IV vanc/zosyn started Hospitalist on board [employer] Lathe Operator consulted Patient hypotensive/bradycardic, no fever or leukocytosis Will order duplex to rule out DVT blood/urine cultures pending intraoperative cultures - negative for growth Hgb 11.0 today Patient had episode of A. Fib two nights prior. will continue to follow daily. (2) Open bimalleolar fracture of right ankle: (3) Encephalopathy acute:
--- NOTE | 2022-10-26 13:21 | VDLE_ITS ---
Reason For Study: Shortness of breath RIGHT LEFT GSV is normal. GSV is normal. CFV is compressible, spontaneous, phasic, CFV is compressible, spontaneous, phasic, competent and demonstrates normal competent, and demonstrates normal augmentation. augmentation. FV is compressible, spontaneous, phasic, Unable to visualize mid and distal portions competent and demonstrates normal of FV due to patient positioning and body augmentation. habitus. Unable to visualize T/P Trunk, POP V, PTV and POP V is compressible. Shameka V due to wraps, bandages and medical T/P Trunk is compressible. hardware. PTV is compressible. Procedure LT PerV is compressible. This is a venous duplex using B-mode, color Calf vessels visualized in segments due to flow and spectral Doppler. body habitus. Exam performed portable in ICU/CCU. A non-vascularized area of mixed echoes Limited views were obtained. measuring approximately 7.36cm x 2.09cm is The study was technically limited. noted in Rt Popliteal Fossa. VL/Venous Duplex US - Bryn Extrem Interpretation Summary Deep veins of the bilateral lower extremities are patent and compressible segme ntally. There is no evidence of bilateral lower extremity deep vein thrombosis. The bilateral great saphenous veins appear patent and compressible segmentally. A non-vascularized area of mixed echoes measuring approximately 7.36cm x 2.09cm is noted in left popliteal fossa. Limited study bilateral due to positioning, body habitus, and dressings. Ordering Physician: Jayme Pacheco Referring Physician: Alysa Whitt Performed By: Simone Brown RVT
--- NOTE | 2022-10-26 14:51 | CON.PCM.CC_ITS ---
Assessment & Plan Assessment/Plan (1) Encephalopathy acute: PLAN: Plan RECOMMENDATIONS: 1. Continue BiPAP support as tolerated. 2. Obtain follow-up ABG. 3. Continue to hold sedating medications, especially morphine sulfate in a patient with chronic renal insufficiency. 4. Recommend outpatient sleep study work-up. IMPRESSIONS: 1. Encephalopathy Most likely hypercapnic in etiology secondary to polypharmacy in the setting alveolar hypoventilation secondary to obesity and high risk for sleep apnea. The patient was placed on appropriate BiPAP support and appears to be slowly improving from a mental status perspective. I agree with withholding all sedating medications for now. I would recommend cautious reintroduction of opiate pain medications, especially in this patient. Follow-up order for arterial blood gas has been placed. 2. Right open bimalleolar ankle fracture with dislocation, now postop day #4 status post closed reduction and external fixation Continue routine postoperative care per podiatry recommendations. 3. History of atrial flutter with RVR Continue amiodarone and beta-christian per home regimen. Continue Eliquis per home regimen. 4. Super morbid obesity/diabetes mellitus/chronic lymphedema/GERD Complicates care, management, recovery and prognosis. Continue supportive measures as noted above. This note was generated with [employer] dictation software. It may contain incorrect words, spelling, and punctuation that were not noted in checking the note before signing. HPI Consult Data Date of Consult: 10/27/22 HPI Narrative Reason for Consultation: Encephalopathy HPI Narrative: The patient is a 67-year-old female, with a history as outlined below, who presented initially to the emergency department on October 22 via EMS after sustaining an ankle injury during a fall. At the patient does have a medical history significant for atrial flutter with RVR along with diabetes mellitus and remote DVT. As part of her initial emergency department work-up, imaging of the ankle demonstrated a fracture and lateral dislocation of the distal fibula and tibia. The patient was evaluated by podiatry and taken to the OR due to the open fracture nature of the patient's injury. On October 22, the patient underwent open fracture irrigation along with closed reduction and external fixation of the right ankle. The patient was ultimately admitted to the hospital with her chronic medical conditions being managed by the hospitalist. supply chain systems manager hours of October 26, the patient was noted to be more somnolent. She was ultimately transferred to the medical intensive care unit. Subsequent arterial blood gas demonstrated a pH of 7.27 with a PCO2 of 63 and PO2 of 101. It does appear that over the course of her hospitalization, the patient was gabein g maintained on baclofen, gabapentin and morphine sulfate. [facility] Medical History (Updated 10/27/22 @ 07:[address] Bharat Caballero, DO) Chronic pain syndrome Diabetes mellitus Diabetes mellitus, type 2 GERD (gastroesophageal reflux disease) History of gastric ulcer HLD (hyperlipidemia) HLD (hyperlipidemia) HTN (hypertension) HTN (hypertension) Lymphedema Lymphedema Morbid obesity with BMI of 45.0-49.9, adult PAD (peripheral artery disease) PVD (peripheral vascular disease) Home Medications baclofen 20 mg tablet 20 mg PO Q12H Check with primary doctor 12/26/19 [History Last Taken Unknown] gabapentin 800 mg tablet 750 mg PO BID Check with primary doctor 12/26/19 [History Last Taken Unknown] lisinopril 20 mg tablet 20 mg PO DAILY Check with primary doctor 12/26/19 [History Last Taken Unknown] metoprolol succinate 50 mg tablet,extended release 24 hr 50 mg PO DAILY Check with primary doctor 12/26/19 [History Last Taken Unknown] omeprazole 20 mg capsule,delayed release 20 mg PO DAILY Check with primary doctor 12/26/19 [History Last Taken Unknown] furosemide 20 mg tablet (Lasix) 20 mg PO DAILY Check with primary doctor 07/20/22 [History Last Taken Unknown] pioglitazone 30 mg tablet 30 mg PO DAILY Check with primary doctor 07/20/22 [History Last Taken Unknown] rosuvastatin 5 mg tablet 5 mg PO QODAY Check with primary doctor 07/20/22 [History Last Taken Unknown] apixaban 5 mg tablet (Eliquis) 5 mg PO BID #30 tabs 07/25/22 [Rx Last Taken Unknown] amiodarone 200 mg tablet 200 mg PO DAILY #90 tabs 08/20/22 [Rx Last Taken Unknown] cyanocobalamin (B12)-cobamamide 5,000 mcg-100 mcg sublingual tablet 1 tab sublingual QODAY Check with primary doctor 08/20/22 [History Last Taken Unknown] ergocalciferol (vitamin D2) 1,250 mcg (50,000 unit) capsule 50,000 unit PO Q2W Check with primary doctor 08/20/22 [History Last Taken Unknown] tramadol 50 mg tablet 50 mg PO DAILY PRN pain 08/20/22 [History Last Taken Unknown] Allergy/AdvReac Type Severity Reaction Status Date / Time tobramycin Allergy PT UNSURE Verified 10/22/22 10:50 OF REACTION Family History Mother Non Hodgkin's lymphoma Father Kidney disease Heart disease Hypertension Myocardial infarction Grandfather Heart disease Myocardial infarction Surgical History H/O exploratory laparotomy History of dental surgery History of shoulder surgery History of tonsillectomy and adenoidectomy S/P total knee replacement Social History household members: other details: Lives with her sister and brother in law. Smoking Status: Never smoker alcohol intake: current alcohol intake frequency: a few times a month substance use type: does not use caffeine: Yes Type: tea Number of servings: 1 ROS Review of Systems ROS Unobtainable: due to mental status Physical Exam Const Constitutional Narrative: Super morbidly obese with BiPAP in place. Somnolent but arousable. HEENT normocephalic and head/scalp atraumatic Eyes PERRL and EOMs intact bilaterally Neck supple Neck Narrative: Large neck circumference with redundant soft tissue. General: trachea midline Chest inspection of chest normal Resp normal respiratory effort Auscultation: diminished lung sounds Cardio S1 normal heart sound and S2 normal heart sound Rhythm: abnormal rhythm GI normal to inspection, nondistended, normoactive bowel sounds Extremity Extremity Narrative: Right external fixator intact. Skin no rashes or lesions noted Neuro Neuro Narrative: Somnolent, but arousable to verbal stimulation. Lab / Micro Data Result Diagrams: 10/27/22 05:15 10/27/22 05:15 Labs: Laboratory Results - last 24 hr 10/25/22 16:47: POC Glucose 105 10/25/22 21:41: POC Glucose 120 H 10/26/22 05:30: POC Glucose 124 H 10/26/22 05:55: WBC 7.8, RBC 3.22 L, Hgb 11.0 L, Hct 34.6 L, MCV 107.5 H, MCH 34.2 H, MCHC 31.8 L, RDW Std Deviation 56.6 H, RDW Coeff of Tulio 14.2, Plt Count 143 L, MPV 11.6, Immature Gran % (Auto) 0.500, Neut % (Auto) 81.0 H, Lymph % (Auto) 7.6 L, Stewart % (Auto) 9.5, Eos % (Auto) 1.4, Baso % (Auto) 0.0, Absolute Neuts (auto) 6.3, Absolute Lymphs (auto) 0.59 L, Nucleated RBC % 0, Platelet Estimate SLT DEC, Macrocytosis 1+ 10/26/22 05:55: Sodium 134 L, Potassium 5.2 H, Chloride 102, Carbon Dioxide 30.0, Anion Gap 2 L, BUN 31 H, Creatinine 1.43 H, Estim Creat Clear Calc 27.42, Est GFR (MDRD) Af Amer 47 L, Est GFR (MDRD) Non-Af 39 L, BUN/Creatinine Ratio 21.7 H, Glucose 133 H, Calcium 9.7, Total Bilirubin 0.50, AST 17, ALT 9 L, Alkaline Phosphatase 97, Total Protein 6.6, Albumin 2.8 L, Globulin 3.8, Albumin/Globulin Ratio 0.7 L 10/26/22 06:00: Urine Color Yellow, Urine Clarity Clear, Urine pH 6.5, Ur Specific [place] 1.010, Urine Protein 15 H, Urine Glucose (UA) Normal, Urine Ketones Negative, Urine Occult Blood 50 H, Urine Nitrite Negative, Urine Bilirubin Negative, Urine Urobilinogen Normal, Ur Leukocyte Esterase Negative, Urine RBC 5-10 SEEN, Urine WBC 0 SEEN, Ur Squamous Epith Cells 0 SEEN, Urine Bacteria 1+, Urine Mucus 0 SEEN 10/26/22 08:58: POC Glucose 109 H 10/26/22 11:32: POC Glucose 89 Micro: Microbiology 10/22/22 15:56 Wound - Ankle Gram Stain - Final 10/22/22 15:56 Wound - Ankle Wound Culture - Preliminary 10/22/22 15:56 Wound - Ankle Anaerobic Culture - Preliminary No growth in 48 hours. ABG Data ABG results: ABG 10/26/22 10:18 Specimen Type ART Sample Site L Radial pH 7.27 L Bicarbonate Actual 28.8 H Total CO2 31 Base Excess 2 O2 Saturation 97 ABG pCO2 62.7 H ABG pO2 101 H Ketan Test Positive O2 Delivery Device Cannula Liter Flow 5.[address] 10/25/22 22:26 IMPRESSION: No evidence of acute intracranial or calvarial abnormality. Electronically Signed: Bhavik Rodriguez DO at 23:39 EDT Reading Location ID and State: [address] [place] [address] Tel [phone], Service support , Charges/Coding Visit Charges Inpatient E&M: 12139 Init Hosp L3
--- NOTE | 2022-10-26 15:13 | WOUNDNOTE ---
wound photo: right lower leg
--- NOTE | 2022-10-26 15:13 | WOUNDNOTE ---
wound photo: right lateral lower leg
[2022-10-26 15:57] LABS: Allen Test Positive; Base Excess 3 mmol/L (-2 to +2); Bicarbonate 27.5 mmol/L (22-26); Blood Gas Specimen Type ART; Comment AVAPS; FI02 40; O2 Delivery Device BiPAP; PEEP 10; PO2 112 mmHG (75-100); RR 16; SITE L Radial; SO2 98 % (95-99); Total Carbon Dioxide 29 mmol/L; Vt 450
--- NOTE | 2022-10-26 16:23 | CPS ---
patient getting PICC placed
[2022-10-26 17:47] LABS: Bedside Glucose 117 mg/dL (74-106)
[2022-10-26 21:10] LABS: Bedside Glucose 103 mg/dL (74-106)
[2022-10-27] VITALS (17 sets, daily range): BP systolic 115–147; BP diastolic 39–77; PULSE 56–74; RESP 12–20; TEMP 36.1–37; O2SAT 94–100; BMI 73.5
--- NOTE | 2022-10-27 00:05 | CPS ---
Patient restrained at this time
[2022-10-27] MEDS: Acetaminophen 500 MG Tablet 1000 MG PO ×3 (05:49→20:11)
[2022-10-27 05:57] LABS: Absolute Lymphocyte Count 0.41 X10^3/uL (0.83-4.51); Absolute Neutrophil Count 7.2 X10^3/uL (2.0-7.7); Basophil# 0.02 X10^3/uL; Basophil% 0.2 % (0-1); Eosinophil# 0.28 X10^3/uL; Eosinophils% 3.2 % (0-5); Hematocrit 33.3 % (37-47); Hemoglobin 10.6 g/dL (12.0-15.0); Lymphocyte # 0.41 X10^3/ul (0.83-4.51); Lymphocyte % 4.7 % (19-41); Mean Corp Hgb Conc 31.8 g/dL (32-36); Mean Corpuscular Hgb 34.2 pg (27.0-32.0); Mean Corpuscular Volume 107.4 fL (81-99); Mean Platelet Vol. 12.1 fl (6.2-12.0); Monocyte# 0.76 X10^3/uL; Monocyte% 8.7 % (0-10); NRBC Flagged by Analyzer 0 % (0-5); Neutrophil # 7.21 X10^3/uL (2.7-7.7); Neutrophil % 82.6 % (47-70); POSITIVE DIFFERENTIAL YES; Platelet Count 144 K/mm3 (150-450); RBC Distribution Width CV 14.2 % (11.6-14.6); RBC Distribution Width SD 55.3 fl (35.1-43.9); White Blood Count 8.7 K/mm3 (4.4-11.0)
[2022-10-27 05:58] LABS: Differential Indicated SCAN CRITERIA MET
[2022-10-27 06:18] LABS: ALB/GLOB Ratio 0.7 RATIO (0.9-2.4); AST(SGOT) 20 U/L (15-37); Alanine Aminotransfer ALT/SGPT 8 U/L (13-56); Albumin, Serum 2.6 g/dL (3.2-5.0); Alkaline Phosphatase 90 U/L (45-117); Anion Gap 3 (5-15); BUN 24 mg/dL (7-18); BUN/Creat Ratio 24.6 RATIO (10-20); Calcium,Total 9.4 mg/dL (8.5-10.1); Chloride 107 mmol/L (98-107); Creatinine, Serum 0.98 mg/dL (0.55-1.02); EST Glomerular Filtration Rate 60 mL/min (>60); Est Glom Filt Rate - Afr Amer 73 mL/min (>60); Estimated Creatinine Clearance 40.01 ml/min; Globulin 3.5 g/dL (2.2-4.2); Glucose 113 mg/dL (74-106); Potassium 4.8 mmol/L (3.5-5.1); Protein, Total 6.1 g/dL (6.4-8.2); Sodium Level 138 mmol/L (136-145)
[2022-10-27 06:34] LABS: Macrocytosis 2+; Platelet Estimate SLT DEC (ADEQ)
--- NOTE | 2022-10-27 07:22 | PN.HOSP_ITS ---
Reason for Visit Reason for Visit: Diagnoses Morbid (severe) obesity due to excess calories (10/22/22) Chronic pain syndrome (10/22/22) Encephalopathy, unspecified (10/22/22) Unspecified atrial flutter (10/22/22) Peripheral vascular disease, unspecified (10/22/22) Non-pressure chronic ulcer of right ankle with fat layer exposed (10/22/22) Displaced bimalleolar fracture of right lower leg, initial encounter for open fracture type I or II (10/22/22) Other fracture of right lower leg, initial encounter for open fracture type I or II (10/22/22) Body mass index [BMI] 70 or greater, adult (10/22/22) Subjective Subjective Agitated this morning and pulled out her De Souza catheter as well as her PICC line. Objective Data Objective Data Vital Signs: Vital Signs Temp Pulse Resp BP Pulse Ox O2 Del Method O2 Flow Rate 37.0 C 66 14 139/45 H 100 Nasal Cannula 5 10/27/22 04:00 10/27/22 07:00 10/27/22 07:00 10/27/22 07:00 10/27/22 07:00 10/27/22 07:00 10/27/22 07:00 FiO2 40 10/26/22 15:48 Oxygen Flow Rate (L/min) 5 Oxygen Delivery Method Nasal Cannula Weight: 170.778 kg Body Mass Index (BMI) 73.5 Intake & Output: Intake and Output for Last 24 Hours 10/25/22 10/26/22 10/27/22 23:59 23:59 23:59 Intake Total 600 / 720 1760 / 1760 50 / 50 Output Total 1150 / 1400 1400 / 1400 600 / 600 Balance -550 / -680 360 / 360 -550 / -550 Lab / Micro Data Result Diagrams: 10/27/22 05:15 10/27/22 05:15 Labs: Laboratory Results - last 24 hr 10/26/22 08:58: POC Glucose 109 H 10/26/22 11:32: POC Glucose 89 10/26/22 17:29: POC Glucose 117 H 10/26/22 20:52: POC Glucose 103 10/27/22 05:15: WBC 8.7, RBC 3.10 L, Hgb 10.6 L, Hct 33.3 L, MCV 107.4 H, MCH 34.2 H, MCHC 31.8 L, RDW Std Deviation 55.3 H, RDW Coeff of Tulio 14.2, Plt Count 144 L, MPV 12.1 H, Immature Gran % (Auto) 0.600, Neut % (Auto) 82.6 H, Lymph % (Auto) 4.7 L, Cotton % (Auto) 8.7, Eos % (Auto) 3.2, Baso % (Auto) 0.2, Absolute Neuts (auto) 7.2, Absolute Lymphs (auto) 0.41 L, Nucleated RBC % 0, Platelet Estimate SLT DEC, Macrocytosis 2+ 10/27/22 05:15: Sodium 138, Potassium 4.8, Chloride 107, Carbon Dioxide 28.0, Anion Gap 3 L, BUN 24 H, Creatinine 0.98, Estim Creat Clear Calc 40.01, Est GFR (MDRD) Af Amer 73, Est GFR (MDRD) Non-Af 60, BUN/Creatinine Ratio 24.6 H, Glucose 113 H, Calcium 9.4, Total Bilirubin 0.50, AST 20, ALT 8 L, Alkaline Phosphatase 90, Total Protein 6.1 L, Albumin 2.6 L, Globulin 3.5, Albumin/Globulin Ratio 0.7 L Micro: Microbiology 10/22/22 15:56 Wound - Ankle Gram Stain - Final 10/22/22 15:56 Wound - Ankle Wound Culture - Preliminary 10/22/22 15:56 Wound - Ankle Anaerobic Culture - Preliminary No growth in 48 hours. ABG Data ABG results: ABG 10/26/22 10/26/22 10:18 15:53 Specimen Type ART ART Sample Site L Radial L Radial pH 7.27 L 7.40 Bicarbonate Actual 28.8 H 27.5 H Total CO2 31 29 Base Excess 2 3 H O2 Saturation 97 98 O2 % 40 ABG pCO2 62.7 H 44.0 ABG pO2 101 H 112 H Ketan Test Positive Positive Respiration Rate 16 O2 Delivery Device Cannula BiPAP Liter Flow 5.0 Tidal Volume 450 POC PEEP 10 Clinical Comments [facility] Radiography Diagnostic Testing: Radiology Impression Venous Doppler Study 10/26/22 13:21 Interpretation Summary Deep veins of the bilateral lower extremities are patent and compressible segmentally. There is no evidence of bilateral lower extremity deep vein thrombosis. The bilateral great saphenous veins appear patent and compressible segmentally. A non-vascularized area of mixed echoes measuring approximately 7.36cm x 2.09cm is noted in left popliteal fossa. Limited study bilateral due to positioning, body habitus, and dressings. Ordering Physician: Jayme Pacheco Referring Physician: Alysa Whitt Performed By: Simone Brown RVT Physical Exam Narrative General: Alert, oriented, no apparent distress, morbid obesity HEENT: Atraumatic, normocephalic Eyes: Anicteric, normal conjunctiva, extraocular movements grossly intact Neck: Supple Respiratory: Clear to auscultation in upper lung nair, unable to appreciate lower nair due to habitus, normal respiratory effort Cardiovascular: Regular rate and rhythm GI: Soft, nontender, nondistended, midline large ventral hernia appreciated Extremities: Right foot wrapped in fixed, left foot with trace edema Musculoskeletal: Moving all extremities Neuro: No overt focal neurological deficits Skin: No rashes appreciated Psych: Cooperative Const alert, oriented x3 and no apparent distress Constitutional Narrative: Orientation / Consciousness: confused HEENT head/scalp atraumatic and moist oral mucous membranes Neck no lymphadenopathy Resp normal respiratory effort, no retractions, no use of accessory muscles and clear to auscultation bilaterally Cardio regular rate, regular rhythm, S1 normal heart sound and S2 normal heart sound GI normal to inspection, nondistended, normoactive bowel sounds and soft to palpation Extremity Extremity Narrative: right ankle external fixator in place. mild erythema. no overt induration. Neuro Sensorium / Orientation: awake, alert, oriented to person, oriented to place and oriented to time Assessment & Plan Assessment/Plan (1) Encephalopathy acute: PLAN: Improved suspect multifactorial, but may be primarily due to hypercapnia. BiPAP started. I started MS contin 09/24, but it does not appear that she received any. Has not received IV morphine since the . DC gabapentin, baclofen Head CT negative If cultures are negative tomorrow, likely will dc abx. (2) Hypercapnic respiratory failure: QUALIFIERS: Chronicity: acute on chronic Qualified Code(s): J96.22 - Acute and chronic respiratory failure with hypercapnia PLAN: On the , patient was placed on BiPAP and did see improvements of her mental status as well as her ABG. Patient had initial PCO2 62.7 that improved to 44. Patient was on continuous pulse oximeter and it was observed, while the patient's sister was present that when she fell asleep her pulse ox dropped down to 70%. When she awoke she was able to bring that up to 90%. In addition to obesity hypoventilation syndrome, patient most likely also has obstructive sleep apnea. Patient has been told that she should get tested for sleep apnea but has never gotten the testing. But with the findings that we have gathered, patient would be a candidate for bilevel therapy. Patient requires volume ventilation and all other alternative therapies, including bilevel, have been considered and ruled out due to the severity of the disease state, weak breathing muscles and potential life-threatening condition including CO2 retention probability of acute exacerbation, patient requires ventilation to be used during the day as needed, addition to every night usage with facemask. (3) Open fracture dislocation of right ankle: PLAN: R open bimalleolar ankle fracture dislocation s/p OR 10/22: irrigation with closed reduction and external fixation of right ankle by reconnaissance man Dr. Pacheco optimize pain control: increase scheduled acetaminophen to 1g Q8h, add lidoderm, MS contin On the , patient was started on antibiotics for concern for infection. When I looked at her leg it is any overt infection. Blood cultures were drawn and thus far negative. Will follows up for another 24 hours and if those remain to be negative, would likely discontinue antibiotics (4) Atrial flutter: PLAN: #A flutter/A-fib with RVR/PAD Cardioversion July 2022, continue metoprolol, Amio 10/24: Had intermittently elevated heart rate overnight and required several d oses of IV Lopressor, EKG did reveal A-fib with RVR but presently she is with a heart rate 50s to 60s and doing well, denies having any symptoms or complaints at these times Metoprolol succinate increased from 25 to 50. Pt states she normally takes 50 at home. Resume apixaban PLAN: Plan Chronic conditions: * Type 2 diabetes mellitus -Glucose checks and sliding scale insulin-Was continued on her home pioglitazone, glucose is well controlled * CKD stage IV-Patient creatinine was 1.62 in July 2022 and subsequently getting better 1.34 with estimated creatinine clearance 29 mm/min-Would benefit from nephro follow-up as an outpatient-Hold Lasix and tramadol-10/24: Creatinine 1.24 with creatinine clearance of 31.62 today. Due to soft BP and holding lisinopril this morning * Bilateral chronic lymphedema right worse than [id number] in lymphedema clinic. * Hx GERD and gastric ulcer-PPI * Hx chronic pain-Fs/w Dr. Yin * Morbid obesity-BMI 75.3 kg/m?-Complicates treatment, prognosis, outcomes- Recommend weight loss and lifestyle changes DVT ppx: DC enoxaparin, resume apixaban. DW patient's sister Transfer to [facility]. Charges/Coding Visit Charges Inpatient E&M: 71487 Subs Hosp L2
--- NOTE | 2022-10-27 07:37 | PN.CC_ITS ---
Assessment & Plan Assessment/Plan (1) Encephalopathy acute: PLAN: Plan RECOMMENDATIONS: 1. Recommend PAP therapy with naps and nightly. 2. Cautious reintroduction of sedating medications. 3. Outpatient sleep medicine referral is recommended along with diagnostic polysomnogram. 4. Wean supplemental oxygen as tolerated. 5. Encourage incentive spirometer use. 6. The patient is medically stable for transfer out of the intensive care unit. We will sign off. Please call with any additional questions. IMPRESSIONS: 1. Encephalopathy Most likely hypercapnic in etiology secondary to polypharmacy in the setting alveolar hypoventilation secondary to obesity and high risk for sleep apnea. The patient's mentation improved following cessation of sedating medications and initiation of noninvasive positive pressure ventilatory support. The patient was supposed to follow-up with Dr. Zhu for a diagnostic polysomnogram, but failed to do so. I would recommend that the patient be maintained on PAP therapy while admitted to the hospital with naps and nightly. Extreme caution should be exercised when utilizing sedating medications in this patient. 2. Right open bimalleolar ankle fracture with dislocation, now postop day #5 status post closed reduction and external fixation Continue routine postoperative care per podiatry recommendations. 3. History of atrial flutter with RVR Continue amiodarone and beta-christian per home regimen. Continue Eliquis per home regimen. 4. Super morbid obesity/diabetes mellitus/chronic lymphedema/GERD Complicates care, management, recovery and prognosis. Continue supportive measures as noted above. This note was generated with [employer] dictation software. It may contain incorrect words, spelling, and punctuation that were not noted in checking the note before signing. Subjective Subjective The patient was seen and examined at the bedside this morning. Events from the last 24 hours have been reviewed. The patient is currently afebrile, hemodynamically stable and maintaining appropriate oxygen saturations on 5 L/min via nasal cannula. However, when I entered the patient's room, she was not wearing her nasal cannula supplemental O2. The patient is alert but somewhat passive-aggressive. When questioned, she did report that she was referred at one point to Dr. Zhu for a sleep work-up, but never followed through. She does not have access to or utilize a BiPAP at her baseline. She refused to utilize the BiPAP overnight. Objective Data Objective Data The patient's most recent lab work, culture data and imaging studies have all been personally reviewed. Lower extremity Doppler studies completed on October 26 were negative for DVT. Surface echocardiogram from July 2022 demonstrated normal LV size and function with an ejection fraction of 65%. Vital Signs: Vital Signs Temp Pulse Resp BP Pulse Ox O2 Del Method O2 Flow Rate 98.6 F 66 14 139/45 H 100 Nasal Cannula 5 10/27/22 04:00 10/27/22 07:00 10/27/22 07:00 10/27/22 07:00 10/27/22 07:00 10/27/22 07:00 10/27/22 07:00 FiO2 40 10/26/22 15:48 Oxygen Flow Rate (L/min) 5 Oxygen Delivery Method Nasal Cannula Weight: 376 lb 8 oz Body Mass Index (BMI) 73.5 Intake & Output: Intake and Output for Last 24 Hours 10/25/22 10/26/22 10/27/22 23:59 23:59 23:59 Intake Total 600 / 720 1760 / 1760 50 / 50 Output Total 1150 / 1400 1400 / 1400 600 / 600 Balance -550 / -680 360 / 360 -550 / -550 Lab / Micro Data Attestation: I reviewed the patient's lab results. Result Diagrams: 10/27/22 05:15 10/27/22 05:15 Labs: Laboratory Results - last 24 hr 10/26/22 08:58: POC Glucose 109 H 10/26/22 11:32: POC Glucose 89 10/26/22 17:29: POC Glucose 117 H 10/26/22 20:52: POC Glucose 103 10/27/22 05:15: WBC 8.7, RBC 3.10 L, Hgb 10.6 L, Hct 33.3 L, MCV 107.4 H, MCH 34.2 H, MCHC 31.8 L, RDW Std Deviation 55.3 H, RDW Coeff of Tulio 14.2, Plt Count 144 L, MPV 12.1 H, Immature Gran % (Auto) 0.600, Neut % (Auto) 82.6 H, Lymph % (Auto) 4.7 L, [place] % (Auto) 8.7, Eos % (Auto) 3.2, Baso % (Auto) 0.2, Absolute Neuts (auto) 7.2, Absolute Lymphs (auto) 0.41 L, Nucleated RBC % 0, Platelet Estimate SLT DEC, Macrocytosis 2+ 10/27/22 05:15: Sodium 138, Potassium 4.8, Chloride 107, Carbon Dioxide 28.0, Anion Gap 3 L, BUN 24 H, Creatinine 0.98, Estim Creat Clear Calc 40.01, Est GFR (MDRD) Af Amer 73, Est GFR (MDRD) Non-Af 60, BUN/Creatinine Ratio 24.6 H, Glu cose 113 H, Calcium 9.4, Total Bilirubin 0.50, AST 20, ALT 8 L, Alkaline Phosphatase 90, Total Protein 6.1 L, Albumin 2.6 L, Globulin 3.5, Albumin/Globulin Ratio 0.7 L Micro: Microbiology 10/22/22 15:56 Wound - Ankle Gram Stain - Final 10/22/22 15:56 Wound - Ankle Wound Culture - Preliminary 10/22/22 15:56 Wound - Ankle Anaerobic Culture - Preliminary No growth in 48 hours. ABG Data ABG results: ABG 10/26/22 10/26/22 10:18 15:53 Specimen Type ART ART Sample Site L Radial L Radial pH 7.27 L 7.40 Bicarbonate Actual 28.8 H 27.5 H Total CO2 31 29 Base Excess 2 3 H O2 Saturation 97 98 O2 % 40 ABG pCO2 62.7 H 44.0 ABG pO2 101 H 112 H Ketan Test Positive Positive Respiration Rate 16 O2 Delivery Device Cannula BiPAP Liter Flow 5.0 Tidal Volume 450 POC PEEP 10 Clinical Comments AVAPS Radiography Diagnostic Testing: Radiology Impression Venous Doppler Study 10/26/22 13:21 Interpretation Summary Deep veins of the bilateral lower extremities are patent and compressible segmentally. There is no evidence of bilateral lower extremity deep vein thrombosis. The bilateral great saphenous veins appear patent and compressible segmentally. A non-vascularized area of mixed echoes measuring approximately 7.36cm x 2.09cm is noted in left popliteal fossa. Limited study bilateral due to positioning, body habitus, and dressings. Ordering Physician: Jayme Pacheco Referring Physician: Alysa Whitt Performed By: Simone Brown RVT Physical Exam Const Constitutional Narrative: Super morbidly obese. Alert and interactive this morning. HEENT normocephalic and head/scalp atraumatic Eyes PERRL and EOMs intact bilaterally Neck supple Neck Narrative: Large neck circumference with redundant soft tissue. General: trachea midline Chest inspection of chest normal Resp normal respiratory effort Auscultation: diminished lung sounds Cardio regular rate, S1 normal heart sound and S2 normal heart sound GI normal to inspection, nondistended, normoactive bowel sounds Extremity Extremity Narrative: Right external fixator intact. Skin no rashes or lesions noted Neuro no focal motor deficits Psych cooperative and affect normal Charges/Coding Visit Charges Inpatient E&M: 35634 Subs Hosp L2
--- NOTE | 2022-10-27 07:40 | PCM.HOSP.N ---
Hospitalist Note I personally assessed at bedside and signed order for patient for soft restraints. She was clearly agitated.
--- NOTE | 2022-10-27 08:00 | NURSING ---
Entered patient's room and found PICC line laying on floor, Fisher catheter laying on floor, patient had removed hands from restraints. Patient stated that she didn't want those anymore. PICC site to right upper arm actively bleeding with blood dripping to floor. Pressure applied followed by dressing. Some bruising to site, tissue soft and non-tender. Purewick placed instead of replacing fisher catheter. Dr Caballero notified, Nursing supervisor cutting and sewing room notified and bedside sitter requested. Sitter called in.
[2022-10-27] MEDS: Pioglitazone Hydrochloride 30 MG Tablet PO (09:08)
[2022-10-27] MEDS: Amiodarone 200 MG Tablet PO (09:09)
[2022-10-27] MEDS: Metoprolol(XL)Succ 50 MG Tablet PO (09:09)
[2022-10-27] MEDS: Nystatin Powder 15gm Bottle 1 APPLIC TOPICAL ×2 (09:09→20:03)
[2022-10-27] MEDS: Pantoprazole Sodium 20 MG Tablet PO (09:09)
[2022-10-27] MEDS: Furosemide 20 MG Tablet PO (09:09)
[2022-10-27] MEDS: Docusate Sodium 100 MG Capsule PO ×2 (09:10→20:03)
[2022-10-27] MEDS: APIXABAN 5 MG TABLET PO ×2 (09:10→20:03)
[2022-10-27 09:36] LABS: Bedside Glucose 111 mg/dL (74-106)
[2022-10-27 11:54] LABS: Bedside Glucose 150 mg/dL (74-106)
--- NOTE | 2022-10-27 12:00 | CASEMGMT ---
JIN BARRETT NOTE: Per Dr Caballero note, pt will need home ventilation/NIV. JIN BARRETT contacted Fannie @ [facility] and notified of same. She was made aware plan is for dc to SNF. She states she will reach out to Dr Caballero and start the process to try and get pt qualified for a unit. Jignesh MELLO RN, CM
--- NOTE | 2022-10-27 13:30 | CASEMGMT ---
[facility] is unable to accept pt. JORDY Del Toro assistant service manager to reach out to pt next choices of SNF. JUVENTINO Payan
--- NOTE | 2022-10-27 13:44 | PCM.PROGNOTE ---
Subjective Subjective 67F denies constitutionals, in and out of sleep when seen bedside. admits to pain to her right leg, no other complaints. Objective Data Objective Data Vital Signs: Vital Signs Temp Pulse Resp BP Pulse Ox O2 Del Method O2 Flow Rate 97 F L 66 16 120/54 L 96 Bi-pap 2 10/27/22 12:00 10/27/22 12:00 10/27/22 12:00 10/27/22 12:00 10/27/22 12:00 10/27/22 12:00 10/27/22 10:00 FiO2 40 10/27/22 12:00 Oxygen Flow Rate (L/min) 2 Oxygen Delivery Method Bi-pap Weight: 170.778 kg Body Mass Index (BMI) 73.5 Intake & Output: Intake and Output for Last 24 Hours 10/25/22 10/26/22 10/27/22 23:59 23:59 23:59 Intake Total 600 / 720 1760 / 1760 630 / 630 Output Total 1150 / 1400 1400 / 1400 600 / 600 Balance -550 / -680 360 / 360 30 / 30 Lab / Micro Data Result Diagrams: 10/27/22 05:15 10/27/22 05:15 Labs: Laboratory Results - last 24 hr 10/26/22 17:29: POC Glucose 117 H 10/26/22 20:52: POC Glucose 103 10/27/22 05:15: WBC 8.7, RBC 3.10 L, Hgb 10.6 L, Hct 33.3 L, MCV 107.4 H, MCH 34.2 H, MCHC 31.8 L, RDW Std Deviation 55.3 H, RDW Coeff of Tulio 14.2, Plt Count 144 L, MPV 12.1 H, Immature Gran % (Auto) 0.600, Neut % (Auto) 82.6 H, Lymph % (Auto) 4.7 L, [place] % (Auto) 8.7, Eos % (Auto) 3.2, Baso % (Auto) 0.2, Absolute Neuts (auto) 7.2, Absolute Lymphs (auto) 0.41 L, Nucleated RBC % 0, Platelet Estimate SLT DEC, Macrocytosis 2+ 10/27/22 05:15: Sodium 138, Potassium 4.8, Chloride 107, Carbon Dioxide 28.0, Anion Gap 3 L, BUN 24 H, Creatinine 0.98, Estim Creat Clear Calc 40.01, Est GFR (MDRD) Af Amer 73, Est GFR (MDRD) Non-Af 60, BUN/Creatinine Ratio 24.6 H, Glucose 113 H, Calcium 9.4, Total Bilirubin 0.50, AST 20, ALT 8 L, Alkaline Phosphatase 90, Total Protein 6.1 L, Albumin 2.6 L, Globulin 3.5, Albumin/Globulin Ratio 0.7 L 10/27/22 09:07: POC Glucose 111 H 10/27/22 11:35: POC Glucose 150 H Micro: Microbiology 10/22/22 15:56 Wound - Ankle Gram Stain - Final 10/22/22 15:56 Wound - Ankle Wound Culture - Preliminary 10/22/22 15:56 Wound - Ankle Anaerobic Culture - Preliminary No growth in 48 hours. ABG Data ABG results: ABG 10/26/22 15:53 Specimen Type ART Sample Site L Radial pH 7.40 Bicarbonate Actual 27.5 H Total CO2 29 Base Excess 3 H O2 Saturation 98 O2 % 40 ABG pCO2 44.0 ABG pO2 112 H Ketan Test Positive Respiration Rate 16 O2 Delivery Device BiPAP Tidal Volume 450 POC PEEP 10 Clinical Comments AVAPS Radiography Diagnostic Testing: Radiology Impression Venous Doppler Study 10/26/22 13:21 Interpretation Summary Deep veins of the bilateral lower extremities are patent and compressible segmentally. There is no evidence of bilateral lower extremity deep vein thrombosis. The bilateral great saphenous veins appear patent and compressible segmentally. A non-vascularized area of mixed echoes measuring approximately 7.36cm x 2.09cm is noted in left popliteal fossa. Limited study bilateral due to positioning, body habitus, and dressings. Ordering Physician: Jayme Pacheco Referring Physician: Alysa Whitt Performed By: Simone Brown RVT Physical Exam Narrative No changed, intact laceration to medial right ankle. intact delta frame. no acute signs of infection. Const alert and no apparent distress Assessment & Plan Assessment/Plan (1) Non-pressure chronic ulcer of right ankle with fat layer exposed: PLAN: Exam performed No signs of infection to open fracture site continue NWB continue frequent dressing changes (last changed today 10/27/22) recommend d/c to SNF when medically stable will plan for ORIF vs TTC arthrodesis in two weeks
--- NOTE | 2022-10-27 14:01 | CASEMGMT ---
Discharge Planning Referral made to [facility] swing unit. [facility] does not have any bariatric availability at this time. SW notified. Katey Pop, Discharge Planning Asst.
--- NOTE | 2022-10-27 14:33 | CASEMGMT ---
Discharge Planning [facility] declined d/t staffing. MIGUEL notified. SNF list reprinted and given to MIGUEL. Katey Pop, Discharge Planning Asst.
--- NOTE | 2022-10-27 15:15 | PCM.CONS.GEN ---
Assessment & Plan Assessment/Plan (1) Hypercapnic respiratory failure: QUALIFIERS: Chronicity: acute on chronic Qualified Code(s): J96.22 - Acute and chronic respiratory failure with hypercapnia (2) Encephalopathy acute: PLAN: Rapidly improved. On empiric vanc/zosyn. Changes may be related to pain meds/polypharmacy. If cxs remain neg, likely can stop abx tomorrow. Will follow, thank you (3) Open bimalleolar fracture of right ankle: HPI Consult Data Date of Consult: 10/27/22 HPI Narrative Reason for Consultation: encephalopathy HPI Narrative: ANGEL PATTERSON, is a 67 F who presented with R ankle open fracture due to fall on 10/22/22. Taken to OR by Dr. Pacheco that day for closed reduction, external fixation. Given audra-operative abx. Now moved to icu with encephalopathy last evening. Started on empiric vanc/zosyn, feeling much better today. Pain controlled, no fever, no cough or SOB. Sister at bedside provided additional history. No abd pain. No n/v/d. Full ROS performed and neg except as noted above PFSH Medical History Chronic pain syndrome Diabetes mellitus Diabetes mellitus, type 2 GERD (gastroesophageal reflux disease) History of gastric ulcer HLD (hyperlipidemia) HLD (hyperlipidemia) HTN (hypertension) HTN (hypertension) Lymphedema Lymphedema Morbid obesity with BMI of 45.0-49.9, adult PAD (peripheral artery disease) PVD (peripheral vascular disease) Home Medications baclofen 20 mg tablet 20 mg PO Q12H Check with primary doctor 12/26/19 [History Last Taken Unknown] gabapentin 800 mg tablet 750 mg PO BID Check with primary doctor 12/26/19 [History Last Taken Unknown] lisinopril 20 mg tablet 20 mg PO DAILY Check with primary doctor 12/26/19 [History Last Taken Unknown] metoprolol succinate 50 mg tablet,extended release 24 hr 50 mg PO DAILY Check with primary doctor 12/26/19 [History Last Taken Unknown] omeprazole 20 mg capsule,delayed release 20 mg PO DAILY Check with primary doctor 12/26/19 [History Last Taken Unknown] furosemide 20 mg tablet (Lasix) 20 mg PO DAILY Check with primary doctor 07/20/22 [History Last Taken Unknown] pioglitazone 30 mg tablet 30 mg PO DAILY Check with primary doctor 07/20/22 [History Last Taken Unknown] rosuvastatin 5 mg tablet 5 mg PO QODAY Check with primary doctor 07/20/22 [History Last Taken Unknown] apixaban 5 mg tablet (Eliquis) 5 mg PO BID #30 tabs 07/25/22 [Rx Last Taken Unknown] amiodarone 200 mg tablet 200 mg PO DAILY #90 tabs 08/20/22 [Rx Last Taken Unknown] cyanocobalamin (B12)-cobamamide 5,000 mcg-100 mcg sublingual tablet 1 tab sublingual QODAY Check with primary doctor 08/20/22 [History Last Taken Unknown] ergocalciferol (vitamin D2) 1,250 mcg (50,000 unit) capsule 50,000 unit PO Q2W Check with primary doctor 08/20/22 [History Last Taken Unknown] tramadol 50 mg tablet 50 mg PO DAILY PRN pain 08/20/22 [History Last Taken Unknown] Allergy/AdvReac Type Severity Reaction Status Date / Time tobramycin Allergy PT UNSURE Verified 10/22/22 10:50 OF REACTION Family History Mother Non Hodgkin's lymphoma Father Kidney disease Heart disease Hypertension Myocardial infarction Grandfather Heart disease Myocardial infarction Surgical History H/O exploratory laparotomy History of dental surgery History of shoulder surgery History of tonsillectomy and adenoidectomy S/P total knee replacement Social History household members: other details: Lives with her sister and brother in law. Smoking Status: Never smoker alcohol intake: current alcohol intake frequency: a few times a month substance use type: does not use caffeine: Yes Type: tea Number of servings: 1 Physical Exam Const alert, oriented x3 and no apparent distress General Appearance: cooperative HEENT normocephalic and head/scalp atraumatic Eyes PERRL and EOMs intact bilaterally Neck supple and No nodes Resp normal air movement and clear to auscultation bilaterally Cardio regular rate, regular rhythm and no murmurs GI soft to palpation, non-tender and non-distended Extremity General Extremity: edema Skin Skin Narrative: RLE wrapped, ext fix in place Neuro CN's II-XII intact bilaterally Lab / Micro Data Attestation: I reviewed the patient's lab results. Result Diagrams: 10/27/22 05:15 10/27/22 05:15 Labs: Laboratory Results - last 24 hr 10/26/22 17:29: POC Glucose 117 H 10/26/22 20:52: POC Glucose 103 10/27/22 05:15: WBC 8.7, RBC 3.10 L, Hgb 10.6 L, Hct 33.3 L, MCV 107.4 H, MCH 34.2 H, MCHC 31.8 L, RDW Std Deviation 55.3 H, RDW Coeff of Tulio 14.2, Plt Count 144 L, MPV 12.1 H, Immature Gran % (Auto) 0.600, Neut % (Auto) 82.6 H, Lymph % (Auto) 4.7 L, [place] % (Auto) 8.7, Eos % (Auto) 3.2, Baso % (Auto) 0.2, Absolute Neuts (auto) 7.2, Absolute Lymphs (auto) 0.41 L, Nucleated RBC % 0, Platelet Estimate SLT DEC, Macrocytosis 2+ 10/27/22 05:15: Sodium 138, Potassium 4.8, Chloride 107, Carbon Dioxide 28.0, Anion Gap 3 L, BUN 24 H, Creatinine 0.98, Estim Creat Clear Calc 40.01, Est GFR (MDRD) Af Amer 73, Est GFR (MDRD) Non-Af 60, BUN/Creatinine Ratio 24.6 H, Glucose 113 H, Calcium 9.4, Total Bilirubin 0.50, AST 20, ALT 8 L, Alkaline Phosphatase 90, Total Protein 6.1 L, Albumin 2.6 L, Globulin 3.5, Albumin/Globulin Ratio 0.7 L 10/27/22 09:07: POC Glucose 111 H 10/27/22 11:35: POC Glucose 150 H Micro: Microbiology 10/22/22 15:56 Wound - Ankle Gram Stain - Final 10/22/22 15:56 Wound - Ankle Wound Culture - Preliminary 10/22/22 15:56 Wound - Ankle Anaerobic Culture - Preliminary No growth in 48 hours. ABG Data ABG results: ABG 10/26/22 15:53 Specimen Type ART Sample Site L Radial pH 7.40 Bicarbonate Actual 27.5 H Total CO2 29 Base Excess 3 H O2 Saturation 98 O2 % 40 ABG pCO2 44.0 ABG pO2 112 H Ketan Test Positive Respiration Rate 16 O2 Delivery Device BiPAP Tidal Volume 450 POC PEEP 10 Clinical Comments AVAPS Radiology Impression Venous Doppler Study 10/26/22 13:21 Interpretation Summary Deep veins of the bilateral lower extremities are patent and compressible segmentally. There is no evidence of bilateral lower extremity deep vein thrombosis. The bilateral great saphenous veins appear patent and compressible segmentally. A non-vascularized area of mixed echoes measuring approximately 7.36cm x 2.09cm is noted in left popliteal fossa. Limited study bilateral due to positioning, body habitus, and dressings. Ordering Physician: Jayme Pacheco Referring Physician: Alysa Whitt Performed By: Simone Brown RVT
--- NOTE | 2022-10-27 15:21 | CASEMGMT ---
Discharge Planning Discharge Planning Asst spoke with both patient and her sister regarding SNF choices/denials. They asked that referrals be sent to both [facility] and [facility]. Referral sent to both via [facility]. Katey Pop, Discharge Planning Asst.
[2022-10-27 16:42] LABS: Bedside Glucose 113 mg/dL (74-106)
[2022-10-27 20:31] LABS: Bedside Glucose 142 mg/dL (74-106)
[2022-10-27] MEDS: Ibuprofen 600 MG Tablet PO (21:07)
[2022-10-27] MEDS: Mag Hydrox/Al Hydrox/Simeth 30 ML UDC PO (23:34)
--- NOTE | 2022-10-27 23:38 | CPS ---
Patient refused to wear Bipap overnight for [employer], states it is uncomfortable
[2022-10-28] VITALS (11 sets, daily range): BP systolic 135–143; BP diastolic 49–89; PULSE 64–76; RESP 15–20; TEMP 36.3–36.9; O2SAT 94–100; BMI 72.9
[2022-10-28] MEDS: Ibuprofen 600 MG Tablet PO (03:18)
[2022-10-28] MEDS: Acetaminophen 500 MG Tablet 1000 MG PO ×3 (05:31→22:47)
--- NOTE | 2022-10-28 06:07 | NURSING ---
pt refusing AM labs and IV insertion. Pt does not have IV access at this time
--- NOTE | 2022-10-28 06:59 | PN.HOSP_ITS ---
Reason for Visit Reason for Visit: Diagnoses Morbid (severe) obesity due to excess calories (10/22/22) Chronic pain syndrome (10/22/22) Encephalopathy, unspecified (10/22/22) Unspecified atrial flutter (10/22/22) Peripheral vascular disease, unspecified (10/22/22) Acute and chronic respiratory failure with hypercapnia (10/22/22) Non-pressure chronic ulcer of right ankle with fat layer exposed (10/22/22) Displaced bimalleolar fracture of right lower leg, initial encounter for open fracture type I or II (10/22/22) Other fracture of right lower leg, initial encounter for open fracture type I or II (10/22/22) Body mass index [BMI] 70 or greater, adult (10/22/22) Subjective Subjective Drank a Sprite, but didn't like the taste, so she felt that the course of action would be to throw it in the sink (can and all). Her throw was short and it sp illed. Objective Data Objective Data Vital Signs: Vital Signs Temp Pulse Resp BP Pulse Ox O2 Del Method O2 Flow Rate 36.6 C 66 20 H 135/49 H 98 Nasal Cannula 2 10/28/22 02:00 10/28/22 02:00 10/28/22 02:00 10/28/22 02:00 10/28/22 02:00 10/28/22 02:00 10/28/22 02:00 FiO2 40 10/27/22 12:00 Oxygen Flow Rate (L/min) 2 Oxygen Delivery Method Nasal Cannula Weight: 169.417 kg Body Mass Index (BMI) 72.9 Intake & Output: Intake and Output for Last 24 Hours 10/26/22 10/27/22 10/28/22 23:59 23:59 23:59 Intake Total 1760 / 1760 680 / 680 50 / 50 Output Total 1400 / 1400 2750 / 2750 0 / 0 Balance 360 / 360 -2070 / -2070 50 / 50 Lab / Micro Data Result Diagrams: 10/27/22 05:15 10/27/22 05:15 Labs: Laboratory Results - last 24 hr 10/27/22 09:07: POC Glucose 111 H 10/27/22 11:35: POC Glucose 150 H 10/27/22 16:20: POC Glucose 113 H 10/27/22 20:09: POC Glucose 142 H Micro: Microbiology 10/22/22 15:56 Wound - Ankle Gram Stain - Final 10/22/22 15:56 Wound - Ankle Wound Culture - Preliminary 10/22/22 15:56 Wound - Ankle Anaerobic Culture - Preliminary No growth in 48 hours. Physical Exam Const alert and no apparent distress HEENT head/scalp atraumatic and moist oral mucous membranes Resp normal respiratory effort, no retractions and no use of accessory muscles Cardio regular rate, regular rhythm, S1 normal heart sound and S2 normal heart sound GI normal to inspection, nondistended, normoactive bowel sounds, soft to palpation, non-tender and non-distended Assessment & Plan Assessment/Plan (1) Encephalopathy acute: PLAN: Improved suspect multifactorial, but may be primarily due to hypercapnia. BiPAP started. I started MS wyatt 09/24, but it does not appear that she received any. Has not received IV morphine since the . DC gabapentin, baclofen Head CT negative If cultures are negative tomorrow, likely will dc abx. (2) Hypercapnic respiratory failure: QUALIFIERS: Chronicity: acute on chronic Qualified Code(s): J96.22 - Acute and chronic respiratory failure with hypercapnia PLAN: On the , patient was placed on BiPAP and did see improvements of her mental status as well as her ABG. Patient had initial PCO2 62.7 that improved to 44. Patient was on continuous pulse oximeter and it was observed, while the patient's sister was present that when she fell asleep her pulse ox dropped down to 70%. When she awoke she was able to bring that up to 90%. In addition to obesity hypoventilation syndrome, patient most likely also has obstructive sleep apnea. Patient has been told that she should get tested for sleep apnea but has never gotten the testing. But with the findings that we have gathered, patient would be a candidate for Trilogy. Patient requires volume ventilation and all other alternative therapies, in cluding bilevel, have been considered and ruled out due to the severity of the disease state, weak breathing muscles and potential life-threatening condition including CO2 retention probability of acute exacerbation, patient requires ventilation to be used during the day as needed, addition to every night usage with facemask. (3) Open fracture dislocation of right ankle: PLAN: R open bimalleolar ankle fracture dislocation s/p OR 10/22: irrigation with closed reduction and external fixation of right ankle by cover marker Dr. Pacheco optimize pain control: increase scheduled acetaminophen to 1g Q8h, add lidoderm, MS wyatt On the , patient was started on antibiotics for concern for infection. When I looked at her leg it is any overt infection. Blood cultures were drawn and thus far negative. Will follows up for another 24 hours and if those remain to be negative, would likely discontinue antibiotics (4) Atrial flutter: PLAN: #A flutter/A-fib with RVR/PAD Cardioversion July 2022, continue metoprolol, Amio 10/24: Had intermittently elevated heart rate overnight and required several doses of IV Lopressor, EKG did reveal A-fib with RVR but presently she is with a heart rate 50s to 60s and doing well, denies having any symptoms or complaints at these times Metoprolol succinate increased from 25 to 50. Pt states she normally takes 50 at home. Resume apixaban PLAN: Plan Chronic conditions: * Type 2 diabetes mellitus -Glucose checks and sliding scale insulin-Was continued on her home pioglitazone, glucose is well controlled * CKD stage IV-Patient creatinine was 1.62 in July 2022 and subsequently getting better 1.34 with estimated creatinine clearance 29 mm/min-Would benefit from nephro follow-up as an outpatient-Hold Lasix and tramadol-10/24: Creatinine 1.24 with creatinine clearance of 31.62 today. Due to soft BP and holding lisinopril this morning * Bilateral chronic lymphedema right worse than [id number] in lymphedema clinic. * Hx GERD and gastric ulcer-PPI * Hx chronic pain-Fs/w Dr. Yin * Morbid obesity-BMI 75.3 kg/m?-Complicates treatment, prognosis, outcomes- Recommend weight loss and lifestyle changes DVT ppx: DC enoxaparin, resume apixaban. DW patient's sister Disposition to SNF pending acceptance and insurance approval Charges/Coding Visit Charges Inpatient E&M: 57235 Subs Hosp L2
[2022-10-28 08:13] LABS: Bedside Glucose 107 mg/dL (74-106)
[2022-10-28] MEDS: Docusate Sodium 100 MG Capsule PO ×2 (08:59→22:46)
[2022-10-28] MEDS: Furosemide 20 MG Tablet PO (08:59)
[2022-10-28] MEDS: Pioglitazone Hydrochloride 30 MG Tablet PO (08:59)
[2022-10-28] MEDS: Amiodarone 200 MG Tablet PO (08:59)
[2022-10-28] MEDS: Metoprolol(XL)Succ 50 MG Tablet PO (09:00)
[2022-10-28] MEDS: APIXABAN 5 MG TABLET PO ×2 (09:00→22:46)
[2022-10-28] MEDS: Nystatin Powder 15gm Bottle 1 APPLIC TOPICAL ×2 (09:00→22:45)
[2022-10-28] MEDS: Pantoprazole Sodium 20 MG Tablet PO (09:00)
--- NOTE | 2022-10-28 11:04 | PCM.PN.ID ---
Physical Exam Narrative Feeling better, no fever, no n/v/d. Lost iv access. Const alert and no apparent distress Resp normal air movement and clear to auscultation bilaterally Cardio regular rate and regular rhythm GI soft to palpation, non-tender and non-distended Skin Skin Narrative: RLE wrapped ID ID: Route of nutrition/ use of supplements: [] Nutritional Intake: [] IV Site: [] De Souza Catheter: [] Assessment & Plan Assessment/Plan (1) Hypercapnic respiratory failure: QUALIFIERS: Chronicity: acute on chronic Qualified Code(s): J96.22 - Acute and chronic respiratory failure with hypercapnia (2) Encephalopathy acute: PLAN: Rapidly improved. Off vanc/zosyn. Changes may be related to pain meds/polypharmacy. Surg cx with GPR, but has lost iv access. Will start augmentin. Will follow (3) Open bimalleolar fracture of right ankle:
[2022-10-28 11:28] LABS: Bedside Glucose 127 mg/dL (74-106)
--- NOTE | 2022-10-28 11:45 | CASEMGMT ---
Social Work [facility] and [facility] are unable to accept pt. SW met with pt and sister and updated on denials. Pt voicing frustration and SW providing supportive listening. Pt sister asking if pt could be reconsidered for TCU. Next SNF choices are 1. [facility] 2. [facility] 3. [facility]. Email sent to Tammie in TCU requesting pt be reviewed as behavior issues have resolved. atul Del Toro printer assistant updated to send other referrals. JUVENTINO Payan
--- NOTE | 2022-10-28 12:00 | CASEMGMT ---
Discharge Planning Referral sent to 1-[facility], 2-[facility], 3-[facility], via [facility]. Katey Pop, Discharge Planning Asst.
--- NOTE | 2022-10-28 12:22 | PCM.PROGNOTE ---
Subjective Subjective Patient doing better today, denies constitutionals. pain controlled at current. Objective Data Objective Data Vital Signs: Vital Signs Temp Pulse Resp BP Pulse Ox O2 Del Method O2 Flow Rate 98 F 64 20 H 136/86 H 97 Nasal Cannula 1 10/28/22 02:00 10/28/22 09:00 10/28/22 02:00 10/28/22 09:00 10/28/22 11:10 10/28/22 02:00 10/28/22 11:10 FiO2 40 10/27/22 12:00 Oxygen Flow Rate (L/min) 1 Oxygen Delivery Method Nasal Cannula Weight: 169.417 kg Body Mass Index (BMI) 72.9 Intake & Output: Intake and Output for Last 24 Hours 10/26/22 10/27/22 10/28/22 23:59 23:59 23:59 Intake Total 1760 / 1760 680 / 680 50 / 50 Output Total 1400 / 1400 2750 / 2750 0 / 0 Balance 360 / 360 -2070 / -2070 50 / 50 Lab / Micro Data Result Diagrams: 10/27/22 05:15 10/27/22 05:15 Labs: Laboratory Results - last 24 hr 10/27/22 16:20: POC Glucose 113 H 10/27/22 20:09: POC Glucose 142 H 10/28/22 07:51: POC Glucose 107 H 10/28/22 11:03: POC Glucose 127 H Micro: Microbiology 10/22/22 15:56 Wound - Ankle Gram Stain - Final 10/22/22 15:56 Wound - Ankle Wound Culture - Preliminary Gram positive hitesh 10/22/22 15:56 Wound - Ankle Anaerobic Culture - Final No anaerobic bacteria isolated. 10/26/22 07:20 Blood Culture (Wb) - Anticubital Left Blood Culture - Preliminary No growth in 48 hours. 10/26/22 07:35 Blood Culture (Wb) - Anticubital Left Blood Culture - Preliminary No growth in 48 hours. 10/26/22 06:00 Urine, Catheterized Urine Culture - Final Culture exhibits no growth. Physical Exam Narrative No changed, intact laceration to medial right ankle. intact delta frame. no acute signs of infection. Const alert, oriented x3 and no apparent distress Assessment & Plan Assessment/Plan (1) Non-pressure chronic ulcer of right ankle with fat layer exposed: PLAN: Exam performed No signs of infection to open fracture site continue NWB continue frequent dressing changes (last changed today 10/28/22) recommend d/c to SNF when medically stable cultures growing gram + hitesh, ID started augmentin will plan for ORIF vs TTC arthrodesis in two weeks
[2022-10-28] MEDS: Mag Hydrox/Al Hydrox/Simeth 30 ML UDC PO (13:46)
--- NOTE | 2022-10-28 16:40 | CASEMGMT ---
Social Work TCU cannot accept. [place] and [facility] accepted, [facility] pending review. MIGUEL met with pt and sister and updated on options. Pt choosing [facility]. SW sent bipap information to [facility] who will have to order a bed and bipap. [facility] is hopeful DME will be delivered tomorrow and pt can discharge on Tuesday. SW to continue to follow. Plan: [facility], pending DME placement in the facility JUVENTINO Payan
[2022-10-28] MEDS: Amox/Clavulanate 875 MG Tablet PO (17:09)
[2022-10-28 17:16] LABS: Bedside Glucose 129 mg/dL (74-106)
[2022-10-28] MEDS: Mineral Oil/Petrolatum Cr 1.75oz Bottle 1 APPLIC TOPICAL (22:49)
[2022-10-28 23:33] LABS: Bedside Glucose 134 mg/dL (74-106)
--- NOTE | 2022-10-29 01:15 | NURSING ---
cps attempted to assist pt with bipap and she refused to wear it, did agree to wear 2L O2
[2022-10-29] MEDS: Ibuprofen 600 MG Tablet PO ×2 (03:59→09:36)
[2022-10-29 04:07] VITALS: BP 143/60; PULSE 64; RESP 16; TEMP 36.6; O2SAT 93
[2022-10-29 06:34] LABS: Absolute Lymphocyte Count 0.78 X10^3/uL (0.83-4.51); Absolute Neutrophil Count 5.6 X10^3/uL (2.0-7.7); Basophil# 0.02 X10^3/uL; Basophil% 0.3 % (0-1); Eosinophil# 0.24 X10^3/uL; Eosinophils% 3.2 % (0-5); Hemoglobin 10.5 g/dL (12.0-15.0); Lymphocyte # 0.78 X10^3/ul (0.83-4.51); Lymphocyte % 10.3 % (19-41); Mean Corp Hgb Conc 31.8 g/dL (32-36); Mean Corpuscular Volume 106.8 fL (81-99); Monocyte# 0.83 X10^3/uL; NRBC Flagged by Analyzer 0 % (0-5); Neutrophil # 5.61 X10^3/uL (2.7-7.7); Neutrophil % 74.4 % (47-70); Platelet Count 159 K/mm3 (150-450); RBC Distribution Width CV 13.7 % (11.6-14.6); RBC Distribution Width SD 53.5 fl (35.1-43.9); Red Blood Count 3.09 M/mm3 (4.2-5.4); White Blood Count 7.5 K/mm3 (4.4-11.0)
[2022-10-29] MEDS: Menthol/Lanolin/Calamine/Znox 113 GM Tube 1 APPLIC TOPICAL ×2 (06:56→09:25)
[2022-10-29] MEDS: Amox/Clavulanate 875 MG Tablet PO (06:56)
[2022-10-29] MEDS: Acetaminophen 500 MG Tablet 1000 MG PO (06:59)
[2022-10-29 07:06] LABS: ALB/GLOB Ratio 0.6 RATIO (0.9-2.4); AST(SGOT) 16 U/L (15-37); Alanine Aminotransfer ALT/SGPT 10 U/L (13-56); Albumin, Serum 2.4 g/dL (3.2-5.0); Alkaline Phosphatase 99 U/L (45-117); Anion Gap 5 (5-15); BUN 14 mg/dL (7-18); BUN/Creat Ratio 19.8 RATIO (10-20); Calcium,Total 9.9 mg/dL (8.5-10.1); Chloride 103 mmol/L (98-107); Creatinine, Serum 0.71 mg/dL (0.55-1.02); EST Glomerular Filtration Rate 88 mL/min (>60); Est Glom Filt Rate - Afr Amer 106 mL/min (>60); Estimated Creatinine Clearance 39.21 ml/min; Glucose 105 mg/dL (74-106); Potassium 4.9 mmol/L (3.5-5.1); Protein, Total 6.4 g/dL (6.4-8.2); Sodium Level 134 mmol/L (136-145)
[2022-10-29 07:21] LABS: Bedside Glucose 118 mg/dL (74-106)
[2022-10-29 07:47] VITALS: O2SAT 98
--- NOTE | 2022-10-29 07:51 | PCM.PN.HOSP ---
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 She stated that she found that comment to be demeaning. This was in reference to when she attempted to throw a spray can into the sink and missed. She then stated that what you think if I called you and asshole. Patient became anxious with using her BiPAP last night and took it off. Objective Data Objective Data Vital Signs: Vital Signs Temp Pulse Resp BP Pulse Ox O2 Del Method O2 Flow Rate 36.6 C 64 16 143/60 H 98 Nasal Cannula 2 10/29/22 04:07 10/29/22 04:07 10/29/22 04:07 10/29/22 04:07 10/29/22 07:47 10/29/22 07:47 10/29/22 07:47 FiO2 40 10/27/22 12:00 Oxygen Flow Rate (L/min) 2 Oxygen Delivery Method Nasal Cannula Weight: 169.417 kg Body Mass Index (BMI) 72.9 Intake & Output: Intake and Output for Last 24 Hours 10/27/22 10/28/22 10/29/22 23:59 23:59 23:59 Intake Total 680 / 680 410 / 410 Output Total 2750 / 2750 850 / 850 200 / 200 Balance -2070 / -2070 -440 / -440 -200 / -200 Lab / Micro Data Result Diagrams: 10/29/22 06:15 10/29/22 06:15 Labs: Laboratory Results - last 24 hr 10/28/22 07:51: POC Glucose 107 H 10/28/22 11:03: POC Glucose 127 H 10/28/22 16:56: POC Glucose 129 H 10/28/22 22:52: POC Glucose 134 H 10/29/22 06:15: WBC 7.5, RBC 3.09 L, Hgb 10.5 L, Hct 33.0 L, MCV 106.8 H, MCH 34.0 H, MCHC 31.8 L, RDW Std Deviation 53.5 H, RDW Coeff of Tulio 13.7, Plt Count 159, MPV 11.0, Immature Gran % (Auto) 0.800, Neut % (Auto) 74.4 H, Lymph % (Auto) 10.3 L, Charlton % (Auto) 11.0 H, Eos % (Auto) 3.2, Baso % (Auto) 0.3, Absolute Neuts (auto) 5.6, Absolute Lymphs (auto) 0.78 L, Nucleated RBC % 0 10/29/22 06:15: Sodium 134 L, Potassium 4.9, Chloride 103, Carbon Dioxide 26.0, Anion Gap 5, BUN 14, Creatinine 0.71, Estim Creat Clear Calc 39.21, Est GFR (MDRD) Af Amer 106, Est GFR (MDRD) Non-Af 88, BUN/Creatinine Ratio 19.8, Glucose 105, Calcium 9.9, Total Bilirubin 0.40, AST 16, ALT 10 L, Alkaline Phosphatase 99, Total Protein 6.4, Albumin 2.4 L, Globulin 4.0, Albumin/Globulin Ratio 0.6 L 10/29/22 06:55: POC Glucose 118 H Micro: Microbiology 10/22/22 15:56 Wound - Ankle Gram Stain - Final 10/22/22 15:56 Wound - Ankle Wound Culture - Preliminary Gram positive hitesh 10/22/22 15:56 Wound - Ankle Anaerobic Culture - Final No anaerobic bacteria isolated. 10/26/22 07:20 Blood Culture (Wb) - Anticubital Left Blood Culture - Preliminary No growth in 48 hours. 10/26/22 07:35 Blood Culture (Wb) - Anticubital Left Blood Culture - Preliminary No growth in 48 hours. 10/26/22 06:00 Urine, Catheterized Urine Culture - Final Culture exhibits no growth. Physical Exam Const alert and no apparent distress Constitutional Narrative: Flat affect Extremity Extremity Narrative: Sternal fixator in place bandaged. Assessment & Plan Assessment/Plan (1) Encephalopathy acute: PLAN: Resolved suspect multifactorial, but may be primarily due to hypercapnia. BiPAP started. I started MS wyatt 09/24, but it does not appear that she received any. Has not received IV morphine since the . DC gabapentin, baclofen Head CT negative Patient had episode where she threw a spray can into a sink because she did not like it. Unfortunate patient did not come anywhere near hitting the sink. I discussed with her on the that that was a bad judgment call and there is been concerns about facilities excepting her given behavior. I did attempt to make light of that today and she was not pleased with that, and those clearly meant as a joke. She then went on to say what you think about collagen asshole?Though she stated that is more of a question seeing more of a statement. Given her demeanor with take that as a veiled insult aimed towards me. Patient has been taking off her BiPAP saying that she is having a panic attack. Tried to reinforce the importance of its use. I would be concerned the patient is very steadfast in what she wants and what she does not want. Patient has been advised before that she likely has sleep apnea and should get evaluated but had not done so. I am concerned the patient may continue to declined therapies, such as ventilation treatments, such as trilogy. (2) Hypercapnic respiratory failure: QUALIFIERS: Chronicity: acute on chronic Qualified Code(s): J96.22 - Acute and chronic respiratory failure with hypercapnia PLAN: On the , patient was placed on BiPAP and did see improvements of her mental status as well as her ABG. Patient had initial PCO2 62.7 that improved to 44. Patient was on continuous pulse oximeter and it was observed, while the patient's sister was present that when she fell asleep her pulse ox dropped down to 70%. When she awoke she was able to bring that up to 90%. In addition to obesity hypoventilation syndrome, patient most likely also has obstructive sleep apnea. Patient has been told that she should get tested for sleep apnea but has never gotten the testing. But with the findings that we have gathered, patient would be a candidate for Trilogy. Discussed with the [facility] rep who will attempt to get an appropriate device. Patient requires volume ventilation and all other alternative therapies, including bilevel, have been considered and ruled out due to the severity of the disease state, weak breathing muscles and potential life-threatening condition including CO2 retention probability of acute exacerbation, patient requires ventilation to be used during the day as needed, addition to every night usage with facemask. (3) Open fracture dislocation of right ankle: PLAN: R open bimalleolar ankle fracture dislocation s/p OR 10/22: irrigation with closed reduction and external fixation of right ankle by nurse assessor Dr. Pacheco optimize pain control: increase scheduled acetaminophen to 1g Q8h, add lidoderm, MS contin On the , patient was started on antibiotics for concern for infection. When I looked at her leg it is any overt infection. Blood cultures were drawn and thus far negative. Will follows up for another 24 hours and if those remain to be negative, would likely discontinue antibiotics Follow up with podiatry. Plan for ORIF v TTC arthrodesis in 2 weeks. (4) Atrial flutter: PLAN: #A flutter/A-fib with RVR/PAD Cardioversion July 2022, continue metoprolol, Amio 10/24: Had intermittently elevated heart rate overnight and required several doses of IV Lopressor, EKG did reveal A-fib with RVR but presently she is with a heart rate 50s to 60s and doing well, denies having any symptoms or complaints at these times Metoprolol succinate increased from 25 to 50. Pt states she normally takes 50 at home. Resume apixaban PLAN: Plan Chronic conditions: Type 2 diabetes mellitus -Glucose checks and sliding scale insulin-Was continued on her home pioglitazone, glucose is well controlled CKD stage IV-Patient creatinine was 1.62 in July 2022 and subsequently getting better 1.34 with estimated creatinine clearance 29 mm/min-Would benefit from nephro follow-up as an outpatient-Hold Lasix and tramadol-10/24: Creatinine 1.24 with creatinine clearance of 31.62 today. Due to soft BP and holding lisinopril this morning Bilateral chronic lymphedema right worse than [id number] in lymphedema clinic. Hx GERD and gastric ulcer-PPI Hx chronic pain-Fs/w Dr. Yin Morbid obesity-BMI 75.3 kg/m?-Complicates treatment, prognosis, outcomes-Recommend weight loss and lifestyle changes DVT ppx: DC enoxaparin, resume apixaban. Disposition to SNF pending acceptance and insurance approval
[2022-10-29 09:23] VITALS: BP 139/63; PULSE 64; RESP 16; TEMP 36.8; O2SAT 91
[2022-10-29] MEDS: Docusate Sodium 100 MG Capsule PO (09:25)
[2022-10-29] MEDS: Pioglitazone Hydrochloride 30 MG Tablet PO (09:25)
[2022-10-29] MEDS: Furosemide 20 MG Tablet PO (09:26)
[2022-10-29] MEDS: Amiodarone 200 MG Tablet PO (09:26)
[2022-10-29] MEDS: APIXABAN 5 MG TABLET PO (09:26)
[2022-10-29] MEDS: Pantoprazole Sodium 20 MG Tablet PO (09:26)
[2022-10-29] MEDS: Nystatin Powder 15gm Bottle 1 APPLIC TOPICAL (09:26)
[2022-10-29 09:27] VITALS: BP 139/63; PULSE 64
[2022-10-29] MEDS: Metoprolol(XL)Succ 50 MG Tablet PO (09:27)
--- NOTE | 2022-10-29 10:09 | PCM.TXEXTCAR ---
Diet Diet Order/Speech Therapy: 10/22/22 18:12 Diet: Carbohydrate Controlled Routine Orders/Code Status O2 Frequency: Continuous Keep PO Greater than or Equal to (%): 90 Code Status: Full Code Wound(s) RIGHT LOWER LEG: Wound Type: surgical incision with external fixator sites Dressing Change: xeroform/dry dressings Therapies Weight Bearing: Non weight bearing Extremity Affected:: Right Lower Physical Therapy: Eval and Treat Occupational Therapy: Eval and Treat Problem/Diagnosis (1) Encephalopathy acute: Status: Acute Code(s): G93.40 - Encephalopathy, unspecified Plan: Resolved suspect multifactorial, but may be primarily due to hypercapnia. BiPAP started. I started MS wyatt 09/24, but it does not appear that she received any. Has not received IV morphine since the . DC gabapentin, baclofen Head CT negative Patient had episode where she threw a spray can into a sink because she did not like it. Unfortunate patient did not come anywhere near hitting the sink. I discussed with her on the that that was a bad judgment call and there is been concerns about facilities excepting her given behavior. I did attempt to make light of that today and she was not pleased with that, and those clearly meant as a joke. She then went on to say what you think about collagen asshole?Though she stated that is more of a question seeing more of a statement. Given her demeanor with take that as a veiled insult aimed towards me. Patient has been taking off her BiPAP saying that she is having a panic attack. Tried to reinforce the importance of its use. I would be concerned the patient is very steadfast in what she wants and what she does not want. Patient has been advised before that she likely has sleep apnea and should get evaluated but had not done so. I am concerned the patient may continue to declined therapies, such as ventilation treatments, such as trilogy. (2) Hypercapnic respiratory failure: Status: Acute Code(s): J96.92 - Respiratory failure, unspecified with hypercapnia Plan: On the , patient was placed on BiPAP and did see improvements of her mental status as well as her ABG. Patient had initial PCO2 62.7 that improved to 44. Patient was on continuous pulse oximeter and it was observed, while the patient's sister was present that when she fell asleep her pulse ox dropped down to 70%. When she awoke she was able to bring that up to 90%. In addition to obesity hypoventilation syndrome, patient most likely also has obstructive sleep apnea. Patient has been told that she should get tested for sleep apnea but has never gotten the testing. But with the findings that we have gathered, patient would be a candidate for Trilogy. Discussed with the [facility] [place] who will attempt to get an appropriate device. Patient requires volume ventilation and all other alternative therapies, including bilevel, have been considered and ruled out due to the severity of the disease state, weak breathing muscles and potential life-threatening condition including CO2 retention probability of acute exacerbation, patient requires ventilation to be used during the day as needed, addition to every night usage with facemask. (3) Open fracture dislocation of right ankle: Status: Acute Code(s): S82.891B - Other fracture of right lower leg, initial encounter for open fracture type I or II Plan: R open bimalleolar ankle fracture dislocation s/p OR 10/22: irrigation with closed reduction and external fixation of right ankle by genetic scientist Dr. Pacheco optimize pain control: increase scheduled acetaminophen to 1g Q8h, add lidoderm, MS contin On the , patient was started on antibiotics for concern for infection. When I looked at her leg it is any overt infection. Blood cultures were drawn and thus far negative. Will follows up for another 24 hours and if those remain to be negative, would likely discontinue antibiotics Follow up with podiatry. Plan for ORIF v TTC arthrodesis in 2 weeks. (4) Atrial flutter: Status: Acute Code(s): I48.92 - Unspecified atrial flutter Plan: #A flutter/A-fib with RVR/PAD Cardioversion July 2022, continue metoprolol, Amio 10/24: Had intermittently elevated heart rate overnight and required several doses of IV Lopressor, EKG did reveal A-fib with RVR but presently she is with a heart rate 50s to 60s and doing well, denies having any symptoms or complaints at these times Metoprolol succinate increased from 25 to 50. Pt states she normally takes 50 at home. Resume apixaban Plan Chronic conditions: Type 2 diabetes mellitus -Glucose checks and sliding scale insulin-Was continued on her home pioglitazone, glucose is well controlled CKD stage IV-Patient creatinine was 1.62 in July 2022 and subsequently getting better 1.34 with estimated creatinine clearance 29 mm/min-Would benefit from nephro follow-up as an outpatient-Hold Lasix and tramadol-10/24: Creatinine 1.24 with creatinine clearance of 31.62 today. Due to soft BP and holding lisinopril this morning Bilateral chronic lymphedema right worse than pxmm-Zstjcy-nd in lymphedema clinic. Hx GERD and gastric ulcer-PPI Hx chronic pain-Fs/w Dr. Yin Morbid obesity-BMI 75.3 kg/m?-Complicates treatment, prognosis, outcomes-Recommend weight loss and lifestyle changes DVT ppx: DC enoxaparin, resume apixaban. Disposition to SNF pending acceptance and insurance approval Allergies/Procedures Done in Hospital Allergies tobramycin Allergy (Verified 10/22/22 10:50) PT UNSURE OF REACTION Procedures: - (I&D of open fracture of right ankle. Closed reduction and external fixation of right ankle.) Type of Care/Length of Stay Estimated LOS: Convalescent Care Less Than 30 days Type of Care Needed: Skilled Rehab Potential: Poor Prognosis: Good Additional Orders/Day of Discharge Day of Discharge: 10/29/22 Dietary and Speech Recommendations Dietitian Recommendations/Changes: continue carbohydrate controlled diet; potassium restriction if indicated by repeat labs. Discharge Plan Admission Admit Date/Time: 10/22/22 13:26 Primary Reason for Your Visit: Open right ankle fracture Attending Provider: Bharat Caballero Primary Care Provider: Alysa Whitt Consulting Providers: Evelin Castillo ; Jayme Pacheco ; Brandee De ; Kallie Teixeira ; Mihir Gonzalez ; Nitin Hernandez ; Suzie Becerril ; Hui Strauss GLOVE STITCHER ; Alexandro Olguin GLOVE STITCHER ; Zee Baron ; Zee Kolb ; Ramone San ; Malvin Montoya ; Tal Gonzalez ; Geo Chang ; Jackson Harman ; Gia Sism GLOVE STITCHER Discharge Orders/Prescriptions Prescriptions: New acetaminophen 500 mg Tablet 1,000 mg PO Q8 Qty: 0 0RF amoxicillin-pot clavulanate 875-125 mg Tablet 1 tab PO BIDAC Qty: 14 0RF insulin lispro [Humalog KwikPen Insulin] 100 unit/mL Insulin Pen See Protocol subcut ACHS Qty: 0 0RF Protocol: 4. Sliding Scale Insulin High-Med Dosing Condition: 150-199 mg/dl = 2 units Condition: 200-259 mg/dl = 4 units Condition: 260-324 mg/dl = 6 units Condition: 325-374 mg/dl = 8 units Condition: 375-409 mg/dl = 10 units Condition: 410-449 mg/dl = 11 units Condition: Greater than 449 call physician Protocol Text: - Use for Total Daily Dose of Insulin 56-80 units - Patient who are insulin resistant or septic HIGH MEDIUM DOSING ALGORITHM lidocaine 5 % Adhesive Patch,Medicated 1 patch topical DAILY Qty: 0 0RF Protocol: *Topical Application Instructions APPLICATION INSTRUCTIONS: above right ankle. ibuprofen 600 mg Tablet 600 mg PO Q6H PRN PRN (Reason: Pain Score 1-10) Qty: 0 0RF morphine 15 mg Tablet 7.5 mg PO Q4H PRN PRN (Reason: Pain Score 6-10) 3 Days Qty: 12 0RF sennosides-docusate sodium [Stool Softener-Stimulant Laxat] 8.6-50 mg Tablet 2 tab PO BID PRN PRN (Reason: Constipation) Qty: 0 0RF nystatin [Nyamyc] 100,000 unit/gram Powder 1 applic topical BID Qty: 0 0RF Protocol: *Topical Application Instructions APPLICATION INSTRUCTIONS: under breasts Remove Patch 1 patch topical DAILY@2200 Qty: 0 0RF Continued amiodarone 200 mg tablet 200 mg PO DAILY Qty: 90 3RF metoprolol succinate 50 MG tablet extended release 24 hr 50 mg PO DAILY lisinopril 20 MG tablet 20 mg PO DAILY omeprazole 20 MG capsule 20 mg PO DAILY cyanocobalamin-cobamamide 5,000-100 mcg tablet, sublingual 1 tab sublingual QODAY ergocalciferol (vitamin D2) 1,250 mcg (50,000 unit) capsule 50,000 unit PO Q2W Rx Instructions: twice a week pioglitazone 30 mg tablet 30 mg PO DAILY Label Comments: take 1 tablet by mouth once daily rosuvastatin 5 mg tablet 5 mg PO QODAY Label Comments: take 1 tablet by mouth every other day furosemide [Lasix] 20 mg Tablet 20 mg PO DAILY Eliquis 5 mg Tablet 5 mg PO BID Qty: 30 2RF melatonin 10 mg Tablet 10 mg PO QHS PRN (Reason: Sleep) baclofen 20 MG tablet 20 mg PO Q12H Qty: 7 0RF Rx Instructions: hold for confusion/somnolence. gabapentin 800 MG tablet 750 mg PO BID Qty: 7 0RF Rx Instructions: hold for confusion/somnolence. Discontinued tramadol 50 mg tablet 50 mg PO DAILY PRN (Reason: pain) Label Comments: take 1 tablet by mouth once daily if needed Referrals / Follow Up: Jayme Pacheco DPM [Med Staff - Active Staff] - Within 2 Weeks Alysa Whitt NP-C [Primary Care Provider] - Within 2 Weeks Disposition Disposition (needs filled in before D/C Order can be placed): Intermediate Facility (1) Hypercapnic respiratory failure Qualifiers: Chronicity: acute on chronic Qualified Code(s): J96.22 - Acute and chronic respiratory failure with hypercapnia
--- NOTE | 2022-10-29 10:20 | DS.PCM_ITS ---
Providers Date of Admission: 10/22/22 Primary Care Physician: GIOVANI Alvarado Consultations 10/22/22 18:12 Consult: Hospitalist Routine Consulting Provider: [facility] Reason for Consult: medical management EMERGENT Consult: Yes MD Notified: Yes Date Notified: 10/22/22 Time Notified: 13:28 Method of Notification: phone 10/26/22 06:23 Consult: Onc/Wound/lead game designer Routine Comment: Reason for Consult:: right ankle fx 10/26/22 12:42 Consult: Infectious Disease Routine Consulting Provider: Ramone San Reason for Consult: ICU work up for sepsis EMERGENT Consult: No MD Notified: Yes Date Notified: 10/26/22 Time Notified: 13:04 Method of Notification: Answering Service Consult: Dockworker / Pulmonary Medicine Routine Consulting Provider: Pulmonary Medicine andrew Kinney Reason for Consult: patient in ICU EMERGENT Consult: No Notified: Yes Date Notified: 10/26/22 Time Notified: 13:15 Method of Notification: Verbal Reason For Visit: OPEN FRACTURE RIGHT ANKLE Diagnosis Discharge Diagnosis (1) Encephalopathy acute: Status: Acute Code(s): G93.40 - Encephalopathy, unspecified Plan: Resolved suspect multifactorial, but may be primarily due to hypercapnia. BiPAP started. I started MS wyatt 09/24, but it does not appear that she received any. Has not received IV morphine since the . DC gabapentin, baclofen Head CT negative Patient had episode where she threw a spray can into a sink because she did not like it. Unfortunate patient did not come anywhere near hitting the sink. I discussed with her on the that that was a bad judgment call and there is been concerns about facilities excepting her given behavior. I did attempt to make light of that today and she was not pleased with that, and those clearly meant as a joke. She then went on to say what you think about collagen asshole?Though she stated that is more of a question seeing more of a statement. Given her demeanor with take that as a veiled insult aimed towards me. Patient has been taking off her BiPAP saying that she is having a panic attack. Tried to reinforce the importance of its use. I would be concerned the patient is very steadfast in what she wants and what she does not want. Patient has been advised before that she likely has sleep apnea and should get evaluated but had not done so. I am concerned the patient may continue to declined therapies, such as ventilation treatments, such as trilogy. (2) Hypercapnic respiratory failure: Status: Acute Code(s): J96.92 - Respiratory failure, unspecified with hypercapnia Qualifiers: Chronicity: acute on chronic Qualified Code(s): J96.22 - Acute and chronic respiratory failure with hypercapnia Plan: On the , patient was placed on BiPAP and did see improvements of her mental status as well as her ABG. Patient had initial PCO2 62.7 that improved to 44. Patient was on continuous pulse oximeter and it was observed, while the patient's sister was present that when she fell asleep her pulse ox dropped down to 70%. When she awoke she was able to bring that up to 90%. In addition to obesity hypoventilation syndrome, patient most likely also has obstructive sleep apnea. Patient has been told that she should get tested for sleep apnea but has never gotten the testing. But with the findings that we have gathered, patient would be a candidate for Trilogy. Discussed with the [facility] [place] [facility] rep who will attempt to get an appropriate device. Patient requires volume ventilation and all other alternative therapies, including bilevel, have been considered and ruled out due to the severity of the disease state, weak breathing muscles and potential life-threatening condition including CO2 retention probability of acute exacerbation, patient requires ventilation to be used during the day as needed, addition to every night usage with facemask. (3) Open fracture dislocation of right ankle: Status: Acute Code(s): S82.891B - Other fracture of right lower leg, initial encounter for open fr acture type I or II Plan: R open bimalleolar ankle fracture dislocation s/p OR 10/22: irrigation with closed reduction and external fixation of right ankle by structural steel engineer Dr. Pacheco optimize pain control: increase scheduled acetaminophen to 1g Q8h, add lidoderm, MS contin On the , patient was started on antibiotics for concern for infection. When I looked at her leg it is any overt infection. Blood cultures were drawn and thus far negative. Will follows up for another 24 hours and if those remain to be negative, would likely discontinue antibiotics Follow up with podiatry. Plan for ORIF v TTC arthrodesis in 2 weeks. (4) Atrial flutter: Status: Acute Code(s): I48.92 - Unspecified atrial flutter Plan: #A flutter/A-fib with RVR/PAD Cardioversion July 2022, continue metoprolol, Amio 10/24: Had intermittently elevated heart rate overnight and required several doses of IV Lopressor, EKG did reveal A-fib with RVR but presently she is with a heart rate 50s to 60s and doing well, denies having any symptoms or complaints at these times Metoprolol succinate increased from 25 to 50. Pt states she normally takes 50 at home. Resume apixaban Plan Chronic conditions: * Type 2 diabetes mellitus -Glucose checks and sliding scale insulin-Was continued on her home pioglitazone, glucose is well controlled * CKD stage IV-Patient creatinine was 1.62 in July 2022 and subsequently getting better 1.34 with estimated creatinine clearance 29 mm/min-Would benefit from nephro follow-up as an outpatient-Hold Lasix and tramadol-10/24: Creatinine 1.24 with creatinine clearance of 31.62 today. Due to soft BP and holding lisinopril this morning * Bilateral chronic lymphedema right worse than icmz-[id number]-bp in lymphedema clinic. * Hx GERD and gastric ulcer-PPI * Hx chronic pain-Fs/w Dr. Yin * Morbid obesity-BMI 75.3 kg/m?-Complicates treatment, prognosis, outcomes- Recommend weight loss and lifestyle changes DVT ppx: DC enoxaparin, resume apixaban. Disposition to SNF pending acceptance and insurance approval Medications at Discharge Home Medications lisinopril 20 mg tablet 20 mg PO DAILY Check with primary doctor 12/26/19 metoprolol succinate 50 mg tablet,extended release 24 hr 50 mg PO DAILY Check with primary doctor 12/26/19 omeprazole 20 mg capsule,delayed release 20 mg PO DAILY Check with primary doctor 12/26/19 furosemide 20 mg tablet (Lasix) 20 mg PO DAILY Check with primary doctor 07/20/22 pioglitazone 30 mg tablet 30 mg PO DAILY Check with primary doctor 07/20/22 rosuvastatin 5 mg tablet 5 mg PO QODAY Check with primary doctor 07/20/22 apixaban 5 mg tablet (Eliquis) 5 mg PO BID #30 tabs 07/25/22 amiodarone 200 mg tablet 200 mg PO DAILY #90 tabs 08/20/22 cyanocobalamin (B12)-cobamamide 5,000 mcg-100 mcg sublingual tablet 1 tab sublingual QODAY Check with primary doctor 08/20/22 ergocalciferol (vitamin D2) 1,250 mcg (50,000 unit) capsule 50,000 unit PO Q2W Check with primary doctor 08/20/22 Remove Patch 1 patch topical DAILY@2200 ##0 10/29/22 acetaminophen 500 mg tablet 1,000 mg PO Q8 #0 tabs 10/29/22 amoxicillin 875 mg-potassium clavulanate 125 mg tablet 1 tab PO BIDAC #14 tabs 10/29/22 baclofen 20 mg tablet 20 mg PO Q12H Check with primary doctor #7 tabs 10/29/22 gabapentin 800 mg tablet 750 mg PO BID Check with primary doctor #7 tabs 10/29/22 ibuprofen 600 mg tablet 600 mg PO Q6H PRN PRN Pain Score 1-10 #0 tabs 10/29/22 insulin lispro 100 unit/mL subcutaneous pen (Humalog KwikPen (U-100) Insulin) See Protocol subcut ACHS #0 mL 10/29/22 lidocaine 5 % topical patch 1 patch topical DAILY #0 ea 10/29/22 melatonin 10 mg tablet 10 mg PO QHS PRN Sleep 10/29/22 morphine 15 mg immediate release tablet 7.5 mg PO Q4H PRN PRN Pain Score 6-10 3 days #12 tabs 10/29/22 nystatin 100,000 unit/gram topical powder (Nyamyc) 1 applic topical BID #0 grams 10/29/22 sennosides 8.6 mg-docusate sodium 50 mg tablet (Stool Softener-Stimulant Laxative) 2 tab PO BID PRN PRN Constipation #0 tabs 10/29/22 Hospital Course Operations - Summary of Care Provided Minutes Spent on Discharge: 40 Weight / BMI Weight Weight: 169.417 kg Body Mass Index (BMI) 72.9 ABG / Lab / Microbiology Data Result Diagrams: 10/29/22 06:15 10/29/22 06:15 Laboratory: Laboratory Results - last 24 hr 10/28/22 11:03: POC Glucose 127 H 10/28/22 16:56: POC Glucose 129 H 10/28/22 22:52: POC Glucose 134 H 10/29/22 06:15: WBC 7.5, RBC 3.09 L, Hgb 10.5 L, Hct 33.0 L, MCV 106.8 H, MCH 34.0 H, MCHC 31.8 L, RDW Std Deviation 53.5 H, RDW Coeff of [place] 13.7, Plt Count 159, MPV 11.0, Immature Gran % (Auto) 0.800, Neut % (Auto) 74.4 H, Lymph % (Auto) 10.3 L, [place] % (Auto) 11.0 H, Eos % (Auto) 3.2, Baso % (Auto) 0.3, Absolute Neuts (auto) 5.6, Absolute Lymphs (auto) 0.78 L, Nucleated RBC % 0 10/29/22 06:15: Sodium 134 L, Potassium 4.9, Chloride 103, Carbon Dioxide 26.0, Anion Gap 5, BUN 14, Creatinine 0.71, Estim Creat Clear Calc 39.21, Est GFR (MDRD) Af Amer 106, Est GFR (MDRD) Non-Af 88, BUN/Creatinine Ratio 19.8, Glucose 105, Calcium 9.9, Total Bilirubin 0.40, AST 16, ALT 10 L, Alkaline Phosphatase 9 9, Total Protein 6.4, Albumin 2.4 L, Globulin 4.0, Albumin/Globulin Ratio 0.6 L 10/29/22 06:55: POC Glucose 118 H Microbiology: Microbiology 10/22/22 15:56 Wound - Ankle Gram Stain - Final 10/22/22 15:56 Wound - Ankle Wound Culture - Final Corynebacterium minutissimum 10/22/22 15:56 Wound - Ankle Anaerobic Culture - Final No anaerobic bacteria isolated. 10/26/22 07:20 Blood Culture (Wb) - Anticubital Left Blood Culture - Preliminary No growth in 48 hours. 10/26/22 07:35 Blood Culture (Wb) - Anticubital Left Blood Culture - Preliminary No growth in 48 hours. 10/26/22 06:00 Urine, Catheterized Urine Culture - Final Culture exhibits no growth. Meaningful Use Info Meaningful Use Diagnoses (Choose all that apply): None applicable Discharge Plan Admission Admit Date/Time: 10/22/22 13:26 Primary Reason for Your Visit: Open right ankle fracture Attending Provider: Bharat Caballero Primary Care Provider: Alysa Whitt Consulting Providers: Evelin Castillo ; Jayme Pacheco ; Brandee De ; Kallie Teixeira ; Mihir Gonzalez ; Nitin Hernandez ; Suzie Becerril ; Hui Strauss WATERPROOFER HELPER ; Alexandro Olguin WATERPROOFER HELPER ; Zee Baron ; Zee Kolb ; Ramone Sam ; Malvin Montoya ; Tal Gonzalez ; Geo Chang ; Jackson Harman ; Gia Sims WATERPROOFER HELPER Instructions Additional Instructions / Restrictions: Will need ventilation device for sleep and naps. Discharge Orders/Prescriptions Prescriptions: New acetaminophen 500 mg Tablet 1,000 mg PO Q8 Qty: 0 0RF amoxicillin-pot clavulanate 875-125 mg Tablet 1 tab PO BIDAC Qty: 14 0RF insulin lispro [Humalog KwikPen Insulin] 100 unit/mL Insulin Pen See Protocol subcut ACHS Qty: 0 0RF Protocol: 4. Sliding Scale Insulin High-Med Dosing Condition: 150-199 mg/dl = 2 units Condition: 200-259 mg/dl = 4 units Condition: 260-324 mg/dl = 6 units Condition: 325-374 mg/dl = 8 units Condition: 375-409 mg/dl = 10 units Condition: 410-449 mg/dl = 11 units Condition: Greater than 449 call physician Protocol Text: - Use for Total Daily Dose of Insulin 56-80 units - Patient who are insulin resistant or septic HIGH MEDIUM DOSING ALGORITHM lidocaine 5 % Adhesive Patch,Medicated 1 patch topical DAILY Qty: 0 0RF Protocol: *Topical Application Instructions APPLICATION INSTRUCTIONS: above right ankle. ibuprofen 600 mg Tablet 600 mg PO Q6H PRN PRN (Reason: Pain Score 1-10) Qty: 0 0RF morphine 15 mg Tablet 7.5 mg PO Q4H PRN PRN (Reason: Pain Score 6-10) 3 Days Qty: 12 0RF sennosides-docusate sodium [Stool Softener-Stimulant Laxat] 8.6-50 mg Tablet 2 tab PO BID PRN PRN (Reason: Constipation) Qty: 0 0RF nystatin [Nyamyc] 100,000 unit/gram Powder 1 applic topical BID Qty: 0 0RF Protocol: *Topical Application Instructions APPLICATION INSTRUCTIONS: under breasts Remove Patch 1 patch topical DAILY@2200 Qty: 0 0RF Continued amiodarone 200 mg tablet 200 mg PO DAILY Qty: 90 3RF metoprolol succinate 50 MG tablet extended release 24 hr 50 mg PO DAILY lisinopril 20 MG tablet 20 mg PO DAILY omeprazole 20 MG capsule 20 mg PO DAILY cyanocobalamin-cobamamide 5,000-100 mcg tablet, sublingual 1 tab sublingual QODAY ergocalciferol (vitamin D2) 1,250 mcg (50,000 unit) capsule 50,000 unit PO Q2W Rx Instructions: twice a week pioglitazone 30 mg tablet 30 mg PO DAILY Label Comments: take 1 tablet by mouth once daily rosuvastatin 5 mg tablet 5 mg PO QODAY Label Comments: take 1 tablet by mouth every other day furosemide [Lasix] 20 mg Tablet 20 mg PO DAILY Eliquis 5 mg Tablet 5 mg PO BID Qty: 30 2RF melatonin 10 mg Tablet 10 mg PO QHS PRN (Reason: Sleep) baclofen 20 MG tablet 20 mg PO Q12H Qty: 7 0RF Rx Instructions: hold for confusion/somnolence. gabapentin 800 MG tablet 750 mg PO BID Qty: 7 0RF Rx Instructions: hold for confusion/somnolence. Discontinued tramadol 50 mg tablet 50 mg PO DAILY PRN (Reason: pain) Label Comments: take 1 tablet by mouth once daily if needed Referrals / Follow Up: Jayme Pacheco DPM [Med Staff - Active Staff] - Within 2 Weeks Alysa Whitt NP-C [Primary Care Provider] - Within 2 Weeks Disposition Disposition (needs filled in before D/C Order can be placed): Residential Facility Charges/Coding Visit Charges Inpatient E&M: 49160 Disch Hosp >30min
--- NOTE | 2022-10-29 10:41 | PHA.DC.MR ---
Pharmacy Service has performed discharge medication reconciliation for this patient. The patient's discharge medication list was reviewed for discrepancies and discrepancies were resolved. Home Medications lisinopril 20 mg tablet 20 mg PO DAILY Check with primary doctor 12/26/19 metoprolol succinate 50 mg tablet,extended release 24 hr 50 mg PO DAILY Check with primary doctor 12/26/19 omeprazole 20 mg capsule,delayed release 20 mg PO DAILY Check with primary doctor 12/26/19 furosemide 20 mg tablet (Lasix) 20 mg PO DAILY Check with primary doctor 07/20/22 pioglitazone 30 mg tablet 30 mg PO DAILY Check with primary doctor 07/20/22 rosuvastatin 5 mg tablet 5 mg PO QODAY Check with primary doctor 07/20/22 apixaban 5 mg tablet (Eliquis) 5 mg PO BID #30 tabs 07/25/22 amiodarone 200 mg tablet 200 mg PO DAILY #90 tabs 08/20/22 cyanocobalamin (B12)-cobamamide 5,000 mcg-100 mcg sublingual tablet 1 tab sublingual QODAY Check with primary doctor 08/20/22 ergocalciferol (vitamin D2) 1,250 mcg (50,000 unit) capsule 50,000 unit PO Q2W Check with primary doctor 08/20/22 Remove Patch 1 patch topical DAILY@2200 ##0 10/29/22 acetaminophen 500 mg tablet 1,000 mg PO Q8 #0 tabs 10/29/22 amoxicillin 875 mg-potassium clavulanate 125 mg tablet 1 tab PO BIDAC #14 tabs 10/29/22 baclofen 20 mg tablet 20 mg PO Q12H Check with primary doctor #7 tabs 10/29/22 gabapentin 800 mg tablet 750 mg PO BID Check with primary doctor #7 tabs 10/29/22 ibuprofen 600 mg tablet 600 mg PO Q6H PRN PRN Pain Score 1-10 #0 tabs 10/29/22 insulin lispro 100 unit/mL subcutaneous pen (Humalog KwikPen (U-100) Insulin) See Protocol subcut ACHS #0 mL 10/29/22 lidocaine 5 % topical patch 1 patch topical DAILY #0 ea 10/29/22 melatonin 10 mg tablet 10 mg PO QHS PRN Sleep 10/29/22 morphine 15 mg immediate release tablet 7.5 mg PO Q4H PRN PRN Pain Score 6-10 3 days #12 tabs 10/29/22 nystatin 100,000 unit/gram topical powder ([facility]) 1 applic topical BID #0 grams 10/29/22 sennosides 8.6 mg-docusate sodium 50 mg tablet (Stool Softener-Stimulant Laxative) 2 tab PO BID PRN PRN Constipation #0 tabs 10/29/22
--- NOTE | 2022-10-29 10:58 | CASEMGMT ---
Social Work [facility] has needed DME. Physician notified and pt ready for discharge today. 7000 exemption form completed in [facility] and sent along with discharge orders and covid results to [facility] via [facility]. Transportation arranged with [facility] for [address] via cot. SW met with pt and pt sister and updated on discharge plan and both are agreeable. Nursing and [facility] updated on discharge time. Disposition: [facility], skilled level of care under convalescent stay JUVENTINO Payan
[2022-10-29 12:07] LABS: Bedside Glucose 108 mg/dL (74-106)
== END 2022-10-29 12:25 | disposition skilled nursing facility (03) | DRG 500 ==
LOC: ED 12:40 → SDC 13:08 → ACINP 13:09 → SDC 16:51 → MS3 16:51 → ICU 10-26 09:03 → MS3 10-28 17:35
PROVIDERS: Family Medicine; Internal Medicine; Admitting Provider Podiatrist; Emergency Provider Emergency Medicine; PCP Nurse Practitioner Family
PROC: 0SS Lower Joints, Reposition (ICD-10-PCS; principal; 2022-10-22 14:10)
DX: S82.841B Displaced bimalleolar fracture of right lower leg, initial encounter for open fracture type I or II (principal); J96.22 Acute and chronic respiratory failure with hypercapnia; G92.8 Other toxic encephalopathy; G93.49 Other encephalopathy; L97.312 Non-pressure chronic ulcer of right ankle with fat layer exposed; N18.4 Chronic kidney disease, stage 4 (severe); Z68.45 Body mass index [BMI] 70 or greater, adult; E66.2 Morbid (severe) obesity with alveolar hypoventilation; E11.22 Type 2 diabetes mellitus with diabetic chronic kidney disease; E11.51 Type 2 diabetes mellitus with diabetic peripheral angiopathy without gangrene; E11.40 Type 2 diabetes mellitus with diabetic neuropathy, unspecified; I95.9 Hypotension, unspecified; I48.91 Unspecified atrial fibrillation; E11.622 Type 2 diabetes mellitus with other skin ulcer; I12.9 Hypertensive chronic kidney disease with stage 1 through stage 4 chronic kidney disease, or unspecified chronic kidney disease; K21.9 Gastro-esophageal reflux disease without esophagitis; E78.5 Hyperlipidemia, unspecified; I89.0 Lymphedema, not elsewhere classified; M16.0 Bilateral primary osteoarthritis of hip; M17.0 Bilateral primary osteoarthritis of knee; R45.1 Restlessness and agitation; T50.915A Adverse effect of multiple unspecified drugs, medicaments and biological substances, initial encounter; G89.4 Chronic pain syndrome; V88.8XXA Person injured in other specified noncollision transport accidents involving motor vehicle, nontraffic, initial encounter; Y92.59 Other trade areas as the place of occurrence of the external cause; Z23 Encounter for immunization; Z79.84 Long term (current) use of oral hypoglycemic drugs; Z79.01 Long term (current) use of anticoagulants; Z96.651 Presence of right artificial knee joint
CPT/HCPCS: 36415; 36569; 36600; 70450; 71045; 73560; 73600; 73610; 76000; 80048; 80053; 81001; 82803; 82962; 83036; 84484; 85025; 85610; 85730; 87040; 87070; 87075; 87077; 87086; 87205; 87426; 90715; 93005; 93970; 94002; 94003; 97110; 97162; 97166; 97802; 99285; C1713; J7030; J7040; J7120; A4216; J2405

== ENCOUNTER 2022-11-15 12:37 | Inpatient (IN) | payer MEDICARE, OTHER, SELFPAY ==
[2022-11-15 12:44] VITALS: BMI 68.3
[2022-11-15 13:00] VITALS: BP 124/57; PULSE 60; RESP 16; TEMP 36.8; O2SAT 100
--- NOTE | 2022-11-15 13:00 | RAD_ITS ---
INDICATION: right ankle fracture EXAMINATION/TECHNIQUE: X-RAY - RIGHT XR Ankle Min 3 Views 3 VIEWS COMPARISON: Prior study dated: 10/22/2022 FINDINGS: SOFT TISSUES: No soft tissue swelling or gas. No radiopaque foreign body. BONES/JOINTS: External fixation stabilizing a previous fracture dislocation including medial and lateral malleolar fractures and posterior malleolar fracture. There has been significant improvement in alignment however persistent joint space widening, and mild persistent separation of the medial malleolus.. No other fracture or joint space abnormality noted. RAD/Ankle min 3 Views IMPRESSION: 1. External fixation of previous trimalleolar fracture or dislocation. Improved alignment noted. 2. Persistent moderate widening of the tibiotalar articulation. Mild distraction/separation of the medial malleolar fracture fragment. Electronically Signed: Carter Welsh MD at 21:29 EDT ,
--- NOTE | 2022-11-15 13:17 | PCM.HP.STD ---
HPI - General General Date of Admission: 11/15/22 HPI Narrative ANGEL PATTERSON, is a 67 F who presents for admission with a history of right ankle fracture (open) with closed reduction, primary closure and application of external fixation on previous visit. PAtient was discharged to SNF and was admitted today for ORIF of right ankle fracture during this hospital stay as patient. Pain controlled at current. Patient denies constitutionals symptoms. Patient denies signs/symptoms of DVT. No other complaints. [facility] Medical History Atrial flutter Chronic pain syndrome Diabetes mellitus Diabetes mellitus, type 2 GERD (gastroesophageal reflux disease) History of gastric ulcer HLD (hyperlipidemia) HLD (hyperlipidemia) HTN (hypertension) HTN (hypertension) Hypercapnic respiratory failure Lymphedema Lymphedema Morbid obesity with BMI of 45.0-49.9, adult Morbid obesity with BMI of 70 and over, adult PAD (peripheral artery disease) PVD (peripheral vascular disease) PVD (peripheral vascular disease) Home Medications lisinopril 20 mg tablet 20 mg PO DAILY Check with primary doctor 12/26/19 [History Last Taken 11/15/22 06:00] metoprolol succinate 50 mg tablet,extended release 24 hr 50 mg PO DAILY Check with primary doctor 12/26/19 [History Last Taken 11/15/22 06:00] omeprazole 20 mg capsule,delayed release 20 mg PO DAILY Check with primary doctor 12/26/19 [History Last Taken 11/15/22 06:00] furosemide 20 mg tablet (Lasix) 20 mg PO DAILY Check with primary doctor 07/20/22 [History Last Taken 11/15/22 06:00] pioglitazone 30 mg tablet 30 mg PO DAILY Check with primary doctor 07/20/22 [History Last Taken 11/15/22 06:00] rosuvastatin 5 mg tablet 5 mg PO QODAY Check with primary doctor 07/20/22 [History Last Taken 11/15/22 06:00] apixaban 5 mg tablet (Eliquis) 5 mg PO BID #30 tabs 07/25/22 [Rx Last Taken 11/15/22 06:00] amiodarone 200 mg tablet 200 mg PO DAILY #90 tabs 08/20/22 [Rx Last Taken 11/15/22 06:00] cyanocobalamin (B12)-cobamamide 5,000 mcg-100 mcg sublingual tablet 1 tab sublingual QODAY Check with primary doctor 08/20/22 [History Last Taken 11/15/22 06:00] ergocalciferol (vitamin D2) 1,250 mcg (50,000 unit) capsule 50,000 unit PO Q2W Check with primary doctor 08/20/22 [History Last Taken 11/15/22 06:00] Remove Patch 1 patch topical DAILY@2200 ##0 10/29/22 [Rx Last Taken Unknown] acetaminophen 500 mg tablet 1,000 mg (2 x 500 mg) PO Q8 #0 tabs 10/29/22 [Rx Last Taken 11/15/22 06:00] baclofen 20 mg tablet 20 mg PO Q12H Check with primary doctor #7 tabs 10/29/22 [Rx Last Taken 11/15/22 06:00] gabapentin 800 mg tablet 750 mg (0.9375 x 800 mg) PO BID Check with primary doctor #7 tabs 10/29/22 [Rx Last Taken 11/15/22 06:00] ibuprofen 600 mg tablet 600 mg PO Q6H PRN PRN Pain Score 1-10 #0 tabs 10/29/22 [Rx Last Taken Unknown] insulin lispro 100 unit/mL subcutaneous pen (Humalog KwikPen (U-100) Insulin) See Protocol subcut ACHS #0 mL 10/29/22 [Rx Last Taken Unknown] lidocaine 5 % topical patch 1 patch topical DAILY #0 ea 10/29/22 [Rx Last Taken Unknown] melatonin 10 mg tablet 10 mg PO QHS PRN Sleep 10/29/22 [History Last Taken Unknown] morphine 15 mg immediate release tablet 7.5 mg (1/2 x 15 mg) PO Q4H PRN PRN Pain Score 6-10 3 days #12 tabs 10/29/22 [Rx Last Taken Unknown] nystatin 100,000 unit/gram topical powder (Nyamyc) 1 applic topical BID #0 grams 10/29/22 [Rx Last Taken Unknown] sennosides 8.6 mg-docusate sodium 50 mg tablet (Stool Softener-Stimulant Laxative) 2 tab PO BID PRN PRN Constipation #0 tabs 10/29/22 [Rx Last Taken Unknown] oxycodone-acetaminophen 5 mg-325 mg tablet 1 tab PO Q6H PRN pain 11/15/22 [History Last Taken 11/15/22 11:15] Allergy/AdvReac Type Severity Reaction Status Date / Time tobramycin Allergy PT UNSURE Verified 10/22/22 10:50 OF REACTION Family History Mother Non Hodgkin's lymphoma Father Kidney disease Heart disease Hypertension Myocardial infarction Grandfather Heart disease Myocardial infarction Surgical History H/O exploratory laparotomy History of dental surgery History of shoulder surgery History of tonsillectomy and adenoidectomy S/P total knee replacement Social History household members: other details: Lives with her sister and brother in law. Smoking Status: Never smoker alcohol intake: current alcohol intake frequency: a few times a month substance use type: does not use caffeine: Yes Type: tea Number of servings: 1 ROS Constitutional Constitutional: Denies fatigue, fever(s) or weight loss Eyes Eyes: Denies change in eye color, change in vision or eye pain ENT HEENT: Denies dysphagia, ear discharge or mouth pain Cardiovascular Cardiovascular: Denies bluish discoloration of hand/feet, dyspnea at rest or lightheadedness Respiratory/Chest Respiratory/Chest: Denies difficulty clearing secretions, nail bed cyanosis or shortness of breath at rest Gastrointestinal Gastrointestinal: Denies chewing difficulty, coffee ground emesis or hematochezia Genitourinary Genitourinary: Denies contractions, genital lesions or scrotal pain Musculoskeletal Musculoskeletal: Denies joint stiffness, joint swelling or tingling Integumentary Integumentary: Denies erythema, furuncle or unusual bruising Neurologic Neurologic: Denies burning sensations, confusion or convulsions Psychiatric Psychiatric: Denies change in appetite, change in libido or panic attacks Vital Signs Vital Signs Vital Signs: Weight Weight: 158.757 kg Body Mass Index (BMI) 68.3 Physical Exam Narrative Neurovascular status intact to right foot Delta frame to right lower extremity intact, reduction maintained, no signs of pin tract infection laceration to medial leg healed, no signs of infection reduction of right lower extremity maintained. No signs of DVT. Const alert and oriented x3 Results Lab / Micro Data 11/15/22 12:55 11/15/22 12:55 Assessment & Plan Assessment/Plan (1) Open bimalleolar fracture of right ankle: PLAN: exam performed will plan for ex fix removal/ORIF of right ankle fracture will plan for d/c back to SNF upon completion discussed inherent risks/benefits wit patient in detail hold any anticoagulants definitive ankle ORIF surgery scheduled for 11:30 on tuesday ex fix and laceration sites are stable at this time, no concern for infection (2) Open fracture of right ankle:
[2022-11-15 13:20] LABS: Absolute Lymphocyte Count 0.92 X10^3/uL (0.83-4.51); Absolute Neutrophil Count 5.2 X10^3/uL (2.0-7.7); Basophil# 0.02 X10^3/uL; Basophil% 0.3 % (0-1); Eosinophil# 0.37 X10^3/uL; Eosinophils% 5.3 % (0-5); Hematocrit 38.5 % (37-47); Hemoglobin 11.9 g/dL (12.0-15.0); Lymphocyte # 0.92 X10^3/ul (0.83-4.51); Lymphocyte % 13.1 % (19-41); Mean Corp Hgb Conc 30.9 g/dL (32-36); Mean Corpuscular Hgb 32.3 pg (27.0-32.0); Mean Corpuscular Volume 104.6 fL (81-99); Mean Platelet Vol. 10.5 fl (6.2-12.0); Monocyte% 7.1 % (0-10); NRBC Flagged by Analyzer 0 % (0-5); Neutrophil # 5.16 X10^3/uL (2.7-7.7); Neutrophil % 73.3 % (47-70); Platelet Count 296 K/mm3 (150-450); RBC Distribution Width CV 13.9 % (11.6-14.6); RBC Distribution Width SD 53.5 fl (35.1-43.9); Red Blood Count 3.68 M/mm3 (4.2-5.4)
--- NOTE | 2022-11-15 13:36 | WOUNDNOTE ---
wound photo: right lower leg
[2022-11-15 13:39] LABS: ALB/GLOB Ratio 0.7 RATIO (0.9-2.4); AST(SGOT) 9 U/L (15-37); Alanine Aminotransfer ALT/SGPT 11 U/L (13-56); Alkaline Phosphatase 116 U/L (45-117); Anion Gap 2 (5-15); BUN 23 mg/dL (7-18); BUN/Creat Ratio 22.8 RATIO (10-20); Calcium,Total 10.8 mg/dL (8.5-10.1); Chloride 105 mmol/L (98-107); Creatinine, Serum 1.01 mg/dL (0.55-1.02); EST Glomerular Filtration Rate 58 mL/min (>60); Est Glom Filt Rate - Afr Amer 70 mL/min (>60); Estimated Creatinine Clearance 38.82 ml/min; Globulin 4.4 g/dL (2.2-4.2); Glucose 130 mg/dL (74-106); Potassium 4.7 mmol/L (3.5-5.1); Protein, Total 7.4 g/dL (6.4-8.2); Sodium Level 137 mmol/L (136-145)
--- NOTE | 2022-11-15 13:41 | WOUNDNOTE ---
wound photo: right lower leg
--- NOTE | 2022-11-15 14:56 | CASEMGMT ---
Social Work SW met with pt and sister Brandee. Pt known to this SW from previous admission. Pt admitted from [facility] for surgical procedure. SW discussed discharge planning with pt. Pt would like to go to [facility] TCU upon discharge. If TCU is unable to accept, pt will return to [facility]. Initial referral made to TCU. Pt to have surgery on Tuesday. SW to followup after surgery. SNF, pending accepting facility after surgery JUVENTINO Berger
--- NOTE | 2022-11-15 15:49 | CHAPLAIN ---
Type of Pastoral Visit _x__ Initial Visit ___ Follow-up Visit ___ On-call Visit ___ General Patient Visit ___ Spiritual Assessment ___ Family Conference ___ Bereavement ___ Rapid Response ___ Code Blue ___ Other (describe below) Pastoral Care Referral From _x__ Patient ___ Family ___ Nurse ___ Physician ___ Concrete Sculptor ___ Coating Machine Operator Helper ___ Other (describe below) Sacrament/Intervention _x__ Active listening ___ Anointing ___ Shinto ___ Bereavement ___ Communion ___ Fifi exploration ___ ___ Life review ___ Prayer ___ Reconciliation ___ Sacrament of Sick _x__ Supportive presence ___ Wedding ___ Other (describe below) Pastoral Comments review with patient about her year of hospitalizations; pt is here to have surgery on Tuesday; pt states that she does not need anything today but would like Lutheran visit on Tuesday before her surgery from a [facility]; message will be sent to secure a visit; pt states she has no other needs
--- NOTE | 2022-11-15 17:18 | PN.HOSP_ITS ---
Reason for Visit Reason for Visit: Diagnoses Displaced bimalleolar fracture of right lower leg, initial encounter for open f racture type I or II (11/15/22) Other fracture of right lower leg, initial encounter for open fracture type I or II (11/15/22) Subjective Subjective 67-year-old female history of type 2 diabetes mellitus, morbid obesity, ly mphedema and a open right ankle fracture with closed reduction primary closure and application of external fixation who presented to [facility] 11/15/2022 for ORIF of right ankle fracture during this hospital stay with podiatry. Patient seen at bedside and reports she still has pain in her right leg that comes at random, additionally looking forward to having her De Souza catheter taken out after surgery if at all possible. Swelling in legs has not been significant/worse since her Lasix resumed. No chest pain or shortness of breath. Objective Data Objective Data Vital Signs: Vital Signs Temp Pulse Resp BP Pulse Ox O2 Del Method 98.3 F 60 16 124/57 H 100 Room Air 11/15/22 13:00 11/15/22 13:00 11/15/22 13:00 11/15/22 13:00 11/15/22 13:00 11/15/22 13:00 Oxygen Delivery Method Room Air Weight: 158.757 kg Body Mass Index (BMI) 68.3 Lab / Micro Data 11/15/22 12:55 11/15/22 12:55 Labs: Laboratory Results - last 24 hr 11/15/22 12:55: WBC 7.0, RBC 3.68 L, Hgb 11.9 L, Hct 38.5, MCV 104.6 H, MCH 32.3 H, MCHC 30.9 L, RDW Std Deviation 53.5 H, RDW Coeff of Tulio 13.9, Plt Count 296, MPV 10.5, Immature Gran % (Auto) 0.900, Neut % (Auto) 73.3 H, Lymph % (Auto) 13.1 L, [place] % (Auto) 7.1, Eos % (Auto) 5.3 H, Baso % (Auto) 0.3, Absolute Neuts (auto) 5.2, Absolute Lymphs (auto) 0.92, Nucleated RBC % 0, Sodium 137, Potassium 4.7, Chloride 105, Carbon Dioxide 30.0, Anion Gap 2 L, BUN 23 H, Creatinine 1.01, Estim Creat Clear Calc 38.82, Est GFR (MDRD) Af Amer 70, Est GFR (MDRD) Non-Af 58 L, BUN/Creatinine Ratio 22.8 H, Glucose 130 H, Calcium 10.8 H, Total Bilirubin 0.40, AST 9 L, ALT 11 L, Alkaline Phosphatase 116, Total Protein 7.4, Albumin 3.0 L, Globulin 4.4 H, Albumin/Globulin Ratio 0.7 L Assessment & Plan Assessment/Plan (1) Open fracture dislocation of right ankle: (2) Morbid obesity with BMI of 70 and over, adult: (3) Atrial flutter: (4) PVD (peripheral vascular disease): (5) Chronic pain syndrome: PLAN: Plan #Hx open right ankle fracture for ORIF -ORIF R ankle surgery 1130am Wed -Pain control -SNF upon d/c #Type 2 diabetes mellitus -Glucose checks and sliding scale insulin #GERD -Continue PPI #hx aflutter -Hold eliquis -Cont amio #Lymphedema -Continue lasix #Morbid obesity -BMI 16.4 kg/m? -Complicates treatment, prognosis, outcomes -Recommend weight loss and lifestyle changes Charges/Coding Visit Charges Inpatient E&M: 99321 Subs Hosp L2
[2022-11-15 18:12] VITALS: BP 128/64; PULSE 62; RESP 16; TEMP 36.9; O2SAT 99
[2022-11-15] MEDS: oxyCODONE 5 MG Tablet PO (20:41)
[2022-11-15] MEDS: Acetaminophen 500 MG Tablet 1000 MG PO (20:42)
[2022-11-15 20:44] VITALS: BP 113/57; PULSE 62; RESP 16; TEMP 36.7; O2SAT 99
[2022-11-15] MEDS: Enoxaparin 40 MG/0.4 ML Syringe SC (22:46)
[2022-11-15] MEDS: Gabapentin 800 MG Tablet PO (22:46)
[2022-11-15] MEDS: Menthol/Lanolin/Calamine/Znox 113 GM Tube 1 APPLIC TOPICAL (22:47)
[2022-11-15 23:47] LABS: Bedside Glucose 139 mg/dL (74-106)
[2022-11-16] VITALS (7 sets, daily range): BP systolic 108–130; BP diastolic 43–56; PULSE 56–67; RESP 16–18; TEMP 36.6–37; O2SAT 93–98
[2022-11-16] MEDS: oxyCODONE 5 MG Tablet PO ×4 (04:24→22:20)
[2022-11-16] MEDS: Acetaminophen 500 MG Tablet 1000 MG PO ×3 (04:24→22:21)
[2022-11-16 06:41] LABS: Bedside Glucose 100 mg/dL (74-106)
--- NOTE | 2022-11-16 08:15 | PN.HOSP_ITS ---
Reason for Visit Reason for Visit: Diagnoses Morbid (severe) obesity due to excess calories (11/15/22) Chronic pain syndrome (11/15/22) Unspecified atrial flutter (11/15/22) Peripheral vascular disease, unspecified (11/15/22) Displaced bimalleolar fracture of right lower leg, initial encounter for open fracture type I or II (11/15/22) Other fracture of right lower leg, initial encounter for open fracture type I or II (11/15/22) Body mass index [BMI] 70 or greater, adult (11/15/22) Subjective Subjective Feeling roughly the same today, no acute complaints Objective Data Objective Data Vital Signs: Vital Signs Temp Pulse Resp BP Pulse Ox O2 Del Method 97.8 F 61 16 125/45 H 97 Room Air 11/16/22 03:58 11/16/22 03:58 11/16/22 03:58 11/16/22 03:58 11/16/22 06:57 11/16/22 06:57 Oxygen Delivery Method Room Air Weight: 158.757 kg Body Mass Index (BMI) 68.3 Intake & Output: Intake and Output for Last 24 Hours 11/14/22 11/15/22 11/16/22 23:59 23:59 23:59 Intake Total 250 / 550 700 / 700 Output Total 1200 / 2650 1700 / 1700 Balance -950 / -2100 -1000 / -1000 Lab / Micro Data 11/15/22 12:55 11/15/22 12:55 Labs: Laboratory Results - last 24 hr 11/15/22 12:55: WBC 7.0, RBC 3.68 L, Hgb 11.9 L, Hct 38.5, MCV 104.6 H, MCH 32.3 H, MCHC 30.9 L, RDW Std Deviation 53.5 H, RDW Coeff of Tulio 13.9, Plt Count 296, MPV 10.5, Immature Gran % (Auto) 0.900, Neut % (Auto) 73.3 H, Lymph % (Auto) 13.1 L, [place] % (Auto) 7.1, Eos % (Auto) 5.3 H, Baso % (Auto) 0.3, Absolute Neuts (auto) 5.2, Absolute Lymphs (auto) 0.92, Nucleated RBC % 0, Sodium 137, Potassium 4.7, Chloride 105, Carbon Dioxide 30.0, Anion Gap 2 L, BUN 23 H, C reatinine 1.01, Estim Creat Clear Calc 38.82, Est GFR (MDRD) Af Amer 70, Est GFR (MDRD) Non-Af 58 L, BUN/Creatinine Ratio 22.8 H, Glucose 130 H, Calcium 10.8 H, Total Bilirubin 0.40, AST 9 L, ALT 11 L, Alkaline Phosphatase 116, Total Protein 7.4, Albumin 3.0 L, Globulin 4.4 H, Albumin/Globulin Ratio 0.7 L 11/15/22 23:20: POC Glucose 139 H 11/16/22 06:23: POC Glucose 100 Radiography Diagnostic Testing: Radiology Impression Ankle X-Ray 11/15/22 13:00 IMPRESSION: 1. External fixation of previous trimalleolar fracture or dislocation. Improved alignment noted. 2. Persistent moderate widening of the tibiotalar articulation. Mild distraction/separation of the medial malleolar fracture fragment. Electronically Signed: Carter Welsh MD at 21:29 EDT , Physical Exam Narrative General: Alert, oriented, no apparent distress HEENT: Atraumatic, normocephalic Eyes: Anicteric, normal conjunctiva, extraocular movements grossly intact Neck: Supple Respiratory: Diminished bilaterally due to body habitus, normal respiratory effort Cardiovascular: Regular rate and rhythm GI: Soft, nontender, nondistended Extremities: No edema, right leg in immobilizer Musculoskeletal: Moving all extremities Neuro: No overt focal neurological deficits Skin: No rashes appreciated Psych: Cooperative Assessment & Plan Assessment/Plan (1) Open fracture dislocation of right ankle: (2) Morbid obesity with BMI of 70 and over, adult: (3) Atrial flutter: (4) PVD (peripheral vascular disease): (5) Chronic pain syndrome: PLAN: Plan #Hx open right ankle fracture for ORIF -ORIF R ankle surgery 1130am Wed -Pain control -SNF upon d/c -11/16: Surgery in the a.m. #Type 2 diabetes mellitus -Glucose checks and sliding scale insulin -11/16: Fairly well-controlled and may be under tighter control the necessary perioperatively, will decrease to low medium correction factor #GERD -Continue PPI #hx aflutter -Hold eliquis -Cont amio and metoprolol -11/16: Continue to hold Eliquis. Vitally stable #Lymphedema -Continue lasix #Morbid obesity -BMI 16.4 kg/m? -Complicates treatment, prognosis, outcomes -Recommend weight loss and lifestyle changes Time spent in the patient's overall evaluation,decision-making process, review of diagnostic data, adjustment of management, discussion with other providers, nursing nursing and ancillary staff involved in patient's care documentation, 30 minutes Charges/Coding Visit Charges Inpatient E&M: 16762 Subs Hosp L2
[2022-11-16] MEDS: Menthol/Lanolin/Calamine/Znox 113 GM Tube 1 APPLIC TOPICAL (09:17)
[2022-11-16] MEDS: Enoxaparin 40 MG/0.4 ML Syringe SC (09:17)
[2022-11-16] MEDS: Gabapentin 800 MG Tablet PO ×2 (09:17→22:23)
[2022-11-16] MEDS: Pantoprazole Sodium 20 MG Tablet PO (09:18)
[2022-11-16] MEDS: Metoprolol(XL)Succ 50 MG Tablet PO (09:18)
[2022-11-16] MEDS: Amiodarone 200 MG Tablet PO (09:18)
[2022-11-16] MEDS: Furosemide 20 MG Tablet PO (09:18)
--- NOTE | 2022-11-16 10:30 | PCM.PROGNOTE ---
Subjective Subjective NO changes today, OR tomorrow. Objective Data Objective Data Vital Signs: Vital Signs Temp Pulse Resp BP Pulse Ox O2 Del Method 98.1 F 61 18 108/45 L 95 Room Air 11/16/22 08:49 11/16/22 09:18 11/16/22 08:49 11/16/22 08:49 11/16/22 08:49 11/16/22 09:22 Oxygen Delivery Method Room Air Weight: 158.757 kg Body Mass Index (BMI) 68.3 Intake & Output: Intake and Output for Last 24 Hours 11/14/22 11/15/22 11/16/22 23:59 23:59 23:59 Intake Total 250 / 550 700 / 700 Output Total 1200 / 2650 1700 / 1700 Balance -950 / -2100 -1000 / -1000 Lab / Micro Data 11/15/22 12:55 11/15/22 12:55 Labs: Laboratory Results - last 24 hr 11/15/22 12:55: WBC 7.0, RBC 3.68 L, Hgb 11.9 L, Hct 38.5, MCV 104.6 H, MCH 32.3 H, MCHC 30.9 L, RDW Std Deviation 53.5 H, RDW Coeff of Tulio 13.9, Plt Count 296, MPV 10.5, Immature Gran % (Auto) 0.900, Neut % (Auto) 73.3 H, Lymph % (Auto) 13.1 L, [place] % (Auto) 7.1, Eos % (Auto) 5.3 H, Baso % (Auto) 0.3, Absolute Neuts (auto) 5.2, Absolute Lymphs (auto) 0.92, Nucleated RBC % 0, Sodium 137, Potassium 4.7, Chloride 105, Carbon Dioxide 30.0, Anion Gap 2 L, BUN 23 H, Creatinine 1.01, Estim Creat Clear Calc 38.82, Est GFR (MDRD) Af Amer 70, Est GFR (MDRD) Non-Af 58 L, BUN/Creatinine Ratio 22.8 H, Glucose 130 H, Calcium 10.8 H, Total Bilirubin 0.40, AST 9 L, ALT 11 L, Alkaline Phosphatase 116, Total Protein 7.4, Albumin 3.0 L, Globulin 4.4 H, Albumin/Globulin Ratio 0.7 L 11/15/22 23:20: POC Glucose 139 H 11/16/22 06:23: POC Glucose 100 Radiography Diagnostic Testing: Radiology Impression Ankle X-Ray 11/15/22 13:00 IMPRESSION: 1. External fixation of previous trimalleolar fracture or dislocation. Improved alignment noted. 2. Persistent moderate widening of the tibiotalar articulation. Mild distraction/separation of the medial malleolar fracture fragment. Electronically Signed: Carter Welsh MD at 21:29 EDT , Physical Exam Narrative Neurovascular status intact to right foot Delta frame to right lower extremity intact, reduction maintained, no signs of pin tract infection laceration to medial leg healed, no signs of infection reduction of right lower extremity maintained. No signs of DVT. Const alert and oriented x3 Assessment & Plan Assessment/Plan (1) Open bimalleolar fracture of right ankle: PLAN: exam performed no changes today, hospitalist on board patient requesting 20mg baclofen bid patient NPO after midnight definitive ankle ORIF surgery scheduled for 11:30 on tomorrow ex fix and laceration sites are stable at this time, no concern for infection (2) Open fracture of right ankle:
[2022-11-16] MEDS: Baclofen 10 MG Tablet 20 MG PO ×2 (12:42→22:23)
[2022-11-16 12:43] LABS: Bedside Glucose 102 mg/dL (74-106)
[2022-11-16] MEDS: 0.9% Saline Lock 10 ML Syringe IV (13:07)
[2022-11-16 13:28] LABS: Absolute Lymphocyte Count 1.18 X10^3/uL (0.83-4.51); Absolute Neutrophil Count 4.8 X10^3/uL (2.0-7.7); Anion Gap 2 (5-15); BUN 20 mg/dL (7-18); BUN/Creat Ratio 19.6 RATIO (10-20); Basophil# 0.02 X10^3/uL; Basophil% 0.3 % (0-1); Calcium,Total 10.5 mg/dL (8.5-10.1); Chloride 106 mmol/L (98-107); Creatinine, Serum 1.02 mg/dL (0.55-1.02); EST Glomerular Filtration Rate 57 mL/min (>60); Eosinophil# 0.33 X10^3/uL; Eosinophils% 4.8 % (0-5); Est Glom Filt Rate - Afr Amer 70 mL/min (>60); Estimated Creatinine Clearance 38.44 ml/min; Glucose 122 mg/dL (74-106); Hematocrit 35.7 % (37-47); Hemoglobin 11.5 g/dL (12.0-15.0); Lymphocyte # 1.18 X10^3/ul (0.83-4.51); Lymphocyte % 17.1 % (19-41); Magnesium 1.9 mg/dL (1.6-2.6); Mean Corp Hgb Conc 32.2 g/dL (32-36); Mean Corpuscular Volume 102.6 fL (81-99); Mean Platelet Vol. 10.5 fl (6.2-12.0); Monocyte# 0.54 X10^3/uL; Monocyte% 7.8 % (0-10); NRBC Flagged by Analyzer 0 % (0-5); Neutrophil # 4.79 X10^3/uL (2.7-7.7); Neutrophil % 69.3 % (47-70); Platelet Count 258 K/mm3 (150-450); Potassium 4.4 mmol/L (3.5-5.1); RBC Distribution Width SD 52.6 fl (35.1-43.9); Red Blood Count 3.48 M/mm3 (4.2-5.4); Sodium Level 138 mmol/L (136-145); White Blood Count 6.9 K/mm3 (4.4-11.0)
[2022-11-16 13:35] LABS: International Normalized Ratio 1.4; Prothrombin Time (Protime)PT. 17.6 SECONDS (11.7-14.9)
[2022-11-16 17:21] LABS: Bedside Glucose 167 mg/dL (74-106)
[2022-11-16] MEDS: MELATONIN 10 MG TABLET PO (22:21)
[2022-11-16 23:12] LABS: Bedside Glucose 144 mg/dL (74-106)
[2022-11-17] VITALS (14 sets, daily range): BP systolic 100–141; BP diastolic 45–77; PULSE 56–89; RESP 16–24; TEMP 36.1–37; O2SAT 91–100
[2022-11-17] MEDS: Acetaminophen 500 MG Tablet 1000 MG PO ×2 (06:08→20:15)
[2022-11-17] MEDS: oxyCODONE 5 MG Tablet PO (06:08)
[2022-11-17 06:32] LABS: Absolute Lymphocyte Count 1.48 X10^3/uL (0.83-4.51); Absolute Neutrophil Count 4.2 X10^3/uL (2.0-7.7); Basophil# 0.03 X10^3/uL; Basophil% 0.4 % (0-1); Eosinophil# 0.49 X10^3/uL; Eosinophils% 7.1 % (0-5); Hematocrit 34.9 % (37-47); Lymphocyte # 1.48 X10^3/ul (0.83-4.51); Lymphocyte % 21.3 % (19-41); Mean Corp Hgb Conc 31.5 g/dL (32-36); Mean Corpuscular Hgb 32.9 pg (27.0-32.0); Mean Corpuscular Volume 104.5 fL (81-99); Mean Platelet Vol. 10.1 fl (6.2-12.0); Monocyte# 0.65 X10^3/uL; Monocyte% 9.4 % (0-10); NRBC Flagged by Analyzer 0 % (0-5); Neutrophil # 4.22 X10^3/uL (2.7-7.7); Neutrophil % 60.8 % (47-70); Platelet Count 233 K/mm3 (150-450); RBC Distribution Width CV 13.9 % (11.6-14.6); RBC Distribution Width SD 53.5 fl (35.1-43.9); Red Blood Count 3.34 M/mm3 (4.2-5.4); White Blood Count 6.9 K/mm3 (4.4-11.0)
[2022-11-17 06:59] LABS: Anion Gap 2 (5-15); BUN 20 mg/dL (7-18); BUN/Creat Ratio 21.1 RATIO (10-20); Calcium,Total 10.2 mg/dL (8.5-10.1); Chloride 107 mmol/L (98-107); Creatinine, Serum 0.95 mg/dL (0.55-1.02); EST Glomerular Filtration Rate 63 mL/min (>60); Est Glom Filt Rate - Afr Amer 76 mL/min (>60); Estimated Creatinine Clearance 41.28 ml/min; Glucose 116 mg/dL (74-106); Potassium 4.4 mmol/L (3.5-5.1); Sodium Level 137 mmol/L (136-145)
--- NOTE | 2022-11-17 07:25 | PN.HOSP_ITS ---
Reason for Visit Reason for Visit: Diagnoses Morbid (severe) obesity due to excess calories (11/15/22) Chronic pain syndrome (11/15/22) Unspecified atrial flutter (11/15/22) Peripheral vascular disease, unspecified (11/15/22) Displaced bimalleolar fracture of right lower leg, initial encounter for open fracture type I or II (11/15/22) Other fracture of right lower leg, initial encounter for open fracture type I or II (11/15/22) Body mass index [BMI] 70 or greater, adult (11/15/22) Subjective Subjective Patient feeling well overall today with no new complaints, slept well with baclofen Objective Data Objective Data Vital Signs: Vital Signs Temp Pulse Resp BP Pulse Ox O2 Del Method FiO2 98.1 F 66 18 121/69 H 96 Room Air 21 11/17/22 06:00 11/17/22 06:00 11/17/22 06:00 11/17/22 06:00 11/17/22 06:00 11/17/22 06:00 11/16/22 22:08 Oxygen Delivery Method Room Air Weight: 158.757 kg Body Mass Index (BMI) 68.3 Intake & Output: Intake and Output for Last 24 Hours 11/15/22 11/16/22 11/17/22 23:59 23:59 23:59 Intake Total 250 / 550 940 / 940 Output Total 1200 / 2650 2500 / 2500 400 / 400 Balance -950 / -2100 -1560 / -1560 -400 / -400 Lab / Micro Data 11/17/22 06:25 11/17/22 06:25 Labs: Laboratory Results - last 24 hr 11/16/22 11:22: POC Glucose 102 11/16/22 13:05: WBC 6.9, RBC 3.48 L, Hgb 11.5 L, Hct 35.7 L, MCV 102.6 H, MCH 33.0 H, MCHC 32.2, RDW Std Deviation 52.6 H, RDW Coeff of Tulio 14.0, Plt Count 258, MPV 10.5, Immature Gran % (Auto) 0.700, Neut % (Auto) 69.3, Lymph % (Auto) 17.1 L, Concho % (Auto) 7.8, Eos % (Auto) 4.8, Baso % (Auto) 0.3, Absolute Neuts (auto) 4.8, Absolute Lymphs (auto) 1.18, Nucleated RBC % 0, PT 17.6 H, INR 1.4, Sodium 138, Potassium 4.4, Chloride 106, Carbon Dioxide 30.0, Anion Gap 2 L, BUN 20 H, Creatinine 1.02, Estim Creat Clear Calc 38.44, Est GFR (MDRD) Af Amer 70, Est GFR (MDRD) Non-Af 57 L, BUN/Creatinine Ratio 19.6, Glucose 122 H, Calcium 10.5 H, Magnesium 1.9 11/16/22 16:50: POC Glucose 167 H 11/16/22 22:19: POC Glucose 144 H 11/17/22 06:25: WBC 6.9, RBC 3.34 L, Hgb 11.0 L, Hct 34.9 L, MCV 104.5 H, MCH 32.9 H, MCHC 31.5 L, RDW Std Deviation 53.5 H, RDW Coeff of Tulio 13.9, Plt Count 233, MPV 10.1, Immature Gran % (Auto) 1.000 H, Neut % (Auto) 60.8, Lymph % (Auto) 21.3, Concho % (Auto) 9.4, Eos % (Auto) 7.1 H, Baso % (Auto) 0.4, Absolute Neuts (auto) 4.2, Absolute Lymphs (auto) 1.48, Nucleated RBC % 0, Sodium 137, Potassium 4.4, Chloride 107, Carbon Dioxide 28.0, Anion Gap 2 L, BUN 20 H, Creatinine 0.95, Estim Creat Clear Calc 41.28, Est GFR (MDRD) Af Amer 76, Est GFR (MDRD) Non-Af 63, BUN/Creatinine Ratio 21.1 H, Glucose 116 H, Calcium 10.2 H Physical Exam Narrative General: Alert, oriented, no apparent distress HEENT: Atraumatic, normocephalic Eyes: Anicteric, normal conjunctiva, extraocular movements grossly intact Neck: Supple Respiratory: Diminished bilaterally due to body habitus, normal respiratory effort Cardiovascular: Regular rate and rhythm GI: Soft, nontender, nondistended Extremities: No edema, right leg in immobilizer Musculoskeletal: Moving all extremities Neuro: No overt focal neurological deficits Skin: No rashes appreciated Psych: Cooperative Assessment & Plan Assessment/Plan (1) Open fracture dislocation of right ankle: (2) Morbid obesity with BMI of 70 and over, adult: (3) Atrial flutter: (4) PVD (peripheral vascular disease): (5) Chronic pain syndrome: PLAN: Plan #Hx open right ankle fracture for ORIF -ORIF R ankle surgery 1130am Wed -Pain control -SNF upon d/c -11/16: Surgery in the a.m. -11/17: Surgery today, will ultimately need placement afterwards, will revisit postsurgery #Type 2 diabetes mellitus -Glucose checks and sliding scale insulin -11/16: Fairly well-controlled and may be under tighter control the necessary audra operatively, will decrease to low medium correction factor #GERD -Continue PPI #hx aflutter -Hold eliquis -Cont amio and metoprolol -11/16: Continue to hold Eliquis. Vitally stable #Lymphedema -Continue lasix #Morbid obesity -BMI 158 kg/m? -Complicates treatment, prognosis, outcomes -Recommend weight loss and lifestyle changes Time spent in the patient's overall evaluation,decision-making process, review of diagnostic data, adjustment of management, discussion with other providers, nursing nursing and ancillary staff involved in patient's care documentation, 30 minutes Charges/Coding Visit Charges Inpatient E&M: 07424 Subs Hosp L2
--- NOTE | 2022-11-17 09:06 | WOUNDNOTE ---
Pt scheduled for surgery today. will leaved dressing in place.
--- NOTE | 2022-11-17 12:00 | RAD_ITS ---
CLINICAL HISTORY: FX -- R Date: 11/17/2022 12:32 PM Date of : 1955 COMPARISON: Imaging of the RIGHT ankle dated 11/15/2022. Images assigned to this order were provided in conjunction with a surgical procedure performed in the operating room/procedural suite. Please see operative report for details. Fluoroscopic images: 11 Fluoroscopic time: 284.7 seconds Cumulative dose: NA, mGym2; 14.16; mGy Intraoperative radiographs demonstrate plate and screw fixation of distal fibula, and lag screw fixation of medial malleolus. There is normal alignment. Refer to procedural note for complete description. IMPRESSIONS: 1. Fluoroscopic guidance for surgical planning and confirmation Electronically Signed: Carter Welsh MD at 17:26 EDT , RAD/Ankle 2 Views IMPRESSION: undefined
[2022-11-17] MEDS: Bacitracin 500 UNITS/GM PACKET (14:41)
[2022-11-17] MEDS: Bupivacaine Mpf 0.5% 30 ML VIAL (15:08)
--- NOTE | 2022-11-17 15:21 | PCM.OPRPT ---
Problems Associated Problem List Diagnoses (1) Open fracture of right ankle: (2) Bimalleolar fracture of right ankle: Report of Operation Date of Procedure: 11/17/22 Pre-Operative Diagnosis: open right bimalleolar ankle fracture Post-Operative Diagnosis: Same Surgery/Procedure Performed:: Removal of external fixator right lower extremity Open reduction internal fixation right ankle fracture Description of Surgical Findings:: Adequate reduction of ankle fracture Significant bleeding noted Intra-Op 250 cc total Initial tourniquet not adequate due to size makeshift tourniquet performed using eschmark around the calf Surgeon: Jayme Pacheco paint dipper: None (1) samantha carranza 2) ana alston Type of Anesthesia: General Special Medications: 30cc 0.5% marcaine plain Specimen's removed: none Drains: none Estimated Blood Loss (mL): 250cc Description of Procedure: Patient brought back to room placed comfortably supine position operating room table. Bed extended use left side to extend bed to sides patient. Patient induced under general anesthesia. All osseous prominences offloaded prevent any compression neuropraxia's. Well-padded right thigh tourniquet was applied. Right lower extremity was prepped with Betadine paint to the external fixator this was removed by hand using the hand screwdriver provided with the [employer] Ex-Fix kit once the external fixator device was removed unstable ankle fracture was noted. Right lower extremity was scrubbed prepped draped using typical aseptic fashion. Right lower extremity was elevated exsanguinated tourniquet was inflated to 300 mmHg. Incision plan was performed using fluoroscopic guidance and mapped out. Directly over the distal fibula as well as over the medial malleolus. Incision made over distal fibula full-thickness down the level of bone. Significant bleeding noted upon incision and blood vessels cauterized distally with significant subcutaneous bleeding was noted as well. Topical Feliberto was applied to site to allow for some adequate hemostasis. Due to the continued bleeding a makeshift tourniquet was applied to the calf using an Esmarch bandage as it was determined that the thigh tourniquet was not adequate. Adequate hemostasis was then noted. Fracture fragment was then identified periosteum was elevated off the fracture site fracture site was cleaned out and flushed and reduced using [id number] bone reduction forcep reduction confirmed on AP and lateral imaging. A Dony plate was applied directly over the site with no interfragmentary screws due to some comminution at site. This had a combination of locking and nonlocking screws which were applied using manufactures guidelines. Adequate reduction and placed placement noted on multiple views on fluoroscopic imaging. There is consideration for applying external fixator device versus additional plate to anterior fibula for additional stabilization due to lack of real state this was not performed. This did not appear required as well as fracture was stable and reduced with distal fibular locking plate. Attention was then taken to the medial malleolus in which percutaneous screw placement was attempted but could not be performed so open incision was made with blunt dissection down to the level of medial malleolus any bleeders identified cauterized all neurovascular structures identified and retracted with blunt retraction. Medial malleolar fracture was then identified flushed and curetted and reduced using guidepins. 240 cannulated partially-threaded screws were applied into the medial malleolus and reduction was confirmed on AP and lateral imaging. At this time her ankle fracture appeared to be stable and adequately reduced. Decision for no additional external fixation was made. Incisional sites were flushed with copious amounts normal sterile saline tourniquet was let down as well as a makeshift Esmarch tourniquet. Tourniquet time was noted to be approximately 2 hours. Subcutaneous and deep closure performed with simple interrupted 2-0 Vicryl skin closure performed with blayne to skin. 30 cc half percent Marcaine plain was used to perform ankle block and local infiltration technique for postoperative anesthesia. Incisions dressed with Adaptic 4 x 4's ABD pads Kerlix and a well-padded James posterior splint. Patient did have significant bleeding at the start of the case but it seemed to resolved upon incision closure. Patient tolerated procedure and anesthesia well apparent satisfactory condition. Patient transferred to PACU vital signs stable vascular status intact awaiting transfer back to floor. Patient will be kept overnight and likely discharge back to her long-term facility. Complications bleeding Admit VTE Documentation VTE Present on Admission: Yes VTE Mechan Device Prophylaxis: None VTE Pharm Prophylaxis ordered?: Yes
[2022-11-17] MEDS: Lactated Ringers 1,000 ML 15 ML IV (17:00)
[2022-11-17 17:32] LABS: Bedside Glucose 177 mg/dL (74-106)
[2022-11-17] MEDS: oxyCODONE 5 MG Tablet 10 MG PO ×2 (17:47→23:44)
[2022-11-17] MEDS: Gabapentin 800 MG Tablet PO (20:15)
[2022-11-17] MEDS: Baclofen 10 MG Tablet 20 MG PO (20:16)
[2022-11-17] MEDS: Menthol/Lanolin/Calamine/Znox 113 GM Tube 1 APPLIC TOPICAL (20:16)
[2022-11-17] MEDS: MELATONIN 10 MG TABLET PO (23:43)
[2022-11-18 06:32] LABS: Absolute Lymphocyte Count 0.93 X10^3/uL (0.83-4.51); Absolute Neutrophil Count 13.6 X10^3/uL (2.0-7.7); Basophil# 0.03 X10^3/uL; Basophil% 0.2 % (0-1); Hematocrit 29.3 % (37-47); Hemoglobin 9.1 g/dL (12.0-15.0); Lymphocyte # 0.93 X10^3/ul (0.83-4.51); Lymphocyte % 5.7 % (19-41); Mean Corp Hgb Conc 31.1 g/dL (32-36); Mean Corpuscular Hgb 32.3 pg (27.0-32.0); Mean Corpuscular Volume 103.9 fL (81-99); Mean Platelet Vol. 10.3 fl (6.2-12.0); Monocyte# 1.57 X10^3/uL; Monocyte% 9.6 % (0-10); NRBC Flagged by Analyzer 0.1 % (0-5); Neutrophil # 13.64 X10^3/uL (2.7-7.7); Neutrophil % 83.5 % (47-70); POSITIVE DIFFERENTIAL YES; Platelet Count 244 K/mm3 (150-450); RBC Distribution Width CV 13.8 % (11.6-14.6); RBC Distribution Width SD 51.8 fl (35.1-43.9); Red Blood Count 2.82 M/mm3 (4.2-5.4); White Blood Count 16.3 K/mm3 (4.4-11.0)
[2022-11-18] MEDS: oxyCODONE 5 MG Tablet 10 MG PO ×3 (06:34→20:09)
[2022-11-18] MEDS: 0.9% Saline Lock 10 ML Syringe IV ×3 (06:34→15:25)
[2022-11-18] MEDS: Acetaminophen 500 MG Tablet 1000 MG PO ×3 (06:34→21:36)
[2022-11-18 06:53] LABS: Differential Indicated SCAN CRITERIA MET
[2022-11-18 06:55] LABS: Anion Gap 7 (5-15); BUN 21 mg/dL (7-18); BUN/Creat Ratio 19.8 RATIO (10-20); Calcium,Total 9.7 mg/dL (8.5-10.1); Chloride 101 mmol/L (98-107); Creatinine, Serum 1.06 mg/dL (0.55-1.02); EST Glomerular Filtration Rate 55 mL/min (>60); Est Glom Filt Rate - Afr Amer 67 mL/min (>60); Estimated Creatinine Clearance 36.99 ml/min; Glucose 164 mg/dL (74-106); Potassium 5.4 mmol/L (3.5-5.1); Sodium Level 134 mmol/L (136-145)
[2022-11-18 07:04] LABS: Anisocytosis 1+; Differential Comment SCANNED
[2022-11-18 07:05] LABS: Macrocytosis 1+
--- NOTE | 2022-11-18 07:38 | PN.HOSP_ITS ---
Reason for Visit Reason for Visit: Diagnoses Morbid (severe) obesity due to excess calories (11/15/22) Chronic pain syndrome (11/15/22) Unspecified atrial flutter (11/15/22) Peripheral vascular disease, unspecified (11/15/22) Displaced bimalleolar fracture of right lower leg, initial encounter for closed fracture (11/15/22) Displaced bimalleolar fracture of right lower leg, initial encounter for open fracture type I or II (11/15/22) Other fracture of right lower leg, initial encounter for open fracture type I or II (11/15/22) Body mass index [BMI] 70 or greater, adult (11/15/22) Subjective Subjective Patient having some pain in knee and ankle but overall doing well, discussed her potassium and she adamantly refused Kayexalate despite multiple attempts, rechecking her potassium. Discussed De Souza catheter, will keep today and reassess tomorrow due to her pain levels with moving and possible IV Lasix if potassium still high Objective Data Objective Data Vital Signs: Vital Signs Temp Pulse Resp BP Pulse Ox O2 Del Method O2 Flow Rate 97.8 F 76 16 141/59 H 100 Nasal Cannula 2 11/17/22 20:25 11/17/22 20:25 11/17/22 20:25 11/17/22 20:25 11/17/22 20:25 11/17/22 20:30 11/17/22 20:30 FiO2 21 11/16/22 22:08 Oxygen Flow Rate (L/min) 2 Oxygen Delivery Method Nasal Cannula Weight: 158.757 kg Body Mass Index (BMI) 68.3 Intake & Output: Intake and Output for Last 24 Hours 11/16/22 11/17/22 11/18/22 23:59 23:59 23:59 Intake Total 940 / 940 1140 / 1140 Output Total 2500 / 2500 400 / 400 450 / 450 Balance -1560 / -1560 740 / 740 -450 / -450 Lab / Micro Data 11/18/22 06:15 11/18/22 06:15 Labs: Laboratory Results - last 24 hr 11/17/22 16:49: POC Glucose 177 H 11/18/22 06:15: WBC 16.3 H, RBC 2.82 L, Hgb 9.1 L, Hct 29.3 L, MCV 103.9 H, MCH 32.3 H, MCHC 31.1 L, RDW Std Deviation 51.8 H, RDW Coeff of Tulio 13.8, Plt Count 244, MPV 10.3, Immature Gran % (Auto) 1.000 H, Neut % (Auto) 83.5 H, Lymph % (Auto) 5.7 L, Colbert % (Auto) 9.6, Eos % (Auto) 0.0, Baso % (Auto) 0.2, Absolute Neuts (auto) 13.6 H, Absolute Lymphs (auto) 0.93, Nucleated RBC % 0.1, Differential Comment SCANNED, Diff Path Review May foll, Anisocytosis 1+, Macrocytosis 1+, Sodium 134 L, Potassium 5.4 H, Chloride 101, Carbon Dioxide 26.0, Anion Gap 7, BUN 21 H, Creatinine 1.06 H, Estim Creat Clear Calc 36.99, Est GFR (MDRD) Af Amer 67, Est GFR (MDRD) Non-Af 55 L, BUN/Creatinine Ratio 19.8, Glucose 164 H, Calcium 9.7 Radiography Diagnostic Testing: Radiology Impression Ankle X-Ray 11/17/22 12:00 IMPRESSION: undefined Physical Exam Narrative General: Alert, oriented, no apparent distress HEENT: Atraumatic, normocephalic Eyes: Anicteric, normal conjunctiva, extraocular movements grossly intact Neck: Supple Respiratory: Diminished bilaterally due to body habitus, normal respiratory effo rt Cardiovascular: Regular rate and rhythm GI: Soft, nontender, nondistended Extremities: No edema, right leg postop Musculoskeletal: Moving all extremities Neuro: No overt focal neurological deficits Skin: No rashes appreciated Psych: Cooperative Assessment & Plan Assessment/Plan (1) Open fracture dislocation of right ankle: (2) Morbid obesity with BMI of 70 and over, adult: (3) Atrial flutter: (4) PVD (peripheral vascular disease): (5) Chronic pain syndrome: PLAN: Plan #Hx open right ankle fracture for ORIF -ORIF R ankle surgery 1130am Wed -Pain control -SNF upon d/c -11/16: Surgery in the a.m. -11/17: Surgery today, will ultimately need placement afterwards, will revisit postsurgery -11/18: Status post removal of external fixator right lower extremity and open reduction internal fixation of right ankle fracture on 11/[address] Pacheco. Pain control, PT/OT. Will need placement, further management per podiatry #Type 2 diabetes mellitus -Glucose checks and sliding scale insulin -11/16: Fairly well-controlled and may be under tighter control the necessary perioperatively, will decrease to low medium correction factor #CKD stage IIIb -Close to baseline, very slight uptick postsurgery, continue to monitor, hold Lasix dose today #Hyperkalemia -Gave calcium, patient adamantly refused Kayexalate as above, we no longer have the albuterol concentrated treatments for the albuterol nebs for the hyperkalemia protocol. Patient did get her a.m. insulin and will repeat BMP, potassium still high may need to give Lasix #Leukocytosis -Highly suspect this is reactive, afebrile, vitally stable, continue to monitor #GERD -Continue PPI #hx aflutter -Hold eliquis -Cont amio and metoprolol -11/16: Continue to hold Eliquis. Vitally stable -11/18: Continue metoprolol #Lymphedema -Continue lasix -11/18: Given postop we will hold a.m. dose of Lasix and resume tomorrow pending pt progress/labs #Morbid obesity -BMI 158 kg/m? -Complicates treatment, prognosis, outcomes -Recommend weight loss and lifestyle changes Charges/Coding Visit Charges Inpatient E&M: 31677 Subs Hosp L2
[2022-11-18 07:49] VITALS: O2SAT 92
[2022-11-18 08:30] VITALS: BP 134/53; PULSE 68; RESP 18; TEMP 36.6; O2SAT 93
[2022-11-18] MEDS: Gabapentin 800 MG Tablet PO ×2 (08:37→21:32)
[2022-11-18] MEDS: Menthol/Lanolin/Calamine/Znox 113 GM Tube 1 APPLIC TOPICAL ×2 (08:37→21:35)
[2022-11-18] MEDS: Baclofen 10 MG Tablet 20 MG PO ×2 (08:37→21:32)
[2022-11-18] MEDS: Pantoprazole Sodium 20 MG Tablet PO (08:37)
[2022-11-18 08:38] VITALS: PULSE 70
[2022-11-18] MEDS: Amiodarone 200 MG Tablet PO (08:38)
[2022-11-18] MEDS: Metoprolol(XL)Succ 50 MG Tablet PO (08:38)
[2022-11-18 11:21] LABS: Bedside Glucose 138 mg/dL (74-106)
--- NOTE | 2022-11-18 11:55 | CASEMGMT ---
Social Work SW met with pt and updated that TCU will assess for acceptance once therapy has evaluated pt. A list of SNF providers including quality and resource use data and consistent with the patient?s preferred geographic region, medical needs, and insurance network were provided from the [facility]. SW encouraged pt to review list and come up with alternate choices in the event TCU cannot accept. Pt understanding and will review list with her sister when she arrives later today. Plan: SNF , pending pt choice and acceptance. JUVENTINO Payan
--- NOTE | 2022-11-18 12:08 | CPS ---
Dr. Castillo discontinued 20mg Albuterol. She was not aware that we discontinued the high concentrate albuterol and the patient would have to take 8 aerosol treatments.
[2022-11-18 13:40] LABS: Anion Gap 6 (5-15); BUN 22 mg/dL (7-18); BUN/Creat Ratio 20.8 RATIO (10-20); Calcium,Total 9.7 mg/dL (8.5-10.1); Chloride 100 mmol/L (98-107); Creatinine, Serum 1.06 mg/dL (0.55-1.02); EST Glomerular Filtration Rate 55 mL/min (>60); Est Glom Filt Rate - Afr Amer 67 mL/min (>60); Estimated Creatinine Clearance 36.99 ml/min; Glucose 136 mg/dL (74-106); Potassium 5.2 mmol/L (3.5-5.1); Sodium Level 132 mmol/L (136-145)
--- NOTE | 2022-11-18 14:07 | PN_ITS ---
Subjective Subjective Patient denies constitutional symptoms Patient 1 day postop no signs DVT Pain controlled at current Patient voiding urine through catheter passing gas Objective Data Objective Data Vital Signs: Vital Signs Temp Pulse Resp BP Pulse Ox O2 Del Method O2 Flow Rate 97.8 F 70 18 134/53 H 93 Room Air 2 11/18/22 08:30 11/18/22 08:38 11/18/22 08:30 11/18/22 08:30 11/18/22 08:30 11/18/22 08:50 11/17/22 20:30 FiO2 21 11/16/22 22:08 Oxygen Flow Rate (L/min) 2 Oxygen Delivery Method Room Air Weight: 158.757 kg Body Mass Index (BMI) 68.3 Intake & Output: Intake and Output for Last 24 Hours 11/16/22 11/17/22 11/18/22 23:59 23:59 23:59 Intake Total 940 / 940 1140 / 1140 355.5 / 355.5 Output Total 2500 / 2500 400 / 400 450 / 450 Balance -1560 / -1560 740 / 740 -94.5 / -94.5 Lab / Micro Data 11/18/22 06:15 11/18/22 12:15 Labs: Laboratory Results - last 24 hr 11/17/22 16:49: POC Glucose 177 H 11/18/22 06:15: WBC 16.3 H, RBC 2.82 L, Hgb 9.1 L, Hct 29.3 L, MCV 103.9 H, MCH 32.3 H, MCHC 31.1 L, RDW Std Deviation 51.8 H, RDW Coeff of Tulio 13.8, Plt Count 244, MPV 10.3, Immature Gran % (Auto) 1.000 H, Neut % (Auto) 83.5 H, Lymph % (Auto) 5.7 L, [place] % (Auto) 9.6, Eos % (Auto) 0.0, Baso % (Auto) 0.2, Absolute Neuts (auto) 13.6 H, Absolute Lymphs (auto) 0.93, Nucleated RBC % 0.1, Differential Comment SCANNED, Diff Path Review May foll, Anisocytosis 1+, Macrocytosis 1+, Sodium 134 L, Potassium 5.4 H, Chloride 101, Carbon Dioxide 26.0, Anion Gap 7, BUN 21 H, Creatinine 1.06 H, Estim Creat Clear Calc 36.99, Est GFR (MDRD) Af Amer 67, Est GFR (MDRD) Non-Af 55 L, BUN/Creatinine Ratio 19.8, Glucose 164 H, Calcium 9.7 11/18/22 11:03: POC Glucose 138 H 11/18/22 12:15: Sodium 132 L, Potassium 5.2 H, Chloride 100, Carbon Dioxide 26.0, Anion Gap 6, BUN 22 H, Creatinine 1.06 H, Estim Creat Clear Calc 36.99, Est GFR (MDRD) Af Amer 67, Est GFR (MDRD) Non-Af 55 L, BUN/Creatinine Ratio 20.8 H, Glucose 136 H, Calcium 9.7 Radiography Diagnostic Testing: Radiology Impression Ankle X-Ray 11/17/22 12:00 IMPRESSION: undefined Physical Exam Narrative Splint intact right lower extremity neurovascular status intact to right lower extremity digits no sign DVT patient able to actively move digits nonoperatively Const alert and oriented x3 Assessment & Plan Assessment/Plan (1) Bimalleolar fracture of right ankle: PLAN: Exam performed Patient stable for discharge back to senior living facility Maintain nonweightbearing status right lower extremity Patient will follow-up with me in 1 week Dressing be changed in 1 week at follow-up appointment left intact while at the facility
--- NOTE | 2022-11-18 14:16 | WOUNDNOTE ---
Dressing is to remain in place to the right lower leg per Dr Pacheco.
[2022-11-18] MEDS: Furosemide 20 MG/2 ML VIAL 10 MG IV (15:25)
[2022-11-18 15:30] VITALS: BP 128/48; PULSE 66; RESP 16; TEMP 36.8; O2SAT 96
[2022-11-18 16:44] LABS: Bedside Glucose 144 mg/dL (74-106)
[2022-11-18 20:45] VITALS: BP 136/49; PULSE 60; RESP 16; TEMP 36.6; O2SAT 94
[2022-11-18] MEDS: MELATONIN 10 MG TABLET PO (21:40)
[2022-11-18 22:09] LABS: Bedside Glucose 145 mg/dL (74-106)
[2022-11-19 02:00] VITALS: BP 117/49; PULSE 60; RESP 16; TEMP 36.6; O2SAT 94
[2022-11-19] MEDS: oxyCODONE 5 MG Tablet 10 MG PO ×4 (02:03→20:34)
[2022-11-19] MEDS: 0.9% Saline Lock 10 ML Syringe IV ×2 (06:22→20:41)
[2022-11-19] MEDS: Acetaminophen 500 MG Tablet 1000 MG PO ×3 (06:26→20:39)
[2022-11-19 06:30] LABS: Absolute Lymphocyte Count 1.65 X10^3/uL (0.83-4.51); Basophil# 0.02 X10^3/uL; Basophil% 0.2 % (0-1); Eosinophils% 2.6 % (0-5); Hematocrit 25.4 % (37-47); Hemoglobin 7.8 g/dL (12.0-15.0); Lymphocyte # 1.65 X10^3/ul (0.83-4.51); Lymphocyte % 14.6 % (19-41); Mean Corp Hgb Conc 30.7 g/dL (32-36); Mean Corpuscular Hgb 32.5 pg (27.0-32.0); Mean Corpuscular Volume 105.8 fL (81-99); Mean Platelet Vol. 10.9 fl (6.2-12.0); Monocyte# 1.17 X10^3/uL; Monocyte% 10.3 % (0-10); NRBC Flagged by Analyzer 0 % (0-5); Neutrophil # 8.04 X10^3/uL (2.7-7.7); Neutrophil % 70.9 % (47-70); Platelet Count 177 K/mm3 (150-450); RBC Distribution Width SD 54.1 fl (35.1-43.9); White Blood Count 11.3 K/mm3 (4.4-11.0)
[2022-11-19 06:45] LABS: Bedside Glucose 118 mg/dL (74-106)
[2022-11-19 07:02] VITALS: O2SAT 93
[2022-11-19 07:23] LABS: Anion Gap 1 (5-15); BUN 25 mg/dL (7-18); BUN/Creat Ratio 22.7 RATIO (10-20); Calcium,Total 9.7 mg/dL (8.5-10.1); Chloride 101 mmol/L (98-107); EST Glomerular Filtration Rate 53 mL/min (>60); Est Glom Filt Rate - Afr Amer 64 mL/min (>60); Estimated Creatinine Clearance 35.65 ml/min; Glucose 117 mg/dL (74-106); Potassium 5.1 mmol/L (3.5-5.1); Sodium Level 133 mmol/L (136-145)
--- NOTE | 2022-11-19 07:43 | PCM.PN.HOSP ---
Reason for Visit Reason for Visit: Diagnoses Morbid (severe) obesity due to excess calories (11/15/22) Chronic pain syndrome (11/15/22) Unspecified atrial flutter (11/15/22) Peripheral vascular disease, unspecified (11/15/22) Displaced bimalleolar fracture of right lower leg, initial encounter for closed fracture (11/15/22) Displaced bimalleolar fracture of right lower leg, initial encounter for open fracture type I or II (11/15/22) Other fracture of right lower leg, initial encounter for open fracture type I or II (11/15/22) Body mass index [BMI] 70 or greater, adult (11/15/22) Subjective Subjective Feeling roughly the same today, had very small amount of stool pass, no chest pain or shortness of breath Objective Data Objective Data Vital Signs: Vital Signs Temp Pulse Resp BP Pulse Ox O2 Del Method O2 Flow Rate 97.8 F 60 16 117/49 L 94 Room Air 2 11/19/22 02:00 11/19/22 02:00 11/19/22 02:00 11/19/22 02:00 11/19/22 02:00 11/19/22 02:00 11/17/22 20:30 FiO2 21 11/16/22 22:08 Oxygen Flow Rate (L/min) 2 Oxygen Delivery Method Room Air Weight: 158.757 kg Body Mass Index (BMI) 68.3 Intake & Output: Intake and Output for Last 24 Hours 11/17/22 11/18/22 11/19/22 23:59 23:59 23:59 Intake Total 1140 / 1140 1055.5 / 1055.5 Output Total 400 / 400 1999 / 1999 200 / 200 Balance 740 / 740 -944.5 / -944.5 -200 / -200 Lab / Micro Data 11/19/22 06:20 11/19/22 06:20 Labs: Laboratory Results - last 24 hr 11/18/22 11:03: POC Glucose 138 H 11/18/22 12:15: Sodium 132 L, Potassium 5.2 H, Chloride 100, Carbon Dioxide 26.0, Anion Gap 6, BUN 22 H, Creatinine 1.06 H, Estim Creat Clear Calc 36.99, Est GFR (MDRD) Af Amer 67, Est GFR (MDRD) Non-Af 55 L, BUN/Creatinine Ratio 20.8 H, Glucose 136 H, Calcium 9.7 11/18/22 16:25: POC Glucose 144 H 11/18/22 21:24: POC Glucose 145 H 11/19/22 06:20: WBC 11.3 H, RBC 2.40 L, Hgb 7.8 L, Hct 25.4 L, MCV 105.8 H, MCH 32.5 H, MCHC 30.7 L, RDW Std Deviation 54.1 H, RDW Coeff of Tulio 14.0, Plt Count 177, MPV 10.9, Immature Gran % (Auto) 1.400 H, Neut % (Auto) 70.9 H, Lymph % (Auto) 14.6 L, [place] % (Auto) 10.3 H, Eos % (Auto) 2.6, Baso % (Auto) 0.2, Absolute Neuts (auto) 8.0 H, Absolute Lymphs (auto) 1.65, Nucleated RBC % 0, Sodium 133 L, Potassium 5.1, Chloride 101, Carbon Dioxide 31.0, Anion Gap 1 L, BUN 25 H, Creatinine 1.10 H, Estim Creat Clear Calc 35.65, Est GFR (MDRD) Af Amer 64, Est GFR (MDRD) Non-Af 53 L, BUN/Creatinine Ratio 22.7 H, Glucose 117 H, Calcium 9.7 11/19/22 06:23: POC Glucose 118 H Physical Exam Narrative General: Alert, oriented, no apparent distress HEENT: Atraumatic, normocephalic Eyes: Anicteric, normal conjunctiva, extraocular movements grossly intact Neck: Supple Respiratory: Diminished bilaterally due to body habitus, normal respiratory effort Cardiovascular: Regular rate and rhythm GI: Soft, nontender, nondistended Extremities: No edema, right leg postop Musculoskeletal: Moving all extremities Neuro: No overt focal neurological deficits Skin: No rashes appreciated Psych: Cooperative Assessment & Plan Assessment/Plan (1) Open fracture dislocation of right ankle: (2) Morbid obesity with BMI of 70 and over, adult: (3) Atrial flutter: (4) PVD (peripheral vascular disease): (5) Chronic pain syndrome: PLAN: Plan #Hx open right ankle fracture for ORIF -ORIF R ankle surgery 1130am Wed -Pain control -SNF upon d/c -11/16: Surgery in the a.m. -11/17: Surgery today, will ultimately need placement afterwards, will revisit postsurgery -11/18: Status post removal of external fixator right lower extremity and open reduction internal fixation of right ankle fracture on 11/[address] Pacheco. Pain control, PT/OT. Will need placement, further management per podiatry -11/19: Awaiting placement, continue pain control and PT/OT. Has had De Souza catheter for several weeks since care home, will continue to evaluate for optimal timing for removal with voiding trial, can consider next 1 to 2 days of pain improving #Type 2 diabetes mellitus -Glucose checks and sliding scale insulin -11/16: Fairly well-controlled and may be under tighter control the necessary perioperatively, will decrease to low medium correction factor -11/19: Continues to maintain well-controlled glucose, continue current measures #Acute on chronic anemia secondary to surgical procedure -Baseline hemoglobin 10-11, postop was 9.1, today 7.8 however no overt blood loss/new blood loss noted -Operative note does note patient had significant bleeding at start of case but it resolved upon incision closure -MCV is high at 105.8 but has been chronically high -We will check B12 and folate as well as iron panel -Given no new overt active bleeding will resume Lovenox DVT prophylaxis as patient is high risk due to laying in bed and having minimal mobilization #CKD stage IIIb -Close to baseline, very slight uptick postsurgery, continue to monitor, received Lasix due to to her elevated potassium and refusal of other interventions -11/19: Slight increase today but does not meet criteria for MICHELLE, will hold a.m. dose of Lasix and plan to resume tomorrow #Hyperkalemia?resolved -Gave calcium, patient adamantly refused Kayexalate as above, we no longer have the albuterol concentrated treatments for the albuterol nebs for the hyperkalemia protocol. Patient did get her a.m. insulin and will repeat BMP, potassium still high may need to give Lasix -11/19: Did get dose of Lasix yesterday, potassium 5.1 today #Leukocytosis -Highly suspect this is reactive, afebrile, vitally stable, continue to monitor -11/19: Was 16.3 on 11/18 postop, is 11.3 today, continue current management/supportive care, no signs or symptoms of new infectious process #GERD -Continue PPI #hx aflutter -Hold eliquis -Cont amio and metoprolol -11/16: Continue to hold Eliquis. Vitally stable -11/18: Continue metoprolol #Lymphedema -Continue lasix -11/18: Given postop we will hold a.m. dose of Lasix and resume tomorrow pending pt progress/labs #Morbid obesity -BMI 158 kg/m? -Complicates treatment, prognosis, outcomes -Recommend weight loss and lifestyle changes #DVT ppx: Resume Lovenox subcu Evelin Castillo MD Time spent in the patient's overall evaluation,decision-making process, review of diagnostic data, adjustment of management, discussion with other providers, nursing nursing and ancillary staff involved in patient's care documentation, 36 minutes Charges/Coding Visit Charges Inpatient E&M: 54885 Subs Hosp L2
[2022-11-19 08:00] VITALS: BP 121/48; PULSE 63; RESP 18; TEMP 36.8; O2SAT 97
[2022-11-19 08:16] VITALS: PULSE 62
[2022-11-19] MEDS: Metoprolol(XL)Succ 50 MG Tablet PO (08:16)
[2022-11-19] MEDS: Amiodarone 200 MG Tablet PO (08:16)
[2022-11-19] MEDS: Baclofen 10 MG Tablet 20 MG PO ×2 (08:16→20:39)
[2022-11-19] MEDS: Pantoprazole Sodium 20 MG Tablet PO (08:16)
[2022-11-19] MEDS: Enoxaparin 40 MG/0.4 ML Syringe SC ×2 (08:16→20:39)
[2022-11-19] MEDS: Atorvastatin Calcium 10 MG Tablet PO (08:16)
[2022-11-19] MEDS: Gabapentin 800 MG Tablet PO ×2 (08:16→20:39)
[2022-11-19] MEDS: Menthol/Lanolin/Calamine/Znox 113 GM Tube 1 APPLIC TOPICAL ×2 (08:18→20:40)
[2022-11-19 08:29] LABS: Ferritin 196 ng/mL (8-252); Iron 26 ug/dL (50-170); Iron Binding Capacity,Total 218 ug/dL (250-450); PERCENT IRON SATURATION 11.9 % (15.0-55.0)
--- NOTE | 2022-11-19 08:57 | PCM.PROGNOTE ---
Subjective Subjective no changes today, elevated potassium yesterday - refused kayexelate pain controlled at current Objective Data Objective Data Vital Signs: Vital Signs Temp Pulse Resp BP Pulse Ox O2 Del Method O2 Flow Rate 98.2 F 62 18 121/48 H 97 Room Air 2 11/19/22 08:00 11/19/22 08:16 11/19/22 08:00 11/19/22 08:00 11/19/22 08:00 11/19/22 08:00 11/17/22 20:30 FiO2 21 11/16/22 22:08 Oxygen Flow Rate (L/min) 2 Oxygen Delivery Method Room Air Weight: 158.757 kg Body Mass Index (BMI) 68.3 Intake & Output: Intake and Output for Last 24 Hours 11/17/22 11/18/22 11/19/22 23:59 23:59 23:59 Intake Total 1140 / 1140 1055.5 / 1055.5 Output Total 400 / 400 2000 / 2000 200 / 200 Balance 740 / 740 -944.5 / -944.5 -200 / -200 Lab / Micro Data 11/19/22 06:20 11/19/22 06:20 Labs: Laboratory Results - last 24 hr 11/18/22 11:03: POC Glucose 138 H 11/18/22 12:15: Sodium 132 L, Potassium 5.2 H, Chloride 100, Carbon Dioxide 26.0, Anion Gap 6, BUN 22 H, Creatinine 1.06 H, Estim Creat Clear Calc 36.99, Est GFR (MDRD) Af Amer 67, Est GFR (MDRD) Non-Af 55 L, BUN/Creatinine Ratio 20.8 H, Glucose 136 H, Calcium 9.7 11/18/22 16:25: POC Glucose 144 H 11/18/22 21:24: POC Glucose 145 H 11/19/22 06:20: WBC 11.3 H, RBC 2.40 L, Hgb 7.8 L, Hct 25.4 L, MCV 105.8 H, MCH 32.5 H, MCHC 30.7 L, RDW Std Deviation 54.1 H, RDW Coeff of Tulio 14.0, Plt Count 177, MPV 10.9, Immature Gran % (Auto) 1.400 H, Neut % (Auto) 70.9 H, Lymph % (Auto) 14.6 L, [place] % (Auto) 10.3 H, Eos % (Auto) 2.6, Baso % (Auto) 0.2, Absolute Neuts (auto) 8.0 H, Absolute Lymphs (auto) 1.65, Nucleated RBC % 0, Sodium 133 L, Potassium 5.1, Chloride 101, Carbon Dioxide 31.0, Anion Gap 1 L, BUN 25 H, Creatinine 1.10 H, Estim Creat Clear Calc 35.65, Est GFR (MDRD) Af Amer 64, Est GFR (MDRD) Non-Af 53 L, BUN/Creatinine Ratio 22.7 H, Glucose 117 H, Calcium 9.7, Iron 26 L, TIBC 218 L, Iron Saturation 11.9 L, Ferritin 196, Folate 2.60 L 11/19/22 06:23: POC Glucose 118 H Physical Exam Narrative Splint intact right lower extremity neurovascular status intact to right lower extremity digits no sign DVT patient able to actively move digits nonoperatively Const alert and oriented x3 Assessment & Plan Assessment/Plan (1) Bimalleolar fracture of right ankle: PLAN: Exam performed Patient stable for discharge back to [facility] facility pending medical clearance Maintain nonweightbearing status right lower extremity Patient will follow-up with me in 1 week Dressing be changed in 1 week at follow-up appointment left intact while at the facility
--- NOTE | 2022-11-19 09:10 | WOUNDNOTE ---
Dr Pacheco had been in to see patient this am. Plans to leave surgical dressing in place until the first follow up appt in the office. dressing is D&I.
--- NOTE | 2022-11-19 11:02 | CASEMGMT ---
Social work [facility] is unable to accept pt. SW met with pt and updated. Pt's sister had told SW that second choice is [facility] and third choice is [facility]. SW inquired about this with pt and she is agreeable to referral to these facilities. Pt states if they cannot accept she will return to [facility]. DC payroll assistant to send referrals. JUVENTINO Payan
--- NOTE | 2022-11-19 11:12 | CASEMGMT ---
Discharge Planning Referral sent to [facility] via [facility]. Katey Pop, Discharge Planning Asst.
[2022-11-19 12:02] LABS: Bedside Glucose 102 mg/dL (74-106)
[2022-11-19 12:15] LABS: Vitamin B12 470 pg/mL (211-911); Vitamin D,25 Hydroxy 64.7 ng/mL
--- NOTE | 2022-11-19 14:10 | CASEMGMT ---
Social Work [facility] denied pt. SW met with pt and sister and updated. Pt and sister agreeable for pt to return to [facility]. DC sociology research assistant to send referral to [facility]. JUVENTINO Payan
--- NOTE | 2022-11-19 14:26 | CASEMGMT ---
Discharge Planning Referral sent to [facility] via [facility]. Katey Pop, Discharge Planning Asst.
[2022-11-19 14:30] VITALS: BP 139/64; PULSE 75; RESP 18; TEMP 36.6; O2SAT 93
--- NOTE | 2022-11-19 16:17 | CASEMGMT ---
Social Work SW spoke with [facility] and they have sent pt's bariatric bed and bipap back to [facility]. Pt is accepted back to [facility] but cannot be admitted until DME is obtained. DME has been ordered at this time and [facility] to call nursing unit once it is obtained. Plan: [facility], pending arrival of DME at facility JUVENTINO Payan
[2022-11-19] MEDS: Bisacodyl 5 MG Tablet PO (16:52)
[2022-11-19 17:05] LABS: Bedside Glucose 110 mg/dL (74-106)
[2022-11-19 20:30] VITALS: BP 131/46; PULSE 73; RESP 16; TEMP 36.9; O2SAT 95
[2022-11-19 21:04] LABS: Bedside Glucose 136 mg/dL (74-106)
[2022-11-20] VITALS (9 sets, daily range): BP systolic 133–169; BP diastolic 47–67; PULSE 65–73; RESP 16–20; TEMP 36.6–37.5; O2SAT 82–100
[2022-11-20] MEDS: oxyCODONE 5 MG Tablet 10 MG PO ×2 (04:32→11:32)
[2022-11-20] MEDS: 0.9% Saline Lock 10 ML Syringe IV ×2 (06:04→23:08)
[2022-11-20 06:17] LABS: Absolute Lymphocyte Count 1.24 X10^3/uL (0.83-4.51); Absolute Neutrophil Count 6.7 X10^3/uL (2.0-7.7); Basophil# 0.02 X10^3/uL; Basophil% 0.2 % (0-1); Eosinophil# 0.43 X10^3/uL; Eosinophils% 4.5 % (0-5); Hematocrit 24.3 % (37-47); Hemoglobin 7.5 g/dL (12.0-15.0); Lymphocyte # 1.24 X10^3/ul (0.83-4.51); Mean Corp Hgb Conc 30.9 g/dL (32-36); Mean Corpuscular Hgb 32.8 pg (27.0-32.0); Mean Corpuscular Volume 106.1 fL (81-99); Mean Platelet Vol. 10.7 fl (6.2-12.0); Monocyte# 0.98 X10^3/uL; Monocyte% 10.3 % (0-10); NRBC Flagged by Analyzer 0 % (0-5); Neutrophil # 6.71 X10^3/uL (2.7-7.7); Neutrophil % 70.4 % (47-70); Platelet Count 172 K/mm3 (150-450); RBC Distribution Width CV 14.4 % (11.6-14.6); RBC Distribution Width SD 55.8 fl (35.1-43.9); Red Blood Count 2.29 M/mm3 (4.2-5.4); White Blood Count 9.5 K/mm3 (4.4-11.0)
[2022-11-20] MEDS: Acetaminophen 500 MG Tablet 1000 MG PO ×3 (06:18→22:48)
[2022-11-20 06:38] LABS: Anion Gap 1 (5-15); BUN 27 mg/dL (7-18); BUN/Creat Ratio 26.5 RATIO (10-20); Calcium,Total 9.2 mg/dL (8.5-10.1); Chloride 103 mmol/L (98-107); Creatinine, Serum 1.02 mg/dL (0.55-1.02); EST Glomerular Filtration Rate 57 mL/min (>60); Est Glom Filt Rate - Afr Amer 70 mL/min (>60); Estimated Creatinine Clearance 38.44 ml/min; Glucose 118 mg/dL (74-106); Potassium 4.9 mmol/L (3.5-5.1); Sodium Level 134 mmol/L (136-145)
[2022-11-20 06:38] LABS: Bedside Glucose 116 mg/dL (74-106)
--- NOTE | 2022-11-20 07:47 | PCM.PN.HOSP ---
Reason for Visit Reason for Visit: Diagnoses Morbid (severe) obesity due to excess calories (11/15/22) Chronic pain syndrome (11/15/22) Unspecified atrial flutter (11/15/22) Peripheral vascular disease, unspecified (11/15/22) Displaced bimalleolar fracture of right lower leg, initial encounter for closed fracture (11/15/22) Displaced bimalleolar fracture of right lower leg, initial encounter for open fracture type I or II (11/15/22) Other fracture of right lower leg, initial encounter for open fracture type I or II (11/15/22) Body mass index [BMI] 70 or greater, adult (11/15/22) Objective Data Objective Data Vital Signs: Vital Signs Temp Pulse Resp BP Pulse Ox O2 Del Method O2 Flow Rate 98.6 F 65 16 133/47 H 100 Nasal Cannula 2 11/20/22 02:15 11/20/22 02:15 11/20/22 02:15 11/20/22 02:15 11/20/22 07:26 11/20/22 07:26 11/20/22 07:26 FiO2 21 11/16/22 22:08 Oxygen Flow Rate (L/min) 2 Oxygen Delivery Method Nasal Cannula Weight: 350 lb Body Mass Index (BMI) 68.3 Intake & Output: Intake and Output for Last 24 Hours 11/18/22 11/19/22 11/20/22 23:59 23:59 23:59 Intake Total 1055.5 / 1055.5 920 / 920 Output Total 1999 875 / 1525 1200 / 1200 Balance -944.5 / -944.5 45 / -605 -1200 / -1200 Lab / Micro Data 11/20/22 06:10 11/20/22 06:10 Labs: Laboratory Results - last 24 hr 11/19/22 06:20: Iron 26 L, TIBC 218 L, Iron Saturation 11.9 L, Ferritin 196, Folate 2.60 L 11/19/22 11:05: Vitamin B12 470, Vitamin D 25-Hydroxy 64.7 11/19/22 11:40: POC Glucose 102 11/19/22 16:40: POC Glucose 110 H 11/19/22 20:40: POC Glucose 136 H 11/20/22 05:57: POC Glucose 116 H 11/20/22 06:10: WBC 9.5, RBC 2.29 L, Hgb 7.5 L, Hct 24.3 L, MCV 106.1 H, MCH 32.8 H, MCHC 30.9 L, RDW Std Deviation 55.8 H, RDW Coeff of Tulio 14.4, Plt Count 172, MPV 10.7, Immature Gran % (Auto) 1.600 H, Neut % (Auto) 70.4 H, Lymph % (Auto) 13.0 L, [place] % (Auto) 10.3 H, Eos % (Auto) 4.5, Baso % (Auto) 0.2, Absolute Neuts (auto) 6.7, Absolute Lymphs (auto) 1.24, Nucleated RBC % 0, Sodium 134 L, Potassium 4.9, Chloride 103, Carbon Dioxide 30.0, Anion Gap 1 L, BUN 27 H, Creatinine 1.02, Estim Creat Clear Calc 38.44, Est GFR (MDRD) Af Amer 70, Est GFR (MDRD) Non-Af 57 L, BUN/Creatinine Ratio 26.5 H, Glucose 118 H, Calcium 9.2 Physical Exam Narrative Seen and examined. Patient complain of right ankle pain. Denies dysuria. Physical exam General: Alert, Oriented x3, Cooperative, morbid obesity BMI 68.4 kg/m? HEENT: Atraumatic, PERRLA, EOMI, Normocephalic Oral: Oral mucosa moist. No Gingival or Mucosal Lesions/ Ulcerations Neck: Supple, No JVD, Negative Carotid Bruits Lungs: Air entry diminished in bilateral lung bases. No crepitation/rhonchi Cardiovascular: Regular rate, Regular Rhythm, Normal S1, Normal S2, No murmurs Abdomen: Bowel Sounds Present, Soft, Non Tender, Non-Distended : No renal angle tenderness. No suprapubic tenderness. Extremities: No edema, Capillary Refill Less than 3 Seconds Skin: No rashes, No breakdown Musculoskeletal: Right ankle wrapped with Gentry wrap bandage. Right TKR. No Tenderness to Palpation of Joints or Extremities Neurological: Cranial nerves II-XII grossly intact, DTR 2+/4 Neuro grossly intact Psych/Mental Status: Flat affect. Assessment & Plan Assessment/Plan (1) Open fracture dislocation of right ankle: (2) Morbid obesity with BMI of 70 and over, adult: (3) PVD (peripheral vascular disease): PLAN: Plan #Hx open right ankle fracture for ORIF -ORIF R ankle surgery 1130am Wed -Pain control -SNF upon d/c 11/20: Patient had surgery on ORIF of right ankle on 11/17. External fixator was removed. Patient states he is excepted increased from clear but does not have bed yet. Continue PT and OT. Vitamin D 25-hydroxy 64. #Type 2 diabetes mellitus -Glucose checks and sliding scale insulin 11/20: Glucoses controlled, BG 118 in BMP. Glucose between 110-1 30. -11/16: Fairly well-controlled and may be under tighter control the necessary perioperatively, will decrease to low medium correction factor -11/19: Continues to maintain well-controlled glucose, continue current measures #Acute on chronic anemia secondary to surgical procedure -Baseline hemoglobin 10-11, postop was 9.1, today 7.8 however no overt blood loss/new blood loss noted -Operative note does note patient had significant bleeding at start of case but it resolved upon incision closure -MCV is high at 105.8 but has been chronically high -We will check B12 and folate as well as iron panel -Given no new overt active bleeding will resume Lovenox DVT prophylaxis as patient is high risk due to laying in bed and having minimal mobilization #CKD stage IIIb -Close to baseline, very slight uptick postsurgery, continue to monitor, received Lasix due to to her elevated potassium and refusal of other interventions -11/20: Creatinine 1.02. Close to baseline. Hold Lasix #Hyperkalemia?resolved -Gave calcium, patient adamantly refused Kayexalate as above, we no longer have the albuterol concentrated treatments for the albuterol nebs for the hyperkalemia protocol. Patient did get her a.m. insulin and will repeat BMP, potassium still high may need to give Lasix 11/20 hyperkalemia resolved #GERD -Continue PPI #hx aflutter -Hold eliquis -Cont amio and metoprolol 11/20 continue to hold Eliquis. Continue metoprolol. #Lymphedema -Continue lasix #Morbid obesity -BMI 158 kg/m? -Complicates treatment, prognosis, outcomes -Recommend weight loss and lifestyle changes #DVT ppx: Resume Lovenox subcu Charges/Coding Visit Charges Inpatient E&M: 57788 Subs Hosp L2
[2022-11-20] MEDS: Amiodarone 200 MG Tablet PO (08:16)
[2022-11-20] MEDS: Metoprolol(XL)Succ 50 MG Tablet PO (08:16)
[2022-11-20] MEDS: Baclofen 10 MG Tablet 20 MG PO ×2 (08:17→22:49)
[2022-11-20] MEDS: Furosemide 20 MG Tablet PO (08:17)
[2022-11-20] MEDS: Pantoprazole Sodium 20 MG Tablet PO (08:17)
[2022-11-20] MEDS: Enoxaparin 40 MG/0.4 ML Syringe SC ×2 (08:18→22:50)
[2022-11-20] MEDS: Folic Acid 1 MG Tablet PO (08:22)
[2022-11-20] MEDS: Bisacodyl 5 MG Tablet PO (08:22)
[2022-11-20] MEDS: Gabapentin 800 MG Tablet PO ×2 (08:22→22:48)
[2022-11-20] MEDS: Iron Polysaccharide Complex 150 MG CAPSULE PO (08:22)
--- NOTE | 2022-11-20 10:23 | PCM.PROGNOTE ---
Objective Data Objective Data Vital Signs: Vital Signs Temp Pulse Resp BP Pulse Ox O2 Del Method O2 Flow Rate 97.8 F 69 18 150/67 H 93 Room Air 2 11/20/22 08:25 11/20/22 08:25 11/20/22 08:25 11/20/22 08:25 11/20/22 08:25 11/20/22 08:25 11/20/22 07:26 FiO2 21 11/16/22 22:08 Oxygen Flow Rate (L/min) 2 Oxygen Delivery Method Room Air Weight: 158.757 kg Body Mass Index (BMI) 68.3 Intake & Output: Intake and Output for Last 24 Hours 11/18/22 11/19/22 11/20/22 23:59 23:59 23:59 Intake Total 1055.5 / 1055.5 920 / 920 Output Total 1999 875 / 1525 1200 / 1200 Balance -944.5 / -944.5 45 / -605 -1200 / -1200 Lab / Micro Data 11/20/22 06:10 11/20/22 06:10 Labs: Laboratory Results - last 24 hr 11/19/22 11:05: Vitamin B12 470, Vitamin D 25-Hydroxy 64.7 11/19/22 11:40: POC Glucose 102 11/19/22 16:40: POC Glucose 110 H 11/19/22 20:40: POC Glucose 136 H 11/20/22 05:57: POC Glucose 116 H 11/20/22 06:10: WBC 9.5, RBC 2.29 L, Hgb 7.5 L, Hct 24.3 L, MCV 106.1 H, MCH 32.8 H, MCHC 30.9 L, RDW Std Deviation 55.8 H, RDW Coeff of Tulio 14.4, Plt Count 172, MPV 10.7, Immature Gran % (Auto) 1.600 H, Neut % (Auto) 70.4 H, Lymph % (Auto) 13.0 L, [place] % (Auto) 10.3 H, Eos % (Auto) 4.5, Baso % (Auto) 0.2, Absolute Neuts (auto) 6.7, Absolute Lymphs (auto) 1.24, Nucleated RBC % 0, Sodium 134 L, Potassium 4.9, Chloride 103, Carbon Dioxide 30.0, Anion Gap 1 L, BUN 27 H, Creatinine 1.02, Estim Creat Clear Calc 38.44, Est GFR (MDRD) Af Amer 70, Est GFR (MDRD) Non-Af 57 L, BUN/Creatinine Ratio 26.5 H, Glucose 118 H, Calcium 9.2 Physical Exam Narrative Splint intact right lower extremity neurovascular status intact to right lower extremity digits no sign DVT patient able to actively move digits nonoperatively Const alert and oriented x3 Assessment & Plan Assessment/Plan (1) Bimalleolar fracture of right ankle: PLAN: Exam performed Patient stable for discharge back to longterm facility, facility awaiting specialty bed Maintain nonweightbearing status right lower extremity Patient will follow-up with me in 1 week Dressing be changed in 1 week at follow-up appointment left intact while at the facility Hospitalist on board medically managing, hyperkalemia resolved
[2022-11-20 11:46] LABS: Bedside Glucose 109 mg/dL (74-106)
[2022-11-20] MEDS: Menthol/Lanolin/Calamine/Znox 113 GM Tube 1 APPLIC TOPICAL ×2 (16:00→22:49)
[2022-11-20 17:06] LABS: Bedside Glucose 112 mg/dL (74-106)
[2022-11-21] VITALS (7 sets, daily range): BP systolic 145–157; BP diastolic 48–55; PULSE 60–73; RESP 18–20; TEMP 36.7–37.5; O2SAT 90–99
[2022-11-21 00:25] LABS: Bedside Glucose 138 mg/dL (74-106)
--- NOTE | 2022-11-21 03:17 | NURSING ---
Patient is at this time refusing to wear O2 NC when sleeping and removed her continuous pulse ox that was on as nursing measure. I feel like I am tied to bed.
[2022-11-21] MEDS: oxyCODONE 5 MG Tablet 10 MG PO ×2 (03:50→10:17)
[2022-11-21] MEDS: Acetaminophen 500 MG Tablet 1000 MG PO ×3 (04:59→21:11)
[2022-11-21 06:48] LABS: Bedside Glucose 134 mg/dL (74-106)
[2022-11-21 08:10] LABS: Anion Gap 6 (5-15); BUN 19 mg/dL (7-18); Calcium,Total 9.7 mg/dL (8.5-10.1); Chloride 105 mmol/L (98-107); Creatinine, Serum 0.86 mg/dL (0.55-1.02); EST Glomerular Filtration Rate 70 mL/min (>60); Est Glom Filt Rate - Afr Amer 84 mL/min (>60); Glucose 116 mg/dL (74-106); Potassium 4.2 mmol/L (3.5-5.1); Sodium Level 135 mmol/L (136-145)
[2022-11-21] MEDS: 0.9% Saline Lock 10 ML Syringe IV ×2 (08:33→21:14)
[2022-11-21 08:38] LABS: Absolute Lymphocyte Count 1.03 X10^3/uL (0.83-4.51); Absolute Neutrophil Count 6.8 X10^3/uL (2.0-7.7); Basophil# 0.03 X10^3/uL; Basophil% 0.3 % (0-1); Eosinophil# 0.33 X10^3/uL; Eosinophils% 3.6 % (0-5); Hematocrit 24.7 % (37-47); Hemoglobin 7.8 g/dL (12.0-15.0); Lymphocyte # 1.03 X10^3/ul (0.83-4.51); Lymphocyte % 11.2 % (19-41); Mean Corp Hgb Conc 31.6 g/dL (32-36); Mean Corpuscular Hgb 32.8 pg (27.0-32.0); Mean Corpuscular Volume 103.8 fL (81-99); Mean Platelet Vol. 10.7 fl (6.2-12.0); Monocyte# 0.85 X10^3/uL; Monocyte% 9.2 % (0-10); NRBC Flagged by Analyzer 0.2 % (0-5); Neutrophil # 6.81 X10^3/uL (2.7-7.7); Neutrophil % 74.2 % (47-70); Platelet Count 189 K/mm3 (150-450); RBC Distribution Width CV 14.4 % (11.6-14.6); RBC Distribution Width SD 53.7 fl (35.1-43.9); Red Blood Count 2.38 M/mm3 (4.2-5.4); White Blood Count 9.2 K/mm3 (4.4-11.0)
[2022-11-21] MEDS: Metoprolol(XL)Succ 50 MG Tablet PO (08:53)
[2022-11-21] MEDS: Pantoprazole Sodium 20 MG Tablet PO ×2 (08:54→14:09)
[2022-11-21] MEDS: Baclofen 10 MG Tablet 20 MG PO ×2 (08:54→21:12)
[2022-11-21] MEDS: Furosemide 20 MG Tablet PO (08:54)
[2022-11-21] MEDS: Atorvastatin Calcium 10 MG Tablet PO (08:54)
[2022-11-21] MEDS: Enoxaparin 40 MG/0.4 ML Syringe SC (08:54)
[2022-11-21] MEDS: Iron Polysaccharide Complex 150 MG CAPSULE PO (08:55)
[2022-11-21] MEDS: Folic Acid 1 MG Tablet PO (08:55)
[2022-11-21] MEDS: Amiodarone 200 MG Tablet PO (08:55)
[2022-11-21] MEDS: Gabapentin 800 MG Tablet PO ×2 (08:56→21:15)
[2022-11-21] MEDS: Bisacodyl 5 MG Tablet PO (08:57)
--- NOTE | 2022-11-21 10:29 | PN_ITS ---
Subjective Subjective No changes overnight Pain controlled at rest Compliant with nonweightbearing Denies constitutional symptoms Objective Data Objective Data Vital Signs: Vital Signs Temp Pulse Resp BP Pulse Ox O2 Del Method O2 Flow Rate 98.0 F 71 18 154/48 H 96 Room Air 2 11/21/22 08:47 11/21/22 08:53 11/21/22 08:47 11/21/22 08:47 11/21/22 08:47 11/21/22 08:47 11/21/22 02:09 FiO2 21 11/16/22 22:08 Oxygen Flow Rate (L/min) 2 Oxygen Delivery Method Room Air Weight: 158.757 kg Body Mass Index (BMI) 68.3 Intake & Output: Intake and Output for Last 24 Hours 11/19/22 11/20/22 11/21/22 23:59 23:59 23:59 Intake Total 920 / 920 Output Total 875 / 1525 2900 / 2900 850 / 850 Balance 45 / -605 -2900 / -2900 -850 / -850 Lab / Micro Data 11/21/22 08:27 11/21/22 07:20 Labs: Laboratory Results - last 24 hr 11/20/22 11:26: POC Glucose 109 H 11/20/22 16:46: POC Glucose 112 H 11/20/22 22:47: POC Glucose 138 H 11/21/22 05:12: POC Glucose 134 H 11/21/22 07:20: Sodium 135 L, Potassium 4.2, Chloride 105, Carbon Dioxide 24.0, Anion Gap 6, BUN 19 H, Creatinine 0.86, Estim Creat Clear Calc 45.60, Est GFR (MDRD) Af Amer 84, Est GFR (MDRD) Non-Af 70, BUN/Creatinine Ratio 22.0 H, Glucose 116 H, Calcium 9.7 11/21/22 08:27: WBC 9.2, RBC 2.38 L, Hgb 7.8 L, Hct 24.7 L, MCV 103.8 H, MCH 32.8 H, MCHC 31.6 L, RDW Std Deviation 53.7 H, RDW Coeff of Tulio 14.4, Plt Count 189, MPV 10.7, Immature Gran % (Auto) 1.500 H, Neut % (Auto) 74.2 H, Lymph % (Auto) 11.2 L, [place] % (Auto) 9.2, Eos % (Auto) 3.6, Baso % (Auto) 0.3, Absolute Neuts (auto) 6.8, Absolute Lymphs (auto) 1.03, Nucleated RBC % 0.2 Physical Exam Narrative Splint intact right lower extremity neurovascular status intact to right lower extremity digits no sign DVT patient able to actively move digits nonoperatively Const alert and oriented x3 Assessment & Plan Assessment/Plan (1) Bimalleolar fracture of right ankle: PLAN: Exam performed Patient stable for discharge back to [facility] facility, facility awaiting specialty bed Maintain nonweightbearing status right lower extremity Patient will follow-up with me in 1 week, patient has follow-up appointment scheduled Dressing be changed in 1 week at follow-up appointment left intact while at the facility Hospitalist on board medically managing, hyperkalemia resolved
[2022-11-21 11:47] LABS: Bedside Glucose 116 mg/dL (74-106)
--- NOTE | 2022-11-21 12:15 | PN.HOSP_ITS ---
Reason for Visit Reason for Visit: Diagnoses Morbid (severe) obesity due to excess calories (11/15/22) Chronic pain syndrome (11/15/22) Unspecified atrial flutter (11/15/22) Peripheral vascular disease, unspecified (11/15/22) Displaced bimalleolar fracture of right lower leg, initial encounter for closed fracture (11/15/22) Displaced bimalleolar fracture of right lower leg, initial encounter for open fracture type I or II (11/15/22) Other fracture of right lower leg, initial encounter for open fracture type I or II (11/15/22) Body mass index [BMI] 70 or greater, adult (11/15/22) Subjective Subjective Follow-up after ankle surgery for ankle fracture Objective Data Objective Data Vital Signs: Vital Signs Temp Pulse Resp BP Pulse Ox O2 Del Method O2 Flow Rate 98.0 F 71 18 154/48 H 96 Room Air 2 11/21/22 08:47 11/21/22 08:53 11/21/22 08:47 11/21/22 08:47 11/21/22 08:47 11/21/22 08:47 11/21/22 02:09 FiO2 21 11/16/22 22:08 Oxygen Flow Rate (L/min) 2 Oxygen Delivery Method Room Air Weight: 350 lb Body Mass Index (BMI) 68.3 Intake & Output: Intake and Output for Last 24 Hours 11/19/22 11/20/22 11/21/22 23:59 23:59 23:59 Intake Total 920 / 920 Output Total 875 / 1525 2900 / 2900 850 / 850 Balance 45 / -605 -2900 / -2900 -850 / -850 Lab / Micro Data 11/21/22 08:27 11/21/22 07:20 Labs: Laboratory Results - last 24 hr 11/20/22 16:46: POC Glucose 112 H 11/20/22 22:47: POC Glucose 138 H 11/21/22 05:12: POC Glucose 134 H 11/21/22 07:20: Sodium 135 L, Potassium 4.2, Chloride 105, Carbon Dioxide 24.0, Anion Gap 6, BUN 19 H, Creatinine 0.86, Estim Creat Clear Calc 45.60, Est GFR (MDRD) Af Amer 84, Est GFR (MDRD) Non-Af 70, BUN/Creatinine Ratio 22.0 H, Glucose 116 H, Calcium 9.7 11/21/22 08:27: WBC 9.2, RBC 2.38 L, Hgb 7.8 L, Hct 24.7 L, MCV 103.8 H, MCH 32.8 H, MCHC 31.6 L, RDW Std Deviation 53.7 H, RDW Coeff of Tulio 14.4, Plt Count 189, MPV 10.7, Immature Gran % (Auto) 1.500 H, Neut % (Auto) 74.2 H, Lymph % (Auto) 11.2 L, [place] % (Auto) 9.2, Eos % (Auto) 3.6, Baso % (Auto) 0.3, Absolute Neuts (auto) 6.8, Absolute Lymphs (auto) 1.03, Nucleated RBC % 0.2 11/21/22 11:28: POC Glucose 116 H Physical Exam Narrative Seen and examined. Patient complain of right ankle pain. Denies dysuria. Patient did not had bowel movement in last 2 days but passing flatus. She states he feels like she will have bowel movement Physical exam General: Alert, Oriented x3, Cooperative, morbid obesity BMI 68.4 kg/m? HEENT: Atraumatic, PERRLA, EOMI, Normocephalic Oral: Oral mucosa moist. No Gingival or Mucosal Lesions/ Ulcerations Neck: Supple, No JVD, Negative Carotid Bruits Lungs: Air entry diminished in bilateral lung bases. No crepitation/rhonchi Cardiovascular: Regular rate, Regular Rhythm, Normal S1, Normal S2, No murmurs Abdomen: Bowel Sounds Present, Soft, Non Tender, Non-Distended : No renal angle tenderness. No suprapubic tenderness. Extremities: No edema, Capillary Refill Less than 3 Seconds Skin: No rashes, No breakdown Musculoskeletal: Right ankle wrapped with Gentry wrap bandage. Right TKR. No Tenderness to Palpation of Joints or Extremities Neurological: Cranial nerves II-XII grossly intact, DTR 2+/4 Neuro grossly intact Psych/Mental Status: Flat affect. Assessment & Plan Assessment/Plan (1) Open fracture dislocation of right ankle: (2) Morbid obesity with BMI of 70 and over, adult: (3) PVD (peripheral vascular disease): PLAN: Plan #Hx open right ankle fracture for ORIF -ORIF R ankle surgery 1130am Wed -Pain control -SNF upon d/c 11/20: Patient had surgery on ORIF of right ankle on 11/17. External fixator was removed. Patient states he is excepted increased from clear but does not have bed yet. Continue PT and OT. Vitamin D 25-hydroxy 64. 11/21: No acute issues. Continue PT and OT and incentive spirometry. #Type 2 diabetes mellitus -Glucose checks and sliding scale insulin 11/20: Glucoses controlled, BG 118 in BMP. Glucose between 110-1 30. 11/21: Glucose is well controlled. #Acute on chronic anemia secondary to surgical procedure -Baseline hemoglobin 10-11, postop was 9.1, today 7.8 however no overt blood loss/new blood loss noted -Operative note does note patient had significant bleeding at start of case but it resolved upon incision closure -MCV is high at 105.8 but has been chronically high -We will check B12 and folate as well as iron panel -Given no new overt active bleeding will resume Lovenox DVT prophylaxis as patient is high risk due to laying in bed and having minimal mobilization #CKD stage IIIb -Close to baseline, very slight uptick postsurgery, continue to monitor, received Lasix due to to her elevated potassium and refusal of other interventions -11/20: Creatinine 1.02. Close to baseline. Hold Lasix Anemia of chronic disease probably exacerbated by anticoagulant: Hemoglobin usually stays between 8-9 but dropped to 7.8. Patient on enoxaparin 40 mill subcu twice daily which is discontinued. Started on home medication Eliquis 5 mg twice daily from tomorrow AM. #Hyperkalemia?resolved -Gave calcium, patient adamantly refused Kayexalate as above, we no longer have the albuterol concentrated treatments for the albuterol nebs for the hyperkalemia protocol. Patient did get her a.m. insulin and will repeat BMP, potassium still high may need to give Lasix 11/20 hyperkalemia resolved #GERD -Continue PPI #hx aflutter -Hold eliquis -Cont amio and metoprolol 11/20 continue to hold Eliquis. Continue metoprolol. 11/21: Eliquis resumed. #Lymphedema -Continue lasix #Morbid obesity -BMI 158 kg/m? -Complicates treatment, prognosis, outcomes -Recommend weight loss and lifestyle changes #DVT ppx: Resume Lovenox subcu Charges/Coding Visit Charges Inpatient E&M: 27068 Subs Hosp L2
[2022-11-21 17:02] LABS: Bedside Glucose 96 mg/dL (74-106)
[2022-11-21] MEDS: oxyCODONE 5 MG Tablet PO (20:47)
[2022-11-21] MEDS: MELATONIN 10 MG TABLET PO (21:12)
[2022-11-21 21:47] LABS: Bedside Glucose 147 mg/dL (74-106)
[2022-11-22 01:07] VITALS: BP 118/48; PULSE 73; RESP 20; TEMP 36.7; O2SAT 94
[2022-11-22] MEDS: oxyCODONE 5 MG Tablet PO ×2 (01:09→09:37)
[2022-11-22 05:23] LABS: Absolute Lymphocyte Count 1.18 X10^3/uL (0.83-4.51); Absolute Neutrophil Count 5.6 X10^3/uL (2.0-7.7); Basophil# 0.03 X10^3/uL; Basophil% 0.4 % (0-1); Eosinophil# 0.36 X10^3/uL; Eosinophils% 4.4 % (0-5); Hematocrit 24.5 % (37-47); Hemoglobin 7.5 g/dL (12.0-15.0); Lymphocyte # 1.18 X10^3/ul (0.83-4.51); Lymphocyte % 14.5 % (19-41); Mean Corp Hgb Conc 30.6 g/dL (32-36); Mean Corpuscular Hgb 31.9 pg (27.0-32.0); Mean Corpuscular Volume 104.3 fL (81-99); Mean Platelet Vol. 10.6 fl (6.2-12.0); Monocyte# 0.89 X10^3/uL; Monocyte% 10.9 % (0-10); NRBC Flagged by Analyzer 0.4 % (0-5); Neutrophil # 5.55 X10^3/uL (2.7-7.7); Platelet Count 207 K/mm3 (150-450); RBC Distribution Width CV 14.2 % (11.6-14.6); Red Blood Count 2.35 M/mm3 (4.2-5.4); White Blood Count 8.2 K/mm3 (4.4-11.0)
[2022-11-22 05:44] LABS: Anion Gap 3 (5-15); BUN 17 mg/dL (7-18); BUN/Creat Ratio 21.7 RATIO (10-20); Calcium,Total 9.5 mg/dL (8.5-10.1); Chloride 103 mmol/L (98-107); Creatinine, Serum 0.78 mg/dL (0.55-1.02); EST Glomerular Filtration Rate 78 mL/min (>60); Est Glom Filt Rate - Afr Amer 94 mL/min (>60); Estimated Creatinine Clearance 39.21 ml/min; Glucose 125 mg/dL (74-106); Potassium 4.2 mmol/L (3.5-5.1); Sodium Level 136 mmol/L (136-145)
[2022-11-22 06:27] VITALS: BP 154/51; PULSE 69; RESP 18; TEMP 36.7; O2SAT 94
[2022-11-22] MEDS: Acetaminophen 500 MG Tablet 1000 MG PO ×2 (06:30→14:34)
[2022-11-22] MEDS: 0.9% Saline Lock 10 ML Syringe IV ×2 (06:31→11:19)
[2022-11-22 08:13] VITALS: O2SAT 94
[2022-11-22] MEDS: Furosemide 20 MG Tablet PO (09:27)
[2022-11-22] MEDS: Folic Acid 1 MG Tablet PO (09:27)
[2022-11-22 09:28] VITALS: PULSE 69
[2022-11-22] MEDS: Amiodarone 200 MG Tablet PO (09:28)
[2022-11-22] MEDS: Metoprolol(XL)Succ 50 MG Tablet PO (09:28)
[2022-11-22] MEDS: Iron Polysaccharide Complex 150 MG CAPSULE PO (09:29)
[2022-11-22] MEDS: Menthol/Lanolin/Calamine/Znox 113 GM Tube 1 APPLIC TOPICAL (09:29)
[2022-11-22] MEDS: Baclofen 10 MG Tablet 20 MG PO (09:30)
[2022-11-22] MEDS: Gabapentin 800 MG Tablet PO (09:37)
[2022-11-22] MEDS: Pantoprazole Sodium 40 MG Tablet PO (09:38)
[2022-11-22] MEDS: Bisacodyl 5 MG Tablet PO (09:39)
[2022-11-22] MEDS: APIXABAN 5 MG TABLET PO (09:39)
--- NOTE | 2022-11-22 09:53 | WOUNDNOTE ---
Dressing remains D&I to the right lower leg. orders to leave dressing in place until follow up appt.
--- NOTE | 2022-11-22 10:59 | PCM.PN.HOSP ---
Reason for Visit Reason for Visit: Diagnoses Morbid (severe) obesity due to excess calories (11/15/22) Chronic pain syndrome (11/15/22) Unspecified atrial flutter (11/15/22) Peripheral vascular disease, unspecified (11/15/22) Displaced bimalleolar fracture of right lower leg, initial encounter for closed fracture (11/15/22) Displaced bimalleolar fracture of right lower leg, initial encounter for open fracture type I or II (11/15/22) Other fracture of right lower leg, initial encounter for open fracture type I or II (11/15/22) Body mass index [BMI] 70 or greater, adult (11/15/22) Subjective Subjective Follow-up for right ankle fracture status post ORIF. Objective Data Objective Data Vital Signs: Vital Signs Temp Pulse Resp BP Pulse Ox O2 Del Method O2 Flow Rate 98.1 F 69 18 154/51 H 94 Room Air 2 11/22/22 06:27 11/22/22 09:28 11/22/22 06:27 11/22/22 06:27 11/22/22 08:13 11/22/22 08:13 11/21/22 02:09 FiO2 21 11/16/22 22:08 Oxygen Flow Rate (L/min) 2 Oxygen Delivery Method Room Air Weight: 350 lb Body Mass Index (BMI) 68.3 Intake & Output: Intake and Output for Last 24 Hours 11/20/22 11/21/22 11/22/22 23:59 23:59 23:59 Intake Total 250 / 250 Output Total 2900 / 2900 1900 / 1900 250 / 250 Balance -2900 / -2900 -1650 / -1650 -250 / -250 Lab / Micro Data 11/22/22 05:15 11/22/22 05:15 Labs: Laboratory Results - last 24 hr 11/21/22 11:28: POC Glucose 116 H 11/21/22 16:45: POC Glucose 96 11/21/22 21:10: POC Glucose 147 H 11/22/22 05:15: WBC 8.2, RBC 2.35 L, Hgb 7.5 L, Hct 24.5 L, MCV 104.3 H, MCH 31.9, MCHC 30.6 L, RDW Std Deviation 54.0 H, RDW Coeff of Tulio 14.2, Plt Count 207, MPV 10.6, Immature Gran % (Auto) 1.800 H, Neut % (Auto) 68.0, Lymph % (Auto) 14.5 L, [place] % (Auto) 10.9 H, Eos % (Auto) 4.4, Baso % (Auto) 0.4, Absolute Neuts (auto) 5.6, Absolute Lymphs (auto) 1.18, Nucleated RBC % 0.4, Sodium 136, Potassium 4.2, Chloride 103, Carbon Dioxide 30.0, Anion Gap 3 L, BUN 17, Creatinine 0.78, Estim Creat Clear Calc 39.21, Est GFR (MDRD) Af Amer 94, Est GFR (MDRD) Non-Af 78, BUN/Creatinine Ratio 21.7 H, Glucose 125 H, Calcium 9.5 Physical Exam Narrative Seen and examined. Right ankle pain is controlled. Wants to go to rehab. Physical exam General: Alert, Oriented x3, Cooperative, morbid obesity BMI 68.4 kg/m? HEENT: Atraumatic, PERRLA, EOMI, Normocephalic Oral: Oral mucosa moist. No Gingival or Mucosal Lesions/ Ulcerations Neck: Supple, No JVD, Negative Carotid Bruits Lungs: Air entry diminished in bilateral lung bases. No crepitation/rhonchi Cardiovascular: Regular rate, Regular Rhythm, Normal S1, Normal S2, No murmurs Abdomen: Bowel Sounds Present, Soft, Non Tender, Non-Distended : No renal angle tenderness. No suprapubic tenderness. Extremities: Left arm midline. No edema, Capillary Refill Less than 3 Seconds Skin: No rashes, No breakdown Musculoskeletal: Right ankle wrapped with Gentry wrap bandage. Right TKR. No Tenderness to Palpation of Joints or Extremities Neurological: Cranial nerves II-XII grossly intact, DTR 2+/4 Neuro grossly intact Psych/Mental Status: Flat affect. Assessment & Plan Assessment/Plan (1) Open fracture dislocation of right ankle: (2) Morbid obesity with BMI of 70 and over, adult: (3) PVD (peripheral vascular disease): PLAN: Plan #Hx open right ankle fracture for ORIF -ORIF R ankle surgery 1130am Wed -Pain control -SNF upon d/c 11/20: Patient had surgery on ORIF of right ankle on 11/17. External fixator was removed. Patient states he is excepted increased from clear but does not have bed yet. Continue PT and OT. Vitamin D 25-hydroxy 64. 11/21: No acute issues. Continue PT and OT and incentive spirometry. 11/22: Patient going to subacute rehab. Left arm midline. Okay to remove it. #Type 2 diabetes mellitus -Glucose checks and sliding scale insulin 11/20: Glucoses controlled, BG 118 in BMP. Glucose between 110-1 30. 11/21: Glucose is well controlled. 11/22: Glucoses controlled. 96 to 125 mg/dL #Acute on chronic anemia secondary to surgical procedure -Baseline hemoglobin 10-11, postop was 9.1, today 7.8 however no overt blood loss/new blood loss noted -Operative note does note patient had significant bleeding at start of case but it resolved upon incision closure -MCV is high at 105.8 but has been chronically high -We will check B12 and folate as well as iron panel -Given no new overt active bleeding will resume Lovenox DVT prophylaxis as patient is high risk due to laying in bed and having minimal mobilization 11/22: Hemoglobin is 7.5, MCV 104.3. Macrocytic anemia. 250 mg IV iron ordered. Continue oral ferrous sulfate, vitamin C and folic acid. #CKD stage IIIb -Close to baseline, very slight uptick postsurgery, continue to monitor, received Lasix due to to her elevated potassium and refusal of other interventions -11/20: Creatinine 1.02. Close to baseline. Hold Lasix Anemia of chronic disease probably exacerbated by anticoagulant: Hemoglobin usually stays between 8-9 but dropped to 7.8. Patient on enoxaparin 40 mill subcu twice daily which is discontinued. Started on home medication Eliquis 5 mg twice daily from tomorrow AM. #Hyperkalemia?resolved -Gave calcium, patient adamantly refused Kayexalate as above, we no longer have the albuterol concentrated treatments for the albuterol nebs for the hyperkalemia protocol. Patient did get her a.m. insulin and will repeat BMP, potassium still high may need to give Lasix 11/20 hyperkalemia resolved #GERD -Continue PPI #hx aflutter -Hold eliquis -Cont amio and metoprolol 11/20 continue to hold Eliquis. Continue metoprolol. 11/21: Eliquis resumed. #Lymphedema -Continue lasix #Morbid obesity -BMI 158 kg/m? -Complicates treatment, prognosis, outcomes -Recommend weight loss and lifestyle changes #DVT ppx: Resume Lovenox subcu Discharge meds reconciliation done. Patient is being discharged to SNF by podiatry service who is admitting provider. Charges/Coding Visit Charges Inpatient E&M: 88246 Subs Hosp L2
[2022-11-22 11:30] VITALS: BP 147/52; PULSE 67; RESP 18; TEMP 36.7; O2SAT 94
[2022-11-22 11:56] LABS: Bedside Glucose 125 mg/dL (74-106)
--- NOTE | 2022-11-22 12:14 | PCM.TXEXTCAR ---
Diet Diet Order/Speech Therapy: 11/17/22 17:23 Diet: Carbohydrate Controlled Is pt able to select menu?: Yes Routine Orders/Code Status Routine Lab Work: CBC and BMP Code Status: Full Code Wound(s) right lower leg: Wound Type: Surgical Incision Dressing Change: xeroform gauze Left lateral buttocks-scratch: Wound Type: scratch Dressing Change: none Therapies Weight Bearing: Non weight bearing (right) Extremity Affected:: Right Lower Physical Therapy: Eval and Treat Occupational Therapy: Eval and Treat Problem/Diagnosis (1) Open fracture dislocation of right ankle: Status: Acute Code(s): S82.891B - Other fracture of right lower leg, initial encounter for open fracture type I or II Plan: s/p ORIF Right Ankle splint intact until follow up (2) Morbid obesity with BMI of 70 and over, adult: Status: Inactive Code(s): E66.01 - Morbid (severe) obesity due to excess calories; Z68.45 - Body mass index [BMI] 70 or greater, adult (3) PVD (peripheral vascular disease): Status: Inactive Code(s): I73.9 - Peripheral vascular disease, unspecified (4) Bimalleolar fracture of right ankle: Status: Acute Code(s): S82.841A - Displaced bimalleolar fracture of right lower leg, initial encounter for closed fracture Allergies/Procedures Done in Hospital Allergies tobramycin Allergy (Verified 10/22/22 10:50) PT UNSURE OF REACTION Type of Care/Length of Stay Estimated LOS: More Than 30 Days Type of Care Needed: Skilled Rehab Potential: Good Prognosis: Fair Additional Orders/Day of Discharge Day of Discharge: 11/22/22 Dietary and Speech Recommendations Dietitian Recommendations/Changes: Continue 1800 CCD diet to manage medical conditions. Follow Up Care Please Follow Up With: Jayme Pacheco DPM When: 1-2 weeks Discharge Plan Admission Admit Date/Time: 11/15/22 12:37 Attending Provider: Jayme Pacheco Primary Care Provider: Alyas Whitt Consulting Providers: Franklin [place] Instructions Additional Instructions / Restrictions: Keep dressing clean dry and intact right lower extremity maintain non-weightbearin on right follow up with Dr. Pacheco in 1 week, call for appointment Discharge Orders/Prescriptions Prescriptions: New ferrous sulfate [Feosol] 325 mg (65 mg iron) tablet 325 mg PO DAILY Qty: 30 2RF ascorbic acid (vitamin C) 500 mg tablet 500 mg PO BID Qty: 60 2RF folic acid 1 mg tablet 1 mg PO DAILY Qty: 30 2RF morphine 15 mg tablet extended release 7.5 mg PO Q4H PRN PRN (Reason: pain (scale score 7-10)) 7 Days Qty: 42 0RF Continued amiodarone 200 mg tablet 200 mg PO DAILY Qty: 90 3RF metoprolol succinate 50 MG tablet extended release 24 hr 50 mg PO DAILY lisinopril 20 MG tablet 20 mg PO DAILY cyanocobalamin-cobamamide 5,000-100 mcg tablet, sublingual 1 tab sublingual QODAY ergocalciferol (vitamin D2) 1,250 mcg (50,000 unit) capsule 50,000 unit PO Q2W Rx Instructions: twice a week pioglitazone 30 mg tablet 30 mg PO DAILY Patient Comments: take 1 tablet by mouth once daily rosuvastatin 5 mg tablet 5 mg PO QODAY Patient Comments: take 1 tablet by mouth every other day furosemide [Lasix] 20 mg Tablet 20 mg PO DAILY Eliquis 5 mg Tablet 5 mg PO BID Qty: 30 2RF melatonin 10 mg Tablet 10 mg PO QHS PRN (Reason: Sleep) acetaminophen 500 mg Tablet 1,000 mg PO Q8 Qty: 0 0RF insulin lispro [Humalog KwikPen Insulin] 100 unit/mL Insulin Pen See Protocol subcut ACHS Qty: 0 0RF Protocol: 4. Sliding Scale Insulin High-Med Dosing Condition: 150-199 mg/dl = 2 units Condition: 200-259 mg/dl = 4 units Condition: 260-324 mg/dl = 6 units Condition: 325-374 mg/dl = 8 units Condition: 375-409 mg/dl = 10 units Condition: 410-449 mg/dl = 11 units Condition: Greater than 449 call physician Protocol Text: - Use for Total Daily Dose of Insulin 56-80 units - Patient who are insulin resistant or septic HIGH MEDIUM DOSING ALGORITHM lidocaine 5 % Adhesive Patch,Medicated 1 patch topical DAILY Qty: 0 0RF Protocol: *Topical Application Instructions APPLICATION INSTRUCTIONS: above right ankle. ibuprofen 600 mg Tablet 600 mg PO Q6H PRN PRN (Reason: Pain Score 1-10) Qty: 0 0RF sennosides-docusate sodium [Stool Softener-Stimulant Laxat] 8.6-50 mg Tablet 2 tab PO BID PRN PRN (Reason: Constipation) Qty: 0 0RF nystatin [Nyamyc] 100,000 unit/gram Powder 1 applic topical BID Qty: 0 0RF Protocol: *Topical Application Instructions APPLICATION INSTRUCTIONS: under breasts Remove Patch 1 patch topical DAILY@2200 Qty: 0 0RF baclofen 20 MG tablet 20 mg PO Q12H Qty: 7 0RF Rx Instructions: hold for confusion/somnolence. gabapentin 800 MG tablet 750 mg PO BID Qty: 7 0RF Rx Instructions: hold for confusion/somnolence. oxycodone-acetaminophen 5-325 mg tablet 1 tab PO Q6H PRN (Reason: pain) Patient Comments: Take 1 tablet by mouth every six hours as needed for pain Changed omeprazole 20 MG capsule 40 mg PO DAILY Qty: 60 0RF Discontinued morphine 15 mg Tablet 7.5 mg PO Q4H PRN PRN (Reason: Pain Score 6-10) 3 Days Qty: 12 0RF Referrals / Follow Up: Jayme Pacheco DPM [Med Staff - Active Staff] - Alysa Whitt [employer] [Primary Care Provider] - Disposition Disposition (needs filled in before D/C Order can be placed): [facility]
[2022-11-22 12:30] LABS: Pathologist Review Reviewed
--- NOTE | 2022-11-22 12:40 | DS.PCM_ITS ---
Providers Date of Admission: 11/15/22 Primary Care Physician: GIOVANI Alvarado Consultations 11/15/22 12:44 Consult: Hospitalist Routine Consulting Provider: Evelin Castillo Reason for Consult: medical clearance/management for surgery EMERGENT Consult: No MD Notified: Yes Date Notified: 11/15/22 Time Notified: 12:45 Method of Notification: phone 11/15/22 12:45 Consult: Onc/Wound/patient admitting clerk Routine Comment: Reason For Visit: OPEN R ANKLE FRACTURE Diagnosis Discharge Diagnosis (1) Open fracture dislocation of right ankle: Status: Acute Code(s): S82.891B - Other fracture of right lower leg, initial encounter for open fracture type I or II Plan: s/p ORIF Right Ankle splint intact until follow up (2) Morbid obesity with BMI of 70 and over, adult: Status: Inactive Code(s): E66.01 - Morbid (severe) obesity due to excess calories; Z68.45 - Body mass index [BMI] 70 or greater, adult (3) PVD (peripheral vascular disease): Status: Inactive Code(s): I73.9 - Peripheral vascular disease, unspecified Medications at Discharge Home Medications lisinopril 20 mg tablet 20 mg PO DAILY Check with primary doctor 12/26/19 metoprolol succinate 50 mg tablet,extended release 24 hr 50 mg PO DAILY Check with primary doctor 12/26/19 furosemide 20 mg tablet (Lasix) 20 mg PO DAILY Check with primary doctor 07/20/22 pioglitazone 30 mg tablet 30 mg PO DAILY Check with primary doctor 07/20/22 rosuvastatin 5 mg tablet 5 mg PO QODAY Check with primary doctor 07/20/22 apixaban 5 mg tablet (Eliquis) 5 mg PO BID #30 tabs 07/25/22 amiodarone 200 mg tablet 200 mg PO DAILY #90 tabs 08/20/22 cyanocobalamin (B12)-cobamamide 5,000 mcg-100 mcg sublingual tablet 1 tab sublingual QODAY Check with primary doctor 08/20/22 ergocalciferol (vitamin D2) 1,250 mcg (50,000 unit) capsule 50,000 unit PO Q2W Check with primary doctor 08/20/22 Remove Patch 1 patch topical DAILY@2200 ##0 10/29/22 acetaminophen 500 mg tablet 1,000 mg (2 x 500 mg) PO Q8 #0 tabs 10/29/22 baclofen 20 mg tablet 20 mg PO Q12H Check with primary doctor #7 tabs 10/29/22 gabapentin 800 mg tablet 750 mg (0.9375 x 800 mg) PO BID Check with primary doctor #7 tabs 10/29/22 ibuprofen 600 mg tablet 600 mg PO Q6H PRN PRN Pain Score 1-10 #0 tabs 10/29/22 insulin lispro 100 unit/mL subcutaneous pen (Humalog KwikPen (U-100) Insulin) See Protocol subcut ACHS #0 mL 10/29/22 lidocaine 5 % topical patch 1 patch topical DAILY #0 ea 10/29/22 melatonin 10 mg tablet 10 mg PO QHS PRN Sleep 10/29/22 nystatin 100,000 unit/gram topical powder (Nyamyc) 1 applic topical BID #0 grams 10/29/22 sennosides 8.6 mg-docusate sodium 50 mg tablet (Stool Softener-Stimulant Lax ative) 2 tab PO BID PRN PRN Constipation #0 tabs 10/29/22 oxycodone-acetaminophen 5 mg-325 mg tablet 1 tab PO Q6H PRN pain 11/15/22 ascorbic acid (vitamin C) 500 mg tablet 500 mg PO BID #60 tabs 11/22/22 ferrous sulfate 325 mg (65 mg iron) tablet (Feosol) 325 mg PO DAILY #30 tabs 11/22/22 folic acid 1 mg tablet 1 mg PO DAILY #30 tabs 11/22/22 morphine 15 mg tablet,extended release 7.5 mg (1/2 x 15 mg) PO Q4H PRN PRN pain (scale score 7-10) 7 days #42 tabs 11/22/22 omeprazole 20 mg capsule,delayed release 40 mg (2 x 20 mg) PO DAILY Check with primary doctor #60 caps 11/22/22 Physical Exam Narrative Splint intact right lower extremity neurovascular status intact to right lower extremity digits no sign DVT patient able to actively move digits nonoperatively Const alert and oriented x3 Weight / BMI Weight Weight: 158.757 kg Body Mass Index (BMI) 68.3 ABG / Lab / Microbiology Data 11/22/22 05:15 11/22/22 05:15 Laboratory: Laboratory Results - last 24 hr 11/18/22 06:15: Diff Path Review Reviewed 11/21/22 16:45: POC Glucose 96 11/21/22 21:10: POC Glucose 147 H 11/22/22 05:15: WBC 8.2, RBC 2.35 L, Hgb 7.5 L, Hct 24.5 L, MCV 104.3 H, MCH 31.9, MCHC 30.6 L, RDW Std Deviation 54.0 H, RDW Coeff of Tulio 14.2, Plt Count 207, MPV 10.6, Immature Gran % (Auto) 1.800 H, Neut % (Auto) 68.0, Lymph % (Auto) 14.5 L, [place] % (Auto) 10.9 H, Eos % (Auto) 4.4, Baso % (Auto) 0.4, Absolute Neuts (auto) 5.6, Absolute Lymphs (auto) 1.18, Nucleated RBC % 0.4, Sodium 136, Potassium 4.2, Chloride 103, Carbon Dioxide 30.0, Anion Gap 3 L, BUN 17, Creatinine 0.78, Estim Creat Clear Calc 39.21, Est GFR (MDRD) Af Amer 94, Est GFR (MDRD) Non-Af 78, BUN/Creatinine Ratio 21.7 H, Glucose 125 H, Calcium 9.5 11/22/22 11:24: POC Glucose 125 H Meaningful Use Info Meaningful Use Diagnoses (Choose all that apply): None applicable Discharge Plan Admission Admit Date/Time: 11/15/22 12:37 Attending Provider: Jayme Pacheco Primary Care Provider: Alysa Whitt Consulting Providers: Franklin Orona Instructions Additional Instructions / Restrictions: Keep dressing clean dry and intact right lower extremity maintain non-weightbearin on right follow up with Dr. Pacheco in 1 week, call for appointment Discharge Orders/Prescriptions Prescriptions: New ferrous sulfate [Feosol] 325 mg (65 mg iron) tablet 325 mg PO DAILY Qty: 30 2RF ascorbic acid (vitamin C) 500 mg tablet 500 mg PO BID Qty: 60 2RF folic acid 1 mg tablet 1 mg PO DAILY Qty: 30 2RF morphine 15 mg tablet extended release 7.5 mg PO Q4H PRN PRN (Reason: pain (scale score 7-10)) 7 Days Qty: 42 0RF Continued amiodarone 200 mg tablet 200 mg PO DAILY Qty: 90 3RF metoprolol succinate 50 MG tablet extended release 24 hr 50 mg PO DAILY lisinopril 20 MG tablet 20 mg PO DAILY cyanocobalamin-cobamamide 5,000-100 mcg tablet, sublingual 1 tab sublingual QODAY ergocalciferol (vitamin D2) 1,250 mcg (50,000 unit) capsule 50,000 unit PO Q2W Rx Instructions: twice a week pioglitazone 30 mg tablet 30 mg PO DAILY Patient Comments: take 1 tablet by mouth once daily rosuvastatin 5 mg tablet 5 mg PO QODAY Patient Comments: take 1 tablet by mouth every other day furosemide [Lasix] 20 mg Tablet 20 mg PO DAILY Eliquis 5 mg Tablet 5 mg PO BID Qty: 30 2RF melatonin 10 mg Tablet 10 mg PO QHS PRN (Reason: Sleep) acetaminophen 500 mg Tablet 1,000 mg PO Q8 Qty: 0 0RF insulin lispro [Humalog KwikPen Insulin] 100 unit/mL Insulin Pen See Protocol subcut ACHS Qty: 0 0RF Protocol: 4. Sliding Scale Insulin High-Med Dosing Condition: 150-199 mg/dl = 2 units Condition: 200-259 mg/dl = 4 units Condition: 260-324 mg/dl = 6 units Condition: 325-374 mg/dl = 8 units Condition: 375-409 mg/dl = 10 units Condition: 410-449 mg/dl = 11 units Condition: Greater than 449 call physician Protocol Text: - Use for Total Daily Dose of Insulin 56-80 units - Patient who are insulin resistant or septic HIGH MEDIUM DOSING ALGORITHM lidocaine 5 % Adhesive Patch,Medicated 1 patch topical DAILY Qty: 0 0RF Protocol: *Topical Application Instructions APPLICATION INSTRUCTIONS: above right ankle. ibuprofen 600 mg Tablet 600 mg PO Q6H PRN PRN (Reason: Pain Score 1-10) Qty: 0 0RF sennosides-docusate sodium [Stool Softener-Stimulant Laxat] 8.6-50 mg Tablet 2 tab PO BID PRN PRN (Reason: Constipation) Qty: 0 0RF nystatin [Nyamyc] 100,000 unit/gram Powder 1 applic topical BID Qty: 0 0RF Protocol: *Topical Application Instructions APPLICATION INSTRUCTIONS: under breasts Remove Patch 1 patch topical DAILY@2200 Qty: 0 0RF baclofen 20 MG tablet 20 mg PO Q12H Qty: 7 0RF Rx Instructions: hold for confusion/somnolence. gabapentin 800 MG tablet 750 mg PO BID Qty: 7 0RF Rx Instructions: hold for confusion/somnolence. oxycodone-acetaminophen 5-325 mg tablet 1 tab PO Q6H PRN (Reason: pain) Patient Comments: Take 1 tablet by mouth every six hours as needed for pain Changed omeprazole 20 MG capsule 40 mg PO DAILY Qty: 60 0RF Discontinued morphine 15 mg Tablet 7.5 mg PO Q4H PRN PRN (Reason: Pain Score 6-10) 3 Days Qty: 12 0RF Referrals / Follow Up: Jayme Pacheco DPM [Med Staff - Active Staff] - Alysa Whitt NP-C [Primary Care Provider] - Disposition Disposition (needs filled in before D/C Order can be placed): [facility] Facility
--- NOTE | 2022-11-22 13:22 | CASEMGMT ---
Social Work Pt is ready to return to [facility] today, SW reached out to [facility] earlier today and they have all needed DME for pt. Physician completed the discharge instructions. MIGUEL set up a 3pm ambulance w/Physicians. SW let pt, pt's sister, RN know time of transport. All discharge instructions sent via [facility] to [facility], SW let [facility] know pickup time as well. Pt to [facility] of [facility], today. FIDEL Underwood
--- NOTE | 2022-11-22 14:07 | PHA.DC.MR.R ---
Pharmacy [place] Med Reconciliation Pharmacy Service has performed discharge medication reconciliation for this patient. The patient's discharge medication list was reviewed for discrepancies and discrepancies were resolved. Medications at Discharge Home Medications lisinopril 20 mg tablet 20 mg PO DAILY Check with primary doctor 12/26/19 metoprolol succinate 50 mg tablet,extended release 24 hr 50 mg PO DAILY Check with primary doctor 12/26/19 furosemide 20 mg tablet (Lasix) 20 mg PO DAILY Check with primary doctor 07/20/22 pioglitazone 30 mg tablet 30 mg PO DAILY Check with primary doctor 07/20/22 rosuvastatin 5 mg tablet 5 mg PO QODAY Check with primary doctor 07/20/22 apixaban 5 mg tablet (Eliquis) 5 mg PO BID #30 tabs 07/25/22 amiodarone 200 mg tablet 200 mg PO DAILY #90 tabs 08/20/22 cyanocobalamin (B12)-cobamamide 5,000 mcg-100 mcg sublingual tablet 1 tab sublingual QODAY Check with primary doctor 08/20/22 ergocalciferol (vitamin D2) 1,250 mcg (50,000 unit) capsule 50,000 unit PO Q2W Check with primary doctor 08/20/22 Remove Patch 1 patch topical DAILY@2200 ##0 10/29/22 acetaminophen 500 mg tablet 1,000 mg (2 x 500 mg) PO Q8 #0 tabs 10/29/22 baclofen 20 mg tablet 20 mg PO Q12H Check with primary doctor #7 tabs 10/29/22 gabapentin 800 mg tablet 750 mg (0.9375 x 800 mg) PO BID Check with primary doctor #7 tabs 10/29/22 ibuprofen 600 mg tablet 600 mg PO Q6H PRN PRN Pain Score 1-10 #0 tabs 10/29/22 insulin lispro 100 unit/mL subcutaneous pen (Humalog KwikPen (U-100) Insulin) See Protocol subcut ACHS #0 mL 10/29/22 lidocaine 5 % topical patch 1 patch topical DAILY #0 ea 10/29/22 melatonin 10 mg tablet 10 mg PO QHS PRN Sleep 10/29/22 nystatin 100,000 unit/gram topical powder (Nyamyc) 1 applic topical BID #0 grams 10/29/22 sennosides 8.6 mg-docusate sodium 50 mg tablet (Stool Softener-Stimulant Laxative) 2 tab PO BID PRN PRN Constipation #0 tabs 10/29/22 oxycodone-acetaminophen 5 mg-325 mg tablet 1 tab PO Q6H PRN pain 11/15/22 ascorbic acid (vitamin C) 500 mg tablet 500 mg PO BID #60 tabs 11/22/22 ferrous sulfate 325 mg (65 mg iron) tablet (Feosol) 325 mg PO DAILY #30 tabs 11/22/22 folic acid 1 mg tablet 1 mg PO DAILY #30 tabs 11/22/22 morphine 15 mg tablet,extended release 7.5 mg (1/2 x 15 mg) PO Q4H PRN PRN pain (scale score 7-10) 7 days #42 tabs 11/22/22 omeprazole 20 mg capsule,delayed release 40 mg (2 x 20 mg) PO DAILY Check with primary doctor #60 caps 11/22/22
[2022-11-22] MEDS: oxyCODONE 5 MG Tablet 10 MG PO (14:34)
[2022-11-22 14:45] VITALS: BP 151/56; PULSE 69; RESP 18; TEMP 36.7; O2SAT 94
== END 2022-11-22 15:06 | disposition skilled nursing facility (03) | DRG 493 ==
PROVIDERS: Internal Medicine; Admitting Provider Podiatrist; PCP Nurse Practitioner Family; Referring Provider Podiatrist; Visit Provider Podiatrist
PROC: 0QSG04Z Reposition Right Tibia with Internal Fixation Device, Open Approach (ICD-10-PCS; principal; 2022-11-17 11:10)
DX: S82.841B Displaced bimalleolar fracture of right lower leg, initial encounter for open fracture type I or II (principal); Z68.45 Body mass index [BMI] 70 or greater, adult; D62 Acute posthemorrhagic anemia; I48.92 Unspecified atrial flutter; E11.22 Type 2 diabetes mellitus with diabetic chronic kidney disease; E66.01 Morbid (severe) obesity due to excess calories; Z79.4 Long term (current) use of insulin; N18.32 Chronic kidney disease, stage 3b; I12.9 Hypertensive chronic kidney disease with stage 1 through stage 4 chronic kidney disease, or unspecified chronic kidney disease; K21.9 Gastro-esophageal reflux disease without esophagitis; E78.5 Hyperlipidemia, unspecified; I89.0 Lymphedema, not elsewhere classified; E87.5 Hyperkalemia; G89.4 Chronic pain syndrome; Z79.01 Long term (current) use of anticoagulants; Z79.899 Other long term (current) drug therapy
CPT/HCPCS: 36415; 73600; 73610; 76000; 80048; 80053; 82306; 82607; 82728; 82746; 82962; 83540; 83550; 83735; 85025; 85610; 94668; 94762; 97110; 97162; 97166; 97530; 97535; C1713; J7050; J7120; A4216; J0612; J1940; J2405; J2916

== ENCOUNTER 2022-12-31 12:37 | Emergency (ER) | payer MEDICARE, OTHER, SELFPAY ==
[2022-12-31 12:38] VITALS: BP 154/120; PULSE 56; RESP 18; TEMP 37; O2SAT 99; BMI 76.1
[2022-12-31 12:52] VITALS: O2SAT 97
--- NOTE | 2022-12-31 13:11 | RAD_ITS ---
STUDY: X-RAY CHEST REASON FOR EXAM: Female, 67 years old. Dyspnea -- -- PT C/O SOB X 4 DAYS -- STATES and quot;SHE FEELS OFF and quot; SINCE KEFLEX STARTING TUESDAY TECHNIQUE: AP and lateral views of the chest. COMPARISON: Comparison is made with prior study dated October 22, 2022. FINDINGS: EKG electrodes are seen. Mild degree of vascular congestion. There is no demonstrated pleural abnormality. There is mild cardiac enlargement. Normal mediastinum and litzy. Normal visualized pulmonary arteries. Normal visualized aortic arch and descending thoracic aorta. There are diffuse degenerative changes of the visualized thoracic spine. Degenerative changes of the right shoulder joint. There is no demonstrated abnormality of the visualized soft tissue structures of the upper abdomen. RAD/Chest PA and Lateral IMPRESSION: Cardiomegaly and mild degree of vascular congestion. Electronically Signed: David Nicole MD at 13:34 EDT ,
--- NOTE | 2022-12-31 13:13 | EKG12_ITS ---
Test Reason : sob Blood Pressure : / mmHG Vent. Rate : 050 BPM Atrial Rate : 050 BPM P-R Int : 240 ms QRS Dur : 150 ms QT Int : 496 ms P-R-T Axes : 043 -36 -09 degrees QTc Int : 452 ms Sinus bradycardia with 1st degree A-V block with Premature supraventricular complexes and Fusion comp lexes Left axis deviation Right bundle branch block Abnormal ECG Confirmed by CHANEL OLIVAS ([id number]), editor publications [employer] ([id number]) on 01/03/2023 2:12:53 PM Referred By: Confirmed By:CHANEL OLIVAS
--- NOTE | 2022-12-31 13:13 | ED.VIS.DYS ---
HPI <ANGELINA Giron - Last Filed: 12/31/22 15:52> History of Present Illness Chief Complaint: Shortness of Breath Narrative Narrative: 67-year-old female with PMH of A-fib, morbid obesity, lymphedema presents with about 5 days of shortness of breath. She fractured her right ankle in October and is nonweightbearing and staying at a rehab. She has a right ankle cast on from Dr. Pacheco. She started to feel intermittently short of breath in bed over the last couple days and her lymphedema is worse with clear weeping. Rehab staff placed her on 2 L O2 for comfort as needed over the last week but she does not typically wear oxygen. Patient states she is supposed to have a CPAP but did not go to the appointment and then it was delayed due to the ankle injury. She denies fever, chills, cough, or chest pain. She states they did blood work at the facility yesterday which showed her hemoglobin was in the 9 range which is up from surgery when it was 7. PFSH <ANGELINA Giron - Last Filed: 12/31/22 15:52> [facility] Medical History Atrial flutter Chronic pain syndrome Diabetes mellitus Diabetes mellitus, type 2 GERD (gastroesophageal reflux disease) History of gastric ulcer HLD (hyperlipidemia) HLD (hyperlipidemia) HTN (hypertension) HTN (hypertension) Hypercapnic respiratory failure Lymphedema Lymphedema Morbid obesity with BMI of 45.0-49.9, adult Morbid obesity with BMI of 70 and over, adult PAD (peripheral artery disease) PVD (peripheral vascular disease) PVD (peripheral vascular disease) Home Medications lisinopril 20 mg tablet 20 mg PO DAILY Check with primary doctor 12/26/19 [History Last Taken 11/15/22 06:00] metoprolol succinate 50 mg tablet,extended release 24 hr 50 mg PO DAILY Check with primary doctor 12/26/19 [History Last Taken 11/15/22 06:00] furosemide 20 mg tablet (Lasix) 20 mg PO DAILY Check with primary doctor 07/20/22 [History Last Taken 11/15/22 06:00] pioglitazone 30 mg tablet 30 mg PO DAILY Check with primary doctor 07/20/22 [History Last Taken 11/15/22 06:00] rosuvastatin 5 mg tablet 5 mg PO QODAY Check with primary doctor 07/20/22 [History Last Taken 11/15/22 06:00] apixaban 5 mg tablet (Eliquis) 5 mg PO BID #30 tabs 07/25/22 [Rx Last Taken 11/15/22 06:00] amiodarone 200 mg tablet 200 mg PO DAILY #90 tabs 08/20/22 [Rx Last Taken 11/15/22 06:00] cyanocobalamin (B12)-cobamamide 5,000 mcg-100 mcg sublingual tablet 1 tab sublingual QODAY Check with primary doctor 08/20/22 [History Last Taken 11/15/22 06:00] ergocalciferol (vitamin D2) 1,250 mcg (50,000 unit) capsule 50,000 unit PO Q2W Check with primary doctor 08/20/22 [History Last Taken 11/15/22 06:00] Remove Patch 1 patch topical DAILY@2200 ##0 10/29/22 [Rx Last Taken Unknown] acetaminophen 500 mg tablet 1,000 mg (2 x 500 mg) PO Q8 #0 tabs 10/29/22 [Rx Last Taken 11/15/22 06:00] baclofen 20 mg tablet 20 mg PO Q12H Check with primary doctor #7 tabs 10/29/22 [Rx Last Taken 11/15/22 06:00] gabapentin 800 mg tablet 750 mg (0.9375 x 800 mg) PO BID Check with primary doctor #7 tabs 10/29/22 [Rx Last Taken 11/15/22 06:00] ibuprofen 600 mg tablet 600 mg PO Q6H PRN PRN Pain Score 1-10 #0 tabs 10/29/22 [Rx Last Taken Unknown] insulin lispro 100 unit/mL subcutaneous pen (Humalog KwikPen (U-100) Insulin) See Protocol subcut ACHS #0 mL 10/29/22 [Rx Last Taken Unknown] lidocaine 5 % topical patch 1 patch topical DAILY #0 ea 10/29/22 [Rx Last Taken Unknown] melatonin 10 mg tablet 10 mg PO QHS PRN Sleep 10/29/22 [History Last Taken Unknown] nystatin 100,000 unit/gram topical powder (Nyamyc) 1 applic topical BID #0 grams 10/29/22 [Rx Last Taken Unknown] sennosides 8.6 mg-docusate sodium 50 mg tablet (Stool Softener-Stimulant Laxative) 2 tab PO BID PRN PRN Constipation #0 tabs 10/29/22 [Rx Last Taken Unknown] oxycodone-acetaminophen 5 mg-325 mg tablet 1 tab PO Q6H PRN pain 11/15/22 [History Last Taken 11/15/22 11:15] ascorbic acid (vitamin C) 500 mg tablet 500 mg PO BID #60 tabs 11/22/22 [Rx Last Taken Unknown] ferrous sulfate 325 mg (65 mg iron) tablet (Feosol) 325 mg PO DAILY #30 tabs 11/22/22 [Rx Last Taken Unknown] folic acid 1 mg tablet 1 mg PO DAILY #30 tabs 11/22/22 [Rx Last Taken Unknown] morphine 15 mg tablet,extended release 7.5 mg (1/2 x 15 mg) PO Q4H PRN PRN pain (scale score 7-10) 7 days #42 tabs 11/22/22 [Rx Last Taken Unknown] omeprazole 20 mg capsule,delayed release 40 mg (2 x 20 mg) PO DAILY Check with primary doctor #60 caps 11/22/22 [Rx Last Taken 11/15/22 06:00] Allergy/AdvReac Type Severity Reaction Status Date / Time tobramycin Allergy PT UNSURE Verified 12/31/22 12:45 OF REACTION Family History Mother Non Hodgkin's lymphoma Father Kidney disease Heart disease Hypertension Myocardial infarction Grandfather Heart disease Myocardial infarction Surgical History H/O exploratory laparotomy History of dental surgery History of shoulder surgery History of tonsillectomy and adenoidectomy S/P total knee replacement Social History household members: other details: Lives with her sister and brother in law. Smoking Status: Never smoker alcohol intake: current alcohol intake frequency: a few times a month substance use type: does not use caffeine: Yes Type: tea Number of servings: 1 ROS <ANGELINA Giron - Last Filed: 12/31/22 15:52> ROS ED ROS Narrative Constitutional: Negative for fever, chills, malaise. CVS: Negative for palpitations, chest pain, syncope. Respiratory: Positive for shortness of breath. Negative for cough, orthopnea. GI: Negative for abdominal pain, nausea, vomiting, diarrhea. EXAM <ANGELINA Giron - Last Filed: 12/31/22 15:52> Physical Exam Narrative Exam Narrative: CONST: Morbidly obese female sitting in no acute distress. EYES: Normal inspection. ENT: Normal inspection, moist mucous membranes. NECK: Normal inspection. RESP: No respiratory distress, CTAB. CVS: Regular rate and rhythm, no murmur, no gallop. Back: Normal inspection. SKIN: Color normal, no rash, warm, dry, intact. EXTREMITIES: Significant bilateral lymphedema, Brisk cap refill in all digits. NEURO: Oriented x4. PSYCH: Normal affect. Const Vital Signs: 12/31/22 12:38 12/31/22 12:52 12/31/22 14:11 Temperature 98.6 F Temperature Source Temporal Pulse Rate 56 L Respiratory Rate 18 Respiratory Effort Short of Breath Respiratory Depth Normal Respiratory Pattern Normal Blood Pressure 154/120 H Blood Pressure Mean 131 Pulse Ox 99 99 Oxygen Delivery Method Nasal Cannula Nasal Cannula Room Air Oxygen Flow Rate (L/min) 2 2 <Dr. Kiko Dove MD - Last Filed: 12/31/22 13:42> Physical Exam Const Vital Signs: 12/31/22 12:38 12/31/22 12:52 12/31/22 14:11 Temperature 98.6 F Temperature Source Temporal Pulse Rate 56 L Respiratory Rate 18 Respiratory Effort Short of Breath Respiratory Depth Normal Respiratory Pattern Normal Blood Pressure 154/120 H Blood Pressure Mean 131 Pulse Ox 99 99 Oxygen Delivery Method Nasal Cannula Nasal Cannula Room Air Oxygen Flow Rate (L/min) 2 2 MDM <ANGELINA Giron - Last Filed: 12/31/22 15:52> [facility] MDM Narrative Medical decision making narrative: History gathered from: Patient and sister Patient presents with intermittent shortness of breath over the last week and worsening of her chronic lymphedema. She has been nonambulatory for 2 months due to right ankle fracture. She states the rehab has been placing her on 2 L O2 as needed over the last week. She appears well and nontoxic. She is slightly hypertensive, in sinus rhythm in the 50s (on a beta-christian), and 99% on 2 L O2. I turned her down to room air and she is maintaining 94% or above. Heart lung sound normal. She has significant bilateral lymphedema and right ankle cast in place. Compartments are soft and she is neurovascularly intact. Screening labs show normal white count of 6.3. Hemoglobin of 10.0 is trending up after her recent ankle surgery. BMP shows creatinine of 1.42 slightly higher than previous. EKG is nonischemic and troponin is 6. CXR read as cardiomegaly and mild vascular congestion but proBNP is 100.8. Her previous echo also showed normal EF of 65% so I do not think she has CHF. I suspect her dyspnea is secondary to obesity hypoventilation, untreated sleep apnea, and a worsening lymphedema is due to not walking. I recommended Gentry wrap's and follow-up with her primary care doctor. She was discharged back to rehab in stable condition. I have personally performed a face to face assessment of the patient and have reviewed the TERRY Note. I performed a substantive portion of the visit including all aspects of the following. My clemons findings include: History is six 7-year-old female who has been in an extended care facility in [place] for the last several months due to a right ankle fracture that she had surgery done on here by one of the cst. Complains of mild shortness of breath. No chest pain. No fever. She is on Eliquis for a known history of intermittent A-fib. No history of DVT or PE and again she is on chronic anticoagulation twice a day. Exam is [67-year-old female no acute distress. Sitting upright in bed. Sister at bedside. H EENT exam unremarkable. Neck nontender no JVD. Lungs clear to auscultation bilaterally. Heart sinus bradycardia rate in the 50s no murmur. Chest wall nontender. Abdomen soft nontender. Moving all 4 extremities. Chronic lymphedema both lower extremities. She has a splint on her right lower ankle and lower leg. Neurologically she is awake and alert.] Medical Decision Making [67-year-old with shortness of breath. Exam benign other than lymphedema and the splint on her right ankle. Cardiac work-up.] Other additions or changes: [None] External records reviewed: 07/21/2022 echo shows EF 65%, no significant abnormality Lab Data Attestation: I reviewed the patient's lab results. Labs: Laboratory Results - last 24 hr 12/31/22 14:32 WBC 6.3 RBC 3.13 L Hgb 10.0 L Hct 34.5 L MCV 110.2 H MCH 31.9 MCHC 29.0 L RDW Std Deviation 68.3 H RDW Coeff of Tulio 16.6 H Plt Count 152 MPV 11.4 Immature Gran % (Auto) 0.300 Neut % (Auto) 69.3 Lymph % (Auto) 13.7 L Bond % (Auto) 8.6 Eos % (Auto) 7.6 H Baso % (Auto) 0.5 Absolute Neuts (auto) 4.4 Absolute Lymphs (auto) 0.86 Nucleated RBC % 0 Anisocytosis 1+ Sodium 139 Potassium 4.5 Chloride 108 H Carbon Dioxide 26.0 Anion Gap 5 BUN 31 H Creatinine 1.42 H Estim Creat Clear Calc 27.61 Est GFR (MDRD) Af Amer 47 L Est GFR (MDRD) Non-Af 39 L BUN/Creatinine Ratio 21.8 H Glucose 99 Calcium 9.9 Troponin I High Sens 6 B-Natriuretic Peptide 100.8 H Radiography Diagnostic Testing: Clinical Impression(s) from Imaging Studies Chest X-Ray 12/31/22 13:11 IMPRESSION: Cardiomegaly and mild degree of vascular congestion. Electronically Signed: David Nicole MD at 13:34 EDT Reading Location ID and State: [address] [place] [address] , Service support , ED attending interpretation of 2- view chest x-ray shows cardiomegaly, no acute infiltrate or effusion. <Dr. Kiko Dove MD - Last Filed: 12/31/22 13:42> [facility] MDM Narrative Medical decision making narrative: I have personally performed a face to face assessment of the patient and have reviewed the TERRY Note. I performed a substantive portion of the visit including all aspects of the following. My clemons findings include: History is six 7-year-old female who has been in an extended care facility in [place] for the last several months due to a right ankle fracture that she had surgery done on here by one of the cst. Complains of mild shortness of breath. No chest pain. No fever. She is on Eliquis for a known history of intermittent A-fib. No history of DVT or PE and again she is on chronic anticoagulation twice a day. Exam is [67-year-old female no acute distress. Sitting upright in bed. Sister at bedside. H EENT exam unremarkable. Neck nontender no JVD. Lungs clear to auscultation bilaterally. Heart sinus bradycardia rate in the 50s no murmur. Chest wall nontender. Abdomen soft nontender. Moving all 4 extremities. Chronic lymphedema both lower extremities. She has a splint on her right lower ankle and lower leg. Neurologically she is awake and alert.] Medical Decision Making [67-year-old with shortness of breath. Exam benign other than lymphedema and the splint on her right ankle. Cardiac work-up.] Other additions or changes: [None] External records reviewed: 07/21/2022 echo shows EF 65%, no significant abnormality Lab Data Labs: Laboratory Results - last 24 hr 12/31/22 14:32 WBC 6.3 RBC 3.13 L Hgb 10.0 L Hct 34.5 L MCV 110.2 H MCH 31.9 MCHC 29.0 L RDW Std Deviation 68.3 H RDW Coeff of Tulio 16.6 H Plt Count 152 MPV 11.4 Immature Gran % (Auto) 0.300 Neut % (Auto) 69.3 Lymph % (Auto) 13.7 L Bond % (Auto) 8.6 Eos % (Auto) 7.6 H Baso % (Auto) 0.5 Absolute Neuts (auto) 4.4 Absolute Lymphs (auto) 0.86 Nucleated RBC % 0 Anisocytosis 1+ Sodium 139 Potassium 4.5 Chloride 108 H Carbon Dioxide 26.0 Anion Gap 5 BUN 31 H Creatinine 1.42 H Estim Creat Clear Calc 27.61 Est GFR (MDRD) Af Amer 47 L Est GFR (MDRD) Non-Af 39 L BUN/Creatinine Ratio 21.8 H Glucose 99 Calcium 9.9 Troponin I High Sens 6 B-Natriuretic Peptide 100.8 H Radiography Diagnostic Testing: Clinical Impression(s) from Imaging Studies Chest X-Ray 12/31/22 13:11 IMPRESSION: Cardiomegaly and mild degree of vascular congestion. Electronically Signed: David Nicole MD at 13:34 EDT , Discharge Plan Triage Chief Complaint: Shortness of Breath ED Midlevel Provider: Jaimie Barrett ED Provider: iKko Dove Dx/Rx/DC Orders Clinical Impression: Dyspnea, Lymphedema Instructions: ED Dyspnea, ED Lymphedema Prescriptions: No Action amiodarone 200 mg tablet 200 mg PO DAILY Qty: 90 3RF metoprolol succinate 50 MG tablet extended release 24 hr 50 mg PO DAILY lisinopril 20 MG tablet 20 mg PO DAILY cyanocobalamin-cobamamide 5,000-100 mcg tablet, sublingual 1 tab sublingual QODAY ergocalciferol (vitamin D2) 1,250 mcg (50,000 unit) capsule 50,000 unit PO Q2W Rx Instructions: twice a week pioglitazone 30 mg tablet 30 mg PO DAILY Patient Comments: take 1 tablet by mouth once daily rosuvastatin 5 mg tablet 5 mg PO QODAY Patient Comments: take 1 tablet by mouth every other day furosemide [Lasix] 20 mg Tablet 20 mg PO DAILY Eliquis 5 mg Tablet 5 mg PO BID Qty: 30 2RF melatonin 10 mg Tablet 10 mg PO QHS PRN (Reason: Sleep) acetaminophen 500 mg Tablet 1,000 mg PO Q8 Qty: 0 0RF insulin lispro [Humalog KwikPen Insulin] 100 unit/mL Insulin Pen See Protocol subcut ACHS Qty: 0 0RF Protocol: 4. Sliding Scale Insulin High-Med Dosing Condition: 150-199 mg/dl = 2 units Condition: 200-259 mg/dl = 4 units Condition: 260-324 mg/dl = 6 units Condition: 325-374 mg/dl = 8 units Condition: 375-409 mg/dl = 10 units Condition: 410-449 mg/dl = 11 units Condition: Greater than 449 call physician Protocol Text: - Use for Total Daily Dose of Insulin 56-80 units - Patient who are insulin resistant or septic HIGH MEDIUM DOSING ALGORITHM lidocaine 5 % Adhesive Patch,Medicated 1 patch topical DAILY Qty: 0 0RF Protocol: *Topical Application Instructions APPLICATION INSTRUCTIONS: above right ankle. ibuprofen 600 mg Tablet 600 mg PO Q6H PRN PRN (Reason: Pain Score 1-10) Qty: 0 0RF sennosides-docusate sodium [Stool Softener-Stimulant Laxat] 8.6-50 mg Tablet 2 tab PO BID PRN PRN (Reason: Constipation) Qty: 0 0RF nystatin [Nyamyc] 100,000 unit/gram Powder 1 applic topical BID Qty: 0 0RF Protocol: *Topical Application Instructions APPLICATION INSTRUCTIONS: under breasts Remove Patch 1 patch topical DAILY@2200 Qty: 0 0RF baclofen 20 MG tablet 20 mg PO Q12H Qty: 7 0RF Rx Instructions: hold for confusion/somnolence. gabapentin 800 MG tablet 750 mg PO BID Qty: 7 0RF Rx Instructions: hold for confusion/somnolence. oxycodone-acetaminophen 5-325 mg tablet 1 tab PO Q6H PRN (Reason: pain) Patient Comments: Take 1 tablet by mouth every six hours as needed for pain omeprazole 20 MG capsule 40 mg PO DAILY Qty: 60 0RF ferrous sulfate [Feosol] 325 mg (65 mg iron) tablet 325 mg PO DAILY Qty: 30 2RF ascorbic acid (vitamin C) 500 mg tablet 500 mg PO BID Qty: 60 2RF folic acid 1 mg tablet 1 mg PO DAILY Qty: 30 2RF morphine 15 mg tablet extended release 7.5 mg PO Q4H PRN PRN (Reason: pain (scale score 7-10)) 7 Days Qty: 42 0RF Primary Care Provider: Alysa Whitt Referrals: Alysa Whitt, [facility] [Primary Care Provider] - Activity Restrictions/Additional Instructions: I think your worsening lymphedema and since you have not been able to walk over the last 2 months. Today there is no signs of dangerous causes of your shortness of breath. Your oxygen levels here been normal. Please follow-up with your primary care doctor. Disposition Disposition: Home, Self Care
[2022-12-31 14:11] VITALS: O2SAT 99
[2022-12-31 14:46] LABS: Absolute Lymphocyte Count 0.86 X10^3/uL (0.83-4.51); Absolute Neutrophil Count 4.4 X10^3/uL (2.0-7.7); Basophil# 0.03 X10^3/uL; Basophil% 0.5 % (0-1); Eosinophil# 0.48 X10^3/uL; Eosinophils% 7.6 % (0-5); Hematocrit 34.5 % (37-47); Lymphocyte # 0.86 X10^3/ul (0.83-4.51); Lymphocyte % 13.7 % (19-41); Mean Corpuscular Hgb 31.9 pg (27.0-32.0); Mean Corpuscular Volume 110.2 fL (81-99); Mean Platelet Vol. 11.4 fl (6.2-12.0); Monocyte# 0.54 X10^3/uL; Monocyte% 8.6 % (0-10); NRBC Flagged by Analyzer 0 % (0-5); Neutrophil # 4.37 X10^3/uL (2.7-7.7); Neutrophil % 69.3 % (47-70); POSITIVE MORPHOLOGY YES; Platelet Count 152 K/mm3 (150-450); RBC Distribution Width CV 16.6 % (11.6-14.6); RBC Distribution Width SD 68.3 fl (35.1-43.9); Red Blood Count 3.13 M/mm3 (4.2-5.4); White Blood Count 6.3 K/mm3 (4.4-11.0)
[2022-12-31 14:53] LABS: Differential Indicated SCAN CRITERIA MET
[2022-12-31 15:22] LABS: Anisocytosis 1+
[2022-12-31 15:24] LABS: Anion Gap 5 (5-15); BUN 31 mg/dL (7-18); BUN/Creat Ratio 21.8 RATIO (10-20); Calcium,Total 9.9 mg/dL (8.5-10.1); Chloride 108 mmol/L (98-107); Creatinine, Serum 1.42 mg/dL (0.55-1.02); EST Glomerular Filtration Rate 39 mL/min (>60); Est Glom Filt Rate - Afr Amer 47 mL/min (>60); Estimated Creatinine Clearance 27.61 ml/min; Glucose 99 mg/dL (74-106); Potassium 4.5 mmol/L (3.5-5.1); Sodium Level 139 mmol/L (136-145); Troponin-I HS 6 pg/mL (3.0-54.0)
[2022-12-31 15:34] LABS: BNP,B-Type NATRIURETIC PEPTIDE 100.8 pg/mL (0-100)
[2022-12-31 16:31] VITALS: BP 117/41; PULSE 55; RESP 16; RESP 18; O2SAT 95
--- NOTE | 2022-12-31 17:15 | ED.RN ---
UPDATED JIN BRAXTON, AT [facility] ON DISCHARGE OF PATIENT.
== END 2022-12-31 17:40 | disposition skilled nursing facility (03) ==
PROVIDERS: Physician Assistant; Emergency Provider Emergency Medicine; PCP Nurse Practitioner Family; Visit Provider Emergency Medicine
DX: R06.00 Dyspnea, unspecified (principal); E11.51 Type 2 diabetes mellitus with diabetic peripheral angiopathy without gangrene; I48.91 Unspecified atrial fibrillation; E66.01 Morbid (severe) obesity due to excess calories; Z79.4 Long term (current) use of insulin; R00.1 Bradycardia, unspecified; I10 Essential (primary) hypertension; I89.0 Lymphedema, not elsewhere classified; E78.5 Hyperlipidemia, unspecified; S82.891D Other fracture of right lower leg, subsequent encounter for closed fracture with routine healing; G89.4 Chronic pain syndrome; Z79.01 Long term (current) use of anticoagulants; Z79.899 Other long term (current) drug therapy
CPT/HCPCS: 36415; 71046; 80048; 83880; 84484; 85025; 93005; 99284; A4216

== ENCOUNTER 2023-04-11 10:59 | Outpatient (RCR) | payer MEDICARE, OTHER, SELFPAY ==
[2023-04-01 15:16] LABS: Color, Urine Yellow (Yellow); Glucose, Dipstick Normal (Normal); Ketone-Dipstick Negative (Negative); Leukocyte Esterase-Dipstick 100 /ul (Negative); Nitrite-Dipstick Positive (Negative); Occult Blood-Urine 250 /ul (Negative); Protein-Dipstick 30 mg/dl (Negative); Specific Gravity, Urine 1.005 (1.002-1.030); Urine Bilirubin Dipstick Negative (Negative); Urine Clarity Cloudy (Clear); Urine Urobilinogen 1 mg/dl (Normal)
[2023-04-11 11:48] LABS: Anion Gap 5 (5-15); BUN 33 mg/dL (7-18); BUN/Creat Ratio 23.6 RATIO (10-20); Calcium,Total 9.7 mg/dL (8.5-10.1); Chloride 113 mmol/L (98-107); EST Glomerular Filtration Rate 40 mL/min (>60); Est Glom Filt Rate - Afr Amer 48 mL/min (>60); Glucose 162 mg/dL (74-106); Potassium 4.6 mmol/L (3.5-5.1); Sodium Level 143 mmol/L (136-145)
== END 2023-04-14 18:00 | disposition home or self-care (01) ==
LOC: HHLAB 10:59
PROVIDERS: PCP Nurse Practitioner Family; Referring Provider Nurse Practitioner Family; Visit Provider Nurse Practitioner Family
DX: I11.0 Hypertensive heart disease with heart failure (principal); I50.9 Heart failure, unspecified; N39.0 Urinary tract infection, site not specified
CPT/HCPCS: 80048; 81002; 87077; 87086; 87088; 87186

== ENCOUNTER → 2023-04-21 | Outpatient (CLI) | payer MEDICARE, OTHER, SELFPAY | END | disposition home or self-care (01) | LOC: LABSPEC 15:29 | PROVIDERS: PCP Nurse Practitioner Family; Referring Provider Nurse Practitioner Family; Visit Provider Nurse Practitioner Family | DX: I11.0 Hypertensive heart disease with heart failure (principal); E11.51 Type 2 diabetes mellitus with diabetic peripheral angiopathy without gangrene; I50.9 Heart failure, unspecified; N39.0 Urinary tract infection, site not specified | CPT/HCPCS: 87493 ==

== ENCOUNTER → 2023-05-24 | Outpatient (CLI) | payer MEDICARE, OTHER, SELFPAY ==
[2023-05-24 13:27] LABS: Absolute Lymphocyte Count 1.14 X10^3/uL (0.83-4.51); Absolute Neutrophil Count 5.2 X10^3/uL (2.0-7.7); Basophil# 0.04 X10^3/uL; Basophil% 0.5 % (0-1); Eosinophils% 5.4 % (0-5); Hematocrit 45.6 % (37-47); Hemoglobin 14.2 g/dL (12.0-15.0); Lymphocyte # 1.14 X10^3/ul (0.83-4.51); Lymphocyte % 15.3 % (19-41); Mean Corp Hgb Conc 31.1 g/dL (32-36); Mean Corpuscular Hgb 32.9 pg (27.0-32.0); Mean Corpuscular Volume 105.6 fL (81-99); Mean Platelet Vol. 12.5 fl (6.2-12.0); Monocyte% 8.1 % (0-10); NRBC Flagged by Analyzer 0 % (0-5); Neutrophil % 69.9 % (47-70); Platelet Count 148 K/mm3 (150-450); RBC Distribution Width CV 14.4 % (11.6-14.6); RBC Distribution Width SD 56.9 fl (35.1-43.9); Red Blood Count 4.32 M/mm3 (4.2-5.4); White Blood Count 7.4 K/mm3 (4.4-11.0)
[2023-05-24 13:56] LABS: Hemoglobin A1c 5.5 % (3.8-5.6)
[2023-05-24 13:58] LABS: Vitamin D,25 Hydroxy 67.8 ng/mL
[2023-05-24 14:00] LABS: Microalbumin,Random Urine 5.4 mg/L (NO RANGE EST.); Microalbumin:Creatinine Ratio 17.3 mg/g CRE (<30 mg/g CRE)
[2023-05-24 14:01] LABS: ALB/GLOB Ratio 0.9 RATIO (0.9-2.4); AST(SGOT) 13 U/L (15-37); Alanine Aminotransfer ALT/SGPT 25 U/L (13-56); Albumin, Serum 3.4 g/dL (3.2-5.0); Alkaline Phosphatase 121 U/L (45-117); Anion Gap 5 (5-15); BUN 33 mg/dL (7-18); Calcium,Total 10.5 mg/dL (8.5-10.1); Chloride 108 mmol/L (98-107); Cholesterol 112 mg/dL (200); Creatinine, Serum 1.18 mg/dL (0.55-1.02); EST Glomerular Filtration Rate 49 mL/min (>60); Est Glom Filt Rate - Afr Amer 59 mL/min (>60); Globulin 3.6 g/dL (2.2-4.2); Glucose 105 mg/dL (74-106); High Density Lipoprotein 34 mg/dL; Potassium 4.7 mmol/L (3.5-5.1); Sodium Level 139 mmol/L (136-145); Thyroid Stim Hormone (TSH) 2.78 uIU/mL (0.358-3.74); Triglycerides 173 mg/dL; Very Low Density Lipoprotein 35 mg/dL (5-40)
== END | disposition home or self-care (01) ==
LOC: LABSPEC 12:30
PROVIDERS: PCP Nurse Practitioner Family; Referring Provider Nurse Practitioner Family; Visit Provider Nurse Practitioner Family
DX: E78.00 Pure hypercholesterolemia, unspecified (principal); I50.9 Heart failure, unspecified; E11.22 Type 2 diabetes mellitus with diabetic chronic kidney disease; N18.32 Chronic kidney disease, stage 3b; E55.9 Vitamin D deficiency, unspecified
CPT/HCPCS: 80053; 80061; 82043; 82306; 82570; 83036; 84443; 85025

== ENCOUNTER 2023-07-26 10:32 | Outpatient (RCR) | payer MEDICARE, OTHER, SELFPAY | END 2023-07-26 19:00 | disposition home or self-care (01) | LOC: PT 10:32 | PROVIDERS: PCP Nurse Practitioner Family; Referring Provider Specialist; Visit Provider Specialist | DX: M17.12 Unilateral primary osteoarthritis, left knee (principal); M25.562 Pain in left knee; I89.0 Lymphedema, not elsewhere classified ==

== ENCOUNTER → 2024-02-29 | Outpatient (CLI) | payer MEDICARE, OTHER, SELFPAY ==
--- NOTE | 2024-02-29 08:58 | BI_ITS ---
MAMMOGRAPHY - BILATERAL SCREENING 3-D TOMOSYNTHESIS REASON FOR EXAM: Female, 68 years old. bilateral mammo screening -- bilateral mammo screening PERTINENT HISTORY: No significant family history. TECHNIQUE: 2-D mammograms and 3-D Tomosynthesis of the breast (s) were performed. CAD was performed. COMPARISON: 10/14/2021 FINDINGS: The breast composition is composed of scattered fibroglandular density. Scattered benign calcifications are seen. No dominant mass. Segmental punctate calcifications in the retroareolar right breast at mid depth and magnification views recommended for further evaluation. No suspicious calcifications left breast.. No architectural distortion is identified. There is no skin thickening or retraction. BI/SCRN MAMM (CAD)W/KESHAWN BILAT IMPRESSION: Further imaging evaluation is recommended. ASSESSMENT CATEGORY: BIRADS Category 0: Incomplete. Need additional imaging evaluation as above. A letter regarding these results will be sent to the patient by the facility within 30 days. FOLLOW UP RECOMMENDATION: Additional imaging recommended as above. (E) Approximately 10% of breast cancers are not detected by mammography. A normal mammogram should not delay biopsy of a clinically suspicious abnormality. Electronically Signed: Carter Long MD at 14:12 EDT ,
--- NOTE | 2024-02-29 09:03 | BD_ITS ---
STUDY: DUAL ENERGY X-RAY ABSORPTIOMETRY / DXA REASON FOR EXAM: Female, 68 years old. 627.8Menopausal postmenopausalBONE DENSITY REASON FOR EXAM TECHNIQUE: Bone Mineral Density (BMD) measurements of both forearms were obtained. COMPARISON: Comparison is made with prior study September 16, 2020. FINDINGS: Right Forearm: g/cm2 (0.661) / T-score (1.5) / Z-score (3.4) Left Forearm: g/cm2 (0.729) / T-score (2.8) / Z-score (4.6) BD/Dexa Bone Density/Append Skel IMPRESSION: The patient is considered normal as outlined below according to World Aman Organization (WHO) criteria with a low fracture risk. There has been worsening of bone density since the previous examination. Reference Information: The T-score is the number of standard deviations above or below the standard which is normal for young adults at their peak bone mineral density. The World Health Organization (WHO) interprets the T-scores as follows: Above -1 Normal bone density Between -1 and -2.5 Osteopenia Equal to / or below -2.5 Osteoporosis As a practical clinical guideline, osteopenia may be graded as follows: Mild -1 through -1.5 Moderate -1.6 through -2.0 Severe -2.1 through -2.4 The Z-score is the number of standard deviations above or below age-matched controls. A Z-score of less than -1.5 would be considered abnormal. References: 1. NIH Osteoporosis and Related Bone Diseases www osteo.org 2. International Society for Clinical Densitometry www iscd.org 3. National Osteoporosis Foundation www nof.org Electronically Signed: David Nicole MD at 12:43 EDT ,
== END | disposition home or self-care (01) ==
LOC: OPBI 08:54
PROVIDERS: PCP Nurse Practitioner Family; Referring Provider Nurse Practitioner Family; Visit Provider Nurse Practitioner Family
DX: Z12.31 Encounter for screening mammogram for malignant neoplasm of breast (principal); Z78.0 Asymptomatic menopausal state
CPT/HCPCS: 77063; 77067; 77081

== ENCOUNTER → 2024-03-07 | Outpatient (CLI) | payer MEDICARE, OTHER, SELFPAY ==
[2024-03-07 13:59] LABS: AST(SGOT) 10 U/L (15-37); Alanine Aminotransfer ALT/SGPT 19 U/L (13-56); Albumin, Serum 3.5 g/dL (3.2-5.0); Alkaline Phosphatase 104 U/L (45-117); Bilirubin, Direct 0.13 mg/dL (0.00-0.30); Globulin 3.6 g/dL (2.2-4.2); Protein, Total 7.1 g/dL (6.4-8.2)
== END | disposition home or self-care (01) ==
LOC: LAB 12:20
PROVIDERS: PCP Nurse Practitioner Family; Referring Provider Physician Assistant Medical; Visit Provider Physician Assistant Medical
DX: Z79.899 Other long term (current) drug therapy (principal)
CPT/HCPCS: 36415; 80076; 84443

== ENCOUNTER → 2024-03-09 | Outpatient (CLI) | payer MEDICARE, OTHER, SELFPAY ==
--- NOTE | 2024-03-09 14:45 | BI_ITS ---
MAMMOGRAPHY - UNILATERAL DIAGNOSTIC: RIGHT BREAST REASON FOR EXAM: Female, 68 years old. Abnormal screening mammogram. PERTINENT HISTORY: Non-contributory. TECHNIQUE: Compression magnification views of the right breast were obtained. CAD: Full Field Digital Mammography with Computer Added Detection was performed. COMPARISON: Comparison is made with prior study February 29, 2024. FINDINGS: Breast Composition: There are scattered areas of fibroglandular density. Once again, amorphous calcifications are seen in the deep retroareolar region of the right breast. Biopsy recommended. No other significant abnormalities are identified. BI/DIAG MAMM W/CAD, UNILAT IMPRESSION: Amorphus calcification seen in the deep retroareolar region of the right breast. Biopsy recommended. ASSESSMENT CATEGORY: BIRADS Category 4: Suspicious - Biopsy Should Be Considered. A letter regarding these results will be sent to the patient by the facility within 30 days. Approximately 10% of breast cancers are not detected by mammography. A normal mammogram should not delay biopsy of a clinically suspicious abnormality. Electronically Signed: David Nicole MD at 8:25 EDT ,
== END | disposition home or self-care (01) ==
PROVIDERS: PCP Nurse Practitioner Family; Referring Provider Nurse Practitioner Family; Visit Provider Nurse Practitioner Family
DX: R92.1 Mammographic calcification found on diagnostic imaging of breast (principal)
CPT/HCPCS: 77065